=== PATIENT | female | born 1960 ===

== ENCOUNTER 2016-10-02 19:53 | Inpatient (IN) | payer MEDICARE, OTHER ==
[2016-10-02 20:16] VITALS: BMI 36.7
[2016-10-02] MEDS ORDERED: Sodium Chloride 0.9% 1,000 ML IV STA (20:24)
--- NOTE | 2016-10-02 20:32 | ED PDOC ---
Arrival/HPI <Juan M Jones - Last Filed: 10/02/16 23:17> - General Historian: Patient - History of Present Illness Time/Duration: Prior to Arrival Symptom Onset: Other Symptom Course: Other Context: Home <Veronica Howell - Last Filed: 10/03/16 02:24> - General Chief Complaint: High Blood Sugar Time Seen by Provider: 10/02/16 20:11 - History of Present Illness Narrative History of Present Illness (Text): 10/02/16 20:27 55 yo female with PMH of HTN, COPD, DM presented with elevated blood sugar. Patient states that she was feeling sick recently and went to see her motor vehicle emissions inspector yesterday. She was prescribed antibiotic and a medrol dose pack. The morning her sugar was 400, she retook it before she came to ED it was 600. She called her motor vehicle emissions inspector office and was advised to come into the ED. She currently takes metformin 500mg TID, and she is not on insulin. She states she continues to have SOb denies fever, chills, abd pain, chest pain, n/v/d/c. PMD: none (Veronica Howell) Past Medical History - Provider Review Nursing Documentation Reviewed: Yes - Infectious Disease Hx of Infectious Diseases: None - Tetanus Immunization Tetanus Immunization: Unknown - Reproductive Menopause: Yes - Cardiac Hx Cardiac Disorders: Yes Hx Hypertension: Yes - Pulmonary Hx Respiratory Disorders: Yes (seasonal allergies,MULTIPLE SINUS SX 4 X,REMOVED POLYPS) Hx Asthma: Yes Hx Chronic Obstructive Pulmonary Disease (COPD): Yes Hx Emphysema: Yes Other/Comment: has home o2 and nubulizer machine - Neurological Hx Neurological Disorder: No - HEENT Hx HEENT Disorder: Yes (seasonal allergies, sinusitis 4 sx's, eyeglasses/ contacts) Other/Comment: eyeglasses/contacts - Endocrine/Metabolic Hx Diabetes Mellitus Type 2: Yes - Hematological/Oncological Hx Blood Disorders: No - Integumentary Hx Dermatological Disorder: Yes (BILATERAL LE TRACE EDEMA DRY FLAKY SKIN.) - Musculoskeletal/Rheumatological Hx Falls: No - Gastrointestinal Hx Gastrointestinal Disorders: Yes (obese) Hx Gastroesophageal Reflux: Yes Other/Comment: intentional weight loss 10 lbs last month, advised by pmd - Psychiatric Hx Psychophysiologic Disorder: Yes (SMOKED CIGARETTES AND DRANK SOCIALLY H/O) Hx Anxiety: Yes Hx Depression: Yes Hx Panic Disorder: Yes Hx Substance Use: No - Surgical History Other/Comment: left arm sx post fall through hole in bridge 1984 has plates and screws - Anesthesia Hx Anesthesia: Yes Hx Anesthesia Reactions: No Hx Malignant Hyperthermia: No - Suicidal Assessment Feels Threatened In Home Enviroment: No <Veronica Howell - Last Filed: 10/03/16 02:24> Family/Social History - Physician Review Nursing Documentation Reviewed: Yes Family/Social History: CVA/TIA (sister), CAD/WA (father) Smoking Status: Former Smoker Hx Alcohol Use: Yes (H/O OF SOCIAL DRINKS) Hx Substance Use: No Hx Substance Use Treatment: No <Gumaro Howelliha - Last Filed: 10/03/16 02:24> Allergies/Home Meds <Juan M Jones - Last Filed: 10/02/16 23:17> <LyndaVeronica blanchard - Last Filed: 10/03/16 02:24> Allergies/Adverse Reactions: Allergies aspirin Allergy (Verified 05/17/16 21:00) SHORTNESS OF BREATH Home Medications: Home Meds Medication Instructions Recorded Confirmed Dexlansoprazole [Dexilant] 60 mg PO DAILY 09/05/13 10/03/16 QUEtiapine [Seroquel] 200 mg PO HS 11/21/15 10/03/16 Temazepam [Restoril] 30 mg PO HS 11/21/15 10/03/16 Tiotropium Brandon [Spiriva 2.5 mcg IH DAILY 11/21/15 10/03/16 Respimat] clonazePAM [Klonopin] 2 mg PO QID 11/21/15 10/03/16 Acetylcysteine [Mucomyst 10% 4ML] 4 ml IH 10/03/16 Albuterol HFA [Ventolin HFA 90 2 puff IH [id number] 10/03/16 10/03/16 mcg/actuation (8 g)] Arformoterol [Brovana] 15 mcg IH BID 10/03/16 10/03/16 Gabapentin [Neurontin] 300 mg PO TID 10/03/16 10/03/16 metFORMIN [glucOPHAGE] 500 mg PO TID 10/03/16 10/03/16 Review of Systems - Review of Systems Constitutional: Normal. absent: Fatigue, Fevers Eyes: Normal. absent: Vision Changes ENT: Normal. absent: Rhinorrhea, Epistaxis, Sinus Congestion Respiratory: SOB. absent: Cough, Wheezing Cardiovascular: Normal. absent: Chest Pain, Palpitations, Edema, Calf Pain Gastrointestinal: Normal. absent: Abdominal Pain, Constipation, Diarrhea, Nausea, Vomiting Genitourinary Female: Normal. absent: Dysuria, Frequency, Hematuria Musculoskeletal: Normal. absent: Arthralgias, Back Pain, Myalgias Skin: Normal. absent: Rash, Laceration, Ulcer Neurological: Normal. absent: Headache, Dizziness Endocrine: Normal Hemo/Lymphatic: Normal. absent: Easy Bleeding, Easy Bruising Psychiatric: Normal <Veronica Howell - Last Filed: 10/03/16 02:24> Physical Exam Finger Stick Blood Glucose: 500 - Systems Exam Head: Present: Atraumatic, Normocephalic Pupils: Present: PERRL. No: Pinpoint Extroacular Muscles: Present: EOMI Conjunctiva: Present: Normal Mouth: Present: Moist Mucous Membranes Nose (External): Present: Atraumatic Neck: Present: Normal Range of Motion Respiratory/Chest: Present: Clear to Auscultation, Rales (mild diffuse). No: Respiratory Distress, Accessory Muscle Use, Wheezes, Rhonchi, Tachypneic Cardiovascular: Present: Regular Rate and Rhythm, Normal S1, S2. No: Murmurs, Irregular Rhythm, Tachycardic, Bradycardic Abdomen: Present: Normal Bowel Sounds. No: Tenderness, Distention, Peritoneal Signs Back: Present: Normal Inspection Upper Extremity: Present: Normal Inspection. No: Cyanosis, Edema Lower Extremity: Present: Normal Inspection, NORMAL PULSES. No: Edema, CALF TENDERNESS Neurological: Present: GCS=15, CN II-XII Intact, Speech Normal Skin: Present: Warm, Dry, Normal Color. No: Rashes, Diaphoretic, Hot, Cold, Pale, Laceration Psychiatric: Present: Alert, Oriented x 3, Normal Insight, Normal Concentration <Veronica Howell Last Filed: 10/03/16 02:24> Vital Signs Temp Pulse Resp BP Pulse Ox 10/03/16 01:07 86 19 136/93 H 96 10/02/16 22:27 88 19 139/99 H 94 L 10/02/16 20:13 98.0 F 96 H 18 196/94 H 96 Medical Decision Making <Juan M Jones - Last Filed: 10/02/16 23:17> <Veronica Howell - Last Filed: 10/03/16 02:24> ED Course and Treatment: Patient Seen With Resident: In agreement with resident note which contains more details about the patient. Patient was seen and evaluated with resident. Came up with plan and treatment together. A 55 year old female with elevated blood sugar. Pt was recently placed on antibiotics and medrol dose pack by motor vehicle emissions inspector. Additional HPI as noted by resident. On physical exam, patient has mild diffuse rales. Ordered chest xray, labs and Urinalysis. Will give patient IV fluid. 10/02/16 23:[address] Mireles, who is aware and agrees with plan. Accepts pt in to his service. Pt will go to [facility] observation for hyperglycemia. (Juan M Jones) 10/02/16 20:34 Impression: 55 yo female with PMH of hypertension, diabetes, COPD presented to Emergency department with elevated blood sugar Differential Diagnosis include but are not limited to: - hyperglycemia Plan: - cbc, cmp - Urinalysis - cxr - ivf -- Reassess and disposition Progress Notes: 10/02/16 21:28 - blood glucose is 637, will give 10 units. Labs reviewed. CRX shows no active disease. - EKG: rate 101 bpm, sinus tachycardia, no ST changes. (Veronica Howell) - Lab Interpretations Lab Results: 10/02/16 20:40 10/02/16 20:40 Lab Results 10/02/16 21:30: pO2 30, VBG pH 7.25 L, VBG pCO2 60.0, VBG HCO3 26.3, VBG O2 Sat (Calc) 67.2 H, VBG Base Excess -2.1 L 10/02/16 20:40: WBC 8.6, RBC 4.74, Hgb 13.4, Hct 40.0, MCV 84.4, MCH 28.3, MCHC 33.5, RDW 13.8, Plt Count 271, MPV 12.6 H 10/02/16 20:40: Sodium 136, Potassium 3.9, Chloride 100, Carbon Dioxide 21, Anion Gap 19, BUN 7, Creatinine 0.8, Est GFR ( Amer) > 60, Est GFR (Non- Af Amer) > 60, Random Glucose 637 H* D, Calcium 9.4, Total Bilirubin 0.7, AST 32 , ALT 41, Alkaline Phosphatase 130, Total Protein 7.2, Albumin 4.1, Globulin 3.1 , Albumin/Globulin Ratio 1.3 10/02/16 20:30: Urine Color Straw, Urine Appearance Clear, Urine pH 6.0, Ur Specific [place] <= 1.005, Urine Protein Negative, Urine Glucose (UA) >=1000, Urine Ketones Negative, Urine Blood Trace-lysed H, Urine Nitrate Negative, Urine Bilirubin Negative, Urine Urobilinogen 0.2, Ur Leukocyte Esterase Negative , Urine RBC 0 - 2, Urine WBC 0 - 2, Ur Epithelial Cells 0 - 2, Urine Bacteria Trace - RAD Interpretation Radiology Orders: 10/02/16 20:23 CHEST PORTABLE [RAD] Stat - EKG Interpretation EKG Interpretation (Text): 10/02/16 22:39 EKG: Ordered, reviewed, and independently interpreted the EKG. Rate : 101 BPM Rhythm : sinus tachycardia Interpretation : No ST-segment changes (Lynda,Veronica) - Medication Orders Current Medication Orders: Albuterol/Ipratropium (Duoneb 3 Mg/0.5 Mg (3 Ml) Ud) 3 ml IH [id number] RIGOBERTO Albuterol/Ipratropium (Duoneb 3 Mg/0.5 Mg (3 Ml) Ud) 3 ml IH Q2H PRN PRN Reason: Shortness of Breath Atorvastatin Calcium (Lipitor) 40 mg PO DIN [facility] Last Admin: 10/02/16 23:40 Dose: 40 mg Budesonide (Pulmicort Respules) 0.5 mg IH BIDRESP RIGOBERTO Last Admin: 10/02/16 23:40 Dose: 0.5 mg Cholecalciferol (Vitamin D) 2,000 iu PO DAILY RIGOBERTO Clonazepam (Klonopin) 2 mg PO QID RIGOBERTO PRN Reason: Protocol Heparin Sodium (Porcine) (Heparin) 5,000 units SC Q8H RIGOBERTO PRN Reason: Protocol Last Admin: 10/02/16 23:39 Dose: 5,000 units Sodium Chloride (Sodium Chloride 0.9%) 1,000 mls @ 100 mls/hr IV .Q10H [facility] Stop: 10/07/16 03:14 Last Admin: 10/02/16 23:59 Dose: 100 mls/hr Insulin Detemir (Levemir) 20 unit SC Q12 [facility] Last Admin: 10/03/16 00:52 Dose: 20 unit Insulin Human Lispro (Humalog High) 0 units SC ACHS [facility] PRN Reason: Protocol Losartan Potassium (Cozaar) 50 mg PO DAILY [facility] Metformin HCl (Glucophage) 1,000 mg PO BID [facility] Last Admin: 10/03/16 00:53 Dose: Montelukast Sodium (Singulair) 10 mg PO HS [facility] Last Admin: 10/02/16 23:40 Dose: 10 mg Non-Formulary Medication (Temazepam [Restoril]) 30 mg PO HS [facility] Non-Formulary Medication (Tiotropium Brandon [Spiriva Respimat]) 2.5 mcg IH DAILY [facility] Pantoprazole Sodium (Protonix Ec Tab) 40 mg PO ACB [facility] Paroxetine HCl (Paxil) 20 mg PO DAILY [facility] Potassium Chloride (K-Dur 20 Meq Er Tab) 20 meq PO BID [facility] Last Admin: 10/02/16 23:40 Dose: 20 meq Quetiapine Fumarate (Seroquel) 200 mg PO HS [facility] PRN Reason: Protocol Last Admin: 10/02/16 23:57 Dose: 200 mg Discontinued Medications Sodium Chloride (Sodium Chloride 0.9%) 1,000 mls @ 999 mls/hr IV .Q1H1M [facility] Stop: 10/02/16 21:24 Last Admin: 10/02/16 20:43 Dose: 999 mls/hr Insulin Human Regular (Humulin R) 10 units SC ONCE ONE Stop: 10/02/16 21:27 Last Admin: 10/02/16 21:55 Dose: 10 units Insulin Human Regular (Humulin R) 10 units IVP STAT [facility] Stop: 10/02/16 23:10 Last Admin: 10/02/16 23:40 Dose: 10 units Non-Formulary Medication (Insulin Detemir [Levemir]) 15 units SC BID [facility] - Scribe Statement The provider has reviewed the documentation as recorded by the Scribe <Juan M Jones - Last Filed: 10/02/16 23:17> <Veronica Howell - Last Filed: 10/03/16 02:24> - Scribe Statement Marilin Vu Provider Scribe Attestation: All medical record entries made by the Scribe were at my direction and personally dictated by me. I have reviewed the chart and agree that the record accurately reflects my personal performance of the history, physical exam, medical decision making, and the department course for this patient. I have also personally directed, reviewed, and agree with the discharge instructions and disposition. (Juan M Jones) Disposition/Present on Arrival <Juan M Jones - Last Filed: 10/02/16 23:17> - Present on Arrival Any Indicators Present on Arrival: No History of DVT/PE: No History of Uncontrolled Diabetes: No Urinary Catheter: No History of Decub. Ulcer: No History Surgical Site Infection Following: None - Disposition Have Diagnosis and Disposition been Completed?: Yes Disposition Time: 23:16 Patient Plan: Admission <Veronica Howell - Last Filed: 10/03/16 02:24> - Disposition Diagnosis: Hyperglycemia Disposition: HOSPITALIZED Condition: FAIR
[2016-10-02 20:41] LABS: URINE BILIRUBIN NEGATIVE (NEGATIVE); URINE BLOOD TRACE-LYSED (NEGATIVE); URINE GLUCOSE (UA) >=1000 mg/dL (NEGATIVE); URINE KETONE NEGATIVE (NEGATIVE); URINE LEUKOCYTE ESTERASE NEGATIVE Leu/uL (NEGATIVE); URINE PROTEIN NEGATIVE mg/dL (<30 mg/dL); URINE UROBILINOGEN 0.2 E.U./dL (<1 E.U./dL)
[2016-10-02 20:54] LABS: MEAN CELL VOLUME 84.4 fL (80.0-105.0); MEAN CORPUSCULAR HEMOGLOBIN 28.3 pg (25.0-35.0); MEAN CORPUSCULAR HGB CONC 33.5 g/dl (31.0-37.0); MEAN PLATELET VOLUME 12.6 fl (7.0-11.0); RED CELL DISTRIBUTION WIDTH 13.8 % (11.5-14.5); WHITE BLOOD COUNT 8.6 10^3/ul (4.5-11.0)
[2016-10-02 20:56] LABS: URINE APPEARANCE CLEAR (CLEAR); URINE COLOR STRAW (YELLOW)
[2016-10-02 21:00] LABS: ALB/GLOB RATIO 1.3 (1.1-1.8); ALKALINE PHOSPHATASE 130 U/L (38-133); ALT/SGPT 41 U/L (7-56); AST/SGOT 32 U/L (15-39); BILIRUBIN,TOTAL 0.7 mg/dL (0.2-1.3); BLOOD UREA NITROGEN 7 mg/dL (7-21); CALCIUM 9.4 mg/dL (8.4-10.5); CARBON DIOXIDE 21 mmol/L (21-33); CHLORIDE 100 mmol/L (98-107); GFR AFRICAN-AMERICAN > 60; POTASSIUM 3.9 mmol/L (3.6-5.0); SODIUM 136 mmol/L (132-148); TOTAL PROTEIN 7.2 g/dL (5.8-8.3)
[2016-10-02] MEDS ORDERED: Insulin Regular 1 UNITS/0.01 ML ML SC ONE (21:26)
[2016-10-02 21:36] LABS: URINE BACTERIA TRACE (NEG); URINE EPITHELIAL CELLS 0 - 2 /hpf (0-5); URINE RBC 0 - 2 /hpf (0-2); URINE WBC 0 - 2 /hpf (0-6)
[2016-10-02 21:43] LABS: VENOUS BLOOD GAS BASE EXCESS -2.1 mmol/L (0.0-2.0); VENOUS BLOOD PH 7.25 (7.32-7.43)
[2016-10-02 22:00] LABS: GLUCOSE,RANDOM 637 mg/dL (70-110)
[2016-10-02] MEDS ORDERED: Albuterol-Ipratrop 3 mg / 0.5 (3 ml) UD IH PRN (23:08)
[2016-10-02] MEDS ORDERED: Insulin Regular 1 UNITS/0.01 ML ML IVP STA (23:09)
[2016-10-02] MEDS ORDERED: Temazepam [Restoril] 30 MG (HOME MED) PO SCH (23:15)
[2016-10-02] MEDS ORDERED: INSULIN DETEMIR 15 UNIT SC SCH (23:15)
[2016-10-02] MEDS: Budesonide 0.5 mg/2 ml Inhal Susp UD IH SCH (23:40)
[2016-10-02] MEDS: Potassium Chloride 20 mEq ER Tab PO SCH (23:40)
[2016-10-02] MEDS: Sodium Chloride 0.9% 1,000 ML IV SCH (23:59)
[2016-10-03] MEDS: Insulin Detemir 100 units/ml Vial (Levemir) SC SCH ×3 (00:52→21:58)
[2016-10-03 02:30] VITALS: RESP 20
[2016-10-03] MEDS: Albuterol-Ipratrop 3 mg / 0.5 (3 ml) UD IH SCH ×4 (02:46→20:20)
[2016-10-03] MEDS ORDERED: Pantoprazole 40 mg EC Tab PO SCH (06:30)
[2016-10-03 06:39] LABS: ADD MANUAL DIFF? NO
[2016-10-03 07:25] LABS: ALB/GLOB RATIO 1.1 (1.1-1.8); ALKALINE PHOSPHATASE 95 U/L (38-133); ALT/SGPT 35 U/L (7-56); AST/SGOT 21 U/L (15-39); BILIRUBIN,DIRECT 0.2 mg/dL (0.0-0.4); BILIRUBIN,TOTAL 0.5 mg/dL (0.2-1.3); BLOOD UREA NITROGEN 7 mg/dL (7-21); CALCIUM 8.6 mg/dL (8.4-10.5); CARBON DIOXIDE 28 mmol/L (21-33); CHLORIDE 107 mmol/L (98-107); CHOLESTEROL 176 mg/dL (130-200); GFR AFRICAN-AMERICAN > 60; GLUCOSE,RANDOM 242 mg/dL (70-110); MAGNESIUM 1.8 mg/dL (1.7-2.2); POTASSIUM 3.7 mmol/L (3.6-5.0); SODIUM 142 mmol/L (132-148)
[2016-10-03 07:32] LABS: BASO # 0.03 K/mm3 (0.0-2.0); BASO % 0.4 % (0.0-3.0); EOS # 0.1 (0.0-0.7); EOS % 1.4 % (1.5-5.0); GRAN # 4.22 (1.4-6.5); GRAN % 57.4 % (50.0-68.0); HEMATOCRIT 35.7 % (36.0-48.0); LYMPH # 2.5 (1.2-3.4); LYMPH % 34.1 % (22.0-35.0); MEAN CELL VOLUME 84.4 fL (80.0-105.0); MEAN CORPUSCULAR HEMOGLOBIN 27.7 pg (25.0-35.0); MEAN CORPUSCULAR HGB CONC 32.8 g/dl (31.0-37.0); MEAN PLATELET VOLUME 12.3 fl (7.0-11.0); MONO # 0.5 (0.1-0.6); MONO % 6.7 % (1.0-6.0); PLATELET COUNT 231 10^3/uL (120.0-450.0); RED CELL DISTRIBUTION WIDTH 13.9 % (11.5-14.5); WHITE BLOOD COUNT 7.4 10^3/ul (4.5-11.0)
[2016-10-03] MEDS: Pantoprazole 40 mg EC Tab PO SCH (08:04)
[2016-10-03] MEDS: Insulin Lispro (HUMAlog) HIGH Coverage SC SCH ×4 (08:04→21:59)
[2016-10-03] MEDS ORDERED: TIOTROPIUM BROMIDE 2.5 MCG IH SCH (10:00)
--- NOTE | 2016-10-03 10:16 | RAD ---
HISTORY: Shortness of breath COMPARISON: 10/01/2016 FINDINGS: LUNGS: There is mild pulmonary hyperinflation. No focal consolidation. PLEURA: No significant pleural effusion identified, no pneumothorax apparent. CARDIOVASCULAR: Normal. OSSEOUS STRUCTURES: No significant abnormalities. VISUALIZED UPPER ABDOMEN: Normal. OTHER FINDINGS: None. IMPRESSION: COPD. No acute findings.
[2016-10-03] MEDS: Potassium Chloride 20 mEq ER Tab PO SCH ×2 (11:02→17:36)
[2016-10-03] MEDS: Sodium Chloride 0.9% 1,000 ML IV SCH ×2 (11:04→17:36)
[2016-10-03] MEDS: Budesonide 0.5 mg/2 ml Inhal Susp UD IH SCH ×2 (13:11→20:20)
[2016-10-03] MEDS: cefTRIAXone 1 gm 1 GM/100 ML BAG IVPB SCH (13:35)
[2016-10-03] MEDS: Omega-3-Acid Ethyl Esters 1 GM Cap PO SCH (17:35)
--- NOTE | 2016-10-03 20:25 | PN ---
DATE: 10/03/2016 SUBJECTIVE: The patient is seen in room 566, bed 3. The patient is out of bed to chair. The patien t is ambulating. The patient is complaining of some shortness of breath and wheezing despite nebuliz er treatment. The patient is alert, awake, oriented x 3. Overnight nurse's notes were reviewed. PHYSICAL EXAMINATION: VITAL SIGNS: T-max afebrile, heart rate 91, 87, 84 71, respirations 18-20, O2 sat mid to high 90s. Blood pressure 143/87, 144/70, 138/70. Intake output not documented. HEAD: Normocephalic, atraumatic. HEENT: Shows pinkish conjunctivae. Dry oral mucosa. No neck rigidity. CHEST: Kyphosis. LUNGS: Show coarse rhonchi bilaterally. Positive occasional wheezing anterior lung urbina bilateral ly. CARDIOVASCULAR: Shows S1, S2. ABDOMEN: Obese, protuberant, positive bowel sounds. GENITALIA: Female. RECTAL: Deferred. EXTREMITIES: Shows no pitting edema, no calf tenderness, no Homans sign. NEUROLOGIC: The patient is alert, awake, oriented x 3. Cranial nerves II-XII are intact. Gait exam ination ____ MUSCULOSKELETAL: Shows elevated body mass index. DIAGNOSTICS: CBC was reviewed. CMP, LFTs were reviewed. Blood glucose is down to 246 from greater than 600. The patient's other diagnostic data is pending. Fingerstick blood sugar was reviewed which was a mid to high 200s. IMPRESSION AND PLAN: 1. Steroid induced hyperglycemia and un-controlled diabetes mellitus. 2. Acute exacerbation of chronic obstructive pulmonary disease, with mild bronchospasm and wheezing. 3. Moderate obesity. 4. Hypertension. 5. History of psychiatric disorder, with history of anxiety, depression. 6. Dyslipidemia. 7. Hypovitaminosis D. 8. Uncontrolled diabetes mellitus secondary to steroids. 9. Deconditioning. PLAN: At this time, patient is to be continued on IV fluids. The patient will be started on broad s pectrum IV antibiotics. Pulmonary consultation has been ordered. The patient will be continued on b christine and bolus insulin as ordered with sliding scale coverage, oral hypoglycemic has been ordered. T he patient has been ordered repeat labs. At present, patient's further management will be dependent upon the patient's clinical condition, hemodynamic status, and as per patient's response to therapeut ic intervention, as per patient's diagnostic test results and as per recommendation by all the physic ians involved in care of the patient. The patient has been requested to be seen by Dr. Mansi De, en docrinologist, and ____ from pulmonary. At present, patient's further management will be depende nt upon the patient's clinical condition, hemodynamic status, and as per patient's response to therap eutic intervention, as per patient's diagnostic test results and as per patient's clinical condition. The patient has been explained about the details of her medical condition, need for further diagnos tic and therapeutic intervention. Need for further management was explained to the patient in layman 's language. All questions and concerns answered. Dictated and electronically signed, not read. Christian Mireles MD cc: [id number] TT: 10/03/2016 20:25:05 Confirmation # [id number] Dictation # [id number] timo
--- NOTE | 2016-10-03 23:55 | CARD ---
APPROVED REPORT EKG Measurement Heart [id number] <Conclusion> Sinus tachycardia Left axis deviation Inferior infarct, age undetermined T wave abnormality, consider anterior ischemia Abnormal ECG
[2016-10-04] MEDS: Albuterol-Ipratrop 3 mg / 0.5 (3 ml) UD IH SCH ×3 (01:11→13:21)
[2016-10-04] MEDS: Budesonide 0.5 mg/2 ml Inhal Susp UD IH SCH (07:15)
[2016-10-04 07:33] LABS: ADD MANUAL DIFF? NO
[2016-10-04 07:34] VITALS: O2SAT 97
[2016-10-04 07:40] LABS: BASO # 0.02 K/mm3 (0.0-2.0); BASO % 0.3 % (0.0-3.0); EOS # 0.6 (0.0-0.7); EOS % 9.3 % (1.5-5.0); GRAN # 2.52 (1.4-6.5); GRAN % 42.4 % (50.0-68.0); HEMATOCRIT 36.8 % (36.0-48.0); LYMPH # 2.5 (1.2-3.4); LYMPH % 41.9 % (22.0-35.0); MEAN CORPUSCULAR HEMOGLOBIN 27.5 pg (25.0-35.0); MEAN CORPUSCULAR HGB CONC 32.3 g/dl (31.0-37.0); MONO # 0.4 (0.1-0.6); MONO % 6.1 % (1.0-6.0); PLATELET COUNT 209 10^3/uL (120.0-450.0); RED CELL DISTRIBUTION WIDTH 14.1 % (11.5-14.5); WHITE BLOOD COUNT 5.9 10^3/ul (4.5-11.0)
[2016-10-04 07:48] LABS: ALB/GLOB RATIO 1.1 (1.1-1.8); ALKALINE PHOSPHATASE 86 U/L (38-133); ALT/SGPT 29 U/L (7-56); AST/SGOT 23 U/L (15-39); BILIRUBIN,DIRECT 0.3 mg/dL (0.0-0.4); BILIRUBIN,TOTAL 0.5 mg/dL (0.2-1.3); BLOOD UREA NITROGEN 9 mg/dL (7-21); CALCIUM 8.1 mg/dL (8.4-10.5); CARBON DIOXIDE 28 mmol/L (21-33); CHLORIDE 109 mmol/L (98-107); GFR AFRICAN-AMERICAN > 60; GLUCOSE,RANDOM 243 mg/dL (70-110); MAGNESIUM 1.5 mg/dL (1.7-2.2); POTASSIUM 3.8 mmol/L (3.6-5.0); SODIUM 142 mmol/L (132-148); TOTAL PROTEIN 5.5 g/dL (5.8-8.3)
[2016-10-04] MEDS: Insulin Lispro (HUMAlog) HIGH Coverage SC SCH ×3 (08:27→16:52)
[2016-10-04] MEDS: Pantoprazole 40 mg EC Tab PO SCH (08:27)
[2016-10-04] MEDS ORDERED: Insulin Detemir 100 units/ml Vial (Levemir) SC ONE (10:54)
[2016-10-04] MEDS ORDERED: Potassium Chloride 20 mEq ER Tab PO ONE (10:54)
[2016-10-04] MEDS ORDERED: cefTRIAXone 1 gm 1 GM/100 ML BAG IVPB ONE (10:55)
[2016-10-04] MEDS ORDERED: Omega-3-Acid Ethyl Esters 1 GM Cap ONE (10:55)
[2016-10-04] MEDS: Potassium Chloride 20 mEq ER Tab PO SCH (11:03)
[2016-10-04] MEDS: Insulin Detemir 100 units/ml Vial (Levemir) SC SCH (11:03)
[2016-10-04] MEDS: cefTRIAXone 1 gm 1 GM/100 ML BAG IVPB SCH (11:05)
[2016-10-04] MEDS: Omega-3-Acid Ethyl Esters 1 GM Cap PO SCH ×2 (11:06→17:13)
[2016-10-04] MEDS: Sodium Chloride 0.9% 1,000 ML IV SCH (11:07)
[2016-10-04 11:08] VITALS: PULSE 88
[2016-10-04] MEDS ORDERED: Insulin Lispro (humaLOG) MEDIUM Coverage SC ONE (11:55)
[2016-10-04] MEDS: Magnesium Sulfate 2 GM in Sodium Chloride 0.9% 100 ML IVPB SCH ×2 (13:29→15:11)
--- NOTE | 2016-10-04 14:36 | CON ---
DATE: 10/04/2016 ROOM: 566 HISTORY OF PRESENT ILLNESS: This is a 55-year-old female with recent uncontrolled type 2 insulin-req uiring diabetes, presenting here with marked hyperglycemic accelerations related to the intercurrent oral steroid therapy given for exacerbation of COPD and is now being referred for diabetic evaluation and management. She is actually very well controlled only on oral hypoglycemic therapy with glucose levels ranging now from 211-240 and 317 mg/dL. PAST MEDICAL HISTORY: As mentioned above, history of type 2 diabetes, controlled on oral hypoglycemi c therapy with metformin given as 500 mg b.i.d. as noted; history of hypertensive cardiovascular dise ase and dyslipidemia; history of COPD with frequent exacerbations of the same and received a recent M edrol Dosepak from her public health internship as noted a few days prior to admission. Her glucose values were over 600 mg/dL and was advised immediate admission thereof through the Emergency Room. History of g eneralized anxiety and depression, history of hypertension and dyslipidemia as mentioned. History of super morbid obesity. FAMILY HISTORY: Positive for hypertension and heart disease. SOCIAL HISTORY: The patient has supportive family. No known substance use. REVIEW OF SYSTEMS: As mentioned above, admits to generalized body weakness with easy fatigability an d tiredness and suboptimal energy level. Also admits to episodic dizziness and lightheadedness, wors e on the day of admission. No chest pains or palpitations, but admits to progressive shortness of br eath initially on exertion and then at rest with paroxysmal nocturnal dyspnea and also bronchorrhea w ith productive cough. Denies any pleuritic pain. Her oral intake has been variable and suboptimal w ith nausea, dyspepsia, and vague upper abdominal pain. PHYSICAL EXAMINATION: GENERAL: This is an obese female in no apparent distress. VITAL SIGNS: Blood pressure of 150/90, pulse of 100 beats per minute and regular, temperature 98, re spirations 20. Height is 5 feet 4 inches, weight is 214 pounds. HEENT: Head normocephalic. Eyes anicteric with pink conjunctivae. Fundoscopy not possible at this time. Ears, nose and throat otherwise normal. NECK: Supple. Thyroid gland is normal size. No carotid bruits. No cervical adenopathy. CARDIOPULMONARY: There is an adynamic precordium. S1, S2 is rapid and regular. LUNGS: Show scattered rhonchi. ABDOMEN: Flat, soft with positive bowel sounds. EXTREMITIES: No peripheral edema. Pulses are +2 bilaterally. LABORATORY DATA: Her chemistries showed a BUN of 9, sodium 142, potassium 3.8, chloride 109, CO2 28, glucose 243 and creatinine 0.8. ASSESSMENT: This is a 55-year-old female with uncontrolled and decompensated type 2 insulin-requirin g diabetes, presenting here with acute exacerbation of chronic obstructive pulmonary disease and rece nt oral steroid therapy with expected hyperglycemic accelerations which will be temporary and should improve as her clinical condition improves accordingly. PLAN OF MANAGEMENT: Will continue the present basal insulin as given with Levemir given twice a day as ordered. Will continue also the high dose correction scale using Humalog insulin as given. Howev er, if hyperglycemic levels persist, then will switch her over to a combination of a basal and bolus insulin regimen temporarily as indicated. Will follow and advise accordingly. She may really not re quire basal insulin for outpatient management, but just for inpatient diabetic management. Will cont inue the basal and bolus insulin dose regimen as ordered. Will consider the addition of Amaryl on to p of her metformin and even Januvia as her hyperglycemic levels persist accordingly. For now, will o btain serial chemistries and supplement accordingly as needed. Mansi De MD cc: [id number] TT: 10/04/2016 14:35:51 Confirmation # [id number] Dictation # [id number] mn
--- NOTE | 2016-10-04 15:34 | CON ---
DATE: 10/04/2016 HISTORY OF PRESENT ILLNESS: The patient is a reilly 55-year-old female who was last seen in the [facility] with acute exacerbation of bronchial asthma. She has underlying airtrapping consistent with a ashly gnosis of COPD. She was in distress in the office but did not want to go to the hospital. She state d that if she took corticosteroids at home she felt that she would improve. We were concerned about her blood sugar as she does have diabetes mellitus and is extremely overweight. The patient took her double Medrol Dosepak and was told to call me daily with blood sugars. Her normal blood sugar is 15 0; it has never been higher than 300. During the third day of the corticosteroid treatment, she stat es that her blood sugar went up as high as 600. I do not have written confirmation of this. She cam e to the Emergency Room and was admitted. She is clearly better than earlier. She is comfortable. She is lying in bed flat. There is no dyspnea. Other problems remain the same, however, but she is markedly improved and her blood sugar is being evaluated. PAST MEDICAL HISTORY: Includes obesity, hypertension, diabetes mellitus, dyslipidemia, hypovitaminos is D, severe chronic obstructive pulmonary disease characterized by acute asthma with significant air trapping. She also has a history of obstructive sleep apnea. SOCIAL HISTORY: The patient claims to never have smoked. She has no travel history. No occupationa l exposure. The obesity has progressed over the years. Navi Bowman MD cc: [id number] TT: 10/04/2016 10:50:08 Confirmation # [id number] Dictation # [id number] mn
[2016-10-04 16:53] VITALS: BP 136/87; TEMP 97.3
--- NOTE | 2016-10-04 18:44 | DS ---
The patient is seen lying in the bed in room 566, bed 3. The patient is lying in the bed, comfortabl e, watching TV. PHYSICAL EXAMINATION: VITAL SIGNS: T-max 97.7, heart rate 88, blood pressure 136/87, 130/90. Respirations 20, O2 sat 97%. HEAD: Normocephalic, atraumatic. HEENT: Shows pink conjunctivae, anicteric sclerae. No oropharyngeal lesion. NECK: No neck rigidity. CHEST: Kyphosis. LUNGS: Shows decreasing rhonchi, no wheezing. CARDIOVASCULAR: Shows S1, S2, regular rhythm. ABDOMEN: Obese, protuberant, positive bowel sounds. GENITALIA: Female. RECTAL: Deferred. EXTREMITIES: Shows no pitting edema, no calf tenderness, no Homans' sign. NEUROLOGIC: The patient is alert, awake, oriented x 3. Cranial nerves II-XII intact. GAIT: Independent. VASCULAR: Palpable pulses. MUSCULOSKELETAL: Shows a body mass index of 37. Cranial nerves II-XII intact. VASCULAR: Palpable pulses. DIAGNOSTICS 10/04: WBC 5.9, hemoglobin/hematocrit 11.9 and 36.8, platelet 209. Sodium 142, potassiu m 3.8, chloride 109, CO2 28, anion gap 9, BUN 9, creatinine 0.8, GFR greater than 60, glucose 240, 21 1, 243, 242. Calcium 8.1, magnesium 1.5. Hemoglobin A1c 11.1, fructosamine 365. LFTs are normal wi th a total protein of 5.5, albumin 2.9. Vitamin D less than 12.8. Cholesterol 176, LDL 143, triglyc eride 278. The patient seen by demand planning manager. The patient seen by demand planning manager, Dr. Mansi De. Their renan mmendations noted. Recommendation is to add Amaryl on top of metformin and Januvia upon discharge. FINAL IMPRESSION, PLAN, AND DISCHARGE DIAGNOSES: 1. Uncontrolled type 2 diabetes mellitus with severe hyperglycemia secondary to intravenous steroids and uncontrolled diabetes with hemoglobin A1c of 11.1 and elevated fructosamine of 365. 2. History of hypertension. 3. Morbid obesity with elevated body mass index of 37. 4. Transient hypoxemia. 5. Acute exacerbation of chronic obstructive pulmonary disease with wheezing and bronchospasm (resol elva). 6. Normocytic anemia. 7. Hyperglycemia with uncontrolled type 2 diabetes mellitus with hemoglobin A1c of 11.1 and fructosa mine of 365. 8. Hypomagnesemia. 9. Mild protein malnutrition and hypoalbuminemia. 10. Hypertriglyceridemia, hypercholesterolemia with elevated LDL and decreased HDL. 11. Hypovitaminosis D. 12 Glycosuria. 13. Microscopic hematuria. 14. Bacteriuria. 15. Chronic obstructive pulmonary disease with pulmonary hyperinflation. 16. Left axis deviation. 17. History of anxiety disorder, bipolar disorder, panic disorder, probable bipolar spectrum disorde r and major depression, severe generalized anxiety disorder. 16. History of chronic obstructive pulmonary disease, dyslipidemia, hypovitaminosis D, history of di abetic neuropathy, history of hypertension, history of hypokalemia, history of insomnia. PLAN: At this time, patient is to be discharged home as cleared by endocrinology. The patient was s een by case management. The patient already has home O2 and nebulizer and glucometer. The patient i s not eligible for VNA at this time due to homebound eligibility criteria and patient is not homeboun d. AT PRESENT DISCHARGE MEDICATIONS: Mucomyst nebulizer 4 times a day, Ventolin HFA as needed, DuoNeb n ebulizer every 6 hours around the clock q. 2 hours p.r.n., Brovana 15 mcg twice a day, Lipitor 40 mg daily, Pulmicort nebulizer 0.5 mg twice a day, vitamin D3 2000 international units daily, Klonopin 2 mg 4 times a day, Dexilant 60 mg daily, doxycycline 100 mg q. 12, Neurontin 300 three times a day, Am aryl 4 mg twice a day, Cozaar 50 mg daily, metformin 1000 mg twice a day, Singulair 10 mg at bedtime , Lovaza 2 grams twice a day, Paxil 20 mg daily, K-Dur 20 mEq twice a day, Seroquel 200 mg at bedtime , Januvia 100 mg daily, Restoril 30 mg at bedtime, Spiriva Respimat 2.5 mcg per inhaler, metformin 10 00 mg twice a day, Amaryl 4 mg twice a day. At present, patient is being discharged on above medications, the patient's discharge medications hav e been electronically submitted to [facility] [place]. The patient is to be discharge d home. DISCHARGE FOLLOWUP: With Dr. Mireles within 1 week with all medications. Discharge medicines as per a mbulatory orders plus new script. The patient was also to be given copy of moderate carbohydrate hea rt healthy diet upon discharge. During this hospitalization, the patient was extensively explained about the details of her medical c ondition, diagnosis, management, treatment plan. Outpatient close followup was extensively explained to the patient at length and all questions and concerns answered, which patient acknowledged and und erstood. The patient was also advised weight loss. The patient was advised [facility] and endocrinology followup. Time spent: 45 minutes. Dictated and electronically signed, not read. Christian Mireles MD cc: [id number] TT: 10/04/2016 18:43:23 jn
--- NOTE | 2016-10-04 21:32 | HP ---
HISTORY OF PRESENT ILLNESS: The patient is a 55-year-old obese female, came to the [facility] Emergency Room complaining of elevated blood sugar. The patient came in as a walk-in. The pat ient stated that the patient was recently seen by Dr. Dubois and was started on Medrol Dosepak an d the blood sugar started going up and now the blood sugar is greater than 600. According to the ER physician evaluation note, the patient presented with elevated blood sugar. The patient stated that she was seen by her pile driving supervisor. The patient was given antibiotic and Medrol Dosepak, initially bl ood sugars stayed around 200-300, but later in the last day or so, the patient's blood sugar is going up to greater than 600. REVIEW OF SYSTEMS: A 13-system review was done. Pertinent positive and negative dictated above. CODE STATUS: Full code. ADVANCE DIRECTIVE AND LIVING WILL: None. ALLERGIES: PENICILLIN. HEIGHT: 5 feet 4 inches. WEIGHT: 214. BMI: 37. HOME MEDICATIONS: 1. Klonopin 2 mg 4 times a day. 2. Spiriva Respimat 2.5 mcg daily. 3. Restoril 30 mg at bedtime. 4. Seroquel 200 mg at bedtime. 5. Paxil 20 mg daily. 6. Singulair 10 mg at bedtime. 7. Cozaar 50 mg daily. 8. Neurontin 300 mg 3 times a day. 9. Dexilant 60 mg daily. 10. Vitamin D3 2000 international units daily. 11. Pulmicort nebulizer 0.5 mg nebulizer twice a day. 12. Brovana 15 mcg twice a day. 13. Albuterol, Ventolin HFA 2 puffs every 6 hours. 14. Mucomyst nebulizer treatment. 15. K-Dur 20 mEq twice a day. 16. Lovaza 2 grams twice a day. 17. Metformin 500 mg 3 times a day. 18. Vitamin D3 2,000 units daily. 19. Lipitor 40 mg daily. 20. DuoNeb nebulizer every 2 p.r.n. and every 6 hours around the clock. SOCIAL HISTORY: Positive for social alcohol use and positive for former smoker. The patient denies any communicable transmissible disease. PAST MEDICAL AND SURGICAL HISTORY: Significant for hypertension, history of obesity, history of sherley nsulin-requiring type 2 diabetes mellitus, history of obesity, history of gastric ulcer, history of g astroesophageal reflux, history of sinusitis, history of degenerative joint disease of the neck and k nees, history of left arm surgery, history of former nicotine dependence and social alcohol use, hist ory of depression, anxiety, panic disorder, history of former nicotine dependence, history of tubal l igation, history of chronic obstructive pulmonary disease, history of multiple sinus surgeries and si nus polyp surgery. The patient's past medical history is also significant for multiple recurrent sin usitis, history of morbid obesity, history of concentric left ventricular hypertrophy, history of mil d pulmonary hypertension, history of anxiety, history of depression, history of insomnia, history of left anterior hemiblock. The patient's past medical history is significant for multiple exacerbation s of chronic obstructive pulmonary disease with bronchospasm and asthma, history of hypertension, his tory of uncontrolled diabetes mellitus, history of hypokalemia, history of atelectasis and pneumonia, history of hepatic steatosis, history of hypertensive cardiovascular disease, history of mild pulmon lucrecia arterial hypertension, history of left anterior hemiblock. History anterolateral coronary ischem ic changes with T-wave inversion on the EKG, history of hypertension, history of anxiety disorder, hi story of bipolar disorder, history of panic disorder, history of probable bipolar spectrum disorder a nd major depression, severe anxiety disorder, history of severe generalized anxiety disorder, history of hypovitaminosis D, history of hypomagnesemia, history of hypokalemia, hypercholesterolemia, histo ry of lactic acidosis, history of insomnia. The patient's past medical history is significant for hi story of tachycardia, history of hypoxemia, history of lactic acidosis, history of pneumonia of coron lucrecia ischemic changes, history of fatty liver. Past medical history is also significant for probable bipolar spectrum disorder, panic disorder. OCCUPATIONAL HISTORY: The patient is disabled. PHYSICAL EXAMINATION: VITAL SIGNS: T-max 98.0, heart rate 96-88, blood pressure 196/94, respiration 18 to , O2 sat is 96%. GENERAL: The patient is seen in stretcher, lying in the stretcher. HEAD: Normocephalic, atraumatic. HEENT: Shows pink conjunctivae, anicteric sclerae. No oropharyngeal lesion. NECK: No neck rigidity. CHEST: Kyphosis. LUNGS: Shows occasional positive rhonchi bilaterally with very soft wheezing noted upper lung urbina , anteroposteriorly. CARDIOVASCULAR: S1, S2. Tachycardic rhythm. ABDOMEN: Obese, positive bowel sounds. GENITALIA: Female. RECTAL: Deferred. EXTREMITIES: Shows no pitting edema, no calf tenderness, no Homans' sign. NEUROLOGIC: The patient is alert, awake, oriented x 3. Cranial nerves II-XII intact. Gait examinat ion is not tested. MUSCULOSKELETAL: Shows elevated body mass index of 37. Cranial nerves II-XII limited. GAIT: Not tested. VASCULAR: Palpable pulses. DIAGNOSTICS: On 10/02/2016: WBC 8.6, hemoglobin and hematocrit 13.4 and 40.0, platelets 271. [facility], which shows a pH of 7.25, pO2 of 30, pCO2 of 60, bicarb 26. The patient's samina ashok shows sodium 136, potassium 3.9, chloride 100, CO2 of 21, anion gap 19, BUN 7, creatinine 0.8, GFR greater than 60, glucose 637, calcium 9.4. LFTs are normal. Urinalysis: pH 6.0, specific grav ity less than 1.005, urine glucose greater than 1000. Blood trace. Trace bacteria. The patient's c hest x-ray shows emphysema and pulmonary hyperinflation. EKG shows sinus tachycardia, left anterior hemiblock, T-wave inversion in lead V1-V4. The patient was seen in the Emergency Room by the ER physician and the special forces medical sergeant. The patient was given IV and subcutaneous insulin and the patient was also given IV fluid [facility] The patient is to be placed on observation. IMPRESSION AND PLAN: 1. Uncontrolled diabetes mellitus with significantly elevated blood glucose of greater than 600 with severe hyperglycemia. 2. Acute exacerbation of chronic obstructive pulmonary disease with mild wheezing. 3. Tachycardia. 4. Uncontrolled hypertension. 5. Transient hypoxemia. 6. Morbid obesity. 7. Uncontrolled type 2 diabetes mellitus with hyperglycemia with blood glucose of greater than 637. 8. Glycosuria. 9. Microscopic hematuria and pyuria and bacteriuria. 10. Chronic obstructive pulmonary disease and pulmonary hyperinflation on the chest x-ray. 11. Sinus tachycardia with left anterior hemiblock and T-wave inversion in V1-V4 suggestive of anter ior ischemia. 12. History of anxiety, depression, bipolar disorder. 13. History of insomnia. 14. History of hypertension. 15. History of diabetic neuropathy. 16. History of hypovitaminosis D, history of hypercholesterolemia, hypertriglyceridemia, history of hepatic steatosis, history of dyslipidemia. PLAN: At this time, the patient is to be admitted to [facility]. Repeat labs have been ordered. The patient has been consulted with Dr. Mansi De from endocrinology, Dr. [facility] from [facility]. The patient is started on Cozaar 50 daily, doxycycline 100 mg q. 12, DuoNeb nebulizer every 6 hours around the clock and q. 2 hours p.r.n. The patient is on metformin is increased to 1000 mg t wice a day, heparin 5000 subQ q. 8. Humalog high dose sliding scale coverage, K-Dur 20 twice a day, Klonopin 2 mg 4 times a day, Levemir 20 units subQ twice a day, Lipitor 40 mg daily, Lovaza 2 g maria d twice a day, Paxil 20 mg daily, Protonix 40 mg daily, Pulmicort nebulizer 0.5 mg twice a day, Ro cephin 1 gram IV daily, Seroquel 200 mg at bedtime, Singulair 10 mg at bedtime. The patient is start ed on IV fluids 0.9 normal saline at 100 mL an hour, Restoril 30 mg at bedtime, Spiriva Respimat 2.5 mcg daily, vitamin D3 2000 units daily. The patient has been ordered out of bed. At present, the patient's further management will be depend ent upon the patient's clinical condition, hemodynamic status, and as per the patient's response to t herapeutic intervention, as per the patient's recommendation from all the physicians involved in the care of the patient. The patient has been explained about the details of her medical condition, need for hospitalization, need for further treatment and management discussed and explained to the patien t at length and all questions and concerns answered. Dictated, electronically signed, not read. Christian Mireles MD cc: [id number] TT: 10/04/2016 21:31:31 nc
[2016-10-06 15:14] LABS: GLYCOMARK(R) 1.3 mcg/mL (7.5-28.4)
== END 2016-10-04 18:30 | disposition home or self-care (01) | DRG 638 ==
LOC: ED 19:53 → ERH 23:16 → 5RNO 10-03 01:20 → OBSVTOIN 10-03 08:00
PROVIDERS: ADMIT Internal Medicine; ATTEND Internal Medicine
DX: E11.65 Type 2 diabetes mellitus with hyperglycemia (principal); T38.0X5A Adverse effect of glucocorticoids and synthetic analogues, initial encounter; J44.1 Chronic obstructive pulmonary disease with (acute) exacerbation; E44.1 Mild protein-calorie malnutrition; E11.40 Type 2 diabetes mellitus with diabetic neuropathy, unspecified; I11.9 Hypertensive heart disease without heart failure; K76.0 Fatty (change of) liver, not elsewhere classified; E66.01 Morbid (severe) obesity due to excess calories; R09.02 Hypoxemia; D64.9 Anemia, unspecified; E83.42 Hypomagnesemia; E78.2 Mixed hyperlipidemia; E55.9 Vitamin D deficiency, unspecified; R31.29 Other microscopic hematuria; F41.1 Generalized anxiety disorder; F41.0 Panic disorder [episodic paroxysmal anxiety]; F31.9 Bipolar disorder, unspecified; G47.00 Insomnia, unspecified; E87.6 Hypokalemia; G47.33 Obstructive sleep apnea (adult) (pediatric); Z68.37 Body mass index [BMI] 37.0-37.9, adult; Z79.84 Long term (current) use of oral hypoglycemic drugs; Z88.6 Allergy status to analgesic agent; Z87.891 Personal history of nicotine dependence

== ENCOUNTER 2017-05-09 14:09 | Inpatient (IN) | payer MEDICARE, OTHER ==
[2017-05-09 14:24] VITALS: BMI 44.6
[2017-05-09] MEDS ORDERED: Sodium Chloride 0.9% 1,000 ML IV STA ×2 (14:43→18:08)
[2017-05-09] MEDS ORDERED: Iohexol 240 (50 ml) ONE (14:49)
[2017-05-09 15:18] LABS: BASO # 0.02 K/mm3 (0.0-2.0); BASO % 0.2 % (0.0-3.0); EOS # 0.5 (0.0-0.7); EOS % 5.3 % (1.5-5.0); GRAN # 6.53 (1.4-6.5); GRAN % 65.8 % (50.0-68.0); HEMOGLOBIN 12.7 g/dL (12.0-16.0); LYMPH # 2.2 (1.2-3.4); LYMPH % 21.9 % (22.0-35.0); MEAN CELL VOLUME 88.7 fl (80.0-105.0); MEAN CORPUSCULAR HEMOGLOBIN 28.7 pg (25.0-35.0); MEAN CORPUSCULAR HGB CONC 32.3 g/dl (31.0-37.0); MEAN PLATELET VOLUME 11.7 fl (7.0-11.0); MONO # 0.7 (0.1-0.6); MONO % 6.8 % (1.0-6.0); RBC 4.43 10^6/uL (3.5-6.1); RED CELL DISTRIBUTION WIDTH 13.8 % (11.5-14.5); VENOUS BLOOD GAS BASE EXCESS 5.7 mmol/L (0.0-2.0); VENOUS BLOOD GAS PO2 50 mm/Hg (30-55); VENOUS BLOOD PH 7.32 (7.32-7.43); WHITE BLOOD COUNT 9.9 10^3/ul (4.5-11.0)
--- NOTE | 2017-05-09 15:19 | ED PDOC ---
Arrival/HPI - General Chief Complaint: GI Problem Time Seen by Provider: 05/09/17 14:12 Historian: Patient - History of Present Illness Narrative History of Present Illness (Text): 05/09/17 14:39 A 56 year old female, whose past medical history includes COPD, diabetes, hypertension, high cholesterol, 4 sinus suergies, arm surgery, and tubal ligation, presents to the emergency department complaining of diarrhea for 2 weeks. Patient reports today she began also experiencing dizziness, nausea, and slight abdominal pain. Patient describes diarrhea as soft, not watery. Also, patient mentions having difficulty sleeping. Has no history of being tested for sleep apnea. Patient has been prescribed Temazepam and Klonopin 2 mg for sleep aid. PMD: Dr. Mireles Time/Duration: > week (2 weeks) Symptom Onset: Sudden Symptom Course: Unchanged Past Medical History - Provider Review Nursing Documentation Reviewed: Yes - Infectious Disease Hx of Infectious Diseases: None - Tetanus Immunization Tetanus Immunization: Unknown - Cardiac Hx Cardiac Disorders: Yes Hx Hypertension: Yes - Pulmonary Hx Respiratory Disorders: Yes (seasonal allergies,MULTIPLE SINUS SX 4 X,REMOVED POLYPS) Hx Asthma: Yes Hx Chronic Obstructive Pulmonary Disease (COPD): Yes (O2 depedent) Hx Emphysema: Yes Other/Comment: has home o2 and nubulizer machine - Neurological Hx Neurological Disorder: No - HEENT Hx HEENT Disorder: Yes (seasonal allergies, sinusitis 4 sx's, eyeglasses/ contacts) Other/Comment: eyeglasses/contacts - Endocrine/Metabolic Hx Diabetes Mellitus Type 2: Yes - Hematological/Oncological Hx Blood Disorders: No - Integumentary Hx Dermatological Disorder: Yes (BILATERAL LE TRACE EDEMA DRY FLAKY SKIN.) - Musculoskeletal/Rheumatological Hx Falls: No - Gastrointestinal Hx Gastrointestinal Disorders: Yes (obese) Hx Gastroesophageal Reflux: Yes Other/Comment: liver enlargement - Psychiatric Hx Psychophysiologic Disorder: Yes (SMOKED CIGARETTES AND DRANK SOCIALLY H/O) Hx Anxiety: Yes Hx Depression: Yes Hx Panic Disorder: Yes Hx Substance Use: No - Surgical History Hx Tubal Ligation: Yes Other/Comment: left arm sx post fall through hole in bridge 1983 has plates and screws. sinus surgery - Anesthesia Hx Anesthesia: Yes Hx Anesthesia Reactions: No Hx Malignant Hyperthermia: No - Suicidal Assessment Feels Threatened In Home Enviroment: No Family/Social History - Physician Review Nursing Documentation Reviewed: Yes Family/Social History: No Known Family HX Smoking Status: Former Smoker Hx Alcohol Use: Yes (H/O OF SOCIAL DRINKS) Hx Substance Use: No Hx Substance Use Treatment: No Allergies/Home Meds Allergies/Adverse Reactions: Allergies aspirin Allergy (Verified 05/17/16 21:00) SHORTNESS OF BREATH Home Medications: Home Meds Medication Instructions Recorded Confirmed Dexlansoprazole [Dexilant] 60 mg PO DAILY 09/05/13 05/09/17 QUEtiapine [Seroquel] 100 mg PO BID 11/21/15 05/09/17 Temazepam [Restoril] 30 mg PO HS 11/21/15 05/09/17 Tiotropium [place] [Spiriva 2.5 mcg IH DAILY 11/21/15 05/09/17 Respimat] clonazePAM [Klonopin] 2 mg PO QID 11/21/15 05/09/17 Albuterol HFA [Ventolin HFA 90 2 puff IH [id number] 10/03/16 05/09/17 mcg/actuation (8 g)] Arformoterol [Brovana] 15 mcg IH BID 10/03/16 05/09/17 Gabapentin [Neurontin] 300 mg PO TID 10/03/16 05/09/17 Benzonatate [Tessalon Perle] 1 cap PO TID 05/09/17 05/09/17 Famotidine [Pepcid] 1 tab PO DAILY 05/09/17 05/09/17 Febuxostat [Uloric] 1 tab PO DAILY 05/09/17 05/09/17 Levalbuterol [Xopenex] 1 vial IH QID 05/09/17 05/09/17 Magnesium Oxide [Mag-Ox] 1 tab PO DAILY 05/09/17 05/09/17 Rosuvastatin Calcium [Crestor] 1 tab PO HS 05/09/17 05/09/17 Ursodiol [Chema Forte] 1 tab PO TID 05/09/17 05/09/17 Review of Systems - Physician Review All systems were reviewed & negative as marked: Yes - Review of Systems Gastrointestinal: Abdominal Pain (slightly), Diarrhea, Nausea Neurological: Dizziness Physical Exam Vital Signs Reviewed: Yes Vital Signs Temp Pulse Resp BP Pulse Ox 05/09/17 19:31 95 H 20 129/71 96 05/09/17 16:09 98.2 F 109 H 20 142/86 93 L 05/09/17 14:16 98.5 F 120 H 20 150/76 96 Temperature: Afebrile Blood Pressure: Normal Pulse: Regular Respiratory Rate: Normal Appearance: Positive for: Other (mildly obese) Pain Distress: None Mental Status: Positive for: Alert and Oriented X 3 - Systems Exam Head: Present: Atraumatic, Normocephalic Pupils: Present: PERRL Extroacular Muscles: Present: EOMI Conjunctiva: Present: Normal Mouth: Present: Moist Mucous Membranes Neck: Present: Normal Range of Motion Respiratory/Chest: Present: Clear to Auscultation, Good Air Exchange. No: Respiratory Distress, Accessory Muscle Use Cardiovascular: Present: Regular Rate and Rhythm, Normal S1, S2. No: Murmurs Abdomen: Present: Tenderness (diffusely tender) Back: Present: Normal Inspection Upper Extremity: Present: Normal Inspection. No: Cyanosis, Edema Lower Extremity: Present: Normal Inspection. No: Edema Neurological: Present: GCS=15, CN II-XII Intact, Speech Normal Skin: Present: Warm, Dry, Normal Color. No: Rashes Psychiatric: Present: Alert, Oriented x 3, Normal Insight, Normal Concentration Medical Decision Making ED Course and Treatment: 05/09/17 14:43 Impression: 56 year old female with diarrhea, nausea, slight abdominal pain, and dizziness. Plan: -- EKG -- Abd/Pelvis CT -- Labs -- Blood Culture -- Stool Culture -- IV Fluids -- Venous Blood Gas -- Reassess and disposition Prior Visits: Notes and results from previous visits were reviewed. Patient was last seen in the emergency department on 10/02/2016 for feeling sick. Patient was admitted. Progress Notes: EKG: Ordered, reviewed, and independently interpreted the EKG. Rate : 108 BPM Rhythm : Sinus tachycardia Interpretation : Left axis deviation. Comparison : No previous EKG for comparison. 05/09/2017 18:51 Abd/Pelvis CT IMPRESSION: Diverticulitis with what appears represent localized on wall thickening of a short segment of the proximal/mid descending colon; findings may represent mild acute diverticulitis. Hepatomegaly with moderate to significant fatty hepatic infiltration. Probable small bilateral renal cysts however renal ultrasound could be performed to confirm. Dictator: Tal Servin MD 05/09/17 21:[address] Staples, who will be taking patient under service. - Lab Interpretations Lab Results: 05/09/17 15:00 05/09/17 15:00 Lab Results 05/09/17 19:15: pO2 43, VBG pH 7.32, VBG pCO2 64.0 H, VBG HCO3 34.0 H, VBG Total CO2 36.0 H, VBG O2 Sat (Calc) 82.5 H, VBG Base Excess 5.7 H, VBG Potassium 3.4 L, Sodium 139.0, Chloride 103.0, Glucose 120 H, Lactate 1.4, FiO2 21.0, Venous Blood Potassium 3.4 L 05/09/17 15:00: Sodium 143, Chloride 102, Potassium 3.4 L, Carbon Dioxide 32, Anion Gap 13, BUN 5 L, Creatinine 0.9, Est GFR ( Amer) > 60, Est GFR (Non -Af Amer) > 60, Random Glucose 192 H, Calcium 9.2, Total Bilirubin 0.7, AST 24, ALT 44, Alkaline Phosphatase 58, Lactate Dehydrogenase 580, Total Creatine Kinase 49, Troponin I < 0.01, Total Protein 6.5, Albumin 3.7, Globulin 2.8, Albumin/Globulin Ratio 1.3, Lipase 66 05/09/17 15:00: pO2 50, VBG pH 7.32, VBG pCO2 66.0 H*, VBG HCO3 34.0 H, VBG Total CO2 36.0 H, VBG O2 Sat (Calc) 88.0 H, VBG Base Excess 5.7 H, VBG Potassium 3.5 L, Sodium 142.0, Chloride 105.0, Glucose 202 H, Lactate 2.5 H, FiO2 21.0, Venous Blood Potassium 3.5 L 05/09/17 15:00: PT 11.6, INR 1.02 05/09/17 15:00: WBC 9.9, RBC 4.43, Hgb 12.7, Hct 39.3, MCV 88.7, MCH 28.7, MCHC 32.3, RDW 13.8, Plt Count 231, MPV 11.7 H, Gran % 65.8, Lymph % (Auto) 21.9 L, [place] % (Auto) 6.8 H, Eos % (Auto) 5.3 H, Baso % (Auto) 0.2, Gran # 6.53 H, Lymph # 2.2, [place] # 0.7 H, Eos # 0.5, Baso # 0.02 I have reviewed the lab results: Yes - RAD Interpretation Radiology Orders: 05/09/17 14:43 ABD PELVIS PO & IV CONTRAST [CT] Stat - Medication Orders Current Medication Orders: Discontinued Medications Sodium Chloride (Sodium Chloride 0.9%) 1,000 mls @ 999 mls/hr IV .Q1H1M STA Stop: 05/09/17 15:43 Last Admin: 05/09/17 15:03 Dose: 999 mls/hr eMAR Start Stop Document 05/09/17 15:03 MS (Rec: 05/09/17 15:06 [id number] Intravenous Solution Start Date 05/09/17 Start Time 15:05 End Date 05/09/17 End time 16:05 Total Infusion Time 60 Sodium Chloride (Sodium Chloride 0.9%) 1,000 mls @ 999 mls/hr IV .Q1H1M STA Stop: 05/09/17 19:08 Last Admin: 05/09/17 19:26 Dose: 999 mls/hr eMAR Start Stop Document 05/09/17 19:26 RD (Rec: 05/09/17 19:27 [id number] Intravenous Solution Start Date 05/09/17 Start Time 19:26 End Date 05/09/17 End time 20:26 Total Infusion Time 60 Metronidazole (Flagyl) 500 mg in 100 mls @ 100 mls/hr IVPB STAT STA PRN Reason: Protocol Stop: 05/09/17 20:37 Last Admin: 05/09/17 20:01 Dose: 100 mls/hr eMAR Start Stop Document 05/09/17 20:01 RD (Rec: 05/09/17 20:01 RD [id number]) Intravenous Solution Start Date 05/09/17 Start Time 20:01 End Date 05/09/17 End time 21:01 Total Infusion Time 60 Levofloxacin/Dextrose (Levaquin 750mg) 750 mg in 150 mls @ 100 mls/hr IVPB STAT STA PRN Reason: Protocol Stop: 05/09/17 21:07 Last Admin: 05/09/17 20:45 Dose: 100 mls/hr eMAR Start Stop Document 05/09/17 20:45 RD (Rec: 05/09/17 20:45 RD [id number]) Intravenous Solution Start Date 05/09/17 Start Time 20:45 End Date 05/09/17 End time 22:15 Total Infusion Time 90 - PA / [employer] / Resident Statement MD/DO has reviewed & agrees with the documentation as recorded. - Scribe Statement The provider has reviewed the documentation as recorded by the Jonathan Sevilla Provider Scribe Attestation: All medical record entries made by the Scribe were at my direction and personally dictated by me. I have reviewed the chart and agree that the record accurately reflects my personal performance of the history, physical exam, medical decision making, and the department course for this patient. I have also personally directed, reviewed, and agree with the discharge instructions and disposition. Disposition/Present on Arrival - Present on Arrival Any Indicators Present on Arrival: No History of DVT/PE: No History of Uncontrolled Diabetes: No Urinary Catheter: No History of Decub. Ulcer: No History Surgical Site Infection Following: None - Disposition Have Diagnosis and Disposition been Completed?: Yes Diagnosis: Diverticulitis, Lactic acidosis, Hypokalemia Disposition: HOSPITALIZED Disposition Time: 21:50 Patient Plan: Admission Condition: GOOD Referrals: Christian Mireles MD [Primary Care Provider] - Follow up with primary Forms: Nimbula (Czech)
[2017-05-09 15:27] LABS: INR 1.02 (0.93-1.08); PROTHROMBIN TIME 11.6 SECONDS (9.4-12.5)
[2017-05-09 15:28] LABS: ALB/GLOB RATIO 1.3 (1.1-1.8); ALBUMIN 3.7 g/dL (3.0-4.8); ALT/SGPT 44 U/L (7-56); AST/SGOT 24 U/L (14-36); BLOOD UREA NITROGEN 5 mg/dL (7-21); CALCIUM 9.2 mg/dL (8.4-10.5); GFR AFRICAN-AMERICAN > 60; GFR NON-AFRICAN AMERICAN > 60; LIPASE 66 U/L (23-300)
[2017-05-09 15:39] LABS: TROPONIN I < 0.01 ng/mL
[2017-05-09] MEDS ORDERED: Iohexol 350 MG/100 ML VIAL ONE (17:14)
--- NOTE | 2017-05-09 18:53 | CT ---
PROCEDURE: CT scan of the abdomen and pelvis dated 05/09/2017. HISTORY: Abdominal pain and diarrhea. Questionable diverticulitis COMPARISON: Comparison made with prior CT scan of the abdomen and pelvis dated 11/30/2016 TECHNIQUE: Contiguous axial images of the abdomen and pelvis performed following oral and intravenous injection of approximately 100 cc Omnipaque 350 contrast material. Additional two dimensional sagittal and coronal reformats generated. Radiation dose: Total exam DLP = 1194.94 mGy-cm. This CT exam was performed using one or more of the following dose reduction techniques: Automated exposure control, adjustment of the mA and/or kV according to patient size, and/or use of iterative reconstruction technique. FINDINGS: LOWER THORAX: There are areas of atelectasis and or scarring left lung base with some localized pleural thickening as well. Minimal atelectasis and or scarring right lung base. There is a small hiatal hernia. LIVER: Liver is enlarged measuring nearly 21 cm in CC dimension. Moderate -significant diffuse fatty hepatic infiltration. No obvious hepatic mass or collection. Portal and splenic veins are opacified. GALLBLADDER AND BILE DUCTS: Gallbladder is physiologically distended. No evidence of intraluminal gallbladder calculi. PANCREAS: The visualized portions of the pancreas appears slightly atrophic and fatty replaced. No obvious pancreatic masses, collections or calcifications. No significant pancreatic ductal dilatation SPLEEN: Spleen exhibits normal size and attenuation pattern without mass collection or calcification. ADRENALS: No adrenal lesions. KIDNEYS AND URETERS: Kidneys demonstrate symmetric nephrograms. No evidence of nephrolithiasis or hydronephrosis. There is a small approximately 10 mm low-attenuation focus posterolateral cortex right left kidney. While this could represent a hyperdense cyst given Hounsfield units in the upper mid 20s,. There is a smaller focus of low-attenuation the anteromedial cortex mid-lower pole right kidney that is too small to characterize though may also represent small cyst. Followup renal ultrasound could be performed to confirm these findings BLADDER: Urinary bladder is physiologically distended. No evidence of intraluminal urinary bladder calculi. REPRODUCTIVE: The uterus appears and adnexal structures appear grossly unremarkable. . APPENDIX: Appendix is not seen with any certainty. No secondary signs of acute appendicitis. BOWEL: Evaluation of the bowel is somewhat limited due to incomplete opacification. The stomach is incompletely distended which presumably accounts for thick-walled appearance. Gastritis not excluded. Visualized loops of small bowel exhibit normal contour and caliber. No evidence of acute mechanical small bowel obstruction. Note again made of colonic diverticula the bulk of which arise from the proximal colon. There is localized wall thickening of a short segment of the proximal/mid sigmoid colon which could represent localized acute diverticulitis. Clinical correlation recommended. PERITONEUM: Unremarkable. No fluid collection. No free air. LYMPH NODES: Unremarkable. No enlarged lymph nodes. VASCULATURE: Unremarkable. No aortic aneurysm. BONES: Mild multilevel degenerativespondylosis of the lower thoracic and lumbar spine. OTHER FINDINGS: None. IMPRESSION: Diverticulosis with what appears represent localized on wall thickening of a short segment of the proximal/mid descending colon ; findings may represent mild acute diverticulitis. Hepatomegaly with moderate to significant fatty hepatic infiltration. Probable small bilateral renal cysts however renal ultrasound could be performed to confirm
[2017-05-09 19:23] LABS: VENOUS BLOOD GAS BASE EXCESS 5.7 mmol/L (0.0-2.0); VENOUS BLOOD GAS PO2 43 mm/Hg (30-55); VENOUS BLOOD PH 7.32 (7.32-7.43)
[2017-05-09] MEDS ORDERED: levoFLOXacin 750 mg in D5W 750 MG/150 ML BAG IVPB STA (19:38)
[2017-05-09] MEDS ORDERED: metroNIDAZOLE IV 500 mg/100 ml 500 MG/100 ML BAG IVPB STA (19:38)
[2017-05-09] MEDS ORDERED: Potassium Chloride 20 mEq ER Tab PO STA (22:33)
[2017-05-09] MEDS ORDERED: Influenza Vaccine 60 mcg/0.5 mL SYR (4YR UP) IM ONE (23:02)
[2017-05-09] MEDS ORDERED: Pneumococcal 23-Valent Vaccine IM ONE (23:02)
[2017-05-10] MEDS ORDERED: Albuterol HFA 90 mcg/actuation (8 g) IH SCH (02:00)
[2017-05-10] MEDS: metroNIDAZOLE IV 500 mg/100 ml 500 MG/100 ML BAG IVPB SCH ×3 (06:45→21:31)
[2017-05-10] MEDS: Pantoprazole 40 mg EC Tab PO SCH (06:48)
[2017-05-10] MEDS ORDERED: Levalbuterol 1.25 MG/3 ML Inhal Soln UD IH SCH (07:30)
[2017-05-10] MEDS: Albuterol 0.083% Inhal Sol (2.5 mg/3 mL) UD IH SCH ×3 (07:55→20:55)
[2017-05-10] MEDS: Budesonide 0.5 mg/2 ml Inhal Susp UD IH SCH ×2 (07:55→20:55)
[2017-05-10] MEDS ORDERED: Arformoterol 15 mcg/2 ml Inh Sol IH SCH (08:00)
[2017-05-10 09:14] LABS: BLOOD UREA NITROGEN 4 mg/dL (7-21); CALCIUM 8.5 mg/dL (8.4-10.5); GFR AFRICAN-AMERICAN > 60; GFR NON-AFRICAN AMERICAN > 60
[2017-05-10 09:17] LABS: BASO # 0.03 K/mm3 (0.0-2.0); BASO % 0.3 % (0.0-3.0); EOS # 0.5 (0.0-0.7); EOS % 5.2 % (1.5-5.0); GRAN # 5.37 (1.4-6.5); GRAN % 56.5 % (50.0-68.0); HEMOGLOBIN 12.3 g/dL (12.0-16.0); LYMPH # 2.9 (1.2-3.4); LYMPH % 30.9 % (22.0-35.0); MEAN CORPUSCULAR HEMOGLOBIN 28.4 pg (25.0-35.0); MEAN CORPUSCULAR HGB CONC 32.3 g/dl (31.0-37.0); MEAN PLATELET VOLUME 11.6 fl (7.0-11.0); MONO # 0.7 (0.1-0.6); MONO % 7.1 % (1.0-6.0); RBC 4.33 10^6/uL (3.5-6.1); WHITE BLOOD COUNT 9.5 10^3/ul (4.5-11.0)
[2017-05-10] MEDS ORDERED: URSODIOL PO SCH (10:00)
[2017-05-10] MEDS ORDERED: FEBUXOSTAT PO SCH (10:00)
[2017-05-10] MEDS ORDERED: levoFLOXacin 750 mg in D5W 750 MG/150 ML BAG IVPB SCH (10:00)
[2017-05-10] MEDS ORDERED: Magnesium Oxide 400 mg Tab UD PO SCH (10:00)
[2017-05-10] MEDS: Omega-3-Acid Ethyl Esters 1 GM Cap PO SCH ×2 (10:34→17:14)
[2017-05-10] MEDS: Cholecalciferol 1,000 INTLU TAB PO SCH (10:35)
[2017-05-10] MEDS: Fluticasone Nasal 50 mcg/Spray NS SCH (10:39)
[2017-05-10] MEDS: Tiotropium 18 mcg Cap For Inhalation IH SCH (15:21)
--- NOTE | 2017-05-10 16:16 | CARD ---
APPROVED REPORT EKG Measurement Heart [id number] <Conclusion> Sinus tachycardia Left axis deviation Low voltage QRS Inferior infarct, age undetermined Possible Anterolateral infarct, age undetermined Abnormal ECG
[2017-05-10] MEDS: Temazepam [Restoril] 30 MG (HOME MED) PO SCH (21:32)
--- NOTE | 2017-05-10 22:16 | CON ---
DATE: 05/10/2017 REQUESTING PHYSICIAN: Dr. Christian Mireles. REASON FOR CONSULTATION: I have been asked to see this 56-year-old female with known morbid obesity, diabetes mellitus, hypertension, hypercholesterolemia, COPD, who comes to the hospital with 2 weeks of diarrhea and generalized weakness. The patient also has been experiencing dizziness and nausea. She denies any rectal bleeding. The patient apparently was started on magnesium oxide and ursodiol for fatty liver approximately 1 month ago. She has never had a colonoscopy. She denies any nausea, vomiting, fevers, chills, urgency, frequency or dysuria. She denies any abdominal pain. CT scan of the abdomen and pelvis performed in the emergency room showed sigmoid diverticulosis with nonspecific mural thickening in the sigmoid colon. There is no evidence of pericolonic inflammation or infiltration of the pericolonic fat. PAST MEDICAL HISTORY: Again, notable for morbid obesity, diabetes mellitus, hypertension, cholesterolemia, COPD. PAST SURGICAL HISTORY: Notable for sinus surgery, tubal ligation, arm surgery. SOCIAL HISTORY: She consumes alcohol socially. She is a former cigarette smoker having quit many years ago. REVIEW OF SYSTEMS: A 14-point review of systems is notable for diarrhea, dizziness, nausea. MEDICATIONS: Home medications include Dexilant 60 mg once a day, Seroquel 100 mg b.i.d., Restoril 30 mg nightly, Spiriva inhaler 2.5 mcg once a day, Klonopin 2 mg four times a day, Ventolin inhaler 2 puffs every 6 hours as needed for shortness of breath, Brovana 15 mcg inhaled twice a day, Neurontin 300 mg three times a day, Tessalon Perles one tablet three times a day, Pepcid 1 tablet daily, Uloric 1 tablet daily, Xopenex inhaler four times a day as needed, magnesium oxide 1 tablet daily, Crestor 1 tablet nightly, ursodiol 1 tablet p.o. t.i.d. PHYSICAL EXAMINATION: GENERAL: Morbidly obese female lying in bed, in no acute distress. VITAL SIGNS: Reveal temperature of 98, blood pressure 143/64, heart rate of 82. BMI is 44.6. HEENT: Revealed sclerae to be white. Conjunctivae pink. NECK: Supple. CHEST: Reveal lungs to be clear. HEART: Reveals regular rate and rhythm. ABDOMEN: Obese, soft, nontender. No mass. EXTREMITIES: Show no edema. LABORATORY DATA: Reveal white blood cell count 9.5, hemoglobin 12.3. Chemistries reveal potassium at 3.3, BUN 4, creatinine 0.8. AST, ALT, alk phos were all normal. CT scan of the abdomen and pelvis results are as above. IMPRESSION: A 56-year-old female with multiple comorbidities including morbid obesity, diabetes mellitus, chronic obstructive pulmonary disease, hypertension, hypercholesterolemia with several weeks of diarrhea. She denies any abdominal pain. She comes in to the hospital with diarrhea, nausea, weakness and dizziness. I do not believe that this patient has diverticulitis. She has no tenderness on physical exam. The CT scan finding of mural thickening is nonspecific. I suspect that her diarrhea which started 2 weeks ago is secondary to medications, which she was started on 4 weeks ago including magnesium oxide and ursodiol. She has not been on any antibiotics recently. RECOMMENDATIONS: 1. Check stool for C. diff and stool for culture and sensitivity. 2. I will stop the magnesium oxide and ursodiol. 3. I will discontinue IV Levaquin. 4. Continue IV Flagyl. 5. I will advance the patient's diet to a low fat, low-residue 2000-calorie ADA diet. Juan M Hernandez MD
[2017-05-11] MEDS ORDERED: Potassium Chloride 40 mEq/30 ml LIQ UD PO ONE (00:30)
[2017-05-11] MEDS: Albuterol 0.083% Inhal Sol (2.5 mg/3 mL) UD IH SCH ×5 (01:20→23:36)
[2017-05-11 01:21] LABS: MAGNESIUM 1.8 mg/dL (1.7-2.2)
[2017-05-11] MEDS: Pantoprazole 40 mg EC Tab PO SCH (05:34)
[2017-05-11] MEDS: metroNIDAZOLE IV 500 mg/100 ml 500 MG/100 ML BAG IVPB SCH ×3 (05:34→21:41)
[2017-05-11] MEDS: Budesonide 0.5 mg/2 ml Inhal Susp UD IH SCH ×2 (07:14→19:40)
[2017-05-11 07:59] LABS: BASO # 0.01 K/mm3 (0.0-2.0); BASO % 0.1 % (0.0-3.0); EOS # 0.5 (0.0-0.7); EOS % 6.7 % (1.5-5.0); GRAN # 4.15 (1.4-6.5); GRAN % 60.3 % (50.0-68.0); HEMOGLOBIN 11.4 g/dL (12.0-16.0); LYMPH # 1.6 (1.2-3.4); LYMPH % 23.2 % (22.0-35.0); MEAN CELL VOLUME 88.8 fl (80.0-105.0); MEAN CORPUSCULAR HEMOGLOBIN 28.5 pg (25.0-35.0); MEAN CORPUSCULAR HGB CONC 32.1 g/dl (31.0-37.0); MEAN PLATELET VOLUME 11.2 fl (7.0-11.0); MONO # 0.7 (0.1-0.6); MONO % 9.7 % (1.0-6.0); RED CELL DISTRIBUTION WIDTH 14.3 % (11.5-14.5); WHITE BLOOD COUNT 6.9 10^3/ul (4.5-11.0)
[2017-05-11 08:28] LABS: BLOOD UREA NITROGEN 4 mg/dL (7-21); CALCIUM 8.6 mg/dL (8.4-10.5); GFR AFRICAN-AMERICAN > 60; GFR NON-AFRICAN AMERICAN > 60
--- NOTE | 2017-05-11 10:19 | PN ---
DATE: SUBJECTIVE: The patient is in [facility] in [place], room number 571, bed1. The patient was admitted with abdominal discomfort and shortness of breath. The patient was evaluated in the Emergency Room and the CAT scan showed the patient had evidence of left-sided diverticulitis involving the left sigmoid colon area. The patient's past history significant that she has been treated for chronic obstructive lung disease. The patient has diabetes mellitus and depression. The patient also has coronary artery disease and she has had tubal ligation in the past. She has fracture of the left forearm that is old history. The patient is seen this morning, she is lying down and resting in a bed. She is relatively comfortable. PHYSICAL EXAMINATION: VITAL SIGNS: The pulse is 104, blood pressure is 122/55, respirations are 22, and O2 saturation is 99%. The patient's temperature is 99. HEENT: Examination the patient's head is normocephalic. NECK: Thyroid is not enlarged. JVP is flat. LUNGS: Trachea is central. Occasional rhonchi. Breath sounds are diminished bilaterally. HEART: Normal sinus rhythm, sinus tachycardia. GASTROINTESTINAL: Abdomen is soft. There is diffuse tenderness in the epigastric area and also left lower quadrant. CENTRAL NERVOUS SYSTEM: She is conscious, rational and oriented. She does not have any focal neurological deficit. PLAN: The patient was seen by Dr. Hernandez and evaluated the patient. The patient was given some food to eat yesterday, but she is on antibiotic at this time for diverticulitis, she is on Levaquin, and also the patient is on Flagyl. The patient has a list of other medications at first she has taken at home. The patient takes DuoNeb for respiratory difficulty. The patient is on Amaryl 4 mg b.i.d. The patient is on losartan 50 mg daily and Flagyl 500 mg q.8 hours. The patient is on Flonase for nasal congestion, Januvia 100 mg daily for diabetes, and Klonopin for anxiety and depression. The patient is also on Neurontin 300 mg three times a day, Lipitor 80 mg daily, Paxil 20 mg daily and 200 mg of quetiapine at one time in the night. The patient takes pantoprazole 40 mg daily and Pulmicort twice a day 0.5 mg inhalation therapy. The patient is on Singulair 10 mg daily. She is on 2 g sodium heart-healthy diet, diabetic. The patient will continue the antibiotic and we will follow up with Dr. Hernandez. Edna Arnold MD
[2017-05-11] MEDS: Omega-3-Acid Ethyl Esters 1 GM Cap PO SCH ×2 (11:22→17:26)
[2017-05-11] MEDS: Fluticasone Nasal 50 mcg/Spray NS SCH (11:22)
[2017-05-11] MEDS: Cholecalciferol 1,000 INTLU TAB PO SCH (11:23)
[2017-05-11] MEDS: Tiotropium 18 mcg Cap For Inhalation IH SCH (11:24)
--- NOTE | 2017-05-11 12:04 | PN ---
DATE: 05/11/2017 SUBJECTIVE: The patient is lying in bed. She has not had any further diarrhea. She denies abdominal pain, nausea, vomiting. She denies any fevers, chills. MEDICATIONS: Currently include albuterol sulfate, glimepiride 4 mg b.i.d., losartan 50 mg once a day, Uloric 1 tablet daily, Flagyl 500 mg IV q. 8 hours, Flonase daily, Januvia 100 mg daily, Klonopin 2 mg four times a day, Lipitor 80 mg once a day, Lovaza 2 mg b.i.d., gabapentin 300 mg t.i.d., paroxetine 20 mg daily, Pepcid 40 mg once a day, Protonix 40 mg once a day, budesonide 0.5 mg inhale p.r.n., Seroquel 200 mg at bedtime, Singulair 10 mg p.o. at bedtime, Spiriva 2.5 mg inhale daily, Restoril 30 mg at bedtime, Tessalon Perles 100 mg t.i.d., cholecalciferol 2000 International Units daily. PHYSICAL EXAMINATION: VITAL SIGNS: Reveal temperature of 99, blood pressure 122/55, heart rate of 104, BMI is 44.6. HEENT: Reveal sclerae to be white. Conjunctivae pink. NECK: Supple. CHEST: Lungs are clear. HEART: Reveals regular rate and rhythm. ABDOMEN: Obese, soft, nontender. No mass. EXTREMITIES: Show no edema. LABORATORY DATA: Reveal a white blood cell count 6.9, hemoglobin 11.4. Chemistries reveal BUN 4, creatinine 0.8, blood sugar 199. IMPRESSION: 1. Diarrhea most likely secondary to medications. The patient had been on ursodiol magnesium oxide. 2. Diverticulosis. Clinically, the patient does not have diverticulitis. 3. Morbid obesity. RECOMMENDATIONS: 1. Continue low-fat lactose-free diet. 2. Check stool for C. diff toxin. 3. Elective outpatient colonoscopy. The patient is stable from GI standpoint. Juan M Hernandez MD [facility] # [id number]
[2017-05-11] MEDS: Temazepam [Restoril] 30 MG (HOME MED) PO SCH (21:41)
[2017-05-11] MEDS ORDERED: QUEtiapine 200 mg XR Tab PO SCH (22:00)
[2017-05-12] MEDS: Albuterol 0.083% Inhal Sol (2.5 mg/3 mL) UD IH SCH ×3 (02:22→14:15)
[2017-05-12] MEDS: Pantoprazole 40 mg EC Tab PO SCH (05:15)
[2017-05-12] MEDS: metroNIDAZOLE IV 500 mg/100 ml 500 MG/100 ML BAG IVPB SCH (05:15)
[2017-05-12] MEDS: Budesonide 0.5 mg/2 ml Inhal Susp UD IH SCH (07:17)
[2017-05-12 07:42] LABS: BASO # 0.01 K/mm3 (0.0-2.0); BASO % 0.2 % (0.0-3.0); EOS # 0.4 (0.0-0.7); EOS % 6.3 % (1.5-5.0); GRAN # 3.95 (1.4-6.5); GRAN % 59.2 % (50.0-68.0); HEMOGLOBIN 10.8 g/dL (12.0-16.0); LYMPH # 1.7 (1.2-3.4); LYMPH % 25.1 % (22.0-35.0); MEAN CELL VOLUME 89.3 fl (80.0-105.0); MEAN CORPUSCULAR HEMOGLOBIN 28.3 pg (25.0-35.0); MEAN CORPUSCULAR HGB CONC 31.7 g/dl (31.0-37.0); MEAN PLATELET VOLUME 11.3 fl (7.0-11.0); MONO # 0.6 (0.1-0.6); MONO % 9.2 % (1.0-6.0); RBC 3.82 10^6/uL (3.5-6.1); RED CELL DISTRIBUTION WIDTH 14.4 % (11.5-14.5); WHITE BLOOD COUNT 6.7 10^3/ul (4.5-11.0)
--- NOTE | 2017-05-12 07:52 | HP ---
HISTORY OF PRESENT ILLNESS: This patient was admitted via the Emergency Room, [facility] in [place]. The patient presented in the Emergency Room with abdominal pain, epigastric pain, and shortness of breath. The patient had no fever. On examination, the patient was found to have tenderness in the left lower abdomen and epigastric area. However the patient is admitted to the hospital with a diagnosis of diverticulitis. PAST MEDICAL HISTORY: Her past history is significant that she has been treated for atherosclerotic heart disease with enlarged heart. The patient has chronic obstructive lung disease. The patient has history of depression and she is on Paxil. The patient is also treated for peptic ulcer disease and dyspepsia. The patient has insomnia and sleep apnea. The patient also has a history of neuropathy and hyperlipidemia. The patient has past history of fracture of the left arm. She has a patent screws in it. The patient also has history of tubal ligation. ALLERGIES: THE PATIENT IS ALLERGIC ASPIRIN. PHYSICAL EXAMINATION: GENERAL: On the patient's evaluation, she is overweight and sitting in the chair when I saw the patient. She is pleasant and answers all questions. VITAL SIGNS: The pulse is 82, blood pressure is 143/64, respiratory rate is 20, the patient's temperature is 98, and oxygen level is 98% on room air. HEENT: On examination, the patient's head is normocephalic. NECK: The thyroid is not clinically enlarged. LUNGS: Trachea is central. Breath sounds are vesicular. No occasional rhonchi. Breath sounds are diminished bilaterally. HEART: Normal sinus rhythm. S1 and S2 present. No murmurs heard. GASTROINTESTINAL: The patient's abdomen is soft and obesity present. Palpation shows tenderness in the left lower quadrant in comparison with the x-ray finding and CAT scan finding, the patient has diverticulitis in the segment of the left side of sigmoid colon. CENTRAL NERVOUS SYSTEM: She is conscious, rational and oriented and does not show any focal neurological deficit. LABORATORY DATA: Examination of her lab work, the patient's white count was 9,900 and the differential showed 65% granulocytes. The patient's chemistry; the blood sugar was 133, she has history of hypoglycemia. The patient also has history of multiple ENT surgery. MEDICATIONS: She is on DuoNeb. The patient is on Amaryl 4 mg b.i.d. The patient is on losartan 50 mg daily. The patient is on Brovana q. 12 hours. The patient is on Uloric acid for hyperuricemia. The patient is on Flagyl 500 mg q. 8 hours. for diverticulitis. The patient is on Levaquin 750 mg IV daily for diverticulitis. The patient is also getting Flonase because she has severe nasal disorder. She is on Januvia 100 mg daily and Klonopin 2 mg four times a day. The patient is on Lipitor 80 mg daily, gabapentin 300 mg three times a day, Paxil 20 mg daily, Pepcid 40 mg daily, and pantoprazole 40 mg daily. The patient is on budesonide, but in view of the patient is getting Brovana, we will discontinue the budesonide. The patient is on quetiapine that is Seroquel 100 mg b.i.d. These medications for her mental state. IMPRESSION AND PLAN: The patient is clinically stable at the time. We will continue the antibiotics and have a consultation with the cistern room working supervisor for the evaluation of diverticulitis. The patient's overall prognosis is guarded and condition is improving day by day. We will follow up. Edna Arnold MD
[2017-05-12 07:59] LABS: ALB/GLOB RATIO 1.2 (1.1-1.8); ALT/SGPT 42 U/L (7-56); AST/SGOT 25 U/L (14-36); BLOOD UREA NITROGEN 4 mg/dL (7-21); CALCIUM 8.6 mg/dL (8.4-10.5); GFR AFRICAN-AMERICAN > 60; GFR NON-AFRICAN AMERICAN > 60
[2017-05-12] MEDS ORDERED: Potassium Chloride 20 mEq ER Tab PO STA (09:57)
[2017-05-12] MEDS: Fluticasone Nasal 50 mcg/Spray NS SCH (11:42)
[2017-05-12] MEDS: Omega-3-Acid Ethyl Esters 1 GM Cap PO SCH (11:43)
[2017-05-12] MEDS: Cholecalciferol 1,000 INTLU TAB PO SCH (11:44)
--- NOTE | 2017-05-12 13:46 | PN ---
DATE: 05/12/2017 SUBJECTIVE: The patient denies any further diarrhea. She denies abdominal pain, nausea, or vomiting. She is tolerating solid foods. PHYSICAL EXAMINATION: VITAL SIGNS: Reveal temperature of 97.3, blood pressure 129/76, heart rate 102. HEENT: Reveal sclerae to be white. Conjunctivae pink. NECK: Supple. CHEST: Reveals lungs to be clear. HEART: Exam reveals regular rate and rhythm. ABDOMEN: Obese, soft, nontender. EXTREMITIES: Show no edema. LABORATORY DATA: Reveal white blood cell count 6.7, hemoglobin 10.8. Chemistries reveal potassium 3.4. AST, ALT, alk phos were all normal. IMPRESSION: 1. Diarrhea secondary to medications. She has not had any further diarrhea since her mag oxide and Ursodiol have been stopped. 2. Diverticulosis. 3. Morbid obesity. 4. Anemia. RECOMMENDATIONS: The patient is stable from a GI standpoint. I have asked her to follow up with me for an outpatient colonoscopy. Juan M Hernandez MD
[2017-05-12 16:04] VITALS: BP 129/76; PULSE 102; RESP 18; TEMP 97.3; O2SAT 95
--- NOTE | 2017-05-13 04:07 | DS ---
FINAL PROGRESS NOTE/DISCHARGE SUMMARY HISTORY OF PRESENT ILLNESS: The patient is seen lying in room 571, bed 1. The patient is last seen lying and sleeping in the room. The patient is awake and responsive.. The patient does not appear to be any distress. Overnight nurse's notes were reviewed.. The patient denies any diarrhea. PHYSICAL EXAMINATION: VITAL SIGNS: T-max 97.3, heart rate 82, 90, 94, 102, respirations 18, O2 sat 95% on room air and blood pressure 129/76 and 126/50. Intake and output not documented. HEENT: Head examination normocephalic and atraumatic. HEENT examination shows pinkish conjunctivae. Anicteric sclerae. No oropharyngeal lesion. NECK: No neck rigidity. CHEST: Kyphosis. LUNGS: Examination shows occasional rhonchi. No wheezing, crackles or rales. CARDIOVASCULAR: S1 and S2, regular rhythm. ABDOMEN: Soft. Abdomen is protuberant and obese. Positive bowel sounds. No guarding. No rigidity. No rebound tenderness. No costovertebral angle tenderness. No hepatosplenomegaly noted. GENITALIA: Female. RECTAL: Deferred. EXTREMITIES: Shows no pitting, no calf numbness, no Artem's signs. Trace swelling noted. MUSCULOSKELETAL: Examination shows a body mass index of 45. NEUROLOGIC: The patient is alert, awake, oriented x3. Cranial nerves II-XII intact. Gait examination is not tested. VASCULAR: Palpable pulses. DIAGNOSTICS: On May 12, WBC 6.7, hemoglobin/hematocrit 10.8/34.1 and platelet 194. Sodium 140, potassium 3.4, chloride 104, CO2 of 29, anion gap 11, BUN 4, creatinine 0.8, GFR greater than 60, glucose 227, 202, 199 and 224. LFTs are normal. Blood cultures negative. Stool C. diff is negative.. CT of the abdomen and pelvis noted. EKG shows sinus rhythm, sinus tachycardia and left axis deviation. FINAL IMPRESSION, PLAN AND DISCHARGE DIAGNOSES: 1. Probably medication induced diarrhea secondary to Actigall and magnesium oxide. 2. Oxygen dependent and steroid dependent chronic obstructive pulmonary disease. 3. Diabetes mellitus. 4. Morbid obesity. 5. Hypertriglyceridemia, hypercholesteremia and hypertension. 6. Colonic diverticulosis. 7. Sinus tachycardia. 8. Normocytic anemia. 9. Transient lactic acidosis. 10. Hypokalemia. 11. Nmz-oacigjn-dhadfwcog diabetes mellitus with hyperglycemia. 12. Left lower lobe atelectasis and scarring with pleural thickening. 13. Bibasilar atelectasis and scarring. 14. Hiatal hernia. 15. Hepatic steatosis. 16. Distended gallbladder. 17. Fatty atrophic pancreas. 18. Possible gastritis. 19. Colonic diverticulosis of the proximal colon. 20. 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 21. Questionable mild acute diverticulitis (resolved.) 22. Hepatomegaly with fatty hepatic infiltration. 23. Bilateral renal cyst. 24. Left axis deviation versus left anterior hemiblock. 25. Age indeterminate anterolateral and inferior infarct as per EKG. PLAN: The patient is cleared for discharge. By Gastroenterology, the patient will be discharged home, but the patient will stop magnesium and the patient will stop the Actigall and Chema Forte. The patient will resume all the other home medications which the patient has been taking. DISCHARGE MEDICATIONS: As follows; 1. Albuterol inhaler MDI. 2. Brovana nebulizer 15 mcg twice a day. 3. Tessalon Perles 100-200 mg three times a day. 4. Pulmicort nebulizer 0.5 mg twice a day. 5. Vitamin D 2000 international daily. 6. Klonopin 2 mg four times a day. 7. Dexilant 60 mg daily or Pepcid 40 mg daily. 8. Uloric 40 mg daily. 9. Neurontin 300 mg three times a day. 10. Amaryl 4 mg twice a day. 11. Xopenex nebulizer 1.25 mg four times a day. 12. Cozaar 50 mg daily. 13. Metformin 1000 mg twice a day. 14. Singulair 10 mg daily. 15. Lovaza 2 g twice a day. 16. Paxil 20 mg daily. 17. Seroquel 100 mg twice a day. 18. Crestor 20 mg at bedtime. 19. Januvia 100 mg daily. 20. Restoril 30 mg at bedtime. 21. Spiriva Respimat 1 inhalation daily. The patient is discharged home. Followup with Dr. Mireles within one week. The patient was advised to stop magnesium oxide and Chema Forte and resume all other medications except above. The patient is also advised to resume home nebulizer treatment. The patient is advised to follow up with Dr. Juan M Hernandez for elective colonoscopy. The patient was extensively explained about the details of her medical condition, diagnosis, test results and all recommendation were explained to the patient in layman's language. All questions concerned answered. Dictated and electronically signed, not read. Christian Mireles MD
== END 2017-05-12 17:23 | disposition home or self-care (01) | DRG 394 ==
LOC: ED 14:09 → ERH 21:46 → 5RSO 22:52
PROVIDERS: ADMIT Internal Medicine; ATTEND Internal Medicine
PROC: 3E0F7GC Introduction of Other Therapeutic Substance into Respiratory Tract, Via Natural or Artificial Opening (ICD-10-PCS; principal; 2017-05-10)
DX: K52.1 Toxic gastroenteritis and colitis (principal); E87.2 Acidosis; Z99.81 Dependence on supplemental oxygen; E11.65 Type 2 diabetes mellitus with hyperglycemia; E66.01 Morbid (severe) obesity due to excess calories; R16.0 Hepatomegaly, not elsewhere classified; Z68.41 Body mass index [BMI] 40.0-44.9, adult; K76.0 Fatty (change of) liver, not elsewhere classified; N28.1 Cyst of kidney, acquired; T50.995A Adverse effect of other drugs, medicaments and biological substances, initial encounter; T47.1X5A Adverse effect of other antacids and anti-gastric-secretion drugs, initial encounter; K57.30 Diverticulosis of large intestine without perforation or abscess without bleeding; J44.9 Chronic obstructive pulmonary disease, unspecified; Z79.52 Long term (current) use of systemic steroids; E78.1 Pure hyperglyceridemia; E78.00 Pure hypercholesterolemia, unspecified; E87.6 Hypokalemia; K44.9 Diaphragmatic hernia without obstruction or gangrene; M47.816 Spondylosis without myelopathy or radiculopathy, lumbar region; M47.814 Spondylosis without myelopathy or radiculopathy, thoracic region; D64.9 Anemia, unspecified; I25.10 Atherosclerotic heart disease of native coronary artery without angina pectoris; F32.9 Major depressive disorder, single episode, unspecified; G47.00 Insomnia, unspecified; I11.9 Hypertensive heart disease without heart failure; G47.30 Sleep apnea, unspecified; Z98.51 Tubal ligation status; Z87.891 Personal history of nicotine dependence

== ENCOUNTER 2017-07-17 13:59 | Inpatient (IN) | payer MEDICARE, OTHER ==
--- NOTE | 2017-07-17 14:44 | ED PDOC ---
Arrival/HPI - General Chief Complaint: High Blood Sugar Time Seen by Provider: 07/17/17 14:16 Historian: Patient - History of Present Illness Narrative History of Present Illness (Text): 07/17/17 14:22 A 56 year old female, whose past medical history includes COPD, presents to the emergency department complaining of hyperglycemia, shortness of breathe and lightheadedness. Patient reports measuring blood sugar level and found to first be 331 at approximately 11:00. Patient later took insulin and Januvia. After reevaluating blood sugar level at 13:30, it went up to 338. States was not feeling well lately and while standing was experiencing lightheadedness. Patient felt as though she was about to pass out and whenever bending downward, patient falls over. Patient has nasal congestion and shortness of breath as baseline but recently has been feeling more shortness of breathe. She coughs at times. Patient denies any fever or any other complaints at this time. PMD: Dr. Mireles Corporate Claims Examiner: Dr. Del Toro Past Medical History - Provider Review Nursing Documentation Reviewed: Yes - Infectious Disease Hx of Infectious Diseases: None - Tetanus Immunization Tetanus Immunization: Unknown - Cardiac Hx Cardiac Disorders: Yes Hx Hypertension: Yes Hx Peripheral Edema: Yes - Pulmonary Hx Respiratory Disorders: Yes Hx Chronic Obstructive Pulmonary Disease (COPD): Yes - Neurological Hx Neurological Disorder: No - HEENT Hx HEENT Disorder: Yes (seasonal allergies, sinusitis) Hx Sinusitis: Yes - Renal Hx Renal Disorder: No - Endocrine/Metabolic Hx Endocrine Disorders: Yes Hx Diabetes Mellitus Type 2: Yes - Hematological/Oncological Hx Blood Disorders: No - Integumentary Hx Dermatological Disorder: Yes - Musculoskeletal/Rheumatological Hx Musculoskeletal Disorders: Yes Hx Falls: Yes - Gastrointestinal Hx Gastrointestinal Disorders: Yes Hx Gastrointestinal Ulcer: Yes Other/Comment: HERNIA - Genitourinary/Gynecological Hx Genitourinary Disorders: No - Psychiatric Hx Psychophysiologic Disorder: Yes Hx Anxiety: Yes Hx Depression: Yes Hx Panic Disorder: Yes Hx Substance Use: No - Surgical History Hx Orthopedic Surgery: Yes Hx Tubal Ligation: Yes Other/Comment: sinus surgery, tubal ligation - Anesthesia Hx Anesthesia: Yes Hx Anesthesia Reactions: No Hx Malignant Hyperthermia: No - Suicidal Assessment Feels Threatened In Home Enviroment: No Family/Social History - Physician Review Nursing Documentation Reviewed: Yes Family/Social History: No Known Family HX Smoking Status: Former Smoker Hx Alcohol Use: Yes (social) Hx Substance Use: No Hx Substance Use Treatment: No Allergies/Home Meds Allergies/Adverse Reactions: Allergies aspirin Allergy (Verified 07/17/17 14:01) SHORTNESS OF BREATH Home Medications: Home Meds Medication Instructions Recorded Confirmed Dexlansoprazole [Dexilant] 60 mg PO DAILY 09/05/13 07/17/17 QUEtiapine [Seroquel] 100 mg PO BID 11/21/15 07/17/17 Temazepam [Restoril] 30 mg PO HS 11/21/15 07/17/17 Tiotropium [place] [Spiriva 2.5 mcg IH DAILY 11/21/15 07/17/17 Respimat] clonazePAM [Klonopin] 2 mg PO QID 11/21/15 07/17/17 Albuterol HFA [Ventolin HFA 90 2 puff IH [id number] 10/03/16 07/17/17 mcg/actuation (8 g)] Arformoterol [Brovana] 15 mcg IH BID 10/03/16 07/17/17 Gabapentin [Neurontin] 300 mg PO TID 10/03/16 07/17/17 Benzonatate [Tessalon Perle] 1 cap PO TID 05/09/17 07/17/17 Famotidine [Pepcid] 1 tab PO DAILY 05/09/17 07/17/17 Febuxostat [Uloric] 1 tab PO DAILY 05/09/17 07/17/17 Levalbuterol [Xopenex] 1 vial IH QID 05/09/17 07/17/17 Rosuvastatin Calcium [Crestor] 1 tab PO HS 05/09/17 07/17/17 Review of Systems - Physician Review All systems were reviewed & negative as marked: Yes - Review of Systems Constitutional: absent: Fevers ENT: Sinus Congestion (baseline) Respiratory: SOB (baseline), Cough Neurological: Dizziness (lightheadedness when standing, feeling as though about to pass out.) Physical Exam Vital Signs Reviewed: Yes Vital Signs Temp Pulse Resp BP Pulse Ox 07/17/17 16:00 98 H 18 131/79 93 L 07/17/17 14:16 98.8 F 118 H 18 134/82 88 L 07/17/17 14:05 98.8 F 118 H 23 134/82 88 L Temperature: Afebrile Blood Pressure: Normal Pulse: Tachycardic Respiratory Rate: Normal Appearance: Positive for: Well-Appearing Pain Distress: None Mental Status: Positive for: Alert and Oriented X 3 - Systems Exam Head: Present: Atraumatic, Normocephalic Pupils: Present: PERRL Extroacular Muscles: Present: EOMI Conjunctiva: Present: Normal Mouth: Present: Moist Mucous Membranes Nose (Internal): Present: Normal Inspection Neck: Present: Normal Range of Motion. No: Meningeal Signs Respiratory/Chest: Present: Wheezes. No: Clear to Auscultation, Good Air Exchange (decreased air entry), Respiratory Distress Cardiovascular: Present: Tachycardic Abdomen: No: Tenderness, Distention, Peritoneal Signs Back: Present: Normal Inspection Upper Extremity: Present: Normal Inspection. No: Cyanosis, Edema Lower Extremity: Present: Normal Inspection. No: Edema Neurological: Present: GCS=15, CN II-XII Intact, Speech Normal Skin: Present: Warm, Dry, Normal Color. No: Rashes Psychiatric: Present: Alert, Oriented x 3, Normal Insight, Normal Concentration Medical Decision Making ED Course and Treatment: 07/17/17 14:26 Impression: 56 year old female with hyperglycemia and lightheadedness. Physical exam shows wheezing, no retractions. Differential Diagnosis included but are not limited to: COPD vs. Hyperglycemia vs. Near-Syncope. Plan: -- EKG -- Chest X-ray -- Labs -- Duoneb -- SOUL-Medrol -- Blood Culture -- Urine Culture -- Venous Blood Gas -- Urinalysis -- Nasal Cannula O2 -- Reassess and disposition Progress Notes: EKG: Ordered, reviewed, and independently interpreted the EKG. Rate : 106 BPM Rhythm : Sinus tachycardia. Interpretation : No ST-segment elevations or depressions, no T-wave inversions, normal intervals. Comparison : No previous EKG for comparison. 07/17/17 16:24 CXR IMPRESSION: There is a hazy density at the right lung base. This could represent pneumonia. The study is limited by body habitus Patient noted to have Pneumonia and treated with Ceftriaxone and Azithromycin. Potassium low and treated with Potassium PO. Patient improving with duonebs and solumedrol but still having symptoms. Case was discussed with Dr. Triana who is covering for Dr. Mireles. He agrees to admit for full admission to med/surg considering her risk factors and need for iv abx. - Lab Interpretations Lab Results: 07/17/17 14:40 07/17/17 14:40 Lab Results 07/17/17 15:05: pO2 30, VBG pH 7.33, VBG pCO2 65.0 H, VBG HCO3 34.3 H, VBG Total CO2 36.3 H, VBG O2 Sat (Calc) 68.0 H, VBG Base Excess 6.2 H, VBG Potassium 3.4 L, Glucose 296 H, Lactate 1.9, FiO2 21.0, Sodium 143.0, Chloride 104.0, Venous Blood Potassium 3.4 L 07/17/17 14:40: Sodium 144, Potassium 3.4 L, Chloride 101, Carbon Dioxide 36 H, Anion Gap 10, BUN 8, Creatinine 1.0, Est GFR ( Amer) > 60, Est GFR (Non- Af Amer) 58, Random Glucose 268 H, Calcium 9.4, Lactate Dehydrogenase 573, Total Creatine Kinase 45, Troponin I < 0.01, NT-Pro-B Natriuret Pep 33.6 07/17/17 14:40: WBC 7.8, RBC 4.25, Hgb 12.1, Hct 37.7, MCV 88.7, MCH 28.5, MCHC 32.1, RDW 13.8, Plt Count 231, MPV 11.1 H, Gran % 63.2, Lymph % (Auto) 23.1, [place] % (Auto) 8.6 H, Eos % (Auto) 5.0, Baso % (Auto) 0.1, Gran # 4.95, Lymph # ( Auto) 1.8, [place] # (Auto) 0.7 H, Eos # (Auto) 0.4, Baso # (Auto) 0.01 07/17/17 14:13: POC Glucose (mg/dL) 291 H - RAD Interpretation Radiology Orders: 07/17/17 14:26 CHEST PORTABLE [RAD] Stat - Medication Orders Current Medication Orders: Discontinued Medications Albuterol/Ipratropium (Duoneb 3 Mg/0.5 Mg (3 Ml) Ud) 3 ml IH Q15M RIGOBERTO Stop: 07/17/17 15:01 Last Admin: 07/17/17 16:17 Dose: 3 ml Azithromycin (Zithromax) 500 mg PO STAT STA PRN Reason: Protocol Stop: 07/17/17 15:24 Last Admin: 07/17/17 16:16 Dose: 500 mg Sodium Chloride (Sodium Chloride 0.9%) 500 mls @ 999 mls/hr IV .Q31M STA Stop: 07/17/17 15:52 Last Admin: 07/17/17 16:18 Dose: 999 mls/hr eMAR Start Stop Document 07/17/17 16:18 GMD (Rec: 07/17/17 16:18 GMD [id number]) Intravenous Solution Start Date 07/17/17 Start Time 16:18 End Date 07/17/17 End time 16:48 Total Infusion Time 30 Ceftriaxone Sodium (Rocephin 1 Gram Ivpb) 1 gm in 100 mls @ 200 mls/hr IVPB STAT STA PRN Reason: Protocol Stop: 07/17/17 15:52 Last Admin: 07/17/17 16:17 Dose: 200 mls/hr eMAR Start Stop Document 07/17/17 16:17 GMD (Rec: 07/17/17 16:17 GMD [id number]) Intravenous Solution Start Date 07/17/17 Start Time 16:17 End Date 07/17/17 End time 16:47 Total Infusion Time 30 Methylprednisolone (Solu-Medrol) 125 mg IVP STAT STA Stop: 07/17/17 14:27 Last Admin: 07/17/17 14:55 Dose: 125 mg IVP Administration Document 07/17/17 14:55 GMD (Rec: 07/17/17 14:55 GMD [id number]) Charges for Administration # of IVP Administrations 1 Potassium Chloride (K-Dur 20 Meq Er Tab) 40 meq PO STAT STA Stop: 07/17/17 16:07 Last Admin: 07/17/17 16:17 Dose: 40 meq - Scribe Statement The provider has reviewed the documentation as recorded by the Jonathan Sevilla Provider Scribe Attestation: All medical record entries made by the Scribe were at my direction and personally dictated by me. I have reviewed the chart and agree that the record accurately reflects my personal performance of the history, physical exam, medical decision making, and the department course for this patient. I have also personally directed, reviewed, and agree with the discharge instructions and disposition. Disposition/Present on Arrival - Present on Arrival Any Indicators Present on Arrival: Yes History of DVT/PE: No History of Uncontrolled Diabetes: Yes Urinary Catheter: No History of Decub. Ulcer: No History Surgical Site Infection Following: None - Disposition Have Diagnosis and Disposition been Completed?: Yes Diagnosis: COPD exacerbation, Hyperglycemia, Hypokalemia Disposition: HOSPITALIZED Disposition Time: 16:24 Patient Plan: Admission Patient Problems: Current Active Problems Problem Status Onset COPD exacerbation Acute Hyperglycemia Acute Condition: FAIR
[2017-07-17] MEDS: Albuterol-Ipratrop 3 mg / 0.5 (3 ml) UD IH SCH ×3 (14:55→16:17)
--- NOTE | 2017-07-17 15:14 | RAD ---
HISTORY: sob r/o pna COMPARISON: 10/02/2016 FINDINGS: LUNGS: There is a hazy density at the right lung base. This could represent pneumonia. The study is limited by body habitus PLEURA: No significant pleural effusion identified, no pneumothorax apparent. CARDIOVASCULAR: Normal. OSSEOUS STRUCTURES: No significant abnormalities. VISUALIZED UPPER ABDOMEN: Normal. OTHER FINDINGS: None. IMPRESSION: There is a hazy density at the right lung base. This could represent pneumonia. The study is limited by body habitus
[2017-07-17 15:16] LABS: BASO # 0.01 K/mm3 (0.0-2.0); BASO % 0.1 % (0.0-3.0); EOS # 0.4 (0.0-0.7); GRAN # 4.95 (1.4-6.5); GRAN % 63.2 % (50.0-68.0); HEMOGLOBIN 12.1 g/dL (12.0-16.0); LYMPH # 1.8 (1.2-3.4); LYMPH % 23.1 % (22.0-35.0); MEAN CELL VOLUME 88.7 fl (80.0-105.0); MEAN CORPUSCULAR HEMOGLOBIN 28.5 pg (25.0-35.0); MEAN CORPUSCULAR HGB CONC 32.1 g/dl (31.0-37.0); MEAN PLATELET VOLUME 11.1 fl (7.0-11.0); MONO # 0.7 (0.1-0.6); MONO % 8.6 % (1.0-6.0); RBC 4.25 10^6/uL (3.5-6.1); RED CELL DISTRIBUTION WIDTH 13.8 % (11.5-14.5); WHITE BLOOD COUNT 7.8 10^3/ul (4.5-11.0)
[2017-07-17 15:17] LABS: VENOUS BLOOD GAS BASE EXCESS 6.2 mmol/L (0.0-2.0); VENOUS BLOOD GAS PO2 30 mm/Hg (30-55); VENOUS BLOOD PH 7.33 (7.32-7.43)
[2017-07-17] MEDS ORDERED: Sodium Chloride 0.9% 500 ML IV STA (15:22)
[2017-07-17] MEDS ORDERED: cefTRIAXone 1 gm 1 GM/100 ML BAG IVPB STA (15:23)
[2017-07-17 15:24] LABS: BLOOD UREA NITROGEN 8 mg/dL (7-21); CALCIUM 9.4 mg/dL (8.4-10.5); GFR AFRICAN-AMERICAN > 60; GFR NON-AFRICAN AMERICAN 58
[2017-07-17 15:36] LABS: B-TYPE NATRIURETIC PEPTIDE 33.6 pg/mL (0-450); TROPONIN I < 0.01 ng/mL
[2017-07-17] MEDS ORDERED: Potassium Chloride 20 mEq ER Tab PO STA (16:06)
[2017-07-17 18:31] VITALS: BMI 45.3
--- NOTE | 2017-07-17 19:04 | CARD ---
APPROVED REPORT EKG Measurement Heart [id number] [id number] <Conclusion> Sinus tachycardia Left axis deviation Inferior infarct, age undetermined Anterolateral infarct, age undetermined Abnormal ECG
[2017-07-17] MEDS: Omega-3-Acid Ethyl Esters 1 GM Cap PO SCH (19:21)
[2017-07-17] MEDS: Levalbuterol 0.63 MG/3 ML Inhal Soln UD IH SCH (19:58)
[2017-07-17] MEDS: Budesonide 0.5 mg/2 ml Inhal Susp UD IH SCH (19:58)
[2017-07-17 20:04] LABS: ALB/GLOB RATIO 1.1 (1.1-1.8); ALBUMIN 3.5 g/dL (3.0-4.8); ALT/SGPT 32 U/L (7-56); AST/SGOT 21 U/L (14-36); BLOOD UREA NITROGEN 8 mg/dL (7-21); CALCIUM 9.2 mg/dL (8.4-10.5); GFR AFRICAN-AMERICAN > 60; GFR NON-AFRICAN AMERICAN 58
--- NOTE | 2017-07-17 20:13 | CP.PCM.HP ---
History of Present Illness - History of Present Illness History of Present Illness: (covering for Dr. Mireles) This is a 56 year old female with history of hypertension, type II diabetes mellitus, chronic obstructive pulmonary disease, anxiety, depression, esophageal reflux, and insomnia who presented to the Emergency Room with hyperglycemia. Patient says her sugar was over 300 when she checked it at home even after taking her diabetes medications. In the Emergency Room, she was found to have an infiltrate at the right lung base. Rapid influenza test was also positive for influenza A. Patient denies fever, chills, or shortness of breath. She does complain of some right sided back pain. She denies cough, but says that she was taking Tessalon perles at home. She also says that she has a bad habit of eating while lying down. She says that she did have the flu shot this winter. Present on Admission - Present on Admission Any Indicators Present on Admission: Yes History of DVT/PE: No History of Uncontrolled Diabetes: Yes Urinary Catheter: No Decubitus Ulcer Present: No Review of Systems - Constitutional Constitutional: Lethargy. absent: Chills, Fever, Malaise - Cardiovascular Cardiovascular: absent: Chest Pain, Diaphoresis, Dyspnea - Respiratory Respiratory: absent: Cough, Dyspnea, Hemoptysis - Gastrointestinal Gastrointestinal: absent: Abdominal Pain, Nausea, Vomiting Past Patient History - Infectious Disease Hx of Infectious Diseases: None - Tetanus Immunizations Tetanus Immunization: Unknown - Past Social History Smoking Status: Former Smoker - CARDIAC Hx Hypercholesterolemia: Yes - PULMONARY Hx Respiratory Disorders: Yes Hx Asthma: Yes Hx Chronic Obstructive Pulmonary Disease (COPD): Yes - NEUROLOGICAL Hx Neurological Disorder: No - HEENT Hx HEENT Problems: Yes - RENAL Hx Chronic Kidney Disease: No - ENDOCRINE/METABOLIC Hx Diabetes Mellitus Type 2: Yes Hx Hypothyroidism: Yes - HEMATOLOGICAL/ONCOLOGICAL Hx Blood Disorders: No - INTEGUMENTARY Hx Dermatological Problems: Yes - MUSCULOSKELETAL/RHEUMATOLOGICAL Hx Musculoskeletal Disorders: Yes Hx Back Pain: Yes Hx Degenerative Joint Disease: Yes Hx Falls: Yes Hx Fractures: Yes (left arm plate and screws) - GASTROINTESTINAL Hx Gastrointestinal Disorders: Yes Hx Diverticulitis: Yes - GENITOURINARY/GYNECOLOGICAL Hx Genitourinary Disorders: No - PSYCHIATRIC Hx Psychophysiologic Disorder: No Hx Substance Use: No - SURGICAL HISTORY Hx Surgeries: Yes Hx Musculoskeletal Surgery: Yes (left arm surgery) Other/Comment: sinus sx X 4. tubal ligation' - ANESTHESIA Hx Anesthesia: Yes Hx Anesthesia Reactions: No Hx Malignant Hyperthermia: No Meds Allergies/Adverse Reactions: Allergies Allergy/AdvReac Type Severity Reaction Status Date / Time aspirin Allergy SHORTNESS Verified 07/17/17 14:01 OF BREATH Physical Exam - Constitutional Appears: No Acute Distress - Head Exam Head Exam: ATRAUMATIC, NORMOCEPHALIC - Respiratory Exam Respiratory Exam: Rhonchi - Cardiovascular Exam Cardiovascular Exam: +S1, +S2 - GI/Abdominal Exam GI & Abdominal Exam: Normal Bowel Sounds, Soft - Neurological Exam Neurological exam: Alert, Oriented x3 Results - Vital Signs Recent Vital Signs: Last Vital Signs Temp 98.8 F 07/17/17 18:15 Pulse 101 H 07/17/17 18:15 Resp 20 07/17/17 18:15 BP 119/72 07/17/17 18:15 Pulse Ox 95 07/17/17 17:39 - Labs Result Diagrams: 07/17/17 14:40 07/17/17 14:40 Labs: Laboratory Results - last 24 hr 07/17/17 07/17/17 17:15 18:25 POC Glucose (mg/dL) 250 H Influenza Typ A,B (EIA) Pos for influenza a H Assessment & Plan - Assessment and Plan (Free Text) Assessment: RLL pneumonia Influenza A COPD HTN Diabetes mellitus with hyperglycemia Anxiety Depression Plan: Patient with possible right lower lobe pneumonia and influenza A. Consult with infectious disease has been requested. She is started on IV rocephin and Zithromax and Tamiflu. blood and sputum cultures will be sent. continue Januvia and Amaryl for diabetes. Will add accuchecks with sliding scaling coverage. continue Pulmicort for COPD and Xopenex via nebulizer.
[2017-07-17] MEDS ORDERED: Non Formulary Medication (Rosuvastatin Calcium [Crestor] 1 TAB) PO SCH (22:00)
[2017-07-17] MEDS: MethylPREDNISolone 40 mg Vial IVP SCH (22:11)
[2017-07-17] MEDS: Insulin Reg-LOW-Coverage SC SCH (22:44)
[2017-07-17] MEDS: Vancomycin 1gm in NS 250ml 1 GM/250 ML BAG IVPB SCH (23:46)
[2017-07-17] MEDS: Cefepime IV 2 gm in NS 2 GM/100 ML BAG IVPB SCH (23:49)
[2017-07-18 07:34] LABS: EOS % 0.2 % (1.5-5.0); GRAN # 5.53 (1.4-6.5); GRAN % 89.4 % (50.0-68.0); HEMOGLOBIN 11.5 g/dL (12.0-16.0); LYMPH # 0.5 (1.2-3.4); LYMPH % 8.3 % (22.0-35.0); MEAN CELL VOLUME 87.7 fl (80.0-105.0); MEAN CORPUSCULAR HEMOGLOBIN 28.2 pg (25.0-35.0); MEAN CORPUSCULAR HGB CONC 32.1 g/dl (31.0-37.0); MEAN PLATELET VOLUME 11.8 fl (7.0-11.0); MONO # 0.1 (0.1-0.6); MONO % 2.1 % (1.0-6.0); RBC 4.08 10^6/uL (3.5-6.1); WHITE BLOOD COUNT 6.2 10^3/ul (4.5-11.0)
[2017-07-18] MEDS: Insulin Reg-LOW-Coverage SC SCH ×2 (08:09→11:36)
--- NOTE | 2017-07-18 08:14 | CP.PCM.PN ---
Subjective - Date & Time of Evaluation Date of Evaluation: 07/18/17 Time of Evaluation: 07:45 - Subjective Subjective: Patient is seen this morning. She is on isolation for influenza. Objective - Vital Signs/Intake and Output Vital Signs (last 24 hours): Temp Pulse Resp BP Pulse Ox 97.8 F 95 H 21 140/82 90 L 07/18/17 06:00 07/18/17 06:00 07/18/17 06:00 07/18/17 06:00 07/18/17 06:00 Intake and Output: 07/18/17 07/18/17 06:59 18:59 Intake Total 720 Balance 720 - Medications Medications: Current Medications Atorvastatin Calcium (Lipitor) 80 mg PO HS REPLACED BY [facility] Last Admin: 07/17/17 22:06 Dose: 80 mg Benzonatate (Tessalon Perles) 100 mg PO TID [facility] Budesonide (Pulmicort Respules) 0.5 mg IH BIDRESP REPLACED BY [facility] Last Admin: 07/17/17 19:58 Dose: 0.5 mg Cholecalciferol (Vitamin D) 2,000 intlu PO DAILY [facility] Clonazepam (Klonopin) 2 mg PO QID [facility] PRN Reason: Protocol Last Admin: 07/17/17 22:05 Dose: 2 mg Famotidine (Pepcid) 20 mg PO 1000,2200 REPLACED BY [facility] Last Admin: 07/17/17 22:06 Dose: 20 mg Gabapentin (Neurontin) 300 mg PO TID [facility] PRN Reason: Protocol Last Admin: 07/17/17 19:22 Dose: 300 mg Glimepiride (Amaryl) 4 mg PO BID REPLACED BY [facility] Last Admin: 07/17/17 19:22 Dose: 4 mg Azithromycin (Zithromax 500mg In Ns) 500 mg in 250 mls @ 167 mls/hr IVPB DAILY [facility] PRN Reason: Protocol Vancomycin HCl (Vancomycin 1gm) 1 gm in 250 mls @ 167 mls/hr IVPB Q12H [facility] PRN Reason: Protocol Last Admin: 07/17/17 23:46 Dose: 167 mls/hr Cefepime HCl (Maxipime 2gm) 2 gm in 100 mls @ 100 mls/hr IVPB Q12 [facility] PRN Reason: Protocol Stop: 07/22/17 23:01 Last Admin: 07/17/17 23:49 Dose: 100 mls/hr Insulin Human Regular (Humulin R Low) 0 units SC ACHS REPLACED BY [facility] PRN Reason: Protocol Last Admin: 07/17/17 22:44 Dose: 2 units Levalbuterol HCl (Xopenex) 0.63 mg IH TIDRESP REPLACED BY [facility] Last Admin: 07/17/17 19:58 Dose: 0.63 mg Losartan Potassium (Cozaar) 50 mg PO DAILY REPLACED BY [facility] Methylprednisolone (Solu-Medrol) 40 mg IVP Q12 REPLACED BY [facility] Last Admin: 07/17/17 22:11 Dose: 40 mg Mirtazapine (Remeron) 15 mg PO HS REPLACED BY [facility] Last Admin: 07/17/17 22:07 Dose: 15 mg Montelukast Sodium (Singulair) 10 mg PO HS REPLACED BY [facility] Last Admin: 07/17/17 22:10 Dose: 10 mg Hhuvp-8-Fayg Ethyl Esters (Lovaza) 1 gm PO BID REPLACED BY [facility] Last Admin: 07/17/17 19:21 Dose: 1 gm Oseltamivir Phosphate (Tamiflu Cap) 75 mg PO BID REPLACED BY [facility] PRN Reason: Protocol Stop: 07/22/17 19:09 Last Admin: 07/17/17 19:24 Dose: 75 mg Paroxetine HCl (Paxil) 20 mg PO DAILY REPLACED BY [facility] Quetiapine Fumarate (Seroquel) 100 mg PO BID REPLACED BY [facility] PRN Reason: Protocol Last Admin: 07/17/17 19:21 Dose: 100 mg Sitagliptin Phosphate (Januvia) 100 mg PO DAILY REPLACED BY [facility] Tiotropium [place] (Spiriva) 18 mcg IH DAILY REPLACED BY [facility] - Labs Labs: 07/18/17 06:30 07/17/17 17:20 - Constitutional Appears: No Acute Distress - Head Exam Head Exam: ATRAUMATIC, NORMOCEPHALIC - Respiratory Exam Respiratory Exam: Wheezes, NORMAL BREATHING PATTERN - Cardiovascular Exam Cardiovascular Exam: +S1, +S2 - GI/Abdominal Exam GI & Abdominal Exam: Soft, Normal Bowel Sounds. absent: Tenderness - Extremities Exam Extremities Exam: Normal Inspection - Neurological Exam Neurological Exam: Alert, Awake, Oriented x3 Assessment and Plan - Assessment and Plan (Free Text) Assessment: Pneumonia Influenza A HTN Diabetes mellitus II COPD exacerbation Depression/Anxiety Plan: Patient is seen this morning. She is on isolation for influenza. She is on Tamiflu for influenza A and Rocephin and Zithromax for pneumonia. She is to be evaluated by infectious disease. awaiting results of blood and sputum culture. She has occasional wheezing on exam. continue IV solumedrol and respiratory treatments.
[2017-07-18] MEDS: Budesonide 0.5 mg/2 ml Inhal Susp UD IH SCH ×2 (08:27→21:30)
[2017-07-18] MEDS: Levalbuterol 0.63 MG/3 ML Inhal Soln UD IH SCH ×3 (08:27→21:30)
[2017-07-18] MEDS: Omega-3-Acid Ethyl Esters 1 GM Cap PO SCH ×2 (09:26→17:46)
[2017-07-18] MEDS: Insulin Detemir 100 units/ml Vial (Levemir) SC SCH ×2 (09:26→21:49)
[2017-07-18] MEDS: MethylPREDNISolone 40 mg Vial IVP SCH ×2 (09:27→21:49)
[2017-07-18] MEDS: Tiotropium 18 mcg Cap For Inhalation IH SCH (09:28)
[2017-07-18] MEDS: Azithromycin 500MG/NS 250ml 500 MG/250 ML BAG IVPB SCH (09:28)
[2017-07-18] MEDS: Cholecalciferol 1,000 INTLU TAB PO SCH (09:29)
[2017-07-18] MEDS ORDERED: cefTRIAXone 1 gm 1 GM/100 ML BAG IVPB SCH (10:00)
[2017-07-18] MEDS ORDERED: Potassium Chloride 20 mEq ER Tab PO ONE (11:18)
--- NOTE | 2017-07-18 11:27 | CP.PCM.CON ---
History of Present Illness - History of Present Illness History of Present Illness: 56 year old female with PMH of HTN, DM, morbid obesity with BMI 45, COPD, anxiety and depression, GERD, insomnia came in [place] [facility] [place] of increased sugars in her blood associated with some nausea. She was also complaining of sore throat and rhinorrhea but her cough is not severe and has no sputum production. She denies headache or dizziness, no chest pain, no dysphagia, no nausea or vomiting, no abdominal pain, no dysuria, no abdominal pain, no diarrhea. She was tested for Influenza in the ED and it is positive. CXR was also done in the ED which is suggestive of pneumonia on the right lower lobe. Infectious diseases consult is requested to further evaluate and manage. Review of Systems - Review of Systems All systems: reviewed and no additional remarkable complaints except (as per HPI ) Past Patient History - Infectious Disease Hx of Infectious Diseases: None - Tetanus Immunizations Tetanus Immunization: Unknown - Past Social History Smoking Status: Former Smoker - CARDIAC Hx Hypercholesterolemia: Yes - PULMONARY Hx Respiratory Disorders: Yes Hx Asthma: Yes Hx Chronic Obstructive Pulmonary Disease (COPD): Yes - NEUROLOGICAL Hx Neurological Disorder: No - HEENT Hx HEENT Problems: Yes - RENAL Hx Chronic Kidney Disease: No - ENDOCRINE/METABOLIC Hx Diabetes Mellitus Type 2: Yes Hx Hypothyroidism: Yes - HEMATOLOGICAL/ONCOLOGICAL Hx Blood Disorders: No - INTEGUMENTARY Hx Dermatological Problems: Yes - MUSCULOSKELETAL/RHEUMATOLOGICAL Hx Musculoskeletal Disorders: Yes Hx Back Pain: Yes Hx Degenerative Joint Disease: Yes Hx Falls: Yes Hx Fractures: Yes (left arm plate and screws) - GASTROINTESTINAL Hx Gastrointestinal Disorders: Yes Hx Diverticulitis: Yes - GENITOURINARY/GYNECOLOGICAL Hx Genitourinary Disorders: No - PSYCHIATRIC Hx Psychophysiologic Disorder: No Hx Substance Use: No - SURGICAL HISTORY Hx Surgeries: Yes Hx Musculoskeletal Surgery: Yes (left arm surgery) Other/Comment: sinus sx X 4. tubal ligation' - ANESTHESIA Hx Anesthesia: Yes Hx Anesthesia Reactions: No Hx Malignant Hyperthermia: No Meds Allergies/Adverse Reactions: Allergies Allergy/AdvReac Type Severity Reaction Status Date / Time aspirin Allergy SHORTNESS Verified 07/17/17 14:01 OF BREATH - Medications Medications: Current Medications Atorvastatin Calcium (Lipitor) 80 mg PO HS [facility] Last Admin: 07/17/17 22:06 Dose: 80 mg Benzonatate (Tessalon Perles) 100 mg PO TID [facility] Budesonide (Pulmicort Respules) 0.5 mg IH BIDRESP [facility] Last Admin: 07/17/17 19:58 Dose: 0.5 mg Cholecalciferol (Vitamin D) 2,000 intlu PO DAILY [facility] Clonazepam (Klonopin) 2 mg PO QID [facility] PRN Reason: Protocol Last Admin: 07/17/17 22:05 Dose: 2 mg Famotidine (Pepcid) 20 mg PO 1000,2200 [facility] Last Admin: 07/17/17 22:06 Dose: 20 mg Gabapentin (Neurontin) 300 mg PO TID [facility] PRN Reason: Protocol Last Admin: 07/17/17 19:22 Dose: 300 mg Glimepiride (Amaryl) 4 mg PO BID [facility] Last Admin: 07/17/17 19:22 Dose: 4 mg Ceftriaxone Sodium (Rocephin 1 Gram Ivpb) 1 gm in 100 mls @ 100 mls/hr IVPB DAILY [facility] PRN Reason: Protocol Azithromycin (Zithromax 500mg In Ns) 500 mg in 250 mls @ 167 mls/hr IVPB DAILY [facility] PRN Reason: Protocol Insulin Human Regular (Humulin R Low) 0 units SC ACHS [facility] PRN Reason: Protocol Levalbuterol HCl (Xopenex) 0.63 mg IH TIDRESP [facility] Last Admin: 07/17/17 19:58 Dose: 0.63 mg Losartan Potassium (Cozaar) 50 mg PO DAILY [facility] Methylprednisolone (Solu-Medrol) 40 mg IVP Q12 [facility] Last Admin: 07/17/17 22:11 Dose: 40 mg Mirtazapine (Remeron) 15 mg PO HS [facility] Last Admin: 07/17/17 22:07 Dose: 15 mg Montelukast Sodium (Singulair) 10 mg PO HS [facility] Last Admin: 07/17/17 22:10 Dose: 10 mg Pfxci-3-Gwpp Ethyl Esters (Lovaza) 1 gm PO BID [facility] Last Admin: 07/17/17 19:21 Dose: 1 gm Oseltamivir Phosphate (Tamiflu Cap) 75 mg PO BID [facility] PRN Reason: Protocol Stop: 07/22/17 19:09 Last Admin: 07/17/17 19:24 Dose: 75 mg Paroxetine HCl (Paxil) 20 mg PO DAILY [facility] Quetiapine Fumarate (Seroquel) 100 mg PO BID [facility] PRN Reason: Protocol Last Admin: 07/17/17 19:21 Dose: 100 mg Sitagliptin Phosphate (Januvia) 100 mg PO DAILY [facility] Tiotropium [place] (Spiriva) 18 mcg IH DAILY [facility] Physical Exam - Constitutional Appears: Non-toxic - Head Exam Head Exam: NORMAL INSPECTION - ENT Exam ENT Exam: Mucous Membranes Moist - Neck Exam Neck exam: Negative for: Lymphadenopathy, Meningismus - Respiratory Exam Respiratory Exam: Decreased Breath Sounds, Rales (especially at the bases) - Cardiovascular Exam Cardiovascular Exam: +S1, +S2 - GI/Abdominal Exam GI & Abdominal Exam: Soft. absent: Tenderness Results - Vital Signs Recent Vital Signs: Last Vital Signs Temp 98.8 F 07/17/17 18:15 Pulse 101 H 07/17/17 20:03 Resp 20 07/17/17 18:15 BP 119/72 07/17/17 18:15 Pulse Ox 95 07/17/17 17:39 - Labs Result Diagrams: 07/18/17 06:30 07/17/17 17:20 Labs: Laboratory Results - last 24 hr 07/17/17 07/17/17 07/17/17 17:15 17:20 18:25 Sodium 143 Potassium 3.5 L Chloride 103 Carbon Dioxide 29 Anion Gap 15 BUN 8 Creatinine 1.0 Est GFR ( Amer) > 60 Est GFR (Non-Af Amer) 58 POC Glucose (mg/dL) 250 H Random Glucose 402 H* D Calcium 9.2 Total Bilirubin 0.4 AST 21 ALT 32 Alkaline Phosphatase 70 Total Protein 6.6 Albumin 3.5 Globulin 3.1 Albumin/Globulin Ratio 1.1 Influenza Typ A,B (EIA) Pos for influenza a H Assessment & Plan - Assessment and Plan (Free Text) Plan: Assessment consider right lower lobe HCAP on top of systemic viral illness with Influenza COPD DM anxiety disorder morbid obesity with BMI 45 HTN with hypertensive heart disease Plan started Cefepime, Vancomycin and Zithromax and Tamiflu and will follow up blood cx, sputum cx, PCT; reviewed CXR will need 5 days of Tamiflu will monitor clinically
[2017-07-18] MEDS: Cefepime IV 2 gm in NS 2 GM/100 ML BAG IVPB SCH ×2 (11:36→21:57)
[2017-07-18] MEDS: Vancomycin 1gm in NS 250ml 1 GM/250 ML BAG IVPB SCH (11:37)
[2017-07-18] MEDS: Insulin Reg-MEDIUM-Coverage SC SCH ×2 (16:48→21:48)
[2017-07-19] MEDS: Vancomycin 1gm in NS 250ml 1 GM/250 ML BAG IVPB SCH (00:18)
[2017-07-19 07:24] LABS: GRAN # 8.39 (1.4-6.5); HEMOGLOBIN 11.6 g/dL (12.0-16.0); LYMPH # 0.7 (1.2-3.4); LYMPH % 7.5 % (22.0-35.0); MEAN CELL VOLUME 86.9 fl (80.0-105.0); MEAN CORPUSCULAR HEMOGLOBIN 28.1 pg (25.0-35.0); MEAN CORPUSCULAR HGB CONC 32.3 g/dl (31.0-37.0); MEAN PLATELET VOLUME 11.3 fl (7.0-11.0); MONO # 0.5 (0.1-0.6); MONO % 5.5 % (1.0-6.0); RBC 4.13 10^6/uL (3.5-6.1); RED CELL DISTRIBUTION WIDTH 14.2 % (11.5-14.5); WHITE BLOOD COUNT 9.6 10^3/ul (4.5-11.0)
[2017-07-19] MEDS: Levalbuterol 0.63 MG/3 ML Inhal Soln UD IH SCH ×3 (07:25→20:13)
[2017-07-19] MEDS: Budesonide 0.5 mg/2 ml Inhal Susp UD IH SCH ×2 (07:25→20:13)
--- NOTE | 2017-07-19 08:51 | CP.PCM.PN ---
Subjective - Date & Time of Evaluation Date of Evaluation: 07/19/17 Time of Evaluation: 08:00 - Subjective Subjective: (covering for Dr. Mireles) Patient is seen this morning. She is complaining of cough and sore throat. She also states that she has not had a bowel movement. Objective - Vital Signs/Intake and Output Vital Signs (last 24 hours): Temp Pulse Resp BP Pulse Ox 97.8 F 97 H 22 143/65 92 L 07/19/17 07:58 07/19/17 07:58 07/19/17 07:58 07/19/17 07:58 07/19/17 07:58 Intake and Output: 07/19/17 07/19/17 06:59 18:59 Intake Total 2253 Balance 2253 - Medications Medications: Current Medications Atorvastatin Calcium (Lipitor) 80 mg PO HS [facility] Last Admin: 07/18/17 21:50 Dose: 80 mg Benzonatate (Tessalon Perles) 100 mg PO TID [facility] Last Admin: 07/18/17 17:46 Dose: 100 mg Budesonide (Pulmicort Respules) 0.5 mg IH BIDRESP [facility] Last Admin: 07/19/17 07:25 Dose: 0.5 mg Cholecalciferol (Vitamin D) 2,000 intlu PO DAILY [facility] Last Admin: 07/18/17 09:29 Dose: 2,000 intlu Clonazepam (Klonopin) 2 mg PO QID [facility] PRN Reason: Protocol Last Admin: 07/18/17 21:50 Dose: 2 mg Docusate Sodium (Colace) 100 mg PO BID [facility] Famotidine (Pepcid) 20 mg PO 1000,2200 [facility] Last Admin: 07/18/17 21:50 Dose: 20 mg Gabapentin (Neurontin) 300 mg PO TID [facility] PRN Reason: Protocol Last Admin: 07/18/17 17:45 Dose: 300 mg Glimepiride (Amaryl) 4 mg PO BID [facility] Last Admin: 07/18/17 17:46 Dose: 4 mg Azithromycin (Zithromax 500mg In Ns) 500 mg in 250 mls @ 167 mls/hr IVPB DAILY [facility] PRN Reason: Protocol Last Admin: 07/18/17 09:28 Dose: 167 mls/hr Vancomycin HCl (Vancomycin 1gm) 1 gm in 250 mls @ 167 mls/hr IVPB Q12H [facility] PRN Reason: Protocol Last Admin: 07/19/17 00:18 Dose: 167 mls/hr Cefepime HCl (Maxipime 2gm) 2 gm in 100 mls @ 100 mls/hr IVPB Q12 [facility] PRN Reason: Protocol Stop: 07/22/17 23:01 Last Admin: 07/18/17 21:57 Dose: 100 mls/hr Insulin Detemir (Levemir) 10 unit SC AMHS [facility] Last Admin: 07/18/17 21:49 Dose: 10 unit Insulin Human Regular (Humulin R Med) 0 units SC ACHS [facility] PRN Reason: Protocol Last Admin: 07/18/17 21:48 Dose: 3 units Levalbuterol HCl (Xopenex) 0.63 mg IH TIDRESP [facility] Last Admin: 07/19/17 07:25 Dose: 0.63 mg Losartan Potassium (Cozaar) 50 mg PO DAILY [facility] Last Admin: 07/18/17 09:25 Dose: 50 mg Methylprednisolone (Solu-Medrol) 40 mg IVP Q12 [facility] Last Admin: 07/18/17 21:49 Dose: 40 mg Montelukast Sodium (Singulair) 10 mg PO HS [facility] Last Admin: 07/18/17 21:50 Dose: 10 mg Non-Formulary Medication (Temazepam [Restoril]) 30 mg PO HS [facility] Yhpju-3-Adjy Ethyl Esters (Lovaza) 1 gm PO BID [facility] Last Admin: 07/18/17 17:46 Dose: 1 gm Oseltamivir Phosphate (Tamiflu Cap) 75 mg PO BID [facility] PRN Reason: Protocol Stop: 07/22/17 19:09 Last Admin: 07/18/17 17:46 Dose: 75 mg Paroxetine HCl (Paxil) 20 mg PO DAILY [facility] Last Admin: 07/18/17 09:27 Dose: 20 mg Quetiapine Fumarate (Seroquel) 100 mg PO BID [facility] PRN Reason: Protocol Last Admin: 07/18/17 17:45 Dose: 100 mg Sitagliptin Phosphate (Januvia) 100 mg PO DAILY [facility] Last Admin: 07/18/17 09:26 Dose: 100 mg Tiotropium [place] (Spiriva) 18 mcg IH DAILY [facility] Last Admin: 07/18/17 09:28 Dose: 18 mcg - Labs Labs: 07/19/17 07:00 07/17/17 17:20 - Constitutional Appears: No Acute Distress - Head Exam Head Exam: ATRAUMATIC, NORMOCEPHALIC - Respiratory Exam Respiratory Exam: Rhonchi, NORMAL BREATHING PATTERN - Cardiovascular Exam Cardiovascular Exam: +S1, +S2 - GI/Abdominal Exam GI & Abdominal Exam: Soft, Normal Bowel Sounds. absent: Tenderness - Neurological Exam Neurological Exam: Alert, Awake, Oriented x3 Assessment and Plan - Assessment and Plan (Free Text) Assessment: Pneumonia Influenza A positivity HTN Diabetes COPD Depression Anxiety Neuropathy Plan: Patient has been evaluated by infectious disease and is on IV cefepime and vancomycin for pneumonia as well as Tamiflu for influenza A. She is on isolation for the flu. She complains of constipation. colace twice a day has been ordered. continue Tessalon perles for cough and Cepacol for sore throat. Patient is asking to take her restoril from home for sleep. Will discontinue Remeron and order restoril. continue respiratory treatments; will taper solumedrol.
[2017-07-19] MEDS: Insulin Reg-MEDIUM-Coverage SC SCH ×4 (09:04→21:41)
[2017-07-19] MEDS: Azithromycin 500MG/NS 250ml 500 MG/250 ML BAG IVPB SCH (09:06)
[2017-07-19] MEDS: Insulin Detemir 100 units/ml Vial (Levemir) SC SCH ×2 (09:07→21:42)
[2017-07-19] MEDS: Omega-3-Acid Ethyl Esters 1 GM Cap PO SCH ×2 (09:08→17:43)
[2017-07-19] MEDS: Cefepime IV 2 gm in NS 2 GM/100 ML BAG IVPB SCH ×2 (09:08→21:51)
[2017-07-19] MEDS: Tiotropium 18 mcg Cap For Inhalation IH SCH (09:09)
[2017-07-19] MEDS: Cholecalciferol 1,000 INTLU TAB PO SCH (09:11)
[2017-07-19] MEDS: Benzocaine/Menthol (Cepacol) Lozenge MT PRN ×2 (10:49→17:50)
[2017-07-19] MEDS: MethylPREDNISolone 40 mg Vial IVP SCH ×2 (10:49→21:40)
--- NOTE | 2017-07-19 12:48 | CP.PCM.PN ---
Subjective - Date & Time of Evaluation Date of Evaluation: 07/19/17 Time of Evaluation: 12:05 - Subjective Subjective: Still with occasional shortness of breath, cough is intermittent, no fevers. Objective - Vital Signs/Intake and Output Vital Signs (last 24 hours): Temp Pulse Resp BP Pulse Ox 97.8 F 97 H 22 143/65 92 L 07/19/17 07:58 07/19/17 07:58 07/19/17 07:58 07/19/17 07:58 07/19/17 07:58 Intake and Output: 07/19/17 07/19/17 06:59 18:59 Intake Total 2253 Balance 2253 - Medications Medications: Current Medications Atorvastatin Calcium (Lipitor) 80 mg PO HS [facility] Last Admin: 07/18/17 21:50 Dose: 80 mg Benzocaine/Menthol (Cepacol Sore Throat) 1 [place] Q2H PRN PRN Reason: Sore Throat Benzonatate (Tessalon Perles) 100 mg PO TID [facility] Last Admin: 07/19/17 09:11 Dose: 100 mg Budesonide (Pulmicort Respules) 0.5 mg IH BIDRESP [facility] Last Admin: 07/19/17 07:25 Dose: 0.5 mg Cholecalciferol (Vitamin D) 2,000 intlu PO DAILY [facility] Last Admin: 07/19/17 09:11 Dose: 2,000 intlu Clonazepam (Klonopin) 2 mg PO QID [facility] PRN Reason: Protocol Last Admin: 07/19/17 09:07 Dose: 2 mg Docusate Sodium (Colace) 100 mg PO BID [facility] Famotidine (Pepcid) 20 mg PO 1000,2200 [facility] Last Admin: 07/19/17 09:09 Dose: 20 mg Gabapentin (Neurontin) 300 mg PO TID [facility] PRN Reason: Protocol Last Admin: 07/19/17 09:08 Dose: 300 mg Glimepiride (Amaryl) 4 mg PO BID [facility] Last Admin: 07/19/17 09:07 Dose: 4 mg Azithromycin (Zithromax 500mg In Ns) 500 mg in 250 mls @ 167 mls/hr IVPB DAILY [facility] PRN Reason: Protocol Last Admin: 07/19/17 09:06 Dose: 167 mls/hr Cefepime HCl (Maxipime 2gm) 2 gm in 100 mls @ 100 mls/hr IVPB Q12 [facility] PRN Reason: Protocol Stop: 07/22/17 23:01 Last Admin: 07/19/17 09:08 Dose: 100 mls/hr Insulin Detemir (Levemir) 10 unit SC AMHS [facility] Last Admin: 07/19/17 09:07 Dose: 10 unit Insulin Human Regular (Humulin R Med) 0 units SC ACHS [facility] PRN Reason: Protocol Last Admin: 07/19/17 09:04 Dose: 7 units Levalbuterol HCl (Xopenex) 0.63 mg IH TIDRESP [facility] Last Admin: 07/19/17 07:25 Dose: 0.63 mg Losartan Potassium (Cozaar) 50 mg PO DAILY [facility] Last Admin: 07/18/17 09:25 Dose: 50 mg Methylprednisolone (Solu-Medrol) 20 mg IVP Q12 [facility] Montelukast Sodium (Singulair) 10 mg PO HS [facility] Last Admin: 07/18/17 21:50 Dose: 10 mg Non-Formulary Medication (Temazepam [Restoril]) 30 mg PO HS [facility] Pzzne-5-Dkvn Ethyl Esters (Lovaza) 1 gm PO BID [facility] Last Admin: 07/19/17 09:08 Dose: 1 gm Oseltamivir Phosphate (Tamiflu Cap) 75 mg PO BID [facility] PRN Reason: Protocol Stop: 07/22/17 19:09 Last Admin: 07/19/17 09:10 Dose: 75 mg Paroxetine HCl (Paxil) 20 mg PO DAILY [facility] Last Admin: 07/19/17 09:09 Dose: 20 mg Quetiapine Fumarate (Seroquel) 100 mg PO BID [facility] PRN Reason: Protocol Last Admin: 07/19/17 09:09 Dose: 100 mg Sitagliptin Phosphate (Januvia) 100 mg PO DAILY [facility] Last Admin: 07/19/17 09:07 Dose: 100 mg Tiotropium [place] (Spiriva) 18 mcg IH DAILY [facility] Last Admin: 07/19/17 09:09 Dose: 18 mcg - Labs Labs: 07/19/17 07:00 07/17/17 17:20 - Constitutional Appears: Chronically Ill - Head Exam Head Exam: NORMAL INSPECTION - ENT Exam ENT Exam: Mucous Membranes Moist - Neck Exam Neck Exam: absent: Meningismus - Respiratory Exam Respiratory Exam: Decreased Breath Sounds. absent: Rales - Cardiovascular Exam Cardiovascular Exam: +S1, +S2 - GI/Abdominal Exam GI & Abdominal Exam: Soft. absent: Tenderness Assessment and Plan - Assessment and Plan (Free Text) Plan: Assessment consider right lower lobe HCAP on top of systemic viral illness with Influenza COPD DM anxiety disorder morbid obesity with BMI 45 HTN with hypertensive heart disease Plan continue Cefepime and Zithromax day 2 and will d/c Vancomycin; continue 5 days of Tamiflu (day 2); follow up final blood cx, sputum cx; PCT is <0.05 - will d/ c Cefepime if cultures are negative; reviewed CXR will continue to monitor clinically
[2017-07-19] MEDS ORDERED: TEMAZEPAM 30 MG PO SCH (22:00)
[2017-07-19] MEDS ORDERED: Non Formulary Medication (Temazepam [Restoril] 30 MG) PO SCH (22:00)
[2017-07-19] MEDS: TEMAZEPAM 30 MG PO SCH (23:27)
[2017-07-20 07:06] LABS: GRAN # 5.94 (1.4-6.5); GRAN % 80.6 % (50.0-68.0); HEMOGLOBIN 11.4 g/dL (12.0-16.0); LYMPH % 12.9 % (22.0-35.0); MEAN CELL VOLUME 86.8 fl (80.0-105.0); MEAN CORPUSCULAR HEMOGLOBIN 27.8 pg (25.0-35.0); MEAN PLATELET VOLUME 11.4 fl (7.0-11.0); MONO # 0.5 (0.1-0.6); MONO % 6.5 % (1.0-6.0); RBC 4.1 10^6/uL (3.5-6.1); RED CELL DISTRIBUTION WIDTH 14.1 % (11.5-14.5); WHITE BLOOD COUNT 7.4 10^3/ul (4.5-11.0)
[2017-07-20] MEDS: Levalbuterol 0.63 MG/3 ML Inhal Soln UD IH SCH ×3 (07:30→20:22)
[2017-07-20] MEDS: Budesonide 0.5 mg/2 ml Inhal Susp UD IH SCH ×2 (07:30→20:22)
[2017-07-20 07:44] LABS: BLOOD UREA NITROGEN 20 mg/dL (7-21); CALCIUM 9.7 mg/dL (8.4-10.5); GFR AFRICAN-AMERICAN > 60; GFR NON-AFRICAN AMERICAN 58
--- NOTE | 2017-07-20 07:58 | CP.PCM.PN ---
Subjective - Date & Time of Evaluation Date of Evaluation: 07/20/17 Time of Evaluation: 07:15 - Subjective Subjective: (covering for Dr. Mireles) Patient is seen this morning in room 575 bed 1. She says she had a small bowel movement this morning. + cough Objective - Vital Signs/Intake and Output Vital Signs (last 24 hours): Temp Pulse Resp BP Pulse Ox 97.5 F L 75 19 141/76 95 07/20/17 06:00 07/20/17 06:00 07/20/17 06:00 07/20/17 06:00 07/20/17 06:00 Intake and Output: 07/20/17 07/20/17 06:59 18:59 Intake Total 200 Output Total 0 Balance 200 - Medications Medications: Current Medications Atorvastatin Calcium (Lipitor) 80 mg PO HS [facility] Last Admin: 07/19/17 21:39 Dose: 80 mg Benzocaine/Menthol (Cepacol Sore Throat) 1 [place] Q2H PRN PRN Reason: Sore Throat Last Admin: 07/19/17 17:50 Dose: 1 [place] Benzonatate (Tessalon Perles) 100 mg PO TID [facility] Last Admin: 07/19/17 17:43 Dose: 100 mg Budesonide (Pulmicort Respules) 0.5 mg IH BIDRESP [facility] Last Admin: 07/20/17 07:30 Dose: 0.5 mg Cholecalciferol (Vitamin D) 2,000 intlu PO DAILY [facility] Last Admin: 07/19/17 09:11 Dose: 2,000 intlu Clonazepam (Klonopin) 2 mg PO QID [facility] PRN Reason: Protocol Last Admin: 07/19/17 21:39 Dose: 2 mg Docusate Sodium (Colace) 100 mg PO BID [facility] Last Admin: 07/19/17 17:42 Dose: 100 mg Famotidine (Pepcid) 20 mg PO 1000,2200 [facility] Last Admin: 07/19/17 21:39 Dose: 20 mg Gabapentin (Neurontin) 300 mg PO TID [facility] PRN Reason: Protocol Last Admin: 07/19/17 17:43 Dose: 300 mg Glimepiride (Amaryl) 4 mg PO BID [facility] Last Admin: 07/19/17 17:42 Dose: 4 mg Home Med (Home Med) 1 unit PO HS [facility] Last Admin: 07/19/17 23:27 Dose: 1 unit Azithromycin (Zithromax 500mg In Ns) 500 mg in 250 mls @ 167 mls/hr IVPB DAILY [facility] PRN Reason: Protocol Last Admin: 07/19/17 09:06 Dose: 167 mls/hr Cefepime HCl (Maxipime 2gm) 2 gm in 100 mls @ 100 mls/hr IVPB Q12 [facility] PRN Reason: Protocol Stop: 07/22/17 23:01 Last Admin: 07/19/17 21:51 Dose: 100 mls/hr Insulin Detemir (Levemir) 10 unit SC AMHS [facility] Last Admin: 07/19/17 21:42 Dose: 10 unit Insulin Human Regular (Humulin R Med) 0 units SC ACHS [facility] PRN Reason: Protocol Last Admin: 07/19/17 21:41 Dose: 3 units Levalbuterol HCl (Xopenex) 0.63 mg IH TIDRESP [facility] Last Admin: 07/20/17 07:30 Dose: 0.63 mg Losartan Potassium (Cozaar) 50 mg PO DAILY [facility] Last Admin: 07/19/17 10:50 Dose: 50 mg Methylprednisolone (Solu-Medrol) 20 mg IVP Q12 [facility] Last Admin: 07/19/17 21:40 Dose: 20 mg Montelukast Sodium (Singulair) 10 mg PO HS [facility] Last Admin: 07/19/17 21:38 Dose: 10 mg Lnsek-8-Nqtg Ethyl Esters (Lovaza) 1 gm PO BID [facility] Last Admin: 07/19/17 17:43 Dose: 1 gm Oseltamivir Phosphate (Tamiflu Cap) 75 mg PO BID [facility] PRN Reason: Protocol Stop: 07/22/17 19:09 Last Admin: 07/19/17 17:43 Dose: 75 mg Paroxetine HCl (Paxil) 20 mg PO DAILY [facility] Last Admin: 07/19/17 09:09 Dose: 20 mg Quetiapine Fumarate (Seroquel) 100 mg PO BID [facility] PRN Reason: Protocol Last Admin: 07/19/17 17:43 Dose: 100 mg Sitagliptin Phosphate (Januvia) 100 mg PO DAILY [facility] Last Admin: 07/19/17 09:07 Dose: 100 mg Tiotropium [place] (Spiriva) 18 mcg IH DAILY [facility] Last Admin: 07/19/17 09:09 Dose: 18 mcg - Labs Labs: 07/20/17 06:30 07/20/17 06:30 - Constitutional Appears: No Acute Distress - Head Exam Head Exam: ATRAUMATIC, NORMOCEPHALIC - Respiratory Exam Respiratory Exam: Rhonchi, Wheezes, NORMAL BREATHING PATTERN - Cardiovascular Exam Cardiovascular Exam: +S1, +S2 - GI/Abdominal Exam GI & Abdominal Exam: Soft, Normal Bowel Sounds. absent: Tenderness - Neurological Exam Neurological Exam: Alert, Awake, Oriented x3 Assessment and Plan - Assessment and Plan (Free Text) Assessment: RLL Pneumonia with influenza A COPD exacerbation Diabetes Hypertension Anxiety Depression Plan: Patient had a small bowel movement this morning. continue Colace twice a day. continue Cefepime and Zithromax as per infectious disease. continue Tamiflu for influenza A. Blood cultures are negative so far. continue respiratory treatments and solumedrol.
[2017-07-20] MEDS: Insulin Reg-MEDIUM-Coverage SC SCH ×4 (08:43→21:58)
[2017-07-20] MEDS: Omega-3-Acid Ethyl Esters 1 GM Cap PO SCH ×2 (09:42→17:21)
[2017-07-20] MEDS: Cholecalciferol 1,000 INTLU TAB PO SCH (09:43)
[2017-07-20] MEDS: Tiotropium 18 mcg Cap For Inhalation IH SCH (09:44)
[2017-07-20] MEDS: MethylPREDNISolone 40 mg Vial IVP SCH ×2 (09:44→21:59)
[2017-07-20] MEDS: Azithromycin 500MG/NS 250ml 500 MG/250 ML BAG IVPB SCH (09:45)
[2017-07-20] MEDS: Cefepime IV 2 gm in NS 2 GM/100 ML BAG IVPB SCH ×2 (09:45→21:58)
[2017-07-20] MEDS: Insulin Detemir 100 units/ml Vial (Levemir) SC SCH ×2 (09:47→21:59)
--- NOTE | 2017-07-20 12:28 | CP.PCM.PN ---
Subjective - Date & Time of Evaluation Date of Evaluation: 07/20/17 Time of Evaluation: 11:30 - Subjective Subjective: Comfortable, no fevers, breathing better, improved cough. Objective - Vital Signs/Intake and Output Vital Signs (last 24 hours): Temp Pulse Resp BP Pulse Ox 97.5 F L 75 19 141/76 95 07/20/17 06:00 07/20/17 06:00 07/20/17 06:00 07/20/17 06:00 07/20/17 06:00 Intake and Output: 07/20/17 07/20/17 06:59 18:59 Intake Total 200 Output Total 0 Balance 200 - Medications Medications: Current Medications Atorvastatin Calcium (Lipitor) 80 mg PO HS [facility] Last Admin: 07/19/17 21:39 Dose: 80 mg Benzocaine/Menthol (Cepacol Sore Throat) 1 [place] Q2H PRN PRN Reason: Sore Throat Last Admin: 07/19/17 17:50 Dose: 1 [place] Benzonatate (Tessalon Perles) 100 mg PO TID [facility] Last Admin: 07/19/17 17:43 Dose: 100 mg Budesonide (Pulmicort Respules) 0.5 mg IH BIDRESP [facility] Last Admin: 07/20/17 07:30 Dose: 0.5 mg Cholecalciferol (Vitamin D) 2,000 intlu PO DAILY [facility] Last Admin: 07/19/17 09:11 Dose: 2,000 intlu Clonazepam (Klonopin) 2 mg PO QID [facility] PRN Reason: Protocol Last Admin: 07/19/17 21:39 Dose: 2 mg Docusate Sodium (Colace) 100 mg PO BID [facility] Last Admin: 07/19/17 17:42 Dose: 100 mg Famotidine (Pepcid) 20 mg PO 1000,2200 [facility] Last Admin: 07/19/17 21:39 Dose: 20 mg Gabapentin (Neurontin) 300 mg PO TID [facility] PRN Reason: Protocol Last Admin: 07/19/17 17:43 Dose: 300 mg Glimepiride (Amaryl) 4 mg PO BID [facility] Last Admin: 07/19/17 17:42 Dose: 4 mg Home Med (Home Med) 1 unit PO HS [facility] Last Admin: 07/19/17 23:27 Dose: 1 unit Azithromycin (Zithromax 500mg In Ns) 500 mg in 250 mls @ 167 mls/hr IVPB DAILY [facility] PRN Reason: Protocol Last Admin: 07/19/17 09:06 Dose: 167 mls/hr Cefepime HCl (Maxipime 2gm) 2 gm in 100 mls @ 100 mls/hr IVPB Q12 [facility] PRN Reason: Protocol Stop: 07/22/17 23:01 Last Admin: 07/19/17 21:51 Dose: 100 mls/hr Insulin Detemir (Levemir) 10 unit SC AMHS [facility] Last Admin: 07/19/17 21:42 Dose: 10 unit Insulin Human Regular (Humulin R Med) 0 units SC ACHS [facility] PRN Reason: Protocol Last Admin: 07/19/17 21:41 Dose: 3 units Levalbuterol HCl (Xopenex) 0.63 mg IH TIDRESP [facility] Last Admin: 07/20/17 07:30 Dose: 0.63 mg Losartan Potassium (Cozaar) 50 mg PO DAILY [facility] Last Admin: 07/19/17 10:50 Dose: 50 mg Methylprednisolone (Solu-Medrol) 20 mg IVP Q12 [facility] Last Admin: 07/19/17 21:40 Dose: 20 mg Montelukast Sodium (Singulair) 10 mg PO HS [facility] Last Admin: 07/19/17 21:38 Dose: 10 mg [id number] Ethyl Esters (Lovaza) 1 gm PO BID [facility] Last Admin: 07/19/17 17:43 Dose: 1 gm Oseltamivir Phosphate (Tamiflu Cap) 75 mg PO BID [facility] PRN Reason: Protocol Stop: 07/22/17 19:09 Last Admin: 07/19/17 17:43 Dose: 75 mg Paroxetine HCl (Paxil) 20 mg PO DAILY [facility] Last Admin: 07/19/17 09:09 Dose: 20 mg Quetiapine Fumarate (Seroquel) 100 mg PO BID [facility] PRN Reason: Protocol Last Admin: 07/19/17 17:43 Dose: 100 mg Sitagliptin Phosphate (Januvia) 100 mg PO DAILY [facility] Last Admin: 07/19/17 09:07 Dose: 100 mg Tiotropium [place] (Spiriva) 18 mcg IH DAILY [facility] Last Admin: 07/19/17 09:09 Dose: 18 mcg - Labs Labs: 07/20/17 06:30 07/20/17 06:30 - Constitutional Appears: Non-toxic, Chronically Ill - Head Exam Head Exam: NORMAL INSPECTION - ENT Exam ENT Exam: Mucous Membranes Moist - Neck Exam Neck Exam: absent: Lymphadenopathy, Meningismus - Respiratory Exam Respiratory Exam: Decreased Breath Sounds, Wheezes (mild) - Cardiovascular Exam Cardiovascular Exam: +S1, +S2 - GI/Abdominal Exam GI & Abdominal Exam: Soft. absent: Tenderness Assessment and Plan - Assessment and Plan (Free Text) Plan: Assessment consider right lower lobe HCAP on top of systemic viral illness with Influenza, clinically improving COPD DM anxiety disorder morbid obesity with BMI 45 HTN with hypertensive heart disease Plan continue Cefepime and Zithromax day 3 and will d/c Vancomycin; continue 5 days of Tamiflu (day 2); follow up final blood cx, sputum cx; PCT is <0.05 - will d/ c Cefepime if cultures are negative; reviewed CXR - can continue on PO Zithromax for 3-5 days when ready for discharge will continue to monitor clinically
[2017-07-20] MEDS: Benzocaine/Menthol (Cepacol) Lozenge MT PRN (17:52)
[2017-07-20] MEDS: TEMAZEPAM 30 MG PO SCH (22:43)
[2017-07-21] MEDS: Levalbuterol 0.63 MG/3 ML Inhal Soln UD IH SCH ×2 (07:35→13:50)
[2017-07-21] MEDS: Budesonide 0.5 mg/2 ml Inhal Susp UD IH SCH (07:35)
[2017-07-21 07:41] LABS: BLOOD UREA NITROGEN 21 mg/dL (7-21); CALCIUM 9.5 mg/dL (8.4-10.5); GFR AFRICAN-AMERICAN > 60; GFR NON-AFRICAN AMERICAN 58
[2017-07-21 07:44] VITALS: PULSE 73; RESP 20; TEMP 98; O2SAT 98
--- NOTE | 2017-07-21 08:07 | CP.PCM.PN ---
Subjective - Date & Time of Evaluation Date of Evaluation: 07/21/17 Time of Evaluation: 07:15 - Subjective Subjective: (covering for Dr. Mireles) Patient is seen this morning in room 575 bed 1. She is on isolation for influenza. She complains of sore throat. Objective - Vital Signs/Intake and Output Vital Signs (last 24 hours): Temp Pulse Resp BP Pulse Ox 98 F 73 20 131/79 98 07/21/17 07:43 07/21/17 07:43 07/21/17 07:43 07/21/17 07:43 07/21/17 07:43 Intake and Output: 07/21/17 07/21/17 06:59 18:59 Intake Total 480 Balance 480 - Medications Medications: Current Medications Atorvastatin Calcium (Lipitor) 80 mg PO HS [facility] Last Admin: 07/20/17 22:01 Dose: 80 mg Benzocaine/Menthol (Cepacol Sore Throat) 1 [place] Q2H PRN PRN Reason: Sore Throat Last Admin: 07/20/17 17:52 Dose: 1 [place] Benzonatate (Tessalon Perles) 100 mg PO TID [facility] Last Admin: 07/20/17 17:21 Dose: 100 mg Budesonide (Pulmicort Respules) 0.5 mg IH BIDRESP [facility] Last Admin: 07/21/17 07:35 Dose: 0.5 mg Cholecalciferol (Vitamin D) 2,000 intlu PO DAILY [facility] Last Admin: 07/20/17 09:43 Dose: 2,000 intlu Clonazepam (Klonopin) 2 mg PO QID [facility] PRN Reason: Protocol Last Admin: 07/20/17 22:01 Dose: 2 mg Docusate Sodium (Colace) 100 mg PO BID [facility] Last Admin: 07/20/17 17:22 Dose: 100 mg Famotidine (Pepcid) 20 mg PO 1000,2200 [facility] Last Admin: 07/20/17 22:01 Dose: 20 mg Gabapentin (Neurontin) 300 mg PO TID [facility] PRN Reason: Protocol Last Admin: 07/20/17 17:21 Dose: 300 mg Glimepiride (Amaryl) 4 mg PO BID [facility] Last Admin: 07/20/17 17:22 Dose: 4 mg Home Med (Home Med) 1 unit PO [facility] Last Admin: 07/20/17 22:43 Dose: 1 unit Azithromycin (Zithromax 500mg In Ns) 500 mg in 250 mls @ 167 mls/hr IVPB DAILY [facility] PRN Reason: Protocol Last Admin: 07/20/17 09:45 Dose: 167 mls/hr Cefepime HCl (Maxipime 2gm) 2 gm in 100 mls @ 100 mls/hr IVPB Q12 [facility] PRN Reason: Protocol Stop: 07/22/17 23:01 Last Admin: 07/20/17 21:58 Dose: 100 mls/hr Insulin Detemir (Levemir) 10 unit SC AMHS [facility] Last Admin: 07/20/17 21:59 Dose: 10 unit Insulin Human Regular (Humulin R Med) 0 units SC ACHS [facility] PRN Reason: Protocol Last Admin: 07/20/17 21:58 Dose: 2 units Levalbuterol HCl (Xopenex) 0.63 mg IH TIDRESP [facility] Last Admin: 07/21/17 07:35 Dose: 0.63 mg Losartan Potassium (Cozaar) 50 mg PO DAILY [facility] Last Admin: 07/20/17 09:42 Dose: 50 mg Methylprednisolone (Solu-Medrol) 20 mg IVP DAILY [facility] Montelukast Sodium (Singulair) 10 mg PO HS [facility] Last Admin: 07/20/17 22:01 Dose: 10 mg Grcit-4-Gnig Ethyl Esters (Lovaza) 1 gm PO BID [facility] Last Admin: 07/20/17 17:21 Dose: 1 gm Oseltamivir Phosphate (Tamiflu Cap) 75 mg PO BID [facility] PRN Reason: Protocol Stop: 07/22/17 19:09 Last Admin: 07/20/17 17:21 Dose: 75 mg Paroxetine HCl (Paxil) 20 mg PO DAILY [facility] Last Admin: 07/20/17 09:42 Dose: 20 mg Quetiapine Fumarate (Seroquel) 100 mg PO BID [facility] PRN Reason: Protocol Last Admin: 07/20/17 17:22 Dose: 100 mg Sitagliptin Phosphate (Januvia) 100 mg PO DAILY [facility] Last Admin: 07/20/17 09:43 Dose: 100 mg Tiotropium [place] (Spiriva) 18 mcg IH DAILY [facility] Last Admin: 07/20/17 09:44 Dose: 18 mcg - Labs Labs: 07/20/17 06:30 07/21/17 07:00 - Constitutional Appears: No Acute Distress - Head Exam Head Exam: ATRAUMATIC, NORMOCEPHALIC - Respiratory Exam Respiratory Exam: Rhonchi, NORMAL BREATHING PATTERN - Cardiovascular Exam Cardiovascular Exam: +S1, +S2 - GI/Abdominal Exam GI & Abdominal Exam: Soft, Normal Bowel Sounds. absent: Tenderness - Neurological Exam Neurological Exam: Alert, Awake, Oriented x3 Assessment and Plan - Assessment and Plan (Free Text) Assessment: RLL Pneumonia with influenza A COPD exacerbation Diabetes HTN Anxiety Depression Plan: Patient is improving. She continues to complain of sore throat. Will order nystatin swish 'n swallow. continue Cepacol lozenges. continue Tessalon for cough. continue respiratory treatments. Will taper Solumedrol to once daily. continue antibiotics as per infectious disease. Patient will complete 5 days of Tamiflu for positive influenza A.
[2017-07-21] MEDS: Insulin Reg-MEDIUM-Coverage SC SCH ×2 (08:16→11:44)
[2017-07-21] MEDS ORDERED: Nystatin 100,000 Units/ml Oral Susp 5 ml UD PO SCH (10:00)
[2017-07-21] MEDS ORDERED: MethylPREDNISolone 40 mg Vial IVP SCH (10:00)
[2017-07-21] MEDS: Cholecalciferol 1,000 INTLU TAB PO SCH (10:11)
[2017-07-21] MEDS: Omega-3-Acid Ethyl Esters 1 GM Cap PO SCH (10:11)
[2017-07-21] MEDS: Tiotropium 18 mcg Cap For Inhalation IH SCH (10:13)
[2017-07-21] MEDS: Cefepime IV 2 gm in NS 2 GM/100 ML BAG IVPB SCH (10:14)
[2017-07-21] MEDS: Insulin Detemir 100 units/ml Vial (Levemir) SC SCH (10:15)
[2017-07-21] MEDS: Azithromycin 500MG/NS 250ml 500 MG/250 ML BAG IVPB SCH (10:15)
[2017-07-21 11:34] VITALS: BP 130/76
--- NOTE | 2017-07-21 12:45 | CP.PCM.PN ---
Subjective - Date & Time of Evaluation Date of Evaluation: 07/21/17 Time of Evaluation: 10:30 - Subjective Subjective: Breathing better, no fevers, not in distress. Objective - Vital Signs/Intake and Output Vital Signs (last 24 hours): Temp Pulse Resp BP Pulse Ox 98 F 73 20 131/79 98 07/21/17 07:43 07/21/17 07:43 07/21/17 07:43 07/21/17 07:43 07/21/17 07:43 Intake and Output: 07/21/17 07/21/17 06:59 18:59 Intake Total 480 Balance 480 - Medications Medications: Current Medications Atorvastatin Calcium (Lipitor) 80 mg PO HS [facility] Last Admin: 07/20/17 22:01 Dose: 80 mg Benzocaine/Menthol (Cepacol Sore Throat) 1 [place] Q2H PRN PRN Reason: Sore Throat Last Admin: 07/20/17 17:52 Dose: 1 [place] Benzonatate (Tessalon Perles) 100 mg PO TID [facility] Last Admin: 07/20/17 17:21 Dose: 100 mg Budesonide (Pulmicort Respules) 0.5 mg IH BIDRESP [facility] Last Admin: 07/21/17 07:35 Dose: 0.5 mg Cholecalciferol (Vitamin D) 2,000 intlu PO DAILY [facility] Last Admin: 07/20/17 09:43 Dose: 2,000 intlu Clonazepam (Klonopin) 2 mg PO QID [facility] PRN Reason: Protocol Last Admin: 07/20/17 22:01 Dose: 2 mg Docusate Sodium (Colace) 100 mg PO BID [facility] Last Admin: 07/20/17 17:22 Dose: 100 mg Famotidine (Pepcid) 20 mg PO 1000,2200 [facility] Last Admin: 07/20/17 22:01 Dose: 20 mg Gabapentin (Neurontin) 300 mg PO TID [facility] PRN Reason: Protocol Last Admin: 07/20/17 17:21 Dose: 300 mg Glimepiride (Amaryl) 4 mg PO BID [facility] Last Admin: 07/20/17 17:22 Dose: 4 mg Home Med (Home Med) 1 unit PO HS [facility] Last Admin: 07/20/17 22:43 Dose: 1 unit Azithromycin (Zithromax 500mg In Ns) 500 mg in 250 mls @ 167 mls/hr IVPB DAILY [facility] PRN Reason: Protocol Last Admin: 07/20/17 09:45 Dose: 167 mls/hr Cefepime HCl (Maxipime 2gm) 2 gm in 100 mls @ 100 mls/hr IVPB Q12 [facility] PRN Reason: Protocol Stop: 07/22/17 23:01 Last Admin: 07/20/17 21:58 Dose: 100 mls/hr Insulin Detemir (Levemir) 10 unit SC AMHS [facility] Last Admin: 07/20/17 21:59 Dose: 10 unit Insulin Human Regular (Humulin R Med) 0 units SC ACHS [facility] PRN Reason: Protocol Last Admin: 07/21/17 08:16 Dose: 5 units Levalbuterol HCl (Xopenex) 0.63 mg IH TIDRESP [facility] Last Admin: 07/21/17 07:35 Dose: 0.63 mg Losartan Potassium (Cozaar) 50 mg PO DAILY [facility] Last Admin: 07/20/17 09:42 Dose: 50 mg Methylprednisolone (Solu-Medrol) 20 mg IVP DAILY [facility] Montelukast Sodium (Singulair) 10 mg PO HS [facility] Last Admin: 07/20/17 22:01 Dose: 10 mg Nystatin (Nystatin Oral Susp) 5 ml PO QID [facility] [id number] Ethyl Esters (Lovaza) 1 gm PO BID [facility] Last Admin: 07/20/17 17:21 Dose: 1 gm Oseltamivir Phosphate (Tamiflu Cap) 75 mg PO BID [facility] PRN Reason: Protocol Stop: 07/22/17 19:09 Last Admin: 07/20/17 17:21 Dose: 75 mg Paroxetine HCl (Paxil) 20 mg PO DAILY [facility] Last Admin: 07/20/17 09:42 Dose: 20 mg Quetiapine Fumarate (Seroquel) 100 mg PO BID [facility] PRN Reason: Protocol Last Admin: 07/20/17 17:22 Dose: 100 mg Sitagliptin Phosphate (Januvia) 100 mg PO DAILY [facility] Last Admin: 07/20/17 09:43 Dose: 100 mg Tiotropium [place] (Spiriva) 18 mcg IH DAILY [facility] Last Admin: 07/20/17 09:44 Dose: 18 mcg - Labs Labs: 07/20/17 06:30 07/21/17 07:00 - Constitutional Appears: Non-toxic, Chronically Ill - Head Exam Head Exam: NORMAL INSPECTION - Neck Exam Neck Exam: absent: Meningismus - Respiratory Exam Respiratory Exam: Decreased Breath Sounds - Cardiovascular Exam Cardiovascular Exam: +S1, +S2 - GI/Abdominal Exam GI & Abdominal Exam: Soft. absent: Tenderness Assessment and Plan - Assessment and Plan (Free Text) Plan: Assessment consider right lower lobe HCAP on top of systemic viral illness with Influenza, clinically improving COPD DM anxiety disorder morbid obesity with BMI 45 HTN with hypertensive heart disease Plan on Cefepime and Zithromax day 4 - can d/c Cefepime and complete another day of Zithromax (total 5 days); continue 5 days of Tamiflu (day 4); PCT is <0.05 - cultures are negative will continue to monitor clinically
== END 2017-07-21 16:00 | disposition home or self-care (01) | DRG 194 ==
LOC: ED 13:59 → ERH 16:24 → 5RSO 18:21
PROVIDERS: ADMIT Internal Medicine; ATTEND Internal Medicine
DX: J10.00 Influenza due to other identified influenza virus with unspecified type of pneumonia (principal); J44.1 Chronic obstructive pulmonary disease with (acute) exacerbation; Z68.42 Body mass index [BMI] 45.0-49.9, adult; I11.9 Hypertensive heart disease without heart failure; E11.65 Type 2 diabetes mellitus with hyperglycemia; F32.9 Major depressive disorder, single episode, unspecified; F41.0 Panic disorder [episodic paroxysmal anxiety]; E87.6 Hypokalemia; E11.42 Type 2 diabetes mellitus with diabetic polyneuropathy; E66.01 Morbid (severe) obesity due to excess calories; E78.00 Pure hypercholesterolemia, unspecified; E03.9 Hypothyroidism, unspecified; Z79.4 Long term (current) use of insulin; Z87.891 Personal history of nicotine dependence

== ENCOUNTER 2017-08-18 19:54 | Observation (INO) | payer MEDICARE, OTHER ==
[2017-08-18 20:12] VITALS: BMI 46.7
[2017-08-18] MEDS ORDERED: Sodium Chloride 0.9% 1,000 ML IV STA ×2 (21:06→22:08)
--- NOTE | 2017-08-18 21:13 | ED PDOC ---
Arrival/HPI - General Chief Complaint: High Blood Sugar Time Seen by Provider: 08/18/17 20:04 Historian: Patient - History of Present Illness Narrative History of Present Illness (Text): 08/18/17 21:08 A 56 year old female, whose past medical history includes hypertension, diabetes , depression, anxiety, presents to the emergency department complaining of nausea and multiple episodes of diarrhea for 3 days ago. Patient reports also having 1 episode of vomiting today, as well as body aches and intermittent dizziness. Denies any shortness of breath, chest pain, or any other complaints at this time. PMD: Dr. Mireles Time/Duration: > week (symptoms started 3 days ago) Symptom Course: Unchanged Past Medical History - Provider Review Nursing Documentation Reviewed: Yes - Infectious Disease Hx of Infectious Diseases: None - Tetanus Immunization Tetanus Immunization: Unknown - Reproductive Menopause: Yes - Cardiac Hx Cardiac Disorders: Yes - Pulmonary Hx Respiratory Disorders: Yes Hx Asthma: Yes Hx Chronic Obstructive Pulmonary Disease (COPD): Yes Hx Emphysema: Yes - Neurological Hx Neurological Disorder: No - HEENT Hx HEENT Disorder: Yes Other/Comment: Wears Glasses - Renal Hx Renal Disorder: No - Endocrine/Metabolic Hx Endocrine Disorders: Yes Hx Diabetes Mellitus Type 2: Yes Hx Hypothyroidism: Yes - Hematological/Oncological Hx Blood Disorders: No - Integumentary Hx Dermatological Disorder: Yes - Musculoskeletal/Rheumatological Hx Musculoskeletal Disorders: Yes Hx Back Pain: Yes Hx Degenerative Joint Disease: Yes Hx Falls: Yes Hx Fractures: Yes (left arm plate and screws) - Gastrointestinal Hx Gastrointestinal Disorders: Yes Hx Diverticulitis: Yes - Genitourinary/Gynecological Hx Genitourinary Disorders: No - Psychiatric Hx Psychophysiologic Disorder: No Hx Substance Use: No - Surgical History Hx Musculoskeletal Surgery: Yes (left arm surgery) Other/Comment: sinus sx X 4. tubal ligation' - Anesthesia Hx Anesthesia: Yes Hx Anesthesia Reactions: No Hx Malignant Hyperthermia: No - Suicidal Assessment Feels Threatened In Home Enviroment: No Family/Social History - Physician Review Nursing Documentation Reviewed: Yes Family/Social History: No Known Family HX Smoking Status: Former Smoker Hx Alcohol Use: No Hx Substance Use: No Hx Substance Use Treatment: No Allergies/Home Meds Allergies/Adverse Reactions: Allergies aspirin Allergy (Verified 08/18/17 20:17) SHORTNESS OF BREATH Home Medications: Home Meds Medication Instructions Recorded Confirmed Dexlansoprazole [Dexilant] 60 mg PO DAILY 09/05/13 07/17/17 QUEtiapine [Seroquel] 100 mg PO BID 11/21/15 07/17/17 Temazepam [Restoril] 30 mg PO HS 11/21/15 07/17/17 Tiotropium [place] [Spiriva 2.5 mcg IH DAILY 11/21/15 07/17/17 Respimat] clonazePAM [Klonopin] 2 mg PO QID 11/21/15 07/17/17 Albuterol HFA [Ventolin HFA 90 2 puff IH [id number] 10/03/16 07/17/17 mcg/actuation (8 g)] Arformoterol [Brovana] 15 mcg IH BID 10/03/16 07/17/17 Gabapentin [Neurontin] 300 mg PO TID 10/03/16 07/17/17 Benzonatate [Tessalon Perle] 1 cap PO TID 05/09/17 07/17/17 Famotidine [Pepcid] 1 tab PO DAILY 05/09/17 07/17/17 Febuxostat [Uloric] 1 tab PO DAILY 05/09/17 07/17/17 Levalbuterol [Xopenex] 1 vial IH QID 05/09/17 07/17/17 Rosuvastatin Calcium [Crestor] 1 tab PO HS 05/09/17 07/17/17 Insulin Degludec [Tresiba 15 units SC DAILY 07/21/17 07/21/17 Flextouch U-100] methylPREDNISolone [Medrol] 1 tab PO DAILY 07/21/17 07/21/17 Review of Systems - Physician Review All systems were reviewed & negative as marked: Yes - Review of Systems Respiratory: absent: SOB Cardiovascular: absent: Chest Pain Gastrointestinal: Diarrhea (multiple episodes), Nausea, Vomiting (1 episode today) Musculoskeletal: Myalgias Neurological: Dizziness (intermittently) Physical Exam Vital Signs Reviewed: Yes Vital Signs Temp Pulse Resp BP Pulse Ox 08/18/17 22:00 85 16 138/82 99 08/18/17 20:12 99.3 F 114 H 21 139/82 95 Temperature: Afebrile Blood Pressure: Normal Pulse: Regular Respiratory Rate: Normal Appearance: Positive for: Well-Appearing Pain Distress: None Mental Status: Positive for: Alert and Oriented X 3 Finger Stick Blood Glucose: 237 - Systems Exam Head: Present: Atraumatic, Normocephalic Pupils: Present: PERRL Extroacular Muscles: Present: EOMI Conjunctiva: Present: Normal Mouth: Present: Moist Mucous Membranes Neck: Present: Normal Range of Motion Respiratory/Chest: Present: Clear to Auscultation, Good Air Exchange. No: Respiratory Distress, Accessory Muscle Use Cardiovascular: Present: Regular Rate and Rhythm, Normal S1, S2. No: Murmurs Abdomen: No: Tenderness, Distention, Peritoneal Signs Back: Present: Normal Inspection Upper Extremity: Present: Normal Inspection. No: Cyanosis, Edema Lower Extremity: Present: Normal Inspection. No: Edema Neurological: Present: GCS=15, CN II-XII Intact, Speech Normal Skin: Present: Warm, Dry, Normal Color. No: Rashes Psychiatric: Present: Alert, Oriented x 3, Normal Insight, Normal Concentration Medical Decision Making ED Course and Treatment: 08/18/17 21:10 Impression: 56 year old female with nausea, multiple episodes of diarrhea, and 1 episode of vomiting. Differential Diagnosis included but are not limited to: Dehydration, Gastroenteritis Plan: -- Labs -- Venous Blood Gas -- Urinalysis -- Blood Culture -- IV Fluids -- Reassess and disposition Progress Notes: 08/18/17 23:50 Case endorsed to pending responsive to treatment, reassessment, and final disposition. - Lab Interpretations Lab Results: 08/18/17 21:11 08/18/17 21:11 Lab Results 08/19/17 01:00: Urine Color Yellow, Urine Appearance Clear, Urine pH 6.0, Ur Specific [place] 1.025, Urine Protein 30 H, Urine Glucose (UA) Negative, Urine Ketones Negative, Urine Blood Negative, Urine Nitrate Negative, Urine Bilirubin Negative, Urine Urobilinogen 0.2, Ur Leukocyte Esterase Trace H, Urine RBC Pending, Urine WBC Pending 08/18/17 21:51: pO2 286 H, VBG pH 7.38, VBG pCO2 54.0, VBG HCO3 31.9 H, VBG Total CO2 33.6 H, VBG O2 Sat (Calc) 99.9 H, VBG Base Excess 5.3 H, VBG Potassium 3.9, Glucose 264 H, Lactate 2.8 H, FiO2 21.0, Sodium 142.0, Chloride 106.0, Venous Blood Potassium 3.9 08/18/17 21:11: Sodium 148, Potassium 3.9, Chloride 104, Carbon Dioxide 34 H, Anion Gap 14, BUN 6 L, Creatinine 0.9, Est GFR ( Amer) > 60, Est GFR (Non -Af Amer) > 60, Random Glucose 250 H, Calcium 9.1, Magnesium 1.8, Total Bilirubin 0.5, AST 32, ALT 38, Alkaline Phosphatase 77, Total Protein 6.7, Albumin 3.8, Globulin 2.9, Albumin/Globulin Ratio 1.3 08/18/17 21:11: WBC 8.7, RBC 4.48, Hgb 12.7, Hct 39.4, MCV 87.9, MCH 28.3, MCHC 32.2, RDW 13.9, Plt Count 265, MPV 11.5 H, Gran % 59.3, Lymph % (Auto) 27.3, [place] % (Auto) 6.3 H, Eos % (Auto) 7.0 H, Baso % (Auto) 0.1, Gran # 5.18, Lymph # (Auto) 2.4, [place] # (Auto) 0.6, Eos # (Auto) 0.6, Baso # (Auto) 0.01 08/18/17 20:22: POC Glucose (mg/dL) 237 H - Medication Orders Current Medication Orders: Discontinued Medications Sodium Chloride (Sodium Chloride 0.9%) 1,000 mls @ 999 mls/hr IV .Q1H1M STA Stop: 08/18/17 22:06 Last Admin: 08/18/17 21:32 Dose: 999 mls/hr eMAR Start Stop Document 08/18/17 21:32 MS (Rec: 08/18/17 21:32 MS [facility] [id number]) Intravenous Solution Start Date 08/18/17 Start Time 21:32 End Date 08/18/17 End time 22:32 Total Infusion Time 60 Sodium Chloride (Sodium Chloride 0.9%) 1,000 mls @ 999 mls/hr IV .Q1H1M STA Stop: 08/18/17 23:08 Last Admin: 08/18/17 22:59 Dose: 999 mls/hr eMAR Start Stop Document 08/18/17 22:59 MS (Rec: 08/18/17 22:59 MS [facility] [id number]) Intravenous Solution Start Date 08/18/17 Start Time 22:59 End Date 08/19/17 End time 00:00 Total Infusion Time 61 - Scribe Statement The provider has reviewed the documentation as recorded by the Jonathan Sevilla Provider Scribe Attestation: All medical record entries made by the Scribe were at my direction and personally dictated by me. I have reviewed the chart and agree that the record accurately reflects my personal performance of the history, physical exam, medical decision making, and the department course for this patient. I have also personally directed, reviewed, and agree with the discharge instructions and disposition. Disposition/Present on Arrival - Present on Arrival Any Indicators Present on Arrival: Yes History of DVT/PE: No History of Uncontrolled Diabetes: Yes Urinary Catheter: No History of Decub. Ulcer: No History Surgical Site Infection Following: None - Disposition Have Diagnosis and Disposition been Completed?: No Diagnosis: Gastroenteritis, Dehydration Disposition Time: 12:25 Condition: FAIR Referrals: Christian Mireles MD [Primary Care Provider] - Follow up with primary Forms: Alminder (Ukrainian)
[2017-08-18 21:22] LABS: BASO # 0.01 K/mm3 (0.0-2.0); BASO % 0.1 % (0.0-3.0); EOS # 0.6 (0.0-0.7); GRAN # 5.18 (1.4-6.5); GRAN % 59.3 % (50.0-68.0); HEMOGLOBIN 12.7 g/dL (12.0-16.0); LYMPH # 2.4 (1.2-3.4); LYMPH % 27.3 % (22.0-35.0); MEAN CELL VOLUME 87.9 fl (80.0-105.0); MEAN CORPUSCULAR HEMOGLOBIN 28.3 pg (25.0-35.0); MEAN CORPUSCULAR HGB CONC 32.2 g/dl (31.0-37.0); MEAN PLATELET VOLUME 11.5 fl (7.0-11.0); MONO # 0.6 (0.1-0.6); MONO % 6.3 % (1.0-6.0); RBC 4.48 10^6/uL (3.5-6.1); RED CELL DISTRIBUTION WIDTH 13.9 % (11.5-14.5); WHITE BLOOD COUNT 8.7 10^3/ul (4.5-11.0)
[2017-08-18 21:40] LABS: ALB/GLOB RATIO 1.3 (1.1-1.8); ALBUMIN 3.8 g/dL (3.0-4.8); ALT/SGPT 38 U/L (7-56); AST/SGOT 32 U/L (14-36); BLOOD UREA NITROGEN 6 mg/dL (7-21); CALCIUM 9.1 mg/dL (8.4-10.5); GFR AFRICAN-AMERICAN > 60; GFR NON-AFRICAN AMERICAN > 60
[2017-08-18 22:01] LABS: VENOUS BLOOD GAS BASE EXCESS 5.3 mmol/L (0.0-2.0); VENOUS BLOOD GAS PO2 286 mm/Hg (30-55); VENOUS BLOOD PH 7.38 (7.32-7.43)
--- NOTE | 2017-08-19 00:35 | ED PDOC ---
Physical Exam Vital Signs Temp Pulse Resp BP Pulse Ox 08/19/17 02:22 88 16 123/87 99 08/19/17 00:10 82 16 129/88 99 08/18/17 22:00 85 16 138/82 99 08/18/17 20:12 99.3 F 114 H 21 139/82 95 Finger Stick Blood Glucose: 237 Medical Decision Making ED Course and Treatment: 08/19/17 00:34 Patient endorsed to me by Dr. Goins.Pt. hx. noted c/w gastroenteritis.Will reasses response to treatment/final disposition. 08/19/17 01:54 On reevaluation patient appears to be retaining CO2 and has history of COPD but breathing easily. Has decreased breath sounds. Will treat with Duoneb. 08/19/17 2:02 Case discussed with and accepted to his service. he requested call to biomedical engineering supervisor. 2:21 Discussed case with biomedical engineering supervisor insulation extruder operator. Resident will come to evaluate patient for . - Lab Interpretations Lab Results: 08/18/17 21:11 08/18/17 21:11 Lab Results 08/19/17 01:00: Urine Color Yellow, Urine Appearance Clear, Urine pH 6.0, Ur Specific [place] 1.025, Urine Protein 30 H, Urine Glucose (UA) Negative, Urine Ketones Negative, Urine Blood Negative, Urine Nitrate Negative, Urine Bilirubin Negative, Urine Urobilinogen 0.2, Ur Leukocyte Esterase Trace H, Urine RBC 0 - 2 , Urine WBC 5 - 10, Ur Epithelial Cells 4 - 5, Urine Bacteria Few 08/19/17 00:45: pO2 46, VBG pH 7.29 L, VBG pCO2 73.0 H*, VBG HCO3 35.1 H, VBG Total CO2 37.3 H, VBG O2 Sat (Calc) 83.4 H, VBG Base Excess 5.9 H, VBG Potassium 3.5 L, Glucose 199 H, Lactate 1.4, FiO2 21.0, Sodium 144.0, Chloride 107.0, Venous Blood Potassium 3.5 L 08/18/17 21:51: pO2 286 H, VBG pH 7.38, VBG pCO2 54.0, VBG HCO3 31.9 H, VBG Total CO2 33.6 H, VBG O2 Sat (Calc) 99.9 H, VBG Base Excess 5.3 H, VBG Potassium 3.9, Glucose 264 H, Lactate 2.8 H, FiO2 21.0, Sodium 142.0, Chloride 106.0, Venous Blood Potassium 3.9 08/18/17 21:11: Sodium 148, Potassium 3.9, Chloride 104, Carbon Dioxide 34 H, Anion Gap 14, BUN 6 L, Creatinine 0.9, Est GFR ( Amer) > 60, Est GFR (Non -Af Amer) > 60, Random Glucose 250 H, Calcium 9.1, Magnesium 1.8, Total Bilirubin 0.5, AST 32, ALT 38, Alkaline Phosphatase 77, Total Protein 6.7, Albumin 3.8, Globulin 2.9, Albumin/Globulin Ratio 1.3 08/18/17 21:11: WBC 8.7, RBC 4.48, Hgb 12.7, Hct 39.4, MCV 87.9, MCH 28.3, MCHC 32.2, RDW 13.9, Plt Count 265, MPV 11.5 H, Gran % 59.3, Lymph % (Auto) 27.3, [place] % (Auto) 6.3 H, Eos % (Auto) 7.0 H, Baso % (Auto) 0.1, Gran # 5.18, Lymph # (Auto) 2.4, [place] # (Auto) 0.6, Eos # (Auto) 0.6, Baso # (Auto) 0.01 08/18/17 20:22: POC Glucose (mg/dL) 237 H - Medication Orders Current Medication Orders: Discontinued Medications Albuterol/Ipratropium (Duoneb 3 Mg/0.5 Mg (3 Ml) Ud) 3 ml IH ONCE STA Stop: 08/19/17 01:53 Last Admin: 08/19/17 02:08 Dose: 3 ml Sodium Chloride (Sodium Chloride 0.9%) 1,000 mls @ 999 mls/hr IV .Q1H1M STA Stop: 08/18/17 22:06 Last Admin: 08/18/17 21:32 Dose: 999 mls/hr eMAR Start Stop Document 08/18/17 21:32 MS (Rec: 08/18/17 21:32 MS [id number] Intravenous Solution Start Date 08/18/17 Start Time 21:32 End Date 08/18/17 End time 22:32 Total Infusion Time 60 Sodium Chloride (Sodium Chloride 0.9%) 1,000 mls @ 999 mls/hr IV .Q1H1M STA Stop: 08/18/17 23:08 Last Admin: 08/18/17 22:59 Dose: 999 mls/hr eMAR Start Stop Document 08/18/17 22:59 MS (Rec: 08/18/17 22:59 MS [id number]) Intravenous Solution Start Date 08/18/17 Start Time 22:59 End Date 08/19/17 End time 00:00 Total Infusion Time 61 Methylprednisolone (Solu-Medrol) 125 mg IVP ONCE ONE Stop: 08/19/17 01:55 Last Admin: 08/19/17 02:06 Dose: 125 mg IVP Administration Document 08/19/17 02:06 MS (Rec: 08/19/17 02:07 MS [id number]) Charges for Administration # of IVP Administrations 1 Disposition/Present on Arrival - Present on Arrival Any Indicators Present on Arrival: No History of DVT/PE: No History of Uncontrolled Diabetes: Yes Urinary Catheter: No History of Decub. Ulcer: No History Surgical Site Infection Following: None - Disposition Have Diagnosis and Disposition been Completed?: Yes Diagnosis: Gastroenteritis, Dehydration, COPD exacerbation, Gastroparesis Disposition: HOSPITALIZED Disposition Time: 02:08 Patient Plan: Observation Patient Problems: Current Active Problems Problem Status Onset COPD exacerbation Acute Dehydration Acute Gastroenteritis Acute Gastroparesis Acute Condition: FAIR Referrals: Christian Mireles MD [Primary Care Provider] - Follow up with primary Forms: [employer] ([employer] [place])
[2017-08-19 01:03] LABS: URINE BILIRUBIN NEGATIVE (NEGATIVE); URINE BLOOD NEGATIVE (NEGATIVE); URINE GLUCOSE (UA) NEGATIVE (NEGATIVE); URINE LEUKOCYTE ESTERASE TRACE Leu/uL (NEGATIVE); URINE PROTEIN 30 mg/dL (<30 mg/dL); URINE UROBILINOGEN 0.2 E.U./dL (<1 E.U./dL)
[2017-08-19 01:05] LABS: URINE APPEARANCE CLEAR (CLEAR); URINE COLOR YELLOW (YELLOW)
[2017-08-19 01:14] LABS: VENOUS BLOOD GAS BASE EXCESS 5.9 mmol/L (0.0-2.0); VENOUS BLOOD GAS PO2 46 mm/Hg (30-55); VENOUS BLOOD PH 7.29 (7.32-7.43)
[2017-08-19 01:29] LABS: URINE BACTERIA FEW (NEG); URINE RBC 0 - 2 /hpf (0-2)
[2017-08-19] MEDS ORDERED: Albuterol-Ipratrop 3 mg / 0.5 (3 ml) UD IH STA (01:52)
--- NOTE | 2017-08-19 04:04 | CP.PCM.HP ---
<Jonathan Dudley - Last Filed: 08/19/17 03:59> History of Present Illness - History of Present Illness History of Present Illness: CC: diarrhea, nausea, vomiting HPI: 56 year old female with past medical history that includes elevated BMI, asthma , emphysema, DM2, HTN, GERD, anxiety, and depression who presented to [facility] ED complainig of diarrhea, vomiting and dizziness. Patient admits to multiple episodes of diarrhea for the past 3 days with one episode of vomiting today. Patient indicates that prior to presentation her bg was 326 at home. Patient indicates she has been able to tolerate liquid diet while at home. Describes diarrhea as soft, brown, without blood, mucous, oil, or foul odor. Patient reports 6 episodes within the past 24hours. Patient denies pain with defecation , inability to pass flatus, hematemesis, fever, chills, night sweats. Patient indicates she is on home O2 2L and has had some productive cough of norman sputum , denies green or yellow productive sputum. Patient admits to previous hospitalization one month prior for pneumonia and similar GI symptoms. Patient indicates generalized body aches, headache, fatigue and mild weakness. She denies chest pain, urinary symptoms, dizziness, or neurological deficits. ED course: Patient was given 2 Liters of NS, 125mg IV solumedrol, Duoneb treatment x 1. Initial VBG showing elevated lactate, repeat VBG showing lactate normalized, acidotic and CO2 retention. PMH: Asthma, Emphysema, DM2, HTN, GERD, Anxiety, Depression PSH: sinus surgery, tubal ligation SocHx:Tobacco:Former, 1 PPW for 20 plus years ETOH:denies ID: denies ALL: ASA MEDS: MAR reviewed Present on Admission - Present on Admission Any Indicators Present on Admission: No Review of Systems - Review of Systems All systems: reviewed and no additional remarkable complaints except (as mentioned in hpi) Past Patient History - Infectious Disease Hx of Infectious Diseases: None - Tetanus Immunizations Tetanus Immunization: Unknown - Past Social History Smoking Status: Former Smoker - CARDIAC Hx Cardiac Disorders: Yes - PULMONARY Hx Respiratory Disorders: Yes Hx Asthma: Yes Hx Chronic Obstructive Pulmonary Disease (COPD): Yes Hx Emphysema: Yes - NEUROLOGICAL Hx Neurological Disorder: No - HEENT Hx HEENT Problems: Yes Other/Comment: Wears Glasses - RENAL Hx Chronic Kidney Disease: No - ENDOCRINE/METABOLIC Hx Endocrine Disorders: Yes Hx Diabetes Mellitus Type 2: Yes Hx Hypothyroidism: Yes - HEMATOLOGICAL/ONCOLOGICAL Hx Blood Disorders: No - INTEGUMENTARY Hx Dermatological Problems: Yes - MUSCULOSKELETAL/RHEUMATOLOGICAL Hx Musculoskeletal Disorders: Yes Hx Back Pain: Yes Hx Degenerative Joint Disease: Yes Hx Falls: Yes Hx Fractures: Yes (left arm plate and screws) - GASTROINTESTINAL Hx Gastrointestinal Disorders: Yes Hx Diverticulitis: Yes - GENITOURINARY/GYNECOLOGICAL Hx Genitourinary Disorders: No - PSYCHIATRIC Hx Psychophysiologic Disorder: No Hx Substance Use: No - SURGICAL HISTORY Hx Musculoskeletal Surgery: Yes (left arm surgery) Other/Comment: sinus sx X 4. tubal ligation' - ANESTHESIA Hx Anesthesia: Yes Hx Anesthesia Reactions: No Hx Malignant Hyperthermia: No Meds Allergies/Adverse Reactions: Allergies Allergy/AdvReac Type Severity Reaction Status Date / Time aspirin Allergy SHORTNESS Verified 08/18/17 20:17 OF BREATH Physical Exam - Constitutional Appears: No Acute Distress - Head Exam Head Exam: ATRAUMATIC, NORMAL INSPECTION, NORMOCEPHALIC - Eye Exam Eye Exam: EOMI, PERRL - Respiratory Exam Respiratory Exam: Decreased Breath Sounds, Clear to Auscultation Bilateral, Wheezes (expiratory). absent: Rales, Rhonchi - Cardiovascular Exam Cardiovascular Exam: REGULAR RHYTHM, +S1, +S2 - GI/Abdominal Exam GI & Abdominal Exam: Diminished Bowel Sounds, Distended, Soft, Tenderness (mid epigastric > general diffuse). absent: Firm, Guarding, Hernia, Rigid - Extremities Exam Extremities exam: Positive for: normal capillary refill. Negative for: calf tenderness, pedal edema - Neurological Exam Neurological exam: Alert, CN II-XII Intact, Normal Gait, Oriented x3 - Psychiatric Exam Psychiatric exam: Normal Affect, Normal Mood - Skin Skin Exam: Dry, Warm Results - Vital Signs Recent Vital Signs: Last Vital Signs Temp 99.3 F 08/18/17 20:12 Pulse 88 08/19/17 02:22 Resp 16 08/19/17 02:22 BP 123/87 08/19/17 02:22 Pulse Ox 99 08/19/17 02:22 - Labs Result Diagrams: 08/18/17 21:11 08/18/17 21:11 Labs: Laboratory Results - last 24 hr 08/18/17 08/18/17 08/18/17 20:22 21:11 21:11 WBC 8.7 RBC 4.48 Hgb 12.7 Hct 39.4 MCV 87.9 MCH 28.3 MCHC 32.2 RDW 13.9 Plt Count 265 MPV 11.5 H Gran % 59.3 Lymph % (Auto) 27.3 Door % (Auto) 6.3 H Eos % (Auto) 7.0 H Baso % (Auto) 0.1 Gran # 5.18 Lymph # (Auto) 2.4 [place] # (Auto) 0.6 Eos # (Auto) 0.6 Baso # (Auto) 0.01 pO2 VBG pH VBG pCO2 VBG HCO3 VBG Total CO2 VBG O2 Sat (Calc) VBG Base Excess VBG Potassium Glucose Lactate FiO2 Sodium 148 Potassium 3.9 Chloride 104 Carbon Dioxide 34 H Anion Gap 14 BUN 6 L Creatinine 0.9 Est GFR ( Amer) > 60 Est GFR (Non-Af Amer) > 60 POC Glucose (mg/dL) 237 H Random Glucose 250 H Calcium 9.1 Magnesium 1.8 Total Bilirubin 0.5 AST 32 ALT 38 Alkaline Phosphatase 77 Total Protein 6.7 Albumin 3.8 Globulin 2.9 Albumin/Globulin Ratio 1.3 Venous Blood Potassium Urine Color Urine Appearance Urine pH Ur Specific [place] Urine Protein Urine Glucose (UA) Urine Ketones Urine Blood Urine Nitrate Urine Bilirubin Urine Urobilinogen Ur Leukocyte Esterase Urine RBC Urine WBC Ur Epithelial Cells Urine Bacteria 08/18/17 08/19/17 08/19/17 21:51 00:45 01:00 WBC RBC Hgb Hct MCV MCH MCHC RDW Plt Count MPV Gran % Lymph % (Auto) [place] % (Auto) Eos % (Auto) Baso % (Auto) Gran # Lymph # (Auto) [place] # (Auto) Eos # (Auto) Baso # (Auto) pO2 286 H 46 VBG pH 7.38 7.29 L VBG pCO2 54.0 73.0 H* VBG HCO3 31.9 H 35.1 H VBG Total CO2 33.6 H 37.3 H VBG O2 Sat (Calc) 99.9 H 83.4 H VBG Base Excess 5.3 H 5.9 H VBG Potassium 3.9 3.5 L Glucose 264 H 199 H Lactate 2.8 H 1.4 FiO2 21.0 21.0 Sodium 142.0 144.0 Potassium Chloride 106.0 107.0 Carbon Dioxide Anion Gap BUN Creatinine Est GFR ( Amer) Est GFR (Non-Af Amer) POC Glucose (mg/dL) Random Glucose Calcium Magnesium Total Bilirubin AST ALT Alkaline Phosphatase Total Protein Albumin Globulin Albumin/Globulin Ratio Venous Blood Potassium 3.9 3.5 L Urine Color Yellow Urine Appearance Clear Urine pH 6.0 Ur Specific [place] 1.025 Urine Protein 30 H Urine Glucose (UA) Negative Urine Ketones Negative Urine Blood Negative Urine Nitrate Negative Urine Bilirubin Negative Urine Urobilinogen 0.2 Ur Leukocyte Esterase Trace H Urine RBC 0 - 2 Urine WBC 5 - 10 Ur Epithelial Cells 4 - 5 Urine Bacteria Few Assessment & Plan - Assessment and Plan (Free Text) Assessment: 56 year old female with past medical history that includes asthma, emphysema, DM2, HTN, GERD, anxiety, and depression who presented to [facility] ED complainig of diarrhea, vomiting and shortness of breath. Patient found to have CO2 retention and elevated blood glucose on labs. Patient to be admitted for CO2 retention in setting of COPD as well as elevated blood glucose in the setting of DM2 and suspected gastroparesis Plan: COPD Exacerbation - VBG at presentation pH 7.38/54/31.9/286, lactate 2.8 - Repeat VBG pH 7.29/73/35.1/46, lactate 1.4 - Duoneb, IV solumedrol in ED - Duoneb Q4H cindy - hold off on BiPAP at this time - repeat VBG in AM - CHest Xray 2 view - Resume home meds - Pulmonary consult Gastroenteritis vs. Gastroparesis - Likely etiology chronic DM2 with poor glucose control - Gastroenterology consult, Dr. Hernandez - Obstructive series - Reglan 10mg IV Q6H - Zofran 4mg IV q4H - Liquid diet - IV protonix DM2 - elevated bg 237, 250 in ED - ISS Med - ACHS HTN - Stable, monitor - Resume home meds Anxiety/Depression - Resume home meds GI ppx: Protonix DVT ppx: Heparin SQ Patient case and plan discussed and approved by attending, Dr. Mireles - Date & Time Date: 08/19/17 Time: 04:05 <Christian Mireles - Last Filed: 08/19/17 23:15> Results - Vital Signs Recent Vital Signs: Last Vital Signs Temp 97.4 F L 08/19/17 17:13 Pulse 74 08/19/17 18:00 Resp 20 08/19/17 17:13 BP 133/69 08/19/17 17:13 Pulse Ox 100 08/19/17 04:00 - Labs Result Diagrams: 08/19/17 08:00 08/19/17 08:00 Labs: Laboratory Results - last 24 hr 08/19/17 08/19/17 08/19/17 07:00 08:00 08:00 WBC 6.9 D RBC 4.43 Hgb 12.2 Hct 38.7 MCV 87.4 MCH 27.5 MCHC 31.5 RDW 13.9 Plt Count 266 MPV 11.8 H Gran % 87.9 H Lymph % (Auto) 10.8 L Door % (Auto) 0.6 L Eos % (Auto) 0.6 L Baso % (Auto) 0.1 Gran # 6.10 Lymph # (Auto) 0.8 L [place] # (Auto) 0.0 L Eos # (Auto) 0.0 Baso # (Auto) 0.01 Sodium 147 Potassium 3.7 Chloride 105 Carbon Dioxide 31 Anion Gap 15 BUN 8 Creatinine 0.9 Est GFR ( Amer) > 60 Est GFR (Non-Af Amer) > 60 POC Glucose (mg/dL) Random Glucose 307 H* D Hemoglobin A1c 7.3 H D Uric Acid 4.0 Calcium 8.9 Phosphorus 1.1 L* Magnesium 1.6 L Total Bilirubin 0.5 Direct Bilirubin 0.2 AST 25 ALT 42 Alkaline Phosphatase 83 Total Protein 6.6 Albumin 3.9 Globulin 2.7 Albumin/Globulin Ratio 1.4 Triglycerides 133 Cholesterol 113 L LDL Cholesterol Direct 57 HDL Cholesterol 37 Amylase 42 Lipase 68 Vitamin B12 423 25-OH Vitamin D Total Folate 12.2 Free T4 Thyroxine (T4) TSH 3rd Generation 08/19/17 08/19/17 08/19/17 08:00 08:00 08:09 WBC RBC Hgb Hct MCV MCH MCHC RDW Plt Count MPV Gran % Lymph % (Auto) [place] % (Auto) Eos % (Auto) Baso % (Auto) Gran # Lymph # (Auto) [place] # (Auto) Eos # (Auto) Baso # (Auto) Sodium Potassium Chloride Carbon Dioxide Anion Gap BUN Creatinine Est GFR ( Amer) Est GFR (Non-Af Amer) POC Glucose (mg/dL) 284 H Random Glucose Hemoglobin A1c Uric Acid Calcium Phosphorus Magnesium Total Bilirubin Direct Bilirubin AST ALT Alkaline Phosphatase Total Protein Albumin Globulin Albumin/Globulin Ratio Triglycerides Cholesterol LDL Cholesterol Direct HDL Cholesterol Amylase Lipase Vitamin B12 25-OH Vitamin D Total 27.0 L Folate Free T4 1.02 Thyroxine (T4) 6.9 TSH 3rd Generation 0.60 08/19/17 08/19/17 08/19/17 11:13 16:01 16:03 WBC RBC Hgb Hct MCV MCH MCHC RDW Plt Count MPV Gran % Lymph % (Auto) [place] % (Auto) Eos % (Auto) Baso % (Auto) Gran # Lymph # (Auto) [place] # (Auto) Eos # (Auto) Baso # (Auto) Sodium Potassium Chloride Carbon Dioxide Anion Gap BUN Creatinine Est GFR ( Amer) Est GFR (Non-Af Amer) POC Glucose (mg/dL) 382 H 385 H 382 H Random Glucose Hemoglobin A1c Uric Acid Calcium Phosphorus Magnesium Total Bilirubin Direct Bilirubin AST ALT Alkaline Phosphatase Total Protein Albumin Globulin Albumin/Globulin Ratio Triglycerides Cholesterol LDL Cholesterol Direct HDL Cholesterol Amylase Lipase Vitamin B12 25-OH Vitamin D Total Folate Free T4 Thyroxine (T4) TSH 3rd Generation 08/19/17 21:26 WBC RBC Hgb Hct MCV MCH MCHC RDW Plt Count MPV Gran % Lymph % (Auto) [place] % (Auto) Eos % (Auto) Baso % (Auto) Gran # Lymph # (Auto) [place] # (Auto) Eos # (Auto) Baso # (Auto) Sodium Potassium Chloride Carbon Dioxide Anion Gap BUN Creatinine Est GFR ( Amer) Est GFR (Non-Af Amer) POC Glucose (mg/dL) 360 H Random Glucose Hemoglobin A1c Uric Acid Calcium Phosphorus Magnesium Total Bilirubin Direct Bilirubin AST ALT Alkaline Phosphatase Total Protein Albumin Globulin Albumin/Globulin Ratio Triglycerides Cholesterol LDL Cholesterol Direct HDL Cholesterol Amylase Lipase Vitamin B12 25-OH Vitamin D Total Folate Free T4 Thyroxine (T4) TSH 3rd Generation Assessment & Plan - Assessment and Plan (Free Text) Plan: [facility] [address] [place] [address] Health Information Management History and Physical Report : [id number] Draft Patient: ALMA CARIAS Unit: [id number] : 1960 Loc: [facility]Bed[facility] Age/Sex: 56 / F ADM Status: ADM IN ADM Date: Copied To: Copied To Cosigner: Attending MD: Chi JOHNSON,Christian Chiang HISTORY OF PRESENT ILLNESS: The patient is a 56-year-old female who presented to [facility] Emergency Room with complaints of elevated blood sugar greater than 300. Also, complains of nausea, vomiting, diarrhea since last four days. Blood sugar was 237 in the triage, the patient came into the ER as a walk-in. REVIEW OF SYMPTOMS: Thirteen system review was done, pertinent positive and negative dictated above. Review of symptoms positive for nausea, diarrhea, body aches, elevated blood sugar. The patient's vital signs, past medical history, previous visits, medical history, surgical history, psychiatric history were reviewed. All diagnostic data reviewed. The patient examined at bedside with medical residents. Refer to the detailed H&P done by the medical voucher clerk for further details. clinical examination, positive finding, right upper quadrant and right periumbilical tenderness. IMPRESSION AND PLAN: 1. Myalgias, nausea, vomiting and diarrhea, etiology indeterminate versus questionable gastroenteritis. 2. Hyperglycemia with uncontrolled diabetes mellitus. 3. History of advanced oxygen requiring, steroid requiring chronic obstructive pulmonary disease. 4. Super morbid obesity. 5. Transient lactic acidosis. 6. Hypercarbia. 7. Hyperglycemia with uncontrolled diabetes mellitus. 8. Hypophosphatemia. 9. Hypomagnesemia. 10. Left axis deviation. 11. History of pulmonary hypertension with right ventricular systolic pressure of 38 mmHg. 12. Left ventricular ejection fraction of 62%. 13. Right upper quadrant abdominal pain and tenderness, etiology indeterminate. 14. History of hyperlipidemia, hypertriglyceridemia. 15. History of anxiety, depression. 16. Severe hypovitaminosis D. 17. History of hyperuricemia. 18. History of hypertension. 19. Morbid obesity. 20. Insulin-requiring diabetes mellitus. 21. History of hypothyroidism. 22. History of diverticulosis, diverticulitis, gastroesophageal reflux. 23. History of left upper extremity open reduction and internal fixation. 24. History of degenerative joint disease of the spine and knees. 25. History of anxiety, depression and panic disorder. 26. History of tubal ligation. 27. History of emphysema. 28. History of heterogenous thyroid. 29. History of hepatic steatosis and hepatomegaly. 30. History of fatty liver. 31. History of atelectasis. 32. History of small pericardial effusion, trace left pleural effusion. 33. History of sinusitis. 34. Hypokalemia, hypercalcemia. 35. Gastroenteritis 36 Acute exacerbation of Diabetic gastroparesis 37. Hypercarbia 38. Questionable and possible Acute exacerbation of COPD with hypercarbia and respiratory acidosis Plan at this time, the patient is admitted to [facility]. Blood cultures, urine cultures ordered. CONSULTATIONS: 1. Gastroenterology. 2. Pulmonary. CURRENT MEDICATIONS: 1. Colace 100 mg twice a day. 2. Cozaar 50 mg daily. 3. DuoNeb nebulizer every 4 hours [id number] and every 2 hours p.r.n. for shortness of breath. 4. Uloric daily. 5. Heparin 5000 subcutaneously every 8 hours. 6. Humulin R regular high-dose sliding scale coverage. 7. Klonopin 2 mg four times a day. 8. Lipitor 80 mg at bedtime. 9. Lovaza 2 g twice a day. 10. Magnesium sulfate riders 2 g ordered x2. 11. Neurontin 300 three times a day. 12. Neutra-Phos 1 packet twice a day. 13. Paxil 20 mg daily. 14. Protonix 40 mg daily. 15. Pulmicort 0.5 mg nebulizer twice a day. 16. Reglan 10 mg IV every 6 hours. 17. Seroquel 100 mg twice a day. 18. Singulair 10 mg at bedtime. 19. IV fluid 0.9 normal saline at 80 mL an hour. 20. The patient received Solu-Medrol 125 in the ER, Tessalon 100 mg three times a day, Spiriva Respimat 2.5 mcg daily Tylenol p.r.n., vitamin D3 2000 units daily, Zofran 4 mg IV every 4 hours. Ultrasound of the abdomen ordered. Chest PT, oxygen ordered. Consistent carbohydrate ordered. WING stockings, SCDs, physical therapy, occupational therapy, out of bed ordered. The patient updated about her condition, diagnosis, treatment plan, management plan, need for further diagnostic therapeutic intervention was explained to the patient at length and all questions concerned answered, which she acknowledged, understood. Dictated and electronically signed, not read. Christian Mireles MD Dictated By: Christian Mireles MD Transcribed Date and Time: 08/19/17 1122 Transcribed By: NAHID Signed By: Date & Time Signed: Co-Signed By: Date & Time Signed:
[2017-08-19] MEDS ORDERED: Pneumococcal 23-Valent Vaccine IM ONE (06:45)
[2017-08-19] MEDS: Pantoprazole 40 mg EC Tab PO SCH (07:07)
[2017-08-19] MEDS ORDERED: Insulin Lispro (humaLOG) MEDIUM Coverage SC SCH (07:30)
[2017-08-19] MEDS: Budesonide 0.5 mg/2 ml Inhal Susp UD IH SCH ×2 (07:53→20:19)
[2017-08-19] MEDS: Albuterol-Ipratrop 3 mg / 0.5 (3 ml) UD IH SCH ×4 (07:53→20:18)
[2017-08-19] MEDS ORDERED: Albuterol HFA 90 mcg/actuation (8 g) IH SCH (08:00)
[2017-08-19 08:31] LABS: BASO # 0.01 K/mm3 (0.0-2.0); BASO % 0.1 % (0.0-3.0); EOS % 0.6 % (1.5-5.0); GRAN # 6.1 (1.4-6.5); GRAN % 87.9 % (50.0-68.0); HEMOGLOBIN 12.2 g/dL (12.0-16.0); LYMPH # 0.8 (1.2-3.4); LYMPH % 10.8 % (22.0-35.0); MEAN CELL VOLUME 87.4 fl (80.0-105.0); MEAN CORPUSCULAR HEMOGLOBIN 27.5 pg (25.0-35.0); MEAN CORPUSCULAR HGB CONC 31.5 g/dl (31.0-37.0); MEAN PLATELET VOLUME 11.8 fl (7.0-11.0); MONO % 0.6 % (1.0-6.0); RBC 4.43 10^6/uL (3.5-6.1); RED CELL DISTRIBUTION WIDTH 13.9 % (11.5-14.5); WHITE BLOOD COUNT 6.9 10^3/ul (4.5-11.0)
[2017-08-19] MEDS: Sodium Chloride 0.9% 1,000 ML IV SCH ×2 (08:44→21:58)
[2017-08-19 08:53] LABS: LDL CHOLESTEROL 57 mg/dL (0-129)
[2017-08-19 08:55] LABS: ALB/GLOB RATIO 1.4 (1.1-1.8); ALBUMIN 3.9 g/dL (3.0-4.8); ALT/SGPT 42 U/L (7-56); AMYLASE 42 U/L (35-125); AST/SGOT 25 U/L (14-36); BILIRUBIN,DIRECT 0.2 mg/dL (0.0-0.4); BLOOD UREA NITROGEN 8 mg/dL (7-21); CALCIUM 8.9 mg/dL (8.4-10.5); GFR AFRICAN-AMERICAN > 60; GFR NON-AFRICAN AMERICAN > 60; HDL CHOLESTEROL 37 mg/dL (29-60); LIPASE 68 U/L (23-300)
[2017-08-19] MEDS ORDERED: Magnesium Sulfate 2 GM in Sodium Chloride 0.9% 100 ML IV ONE (08:58)
[2017-08-19] MEDS ORDERED: Potassium Chloride 20 mEq ER Tab PO ONE (08:59)
--- NOTE | 2017-08-19 09:01 | RAD ---
HISTORY: eval COMPARISON: 07/17/2017 TECHNIQUE: Chest PA and lateral FINDINGS: LUNGS: No active pulmonary disease. PLEURA: No significant pleural effusion identified. No pneumothorax apparent. CARDIOVASCULAR: Normal. OSSEOUS STRUCTURES: No significant abnormalities. VISUALIZED UPPER ABDOMEN: Normal. OTHER FINDINGS: None. IMPRESSION: No active disease.
[2017-08-19] MEDS ORDERED: Albuterol-Ipratrop 3 mg / 0.5 (3 ml) UD IH PRN ×2 (09:04→11:01)
[2017-08-19 09:05] LABS: FREE T4 1.02 ng/dL (0.78-2.19); T4 6.9 ug/dL (5.5-11.0)
--- NOTE | 2017-08-19 09:18 | RAD ---
HISTORY: eval COMPARISON: No prior. FINDINGS: BOWEL: Normal. No obstruction. No free air. BONES: Normal. OTHER FINDINGS: None. IMPRESSION: No active disease.
[2017-08-19] MEDS: Omega-3-Acid Ethyl Esters 1 GM Cap PO SCH ×2 (09:55→19:14)
[2017-08-19] MEDS: Cholecalciferol 1,000 INTLU TAB PO SCH (09:56)
[2017-08-19] MEDS ORDERED: Arformoterol 15 mcg/2 ml Inh Sol IH SCH (10:00)
[2017-08-19] MEDS: Potassium & Sodium Phosphate PO SCH ×2 (10:01→19:13)
[2017-08-19] MEDS: FEBUXOSTAT PO SCH (10:16)
[2017-08-19] MEDS: TIOTROPIUM BROMIDE 2.5 MCG IH SCH (10:16)
--- NOTE | 2017-08-19 10:30 | CARD ---
APPROVED REPORT EKG Measurement Heart [id number] <Conclusion> Normal sinus rhythm LAD RVCD Nonspecific T wave abnormality Prolonged QT
[2017-08-19] MEDS ORDERED: Potassium Phosphate 15 MMOLE in Sodium Chloride 0.9% 250 ML IVPB ONE (10:40)
[2017-08-19] MEDS ORDERED: Magnesium Sulfate 2 GM in Sodium Chloride 0.9% 100 ML IVPB ONE (10:40)
[2017-08-19] MEDS: Insulin Reg-HIGH-Coverage SC SCH ×3 (12:57→21:57)
--- NOTE | 2017-08-19 17:00 | CON ---
DATE: 08/19/2017 PULMONARY CONSULTATION REASON FOR PULMONARY CONSULTATION: Chronic obstructive pulmonary disease. REFERRING PHYSICIAN: Dr. Christian Mireles. HISTORY OF PRESENT ILLNESS: The patient is a 56-year-old female, with past medical history significant for advanced chronic obstructive pulmonary disease, on home oxygen; asthma; hypertension; diabetes mellitus; depression; anxiety, who presents to [facility] with main complaints of nausea, vomiting, diarrhea and mild abdominal discomfort for the past three days. In the Emergency Room, the patient was noted to be dehydrated. She was thus admitted for additional evaluation. The patient is not short of breath at rest. She does have chronic occasional dyspnea on exertion - unchanged. The patient also has an occasional cough with occasional sputum production - also unchanged. There is no history of chest pain, coughing up of blood, or chest pain - made worse with deep respirations. The patient did present to the Emergency Room with low-grade fevers (99.3). No history of chills or infectious exposure. No history of night sweats, weight loss or appetite change prior to the above events. No history of leg or calf pains. No history of syncope or diaphoresis. No history of recent travel or trauma. REVIEW OF SYSTEMS: No acute urinary symptoms. No new neurologic or musculoskeletal complaints. Rest of the review of systems is negative. ALLERGIES: ASPIRIN. SOCIAL HISTORY: Positive for former tobacco usage. No alcohol. FAMILY HISTORY: No inheritable diseases. HOME MEDICATIONS: Include Spiriva Respimat, Colace, Tessalon Perles, Zithromax, Klonopin, Restoril, Crestor, Seroquel, Paxil, Dexilant, Pulmicort, Brovana, Amaryl, Neurontin, Pepcid, Singulair, Cozaar, insulin. PHYSICAL EXAMINATION: GENERAL: The patient appears comfortable this morning. She is not short of breath at rest. VITAL SIGNS: Temperature is 98.7, pulse 88, respirations 18, blood pressure 121/57. Oxygen saturation on nasal cannula is 100%. HEENT: Normocephalic, atraumatic. No JVD. CARDIOVASCULAR: Positive S1, S2. No S3 gallop. LUNGS: Very minimal rhonchi bilaterally. No wheezing. EXTREMITIES: Mild edema. No cyanosis, no clubbing. Calves are nontender to palpation. GASTROINTESTINAL: Abdomen is soft. It is mildly distended and mildly tender to palpation. Bowel sounds are positive. SKIN: No acute rash. NEUROLOGIC: Exam limited at the present time. PERTINENT LABORATORY DATA: Chest x-ray was done this morning and reviewed. I do not appreciate any new or significant changes. Official results are pending. CBC: White count 8.7, hemoglobin 12.7, hematocrit 39.4, platelets of 265,000. Complete metabolic profile: Carbon dioxide 34, BUN 6, glucose 250. Rest of the metabolic profile is within normal limits. IMPRESSION: 1. Rule out gastroenteritis. 2. Advanced chronic obstructive pulmonary disease, on home oxygen. 3. Asthma. 4. Obesity. 5. Diabetes mellitus. PLAN The patient presents to [facility] with a 3-day history of worsening gastrointestinal symptoms. Again, in the Emergency Room, the patient was noted to be dehydrated. She was thus admitted for additional evaluation. I did question the patient at length, as well as reviewed the chart at length. At this point in time, the patient offers no new or significant pulmonary symptoms. I did review the chest x-ray as above. I do not appreciate any new or significant changes. Again, official results are pending. On physical exam, there is no significant bronchospasm noted. In addition, the oxygen saturation on nasal cannula is 100%. I will continue with the current pulmonary medications for now. Gastrointestinal evaluation with Dr. Hernandez has been ordered. Repeat morning labs are pending. The patient does state to feeling better this morning, and is clinically improved. Additional pulmonary intervention will be based on the clinical status of the patient. I will discuss the above with the attending physician. Thank you very much for this pulmonary consultation. Fam Robb MD JOSS
[2017-08-19 17:06] LABS: FOLATE 12.2 ng/mL
--- NOTE | 2017-08-19 18:44 | US ---
HISTORY: RUQ pain COMPARISON: All 11/29/2016 abdominal ultrasound None. TECHNIQUE: Sonographic evaluation of the abdomen. FINDINGS: LIVER: Measures 16.2 cm. Hepatopedal blood flow. Fatty infiltration manifest ultrasonographically as increased echogenicity of the liver parenchyma. No mass. No intrahepatic bile duct dilatation. GALLBLADDER: Unremarkable. No gallstones. COMMON BILE DUCT: Measures 3.2 mm. No stones. No dilatation. PANCREAS: Obscured by overlying bowel gas. Non diagnostic assessment of the pancreas RIGHT KIDNEY: Measures 5.6 x 9.1cm. Normal echogenicity. No calculus, mass, or hydronephrosis. LEFT KIDNEY: Measures 5.3 x 9.2cm. Normal echogenicity. No calculus, mass, or hydronephrosis. SPLEEN: Normal in size and contour. No mass. AORTA: No aneurysmal dilatation. IVC: Unremarkable. OTHER FINDINGS: None. IMPRESSION: No significant or acute findings to account for/ related to the clinical presentation. No significant interval change compared to the prior examination(s).
[2017-08-19] MEDS ORDERED: Temazepam [Restoril] 30 MG (HOME MED) PO SCH (22:00)
[2017-08-19] MEDS: TEMAZEPAM 30 MG PO SCH (22:04)
--- NOTE | 2017-08-19 22:29 | HP ---
HISTORY OF PRESENT ILLNESS: The patient is a 56-year-old female who presented to [facility] Emergency Room with complaints of elevated blood sugar greater than 300. Also, complains of nausea, vomiting, diarrhea since last four days. Blood sugar was 237 in the triage, the patient came into the ER as a walk-in. REVIEW OF SYMPTOMS: Thirteen system review was done, pertinent positive and negative dictated above. Review of symptoms positive for nausea, diarrhea, body aches, elevated blood sugar. The patient's vital signs, past medical history, previous visits, medical history, surgical history, psychiatric history were reviewed. All diagnostic data reviewed. The patient examined at bedside with medical residents. Refer to the detailed H&P done by the medical doctor md for further details. clinical examination, positive finding, right upper quadrant and right periumbilical tenderness. IMPRESSION AND PLAN: 1. Myalgias, nausea, vomiting and diarrhea, etiology indeterminate versus questionable gastroenteritis. 2. Hyperglycemia with uncontrolled diabetes mellitus. 3. History of advanced oxygen requiring, steroid requiring chronic obstructive pulmonary disease. 4. Super morbid obesity. 5. Transient lactic acidosis. 6. Hypercarbia. 7. Hyperglycemia with uncontrolled diabetes mellitus. 8. Hypophosphatemia. 9. Hypomagnesemia. 10. Left axis deviation. 11. History of pulmonary hypertension with right ventricular systolic pressure of 38 mmHg. 12. Left ventricular ejection fraction of 62%. 13. Right upper quadrant abdominal pain and tenderness, etiology indeterminate. 14. History of hyperlipidemia, hypertriglyceridemia. 15. History of anxiety, depression. 16. Severe hypovitaminosis D. 17. History of hyperuricemia. 18. History of hypertension. 19. Morbid obesity. 20. Insulin-requiring diabetes mellitus. 21. History of hypothyroidism. 22. History of diverticulosis, diverticulitis, gastroesophageal reflux. 23. History of left upper extremity open reduction and internal fixation. 24. History of degenerative joint disease of the spine and knees. 25. History of anxiety, depression and panic disorder. 26. History of tubal ligation. 27. History of emphysema. 28. History of heterogenous thyroid. 29. History of hepatic steatosis and hepatomegaly. 30. History of fatty liver. 31. History of atelectasis. 32. History of small pericardial effusion, trace left pleural effusion. 33. History of sinusitis. 34. Hypokalemia, hypercalcemia. 35. Gastroenteritis 36 Acute exacerbation of Diabetic gastroparesis 37. Hypercarbia 38. Questionable and possible Acute exacerbation of COPD with hypercarbia and respiratory acidosis Plan at this time, the patient is admitted to [facility]. Blood cultures, urine cultures ordered. CONSULTATIONS: 1. Gastroenterology. 2. Pulmonary. CURRENT MEDICATIONS: 1. Colace 100 mg twice a day. 2. Cozaar 50 mg daily. 3. DuoNeb nebulizer every 4 hours [id number] and every 2 hours p.r.n. for shortness of breath. 4. Uloric daily. 5. Heparin 5000 subcutaneously every 8 hours. 6. Humulin R regular high-dose sliding scale coverage. 7. Klonopin 2 mg four times a day. 8. Lipitor 80 mg at bedtime. 9. Lovaza 2 g twice a day. 10. Magnesium sulfate riders 2 g ordered x2. 11. Neurontin 300 three times a day. 12. Neutra-Phos 1 packet twice a day. 13. Paxil 20 mg daily. 14. Protonix 40 mg daily. 15. Pulmicort 0.5 mg nebulizer twice a day. 16. Reglan 10 mg IV every 6 hours. 17. Seroquel 100 mg twice a day. 18. Singulair 10 mg at bedtime. 19. IV fluid 0.9 normal saline at 80 mL an hour. 20. The patient received Solu-Medrol 125 in the ER, Tessalon 100 mg three times a day, Spiriva Respimat 2.5 mcg daily Tylenol p.r.n., vitamin D3 2000 units daily, Zofran 4 mg IV every 4 hours. Ultrasound of the abdomen ordered. Chest PT, oxygen ordered. Consistent carbohydrate ordered. WING thompson, SCDs, physical therapy, occupational therapy, out of bed ordered. The patient updated about her condition, diagnosis, treatment plan, management plan, need for further diagnostic therapeutic intervention was explained to the patient at length and all questions concerned answered, which she acknowledged, understood. Dictated and electronically signed, not read. Christian Mireles MD [facility] # [id number]
--- NOTE | 2017-08-20 00:27 | CON ---
DATE: 08/19/2017 GASTROENTEROLOGY REQUESTING PHYSICIAN: Christian Mireles MD REASON FOR CONSULTATION: I have been asked to see this 56-year-old morbidly obese female who comes to the hospital with several episodes of loose bowel movements with one episode of vomiting. Routine workup in the hospital shows her glucose is elevated at over 400. The patient has had multiple loose bowel movements over the last 1 to 2 days. She denies any rectal bleeding, hematemesis, melena, fevers, or chills. The patient was hospitalized approximately 3-1/2 months ago for diverticulitis and treated with antibiotics. She currently denies any abdominal pain. PAST MEDICAL HISTORY: Notable for morbid obesity, type 2 diabetes mellitus, hypertension, asthma, COPD, depression, and anxiety. PAST SURGICAL HISTORY: Notable for sinus surgery and tubal ligation. SOCIAL HISTORY: She used to smoke several cigarettes a day for over 20 years. She denies alcohol use. FAMILY HISTORY: Noncontributory. REVIEW OF SYSTEMS: Fourteen-point review of systems is notable for diarrhea, nausea, and vomiting. MEDICATIONS AT HOME: Include Spiriva, omega-3, Colace, Tessalon Perles, Zithromax 500 mg daily, albuterol, Klonopin, Restoril, Crestor, Seroquel, Paxil, DEXILANT, vitamin D, budesonide inhaler, Brovana inhaler, glimepiride, gabapentin, Uloric, Pepcid, montelukast, losartan, and insulin. PHYSICAL EXAMINATION: GENERAL: Morbidly obese female lying in bed, in no acute distress. VITAL SIGNS: Reveal temperature of 98.3, blood pressure 116/58, heart rate of 108. Her BMI is 46.7. HEENT: Reveal sclerae to be white. Conjunctivae pink. NECK: Supple. CHEST: Reveals lungs to be clear. HEART: Reveals a regular rate and rhythm. ABDOMEN: Obese, soft, nontender. EXTREMITIES: Show no edema. She has multiple tattoos throughout her body. LABORATORY DATA: Reveals white blood cell count 6.9, hemoglobin 12.2, and platelet count 266,000. Chemistries reveal blood sugar 284. Other electrolytes are normal. AST, ALT, and alk phos are all normal. Obstructive series of the abdomen is normal. IMPRESSION: 1. Probable gastroenteritis with diarrhea, nausea, and vomiting. The patient is currently on antibiotics and was on antibiotics for diverticulitis approximately 3-1/2 weeks ago, one must rule out pseudomembranous colitis. 2. Uncontrolled diabetes mellitus. 3. Morbid obesity. RECOMMENDATIONS: 1. Check stool for C. diff. 2. Advance diet as tolerated. No plans for endoscopy or colonoscopy at this time as there is no clinical evidence of GI bleeding. Juan M Hernandez MD
[2017-08-20] MEDS: Albuterol-Ipratrop 3 mg / 0.5 (3 ml) UD IH SCH ×7 (01:17→23:32)
[2017-08-20] MEDS: Pantoprazole 40 mg EC Tab PO SCH (05:35)
[2017-08-20] MEDS: Sodium Chloride 0.9% 1,000 ML IV SCH (05:40)
[2017-08-20 06:13] VITALS: RESP 20
[2017-08-20] MEDS ORDERED: Ergocalciferol 50,000 Intl Units Cap PO SCH (06:15)
[2017-08-20 06:47] LABS: FRUCTOSAMINE 238 umol/L (190-270)
[2017-08-20 07:19] LABS: ALB/GLOB RATIO 1.2 (1.1-1.8); ALBUMIN 3.4 g/dL (3.0-4.8); ALT/SGPT 34 U/L (7-56); AST/SGOT 23 U/L (14-36); BILIRUBIN,DIRECT 0.2 mg/dL (0.0-0.4); BLOOD UREA NITROGEN 11 mg/dL (7-21); CALCIUM 8.4 mg/dL (8.4-10.5); GFR AFRICAN-AMERICAN > 60; GFR NON-AFRICAN AMERICAN > 60
[2017-08-20] MEDS: Budesonide 0.5 mg/2 ml Inhal Susp UD IH SCH ×2 (07:51→23:32)
[2017-08-20] MEDS: Insulin Reg-HIGH-Coverage SC SCH ×3 (08:07→17:43)
[2017-08-20] MEDS: Insulin Human NPH 1 UNITS/0.01 ML SC SCH (08:07)
[2017-08-20] MEDS: Lactobacillus Acidophilus 500 MU Cap PO SCH ×2 (08:07→17:42)
--- NOTE | 2017-08-20 08:19 | PN ---
DATE: 08/20/2017 PULMONARY NOTE SUBJECTIVE: The patient appears comfortable this morning. She is not short of breath at rest. PHYSICAL EXAMINATION: VITAL SIGNS: Temperature is 98, pulse on the monitor is 88, respiratory rate is 18, blood pressure 133/99. Oxygen saturation on nasal cannula is 93-95%. HEENT: Normocephalic, atraumatic. No JVD. CARDIOVASCULAR: Positive S1, S2. No S3 gallop. LUNGS: Very minimal/less rhonchi bilaterally. Otherwise clear. EXTREMITIES: Mild edema. No cyanosis, no clubbing. Calves are nontender to palpation. GASTROINTESTINAL: Abdomen is soft. It is less distended and less tender to palpation. Bowel sounds are positive. SKIN: No acute rash. NEUROLOGIC: Limited at the present time. IMPRESSION: 1. Rule out gastroenteritis. 2. Advanced chronic obstructive pulmonary disease. 3. Asthma. 4. Obesity. 5. Diabetes mellitus. PLAN: The patient appears comfortable this morning. She is not short of breath at rest. She does state to having much less gastrointestinal symptoms. She states to feeling much better overall. I did discuss the case with the night nurse at length. The night nurse stated that the patient had a very good night, and confirmed that the patient's gastrointestinal symptoms are resolving. On physical exam, there is no significant bronchospasm noted. I will continue with the current pulmonary medications for now. Input by Gastroenterology (Dr. Hernandez) is noted. Repeat a.m. labs are also pending. Clinical status of the patient is significantly improved overall. The patient is advised to be out of bed as much as possible. I will discuss the above with the attending physician. Fam Robb MD JOSS
--- NOTE | 2017-08-20 08:38 | CP.PCM.PN ---
Subjective - Date & Time of Evaluation Date of Evaluation: 08/20/17 Time of Evaluation: 06:00 - Subjective Subjective: Patient seen and evaluated bedside. No acute issues overnight. Patient states she has not had an episode of loose stools since yesterday or any vomiting. Patient is eating regular diet and tolerating well. Objective - Vital Signs/Intake and Output Vital Signs (last 24 hours): Temp Pulse Resp BP Pulse Ox 98.0 F 99 H 20 133/99 H 93 L 08/20/17 06:00 08/20/17 06:00 08/20/17 06:00 08/20/17 06:00 08/20/17 06:00 Intake and Output: 08/20/17 08/20/17 06:59 18:59 Intake Total 1580 Balance 1580 - Medications Medications: Current Medications Acetaminophen (Tylenol 325mg Tab) 650 mg PO Q6 PRN PRN Reason: TEMP>=99.5F Last Admin: 08/19/17 09:56 Dose: 650 mg Acetaminophen (Tylenol 650 Mg Supp) 650 mg RC Q6H PRN PRN Reason: TEMP>=99.5F Albuterol/Ipratropium (Duoneb 3 Mg/0.5 Mg (3 Ml) Ud) 3 ml IH [id number] [facility] Last Admin: 08/20/17 07:51 Dose: 3 ml Albuterol/Ipratropium (Duoneb 3 Mg/0.5 Mg (3 Ml) Ud) 3 ml IH Q2H PRN PRN Reason: Shortness of Breath Atorvastatin Calcium (Lipitor) 40 mg PO HS RIGOBERTO Benzonatate (Tessalon Perles) 100 mg PO TID [facility] Last Admin: 08/19/17 19:13 Dose: 100 mg Budesonide (Pulmicort Respules) 0.5 mg IH BIDRESP [facility] Last Admin: 08/20/17 07:51 Dose: 0.5 mg Cholecalciferol (Vitamin D) 2,000 intlu PO DAILY [facility] Last Admin: 08/19/17 09:56 Dose: 2,000 intlu Clonazepam (Klonopin) 2 mg PO QID RIGOBERTO PRN Reason: Protocol Last Admin: 08/19/17 21:56 Dose: 2 mg Ergocalciferol (Drisdol 50,000 Intl Units Cap) 1 cap PO Q7D [facility] Last Admin: 08/20/17 06:49 Dose: 1 cap Gabapentin (Neurontin) 300 mg PO TID [facility] PRN Reason: Protocol Last Admin: 08/19/17 19:14 Dose: 300 mg Heparin Sodium (Porcine) (Heparin) 5,000 units SC Q8 RIGOBERTO PRN Reason: Protocol Last Admin: 08/20/17 05:35 Dose: 5,000 units Home Med (Home Med) 1 unit PO HS [facility] Last Admin: 08/19/17 22:04 Dose: 1 unit Sodium Chloride (Sodium Chloride 0.9%) 1,000 mls @ 80 mls/hr IV .[id number] [facility] Last Admin: 08/20/17 05:40 Dose: 80 mls/hr Insulin Human NPH (Humulin N) 15 units SC ACB [facility] Last Admin: 08/20/17 08:07 Dose: 15 units Insulin Human NPH (Humulin N) 15 units SC DAILY@1745 [facility] Insulin Human Regular (Humulin R High) 0 units SC ACHS [facility] PRN Reason: Protocol Last Admin: 08/20/17 08:07 Dose: 4 units Lactobacillus Acidophilus (Bacid Acidophilus) 1 cap PO BID [facility] Last Admin: 08/20/17 08:07 Dose: 1 cap Losartan Potassium (Cozaar) 50 mg PO DAILY [facility] Last Admin: 08/19/17 09:56 Dose: 50 mg Metoclopramide HCl (Reglan) 10 mg IVP Q6H [facility] Last Admin: 08/20/17 08:08 Dose: 10 mg Montelukast Sodium (Singulair) 10 mg PO [facility] Last Admin: 08/19/17 21:56 Dose: 10 mg Febuxostat [Uloric] (1 Tab (Home Med)) 1 tab PO DAILY [facility] Last Admin: 08/19/17 10:16 Dose: Not Given Tiotropium [place]hel [ Spiriva Respimat] 2. 5 Mcg (Home Med) 2.5 mcg IH DAILY [facility] Last Admin: 08/19/17 10:16 Dose: Not Given Glyru-2-Bozm Ethyl Esters (Lovaza) 1 gm PO BID [facility] Ondansetron HCl (Zofran Inj) 4 mg IVP Q4H PRN PRN Reason: Nausea/Vomiting Last Admin: 08/19/17 09:55 Dose: 4 mg Pantoprazole Sodium (Protonix Ec Tab) 40 mg PO 0600 [facility] Last Admin: 08/20/17 05:35 Dose: 40 mg Paroxetine HCl (Paxil) 20 mg PO DAILY [facility] Last Admin: 08/19/17 09:56 Dose: 20 mg Potassium Phos/Sodium Phos (Neutra-Phos) 1 pkt PO BID [facility] Stop: 08/22/17 10:01 Last Admin: 08/19/17 19:13 Dose: 1 pkt Quetiapine Fumarate (Seroquel) 100 mg PO BID [facility] PRN Reason: Protocol Last Admin: 08/19/17 19:13 Dose: 100 mg - Labs Labs: 08/19/17 08:00 08/20/17 06:00 - Constitutional Appears: Non-toxic, No Acute Distress - Head Exam Head Exam: ATRAUMATIC, NORMAL INSPECTION, NORMOCEPHALIC - Eye Exam Eye Exam: Normal appearance - ENT Exam ENT Exam: Mucous Membranes Moist - Respiratory Exam Respiratory Exam: Clear to Ausculation Bilateral, NORMAL BREATHING PATTERN - Cardiovascular Exam Cardiovascular Exam: REGULAR RHYTHM - GI/Abdominal Exam GI & Abdominal Exam: Distended, Tenderness - Neurological Exam Neurological Exam: Alert, Awake, Oriented x3 Assessment and Plan - Assessment and Plan (Free Text) Assessment: 56 year old female with past medical history that includes asthma, emphysema, DM2, HTN, GERD, anxiety, and depression who [place] [facility] [place] complain[place] of diarrhea, vomiting and shortness of breath. Patient found to have CO2 retention and elevated blood glucose on labs. Patient to be admitted for CO2 retention in setting of COPD as well as elevated blood glucose in the setting of DM2 and suspected gastroparesis Plan: Intractable Nausea and Vomiting, gastroenteritis v colitis - Gastroenterology consult, Dr. Hernandez, follow results - abdominal xray: no acute pathology - abdominal ultrasound: no pathology - c diff studies pending - Reglan 10mg IV Q6H - Zofran 4mg IV q4H - advanced diet, tolerating well - protonix Gastroparesis -reglan -tolerating diet well -no loose stools COPD- chronic - Duoneb - Resume home meds - Pulmonary consult, Cezar, follow recs DM2 - ISS Med - ACHS HTN - Stable, monitor - Resume home meds Anxiety/Depression - Resume home meds Hypernatremia -sodium 150 -stopped fluids -monitor GI ppx: Protonix DVT ppx: Heparin SQ Patient case and plan discussed and approved by attending, Dr. Mireles
[2017-08-20] MEDS: Cholecalciferol 1,000 INTLU TAB PO SCH (09:24)
[2017-08-20] MEDS: Omega-3-Acid Ethyl Esters 1 GM Cap PO SCH ×2 (09:24→17:42)
[2017-08-20] MEDS: Potassium & Sodium Phosphate PO SCH ×2 (09:25→17:41)
[2017-08-20] MEDS: TIOTROPIUM BROMIDE 2.5 MCG IH SCH (09:26)
[2017-08-20] MEDS: FEBUXOSTAT PO SCH (11:27)
--- NOTE | 2017-08-20 12:04 | PN ---
DATE: 08/20/2017 SUBJECTIVE: The patient is lying in bed comfortable. She has not had any further episodes of nausea, vomiting or diarrhea. She denies abdominal pain. She is tolerating solid foods. PHYSICAL EXAMINATION: VITAL SIGNS: Reveal temperature of 98, blood pressure 111/67, heart rate of 100, BMI is 47.4. HEENT: Reveal sclerae to be white. Conjunctivae pink. Oral mucosa is moist. NECK: Supple. CHEST: Reveal lungs to be clear. HEART: Reveals regular rate and rhythm. ABDOMEN: Obese, soft, nontender. EXTREMITIES: Show no edema. LABORATORY DATA: Reveal white blood cell count 6.9, hemoglobin 12.2. Chemistries reveal sodium of 150, bicarb of 34, BUN 11, creatinine of 0.9. AST, ALT, alk phos were all normal. IMPRESSION: 1. Gastroenteritis, resolved. 2. Poorly controlled diabetes mellitus. 3. Morbid obesity. 4. Hypernatremia. RECOMMENDATIONS: The patient is stable from a GI standpoint. No stool was sent for C. Diff. No GI workup planned at this time. Juan M Hernandez MD
--- NOTE | 2017-08-20 12:37 | PN ---
DATE: 08/20/2017 SUBJECTIVE: The patient is seen lying in room 263, bed 1. The patient is comfortable. The patient has symptoms of nausea, vomiting. Diarrhea has resolved. The patient tolerated the diet yesterday which was given to her. The patient's overnight nurse's notes were reviewed. The patient continued to sleep well overnight as per the nurse's notes documentation and recommendation. The patient is seen by Gastroenterology, their recommendations noted. The patient refused SCDs and WING stockings. PHYSICAL EXAMINATION: VITAL SIGNS: T-max 98. Telemetry shows sinus tach in low 90s; blood pressure 113/ , 111/67; respirations 20; O2 sat is 93-100, 99%. HEENT: Head examination is normocephalic, atraumatic. HEENT examination shows pink conjunctivae. Anicteric sclerae. No oropharyngeal lesion. No neck rigidity. CHEST: Kyphosis. LUNGS: Shows decreased air entry, but no wheezing, rales, crackles, rhonchi. CARDIOVASCULAR: S1, S2. Regular rhythm. LUNGS: Shows decreased air entry, but no wheezing, crackles or rales. ABDOMEN: Protuberant, obese. Positive mild epigastric right upper quadrant deep tenderness. No rebound tenderness. No guarding. No rigidity. No rebound tenderness. GENITALIA: Female. RECTAL: Deferred. EXTREMITY: Shows chronic nonpitting swelling of the lower extremity. MUSCULOSKELETAL: Shows a body mass index of 48. NEUROLOGICAL: The patient is alert, awake, oriented x3. Cranial nerves II through XII grossly intact. PSYCHIATRIC: Positive for history of depression and anxiety. DIAGNOSTICS: On 08/20/2017, sodium has gone up to 150 from 147, potassium 4.3, chloride 107, CO2 of 34, anion gap 13, BUN 11, creatinine 0.9, GFR greater than 60, glucose 270, hemoglobin A1c 7.3, calcium 8.4, phosphorus 3.1, magnesium 2.4. LFTs are negative. Vitamin D 25-hydroxy 27, triglyceride 133, cholesterol 113, LDL 57, HDL 37, TSH 0.6, T4 of 6.9. Urine protein 30, trace leukocyte esterase, few bacteria. Urine, blood cultures negative. IMPRESSION AND PLAN: 1. Probable gastroenteritis with nausea, vomiting, diarrhea (resolved). 2. Hypertension. 3. Tachycardia. 4. Advanced oxygen and steroid-dependent chronic obstructive pulmonary disease. 5. Morbid obesity with elevated body mass index of 48. 6. Deconditioning. 7. Poor compliance. 8. Granulocytosis. 9. Respiratory acidosis with hypercarbia. 10. Transient lactic acidosis. 11. Uncontrolled insulin-requiring diabetes mellitus with hyperglycemia and hemoglobin A1c of 7.3. 12. Hypophosphatemia, hypomagnesemia. 13. Hypovitaminosis D. 14. Proteinuria, microscopic hematuria, pyuria, bacteriuria. 15. Hepatomegaly and fatty infiltration of the liver. 16. Left axis deviation with right ventricular conduction delay. 17. Possible diabetic gastroparesis, symptomatic with symptoms of nausea and vomiting. 18. Hypernatremia. 19. Hyperglycemia. 20. Hypovitaminosis D. Plan at this time, the patient's IV fluid normal saline will be discontinued. The patient will be having repeat labs ordered. Telemetry will be discontinued. Current consultation, Gastroenterology, Pulmonary, their recommendations noted. The patient is referred to diabetic education, TCU evaluation. CURRENT MEDICATIONS: Bacid 1 capsule twice a day for another 24 to 48 hours, the patient is on losartan, Cozaar 50 mg daily, Drisdol 50,000 weekly, DuoNeb nebulizer every 4 hours [id number] every 2 p.r.n., Uloric 40 mg daily, heparin 5000 subcu every 8, the patient is also on Restoril 30 mg at bedtime and NPH insulin 15 units with breakfast and 15 with supper and regular insulin high-dose sliding scale coverage, K-Dur, Klonopin 2 mg four times daily, Lipitor 40 mg at bedtime, Lovaza 1 g twice a day, Neurontin 300 three times a day, Neutra-Phos 1 packet twice a day for 2 more days, Paxil 20 mg daily, Protonix 40 mg daily, Pulmicort nebulizer 0.5 mg twice a day, Reglan 10 mg IV every 6, Seroquel 100 mg twice a day, Singulair 10 mg at bedtime, Tessalon Perles 100 mg three times a day, Spiriva Respimat 2.5 mcg daily, Tylenol p.r.n., vitamin D3 of 2000 International Units daily, Zofran 4 mg IV every 4. Chest PT, oxygen 2 L nasal cannula, consistent carbohydrate diet. Fingerstick blood sugar, out of bed, WING stockings, SCDs, occupational therapy, physical therapy ordered. The patient advised and updated about her diagnosis, clinical condition, diagnostic test results and recommendation by all the physicians involved in the care of the patient. The patient was advised weight loss, strict diet, increase activity, strict compliance with diet and weight loss emphasized. At this time, the patient's telemetry will be discontinued. Normal saline IV fluid will be discontinued. Repeat lab will be ordered for tomorrow. The patient has been also encouraged out of bed to chair and ambulate as much as possible with physical therapy. Dictated and electronically signed, not read. Christian Mireles MD
[2017-08-20] MEDS ORDERED: Insulin Human NPH 1 UNITS/0.01 ML SC SCH (17:45)
[2017-08-20] MEDS: TEMAZEPAM 30 MG PO SCH (22:14)
[2017-08-21] MEDS: Albuterol-Ipratrop 3 mg / 0.5 (3 ml) UD IH SCH ×2 (03:59→09:13)
[2017-08-21 07:17] LABS: ALB/GLOB RATIO 1.2 (1.1-1.8); ALBUMIN 3.2 g/dL (3.0-4.8); ALT/SGPT 33 U/L (7-56); AST/SGOT 20 U/L (14-36); BILIRUBIN,DIRECT 0.2 mg/dL (0.0-0.4); BLOOD UREA NITROGEN 11 mg/dL (7-21); GFR AFRICAN-AMERICAN > 60; GFR NON-AFRICAN AMERICAN > 60
[2017-08-21 07:30] VITALS: TEMP 98; O2SAT 99
[2017-08-21] MEDS: Insulin Human NPH 1 UNITS/0.01 ML SC SCH (07:57)
[2017-08-21] MEDS: Insulin Reg-HIGH-Coverage SC SCH ×2 (07:58→12:04)
--- NOTE | 2017-08-21 08:30 | PN ---
DATE: 08/21/2017 PULMONARY NOTE SUBJECTIVE: The patient appears very comfortable this morning. She is not short of breath at rest. PHYSICAL EXAMINATION: VITAL SIGNS: Last temperature recorded is 97.5, pulse this morning is approximately 88, respiratory rate 18, blood pressure 108/65. Oxygen saturation on nasal cannula is 93%. HEENT: Normocephalic, atraumatic. No JVD. CARDIOVASCULAR: Positive S1, S2. No S3 gallop. LUNGS: Clear bilaterally this morning. EXTREMITIES: Mild edema. No cyanosis. No clubbing. Calves are nontender to palpation. GI: Abdomen is soft. It is nondistended and nontender to palpation this morning. Bowel sounds are positive. SKIN: No acute rash. NEUROLOGIC: Limited at the present time. IMPRESSION: 1. Rule out gastroenteritis - resolving. 2. Advanced chronic obstructive pulmonary disease. 3. Asthma. 4. Obesity. 5. Diabetes mellitus. PLAN: The patient appears very comfortable this morning. She is not short of breath at rest. Her gastrointestinal symptoms have basically resolved. She does state to feeling much better overall. I did discuss the case with the night nurse at length. The night nurse stated that the patient had a very good night. On physical exam, the patient's lungs are now clear. I will continue with the current pulmonary medications for now. Inputs by GI and Internal Medicine are noted. The clinical status of the patient is significantly improved overall. The patient is advised to be out of bed as much as possible. I will discuss the above with Dr. Mireles. Fam Robb MD MTDD
[2017-08-21] MEDS: FEBUXOSTAT PO SCH (09:09)
[2017-08-21] MEDS: Omega-3-Acid Ethyl Esters 1 GM Cap PO SCH (09:09)
[2017-08-21] MEDS: Potassium & Sodium Phosphate PO SCH (09:10)
[2017-08-21] MEDS: TIOTROPIUM BROMIDE 2.5 MCG IH SCH (09:11)
[2017-08-21] MEDS: Cholecalciferol 1,000 INTLU TAB PO SCH (09:12)
[2017-08-21] MEDS: Budesonide 0.5 mg/2 ml Inhal Susp UD IH SCH (09:13)
[2017-08-21 09:21] VITALS: BP 117/74; PULSE 74
--- NOTE | 2017-08-21 11:32 | PN ---
DATE: 08/21/2017 SUBJECTIVE: The patient is sitting up in bed. She is comfortable. She admits to occasional nausea, but no vomiting. She denies any diarrhea or abdominal pain. She does complain of some headaches. PHYSICAL EXAMINATION: VITAL SIGNS: Reveal temperature of 98, blood pressure 117/74, heart rate of 74. HEENT: Reveals sclerae to be white. Conjunctivae pink. NECK: Supple. CHEST: Lungs are clear. HEART: Reveals a regular rate and rhythm. ABDOMEN: Obese, soft, nontender. EXTREMITIES: Show no edema. LABORATORY DATA: Reveals sodium of 149, chloride of 105, bicarb of 36. IMPRESSION: 1. Gastroenteritis, resolved. 2. Morbid obesity. 3. Hypernatremia. 4. Poorly controlled diabetes mellitus. RECOMMENDATIONS: Continue current treatment. She is stable from a GI standpoint. Juan M Hernandez MD
--- NOTE | 2017-08-21 13:37 | CP.PCM.DIS ---
Provider - Provider Date of Admission: 08/19/17 02:05 Attending physician: Christian Mireles MD Primary care physician: Christian Mireles MD Hospital Course - Lab Results Lab Results: Most Recent Lab Values WBC 6.9 10^3/ul (4.5-11.0) D 08/19/17 08:00 RBC 4.43 10^6/uL (3.5-6.1) 08/19/17 08:00 Hgb 12.2 g/dL (12.0-16.0) 08/19/17 08:00 Hct 38.7 % (36.0-48.0) 08/19/17 08:00 MCV 87.4 fl (80.0-105.0) 08/19/17 08:00 MCH 27.5 pg (25.0-35.0) 08/19/17 08:00 MCHC 31.5 g/dl (31.0-37.0) 08/19/17 08:00 RDW 13.9 % (11.5-14.5) 08/19/17 08:00 Plt Count 266 10^3/uL (120.0-450.0) 08/19/17 08:00 MPV 11.8 fl (7.0-11.0) H 08/19/17 08:00 Gran % 87.9 % (50.0-68.0) H 08/19/17 08:00 Lymph % (Auto) 10.8 % (22.0-35.0) L 08/19/17 08:00 [place] % (Auto) 0.6 % (1.0-6.0) L 08/19/17 08:00 Eos % (Auto) 0.6 % (1.5-5.0) L 08/19/17 08:00 Baso % (Auto) 0.1 % (0.0-3.0) 08/19/17 08:00 Gran # 6.10 (1.4-6.5) 08/19/17 08:00 Lymph # (Auto) 0.8 (1.2-3.4) L 08/19/17 08:00 [place] # (Auto) 0.0 (0.1-0.6) L 08/19/17 08:00 Eos # (Auto) 0.0 (0.0-0.7) 08/19/17 08:00 Baso # (Auto) 0.01 K/mm3 (0.0-2.0) 08/19/17 08:00 pO2 46 mm/Hg (30-55) 08/19/17 00:45 VBG pH 7.29 (7.32-7.43) L 08/19/17 00:45 VBG pCO2 73.0 (40-60) H* 08/19/17 00:45 VBG HCO3 35.1 mmol/l (21-28) H 08/19/17 00:45 VBG Total CO2 37.3 mmol.L (22-28) H 08/19/17 00:45 VBG O2 Sat (Calc) 83.4 % (40-65) H 08/19/17 00:45 VBG Base Excess 5.9 mmol/L (0.0-2.0) H 08/19/17 00:45 VBG Potassium 3.5 mmol/L (3.6-5.2) L 08/19/17 00:45 Sodium 144.0 mmol/L (132-148) 08/19/17 00:45 Chloride 107.0 mmol/L (98-107) 08/19/17 00:45 Glucose 199 mg/dl (65-105) H 08/19/17 00:45 Lactate 1.4 mmol/L (0.7-2.1) 08/19/17 00:45 FiO2 21.0 % 08/19/17 00:45 Sodium 149 mmol/L (132-148) H 08/21/17 06:15 Potassium 3.9 mmol/L (3.6-5.0) 08/21/17 06:15 Chloride 105 mmol/L (98-107) 08/21/17 06:15 Carbon Dioxide 36 mmol/L (21-33) H 08/21/17 06:15 Anion Gap 12 (10-20) 08/21/17 06:15 BUN 11 mg/dL (7-21) 08/21/17 06:15 Creatinine 0.9 mg/dl (0.7-1.2) 08/21/17 06:15 Est GFR ( Amer) > 60 08/21/17 06:15 Est GFR (Non-Af Amer) > 60 05/10/18 06:15 POC Glucose (mg/dL) 176 mg/dL (65-110) H 08/21/17 11:01 Random Glucose 161 mg/dL (70-110) H 08/21/17 06:15 Hemoglobin A1c 7.3 % (4.2-6.5) H D 08/19/17 07:00 Fructosamine 238 umol/L (190-270) 08/19/17 08:00 Uric Acid 4.0 mg/dL (2.5-6.2) 08/19/17 08:00 Calcium 8.0 mg/dL (8.4-10.5) L 08/21/17 06:15 Phosphorus 3.2 mg/dL (2.5-4.5) 08/21/17 06:15 Magnesium 1.9 mg/dL (1.7-2.2) 08/21/17 06:15 Total Bilirubin 0.4 mg/dL (0.2-1.3) 08/21/17 06:15 Direct Bilirubin 0.2 mg/dL (0.0-0.4) 08/21/17 06:15 AST 20 U/L (14-36) 08/21/17 06:15 ALT 33 U/L (7-56) 08/21/17 06:15 Alkaline Phosphatase 64 U/L (38-126) 08/21/17 06:15 Total Protein 5.7 g/dL (5.8-8.3) L 08/21/17 06:15 Albumin 3.2 g/dL (3.0-4.8) 08/21/17 06:15 Globulin 2.6 gm/dL 08/21/17 06:15 Albumin/Globulin Ratio 1.2 (1.1-1.8) 08/21/17 06:15 Triglycerides 133 mg/dL (35-160) 08/19/17 08:00 Cholesterol 113 mg/dL (130-200) L 08/19/17 08:00 LDL Cholesterol Direct 57 mg/dL (0-129) 08/19/17 08:00 HDL Cholesterol 37 mg/dL (29-60) 08/19/17 08:00 Amylase 42 U/L (35-125) 08/19/17 08:00 Lipase 68 U/L (23-300) 08/19/17 08:00 Vitamin B12 423 pg/mL (239-931) 08/19/17 08:00 25-OH Vitamin D Total 27.0 NG/ML (30.0-100.0) L 08/19/17 08:00 Folate 12.2 ng/mL 08/19/17 08:00 Free T4 1.02 ng/dL (0.78-2.19) 08/19/17 08:00 Thyroxine (T4) 6.9 ug/dL (5.5-11.0) 08/19/17 08:00 TSH 3rd Generation 0.60 mIU/mL (0.46-4.68) 08/19/17 08:00 Venous Blood Potassium 3.5 mmol/L (3.6-5.2) L 08/19/17 00:45 Urine Color Yellow (YELLOW) 08/19/17 01:00 Urine Appearance Clear (CLEAR) 08/19/17 01:00 Urine pH 6.0 (4.7-8.0) 08/19/17 01:00 Ur Specific [place] 1.025 (1.005-1.035) 08/19/17 01:00 Urine Protein 30 mg/dL (<30 mg/dL) H 08/19/17 01:00 Urine Glucose (UA) Negative mg/dL (NEGATIVE) 08/19/17 01:00 Urine Ketones Negative mg/dL (NEGATIVE) 08/19/17 01:00 Urine Blood Negative (NEGATIVE) 08/19/17 01:00 Urine Nitrate Negative (NEGATIVE) 08/19/17 01:00 Urine Bilirubin Negative (NEGATIVE) 08/19/17 01:00 Urine Urobilinogen 0.2 E.U./dL (<1 E.U./dL) 08/19/17 01:00 Ur Leukocyte Esterase Trace [place]/uL (NEGATIVE) H 08/19/17 01:00 Urine RBC 0 - 2 /hpf (0-2) 08/19/17 01:00 Urine WBC 5 - 10 /hpf (0-6) 08/19/17 01:00 Ur Epithelial Cells 4 - 5 /hpf (0-5) 08/19/17 01:00 Urine Bacteria Few (NEG) 08/19/17 01:00 Discharge Exam - Head Exam Head Exam: ATRAUMATIC, NORMAL INSPECTION, NORMOCEPHALIC Discharge Plan - Follow Up Plan Condition: FAIR Disposition: HOME/ ROUTINE Instructions: Type 2 Diabetes, Chronic Obstructive Pulmonary Disease (COPD), Including Emphysema, Weight Loss Tips, Diabetic Meal Planning Additional Instructions: Please follow up with Dr. Mireles in one week Please try to follow a diet plan and plan to loose weight. Referrals: Christian Mireles MD [Primary Care Provider] -
--- NOTE | 2017-08-21 19:39 | DS ---
FINAL PROGRESS NOTE DISCHARGE SUMMARY LOCATION: Patient is in room 565, bed 2. HISTORY OF PRESENT ILLNESS: Patient's telemetry was discontinued. Patient was transferred to yesterday. Patient's overnight nursing notes were reviewed. Patient spent most of her time lying in the bed. Though, I have encouraged the patient since admission that patient should be out of bed and ambulate, but patient is spending most of the time lying in the bed. Patient denies any diarrhea, denies any nausea, denies any vomiting, denies any hemoptysis, hematemesis or melena. PHYSICAL EXAMINATION: VITAL SIGNS: T-max 98.2; pulse 90.; blood pressure 114/71, 136/79; respirations 20; O2 sat is 91 to 99%. HEENT: Head: Examination normocephalic, atraumatic. HEENT examination shows pinkish conjunctivae. Anicteric sclerae. No oropharyngeal lesion. No neck rigidity. CHEST: Kyphosis. LUNG: Shows no wheezing; very occasional rhonchi, upper lung urbina anteriorly; improved air entry since hospitalization. CARDIOVASCULAR: S1 and S2, regular rhythm. ABDOMEN: Morbidly obese, protuberant. Positive epigastric and mild right upper quadrant deep tenderness. No rebound tenderness. No guarding. No rigidity. GENITALIA: Female. RECTAL: Deferred. EXTREMITIES: Show chronic nonpitting swelling of the lower extremity. MUSCULOSKELETAL: Shows an elevated body mass index. Motor strength is 5/5. Gait examination not tested. VASCULAR: Palpable pulses. DIAGNOSTIC STUDIES: On 08/21, sodium has come down to 149, potassium is 3.9, chloride 105, CO2 of 36, BUN 11, creatinine 0.9, glucose 161, calcium 8, phosphorus 3.2, magnesium 1.9. Blood and urine cultures are negative. FINAL IMPRESSION, PLAN AND DISCHARGE DIAGNOSES: 1. Resolved gastroenteritis. 2. Resolved symptomatic gastroenteritis with symptoms of nausea, vomiting, diarrhea. 3. Possible diabetic gastroparesis. 4. Mild exacerbation of acute chronic obstructive pulmonary disease (resolved). 5. Morbid obesity. 6. Advanced oxygen and steroid-requiring dependent chronic obstructive pulmonary disease. 7. Insulin-requiring diabetes mellitus. 8. Hypertension. 9. Super morbid obesity. 10. History of anxiety, depression, and insomnia. 11. Hyperlipidemia. 12. Hypertriglyceridemia. 13. Hypovitaminosis D. 14. Hepatic steatosis and hepatomegaly and fatty infiltration of the liver. 15. Resolving hyponatremia. 16. Hypoxemia. PLAN: At this time, patient will be considered for discharge home with resumption of patient's all medications as per updated ambulatory orders. Discharge followup with Dr. Mireles within 1 week. Discharge followup with Dr. Hernandez within 1 week. Discharge followup with Dr. Bowman and Dr. Robb within 1 week. She was advised to resume medications at home. Patient was advised strict diet. Patient was advised weight loss of 10% every 3 months. Patient was advised to increase activity. Patient was advised ambulation and increased activity. Patient was advised strict compliance with diet, activity restrictions, limitation, medications, and doctor's followup. In addition, patient was extensively explained about the details of her medical condition, diagnosis, diagnostic test results, and recommendation by all the physician involved in the care of the patient, was explained to the patient at length and all questions concerned answered. Time spent in the entire discharge process was more than 45 minutes. Dictated and electronically signed, not read. Christian Mireles MD
== END 2017-08-21 13:18 | disposition home or self-care (01) ==
LOC: ED 19:54 → ERH 08-19 02:05 → 2RNO 08-19 06:01 → 5RNO 08-20 16:36
PROVIDERS: ADMIT Internal Medicine; ATTEND Internal Medicine
DX: K52.9 Noninfective gastroenteritis and colitis, unspecified (principal); E86.0 Dehydration; J44.1 Chronic obstructive pulmonary disease with (acute) exacerbation; E11.65 Type 2 diabetes mellitus with hyperglycemia; I10 Essential (primary) hypertension; E78.5 Hyperlipidemia, unspecified; K21.9 Gastro-esophageal reflux disease without esophagitis; E78.1 Pure hyperglyceridemia; E11.43 Type 2 diabetes mellitus with diabetic autonomic (poly)neuropathy; K31.84 Gastroparesis; E55.9 Vitamin D deficiency, unspecified; R16.0 Hepatomegaly, not elsewhere classified; R09.02 Hypoxemia; G47.00 Insomnia, unspecified; K76.0 Fatty (change of) liver, not elsewhere classified; E87.6 Hypokalemia; E83.52 Hypercalcemia; E87.0 Hyperosmolality and hypernatremia; F41.9 Anxiety disorder, unspecified; I27.20 Pulmonary hypertension, unspecified; E03.9 Hypothyroidism, unspecified; F32.9 Major depressive disorder, single episode, unspecified; E83.39 Other disorders of phosphorus metabolism; E83.42 Hypomagnesemia; E87.2 Acidosis; E66.01 Morbid (severe) obesity due to excess calories; Z68.42 Body mass index [BMI] 45.0-49.9, adult; Z99.81 Dependence on supplemental oxygen; Z87.891 Personal history of nicotine dependence; Z79.4 Long term (current) use of insulin
CPT/HCPCS: 36415; 71046; 74019; 76700; 80053; 80061; 81001; 82150; 82248; 82306; 82607; 82746; 82803; 82948; 82985; 83036; 83690; 83735; 84100; 84439; 84443; 84550; 85025; 87040; 87086; 93005; 94640; 94667; 94668; 94760; 96360; 96374; 97116; 97162; 97165; 97530; 97535; 99285; G0378; G8978; G8979; G8987; G8988; J1644; J2405; J2765; J2930; J3475; J7040

== ENCOUNTER 2018-05-13 00:33 | Inpatient (IN) | payer MEDICARE, OTHER ==
--- NOTE | 2018-05-13 01:25 | ED PDOC ---
Arrival/HPI - General Chief Complaint: Dizziness/Lightheaded Time Seen by Provider: 05/13/18 00:33 Historian: Patient - History of Present Illness Narrative History of Present Illness (Text): 05/13/18 01:22 57 year old female, whose past medical history includes hypertension, diabetes, depression, anxiety, presents to the emergency department complaining of generalized weakness, since yesterday. Patient informs having some dizziness and numbness in her legs. Patient states she also had a headache, but that it is gone now. Patient denies any chest pain, cough, fevers, chills, abdominal pain, nausea, vomiting, diarrhea, back pain, neck pain, or any other complaint. PMD: Dr. Templeton Time/Duration: 24 hours Symptom Onset: Gradual Symptom Course: Unchanged Quality: Other (numbness) Activities at Onset: Light Context: Home Past Medical History - Provider Review Nursing Documentation Reviewed: Yes - Infectious Disease Hx of Infectious Diseases: None - Tetanus Immunization Tetanus Immunization: Unknown - Cardiac Hx Hypertension: Yes - Pulmonary Hx Chronic Obstructive Pulmonary Disease (COPD): Yes - Neurological Hx Neurological Disorder: No - HEENT Hx HEENT Disorder: Yes Other/Comment: Wears Glasses - Renal Hx Renal Disorder: No - Endocrine/Metabolic Hx Diabetes Mellitus Type 2: Yes - Hematological/Oncological Hx Blood Disorders: No - Integumentary Hx Dermatological Disorder: Yes - Musculoskeletal/Rheumatological Hx Falls: Yes - Gastrointestinal Hx Gastrointestinal Disorders: Yes Hx Diverticulitis: Yes - Genitourinary/Gynecological Hx Genitourinary Disorders: No Hx Urinary Tract Infection: Yes - Psychiatric Hx Psychophysiologic Disorder: No Hx Substance Use: No - Surgical History Hx Musculoskeletal Surgery: Yes (left arm surgeryplate and screws) Other/Comment: sinus sx X 4. tubal ligation' - Anesthesia Hx Anesthesia: Yes Hx Anesthesia Reactions: No Hx Malignant Hyperthermia: No - Suicidal Assessment Feels Threatened In Home Enviroment: No Family/Social History - Physician Review Nursing Documentation Reviewed: Yes Family/Social History: No Known Family HX Smoking Status: Former Smoker Hx Alcohol Use: No Hx Substance Use: No Hx Substance Use Treatment: No Allergies/Home Meds Allergies/Adverse Reactions: Allergies aspirin Allergy (Verified 05/13/18 00:36) SHORTNESS OF BREATH Home Medications: Home Meds Medication Instructions Recorded Confirmed Dexlansoprazole [Dexilant] 60 mg PO DAILY 09/05/13 08/19/17 QUEtiapine [Seroquel] 100 mg PO BID 11/21/15 08/19/17 Temazepam [Restoril] 30 mg PO HS 11/21/15 08/19/17 Tiotropium [place] [Spiriva 2.5 mcg IH DAILY 11/21/15 08/19/17 Respimat] clonazePAM [Klonopin] 2 mg PO QID 11/21/15 08/19/17 Albuterol HFA [Ventolin HFA 90 2 puff IH [id number] 10/03/16 08/19/17 mcg/actuation (8 g)] Arformoterol [Brovana] 15 mcg IH BID 10/03/16 08/19/17 Gabapentin [Neurontin] 300 mg PO TID 10/03/16 08/19/17 Rosuvastatin Calcium [Crestor] 1 tab PO HS 05/09/17 08/19/17 Insulin Degludec [Tresiba 30 units SC HS 07/21/17 08/19/17 Flextouch U-100] Review of Systems - Physician Review All systems were reviewed & negative as marked: Yes - Review of Systems Constitutional: Fatigue (Weakness). absent: Fevers, Night Sweats Respiratory: absent: Cough Cardiovascular: absent: Chest Pain Gastrointestinal: absent: Abdominal Pain, Diarrhea, Nausea, Vomiting Musculoskeletal: absent: Back Pain, Neck Pain Neurological: Dizziness Physical Exam Vital Signs Reviewed: Yes Temperature: Afebrile Blood Pressure: Hypotensive Pulse: Tachycardic Respiratory Rate: Normal Appearance: Positive for: Well-Appearing, Non-Toxic, Comfortable Pain Distress: None Mental Status: Positive for: Alert and Oriented X 3 Finger Stick Blood Glucose: 220 - Systems Exam Head: Present: Atraumatic, Normocephalic Pupils: Present: PERRL Extroacular Muscles: Present: EOMI Conjunctiva: Present: Normal Mouth: Present: Moist Mucous Membranes Neck: Present: Normal Range of Motion Respiratory/Chest: Present: Clear to Auscultation. No: Good Air Exchange (Poor air entry bilaterally), Respiratory Distress, Accessory Muscle Use Cardiovascular: Present: Regular Rate and Rhythm, Normal S1, S2. No: Murmurs Abdomen: No: Tenderness, Distention, Peritoneal Signs Back: Present: Normal Inspection Upper Extremity: Present: Normal Inspection. No: Cyanosis, Edema Lower Extremity: Present: Normal Inspection. No: Edema Neurological: Present: GCS=15, CN II-XII Intact, Speech Normal Skin: Present: Warm, Dry, Rashes (noted to groin), Normal Color Psychiatric: Present: Alert, Oriented x 3, Normal Insight, Normal Concentration Medical Decision Making ED Course and Treatment: 05/13/18 01:27 Impression: 57 year old female presents with generalized weakness and dizziness Plan: -- ABG -- CT Head -- EKG -- CMP, Troponin -- CBC -- Chest X-ray -- Rapid Flu AB -- Urinalysis -- Reassess and disposition Prior Visits: Notes and results from previous visits were reviewed. Progress Notes: 05/13/18 02:18 CT scan of the head CLINICAL HISTORY: Dizziness. TECHNIQUE: Multiple axial CT images were obtained through the brain without IV contrast material. Comparison: 09/05/2013. COMMENTS: There is normal configuration of sella turcica. There are no intra or extra- axial collections. There is no mass effect or midline shift. There is no evidence of hematoma formation. No hydrocephalus is present. The ventricles are symmetrical. No abnormal calcifications are present. There is diffuse age-appropriate cerebellar and cerebral atrophy with proportionally dilated ventricles and cortical sulci. There are bilateral periventricular and subcortical white matter hypolucencies compatible with mild chronic microvascular disease. Otherwise, no significant focal abnormalities are seen either in the posterior fossa or supratentorial compartment. Moderate chronic mucosal inflammatory changes of the maxillary, frontal, sphenoid sinuses and ethmoid air cells. Mild left mastoid effusion. IMPRESSION: 1. Age-appropriate cerebellar and cerebral atrophy. 2. Mild chronic microvascular disease. 3. No evidence of acute intracranial pathology. 4. Chronic mucosal inflammatory changes of the paranasal sinuses. 5. Mild left mastoid effusion. case d/w dr saini and dr templeton will admit to unit for sepsis and hyupotension - RAD Interpretation Radiology Orders: 05/13/18 00:39 HEAD W/O CONTRAST [CT] Stat 05/13/18 00:40 CHEST ONE VIEW [RAD] Stat - EKG Interpretation EKG Interpretation (Text): 05/13/18 01:44 sinus tachycardia rate 109 nssts changes - Scribe Statement The provider has reviewed the documentation as recorded by the [place] Provider Scribe Attestation: All medical record entries made by the Scribe were at my direction and personally dictated by me. I have reviewed the chart and agree that the record accurately reflects my personal performance of the history, physical exam, medical decision making, and the department course for this patient. I have also personally directed, reviewed, and agree with the discharge instructions and disposition. Disposition/Present on Arrival - Present on Arrival Any Indicators Present on Arrival: No History of DVT/PE: No History of Uncontrolled Diabetes: No Urinary Catheter: No History of Decub. Ulcer: No History Surgical Site Infection Following: None - Disposition Have Diagnosis and Disposition been Completed?: Yes Diagnosis: Cellulitis, Sepsis, Hypotension Disposition: HOSPITALIZED Disposition Time: 04:00 Condition: SERIOUS
[2018-05-13] MEDS ORDERED: Sodium Chloride 0.9% 1,000 ML IV SCH (01:30)
[2018-05-13 01:45] LABS: BASO # 0.02 K/mm3 (0.0-2.0); BASO % 0.2 % (0.0-3.0); EOS # 0.3 (0.0-0.7); EOS % 2.3 % (1.5-5.0); HEMOGLOBIN 12.5 g/dL (12.0-16.0); LYMPH % 31.4 % (22.0-35.0); MEAN CELL VOLUME 94.2 fl (80.0-105.0); MEAN CORPUSCULAR HEMOGLOBIN 29.1 pg (25.0-35.0); MEAN CORPUSCULAR HGB CONC 30.9 g/dl (31.0-37.0); MEAN PLATELET VOLUME 12.1 fl (7.0-11.0); MONO # 1.3 (0.1-0.6); MONO % 10.2 % (1.0-6.0); RBC 4.29 10^6/uL (3.5-6.1); RED CELL DISTRIBUTION WIDTH 13.9 % (11.5-14.5); WHITE BLOOD COUNT 12.8 10^3/uL (4.5-11.0)
[2018-05-13 01:53] LABS: INR 1.03; PARTIAL THROMBOPLASTIN TIME 28.9 Seconds (26.9-38.3); PROTHROMBIN TIME 11.4 SECONDS (9.4-12.5)
[2018-05-13 02:02] LABS: ARTERIAL BLOOD GAS HCO3 34.2 mmol/L (21-28); ARTERIAL BLOOD GAS O2 SAT 98.5 % (95-98); ARTERIAL BLOOD GAS PCO2 54 mm/Hg (35-45); ARTERIAL BLOOD GAS PH 7.41 (7.35-7.45); ARTERIAL BLOOD GAS TCO2 35.9 mmol.L (22-28)
[2018-05-13 02:07] LABS: TROPONIN I < 0.01 ng/mL
[2018-05-13 02:26] LABS: ALB/GLOB RATIO 1.2 (1.1-1.8); ALBUMIN 3.3 g/dL (3.0-4.8); ALT/SGPT 44 U/L (7-56); AST/SGOT 25 U/L (14-36); BLOOD UREA NITROGEN 11 mg/dL (7-21); CALCIUM 9.2 mg/dL (8.4-10.5); GFR NON-AFRICAN AMERICAN 31
[2018-05-13] MEDS ORDERED: Vancomycin 1gm in NS 250ml 1 GM/250 ML BAG IVPB STA (02:29)
[2018-05-13 02:46] LABS: URINE APPEARANCE CLEAR (CLEAR); URINE BILIRUBIN NEGATIVE (NEGATIVE); URINE BLOOD NEGATIVE (NEGATIVE); URINE COLOR YELLOW (YELLOW); URINE GLUCOSE (UA) NEGATIVE (NEGATIVE); URINE LEUKOCYTE ESTERASE SMALL Leu/uL (NEGATIVE); URINE PROTEIN 30 mg/dL (<30 mg/dL); URINE UROBILINOGEN 0.2 E.U./dL (<1 E.U./dL)
--- NOTE | 2018-05-13 03:00 | CP.PCM.CON ---
<Sintia Palmer - Last Filed: 05/13/18 05:24> History of Present Illness - History of Present Illness History of Present Illness: PGY-[address] Shaw ICU consult: Hypotension Ms. 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 Pt was in her usual health until friday. Yesterday, she woke up with weakness, body aches, chills, decreased PO intake. She did not have strength to stand up. She denies recent sickness, sick contact, traveling, recent change of meds, or recent antibiotics. She always have body rashes, fungal, and getting worse recently. She has a dog at home but no contact. She uses albuterol/xopenex 4 times a day ROS: (+) dizziness when change position. (+) BAXTER - resolved (+) urinary frequency, chronic (+) skin rash (+) SOB at baseline, not worsened denies any chest pain, cough, fevers, abdominal pain, nausea, vomiting, diarrhea, back pain, neck pain, or any other complaint. Last BM 2 days ago ED course: VS: T 98.8, HR 114, 84/42, RR 20, 94 RA WBC 12.8. Na 138. K 2.8. Gap 6. Bicarb 36, BUN 11, Cre 1.7 (baseline 0.9) D-dimer 266 ABG lactate 2.8. pH 7.41, CO2 54, bicarb 36, O2 100 Blood and urine culture obtained. CXR RLL infiltrates (pending official read) Head CT: No acute intracranial pathology. (+) mucosal inflammation EKG: sinus tachycardia rate 109 nssts changes CXR: pending official read. i saw infiltrate b/l bases Got vanco, got 1L NS. Currently on LR 3L bolus PMH: Asthma, Emphysema, DM2, HTN, GERD, Anxiety, Depression PSH: sinus surgery, tubal ligation, L arm surgery ORIF FH: Dad had heart attack, [place] after 60s SocHx: Tobacco:Former, 1 PPW for 20 plus years ETOH:denies Illicit Drug: denies ALL: Aspirin MEDS: MAR reviewed Past Patient History - Infectious Disease Hx of Infectious Diseases: None - Tetanus Immunizations Tetanus Immunization: Unknown - Past Social History Smoking Status: Former Smoker - CARDIAC Hx Hypertension: Yes - PULMONARY Hx Chronic Obstructive Pulmonary Disease (COPD): Yes - NEUROLOGICAL Hx Neurological Disorder: No - HEENT Hx HEENT Problems: Yes Other/Comment: Wears Glasses - RENAL Hx Chronic Kidney Disease: No - ENDOCRINE/METABOLIC Hx Diabetes Mellitus Type 2: Yes - HEMATOLOGICAL/ONCOLOGICAL Hx Blood Disorders: No - INTEGUMENTARY Hx Dermatological Problems: Yes - MUSCULOSKELETAL/RHEUMATOLOGICAL Hx Falls: Yes - GASTROINTESTINAL Hx Gastrointestinal Disorders: Yes Hx Diverticulitis: Yes - GENITOURINARY/GYNECOLOGICAL Hx Genitourinary Disorders: No Hx Urinary Tract Infection: Yes - PSYCHIATRIC Hx Psychophysiologic Disorder: No Hx Substance Use: No - SURGICAL HISTORY Hx Musculoskeletal Surgery: Yes (left arm surgeryplate and screws) Other/Comment: sinus sx X 4. tubal ligation' - ANESTHESIA Hx Anesthesia: Yes Hx Anesthesia Reactions: No Hx Malignant Hyperthermia: No Meds Allergies/Adverse Reactions: Allergies Allergy/AdvReac Type Severity Reaction Status Date / Time aspirin Allergy SHORTNESS Verified 05/16/18 19:40 OF BREATH ORANGE Allergy WHEEZING Verified 05/16/18 19:40 peanut Allergy WHEEZING Verified 05/16/18 19:40 tomato Allergy WHEEZING Verified 05/16/18 19:40 - Medications Medications: Current Medications Sodium Chloride (Sodium Chloride 0.9%) 1,000 mls @ 1,000 mls/hr IV .Q1H RIGOBERTO Last Admin: 05/13/18 01:30 Dose: 1,000 mls/hr Potassium Chloride (Potassium Chloride 20 Meq/100 Ml) 20 meq in 100 mls @ 50 mls/hr IVPB Q2H RIGOBERTO Stop: 05/13/18 06:29 Vancomycin HCl (Vancomycin 1gm) 1 gm in 250 mls @ 167 mls/hr IVPB STAT STA; Protocol Stop: 05/13/18 03:58 Physical Exam - Constitutional Appears: Non-toxic - Head Exam Head Exam: ATRAUMATIC, NORMAL INSPECTION, NORMOCEPHALIC - Eye Exam Eye Exam: EOMI, Normal appearance, PERRL. absent: Scleral icterus Pupil Exam: NORMAL ACCOMODATION - ENT Exam ENT Exam: Mucous Membranes Dry - Neck Exam Additional comments: supple - Respiratory Exam Respiratory Exam: Decreased Breath Sounds (lower lobes b/l), Rhonchi, NORMAL BREATHING PATTERN. absent: Rales, Wheezes - Cardiovascular Exam Cardiovascular Exam: REGULAR RHYTHM, +S1, +S2. absent: Systolic Murmur - GI/Abdominal Exam GI & Abdominal Exam: Normal Bowel Sounds, Soft. absent: Firm, Rigid, Tenderness - Rectal Exam Rectal Exam: NORMAL INSPECTION - Exam External exam: NORMAL EXTERNAL EXAM - Extremities Exam Extremities exam: Positive for: pedal pulses present. Negative for: calf tenderness, pedal edema - Back Exam Back exam: rash noted. absent: CVA tenderness (L), CVA tenderness (R) - Neurological Exam Neurological exam: Alert, Oriented x3 - Psychiatric Exam Psychiatric exam: Normal Affect, Normal Mood - Skin Skin Exam: Dry, Warm Additional comments: fungal rash under breasts b/l, waist line, under abdominal pannus, and L groin. L groin with ulceration and foul smell. No pus Results - Vital Signs Recent Vital Signs: Last Vital Signs Temp 98.8 F 05/13/18 01:44 Pulse 108 H 05/13/18 02:23 Resp 20 05/13/18 02:23 BP 94/48 L 05/13/18 02:23 Pulse Ox 95 05/13/18 02:23 - Labs Result Diagrams: 05/13/18 01:30 05/13/18 01:30 Labs: Laboratory Results - last 24 hr 05/13/18 05/13/18 05/13/18 01:25 01:25 01:25 WBC RBC Hgb Hct MCV MCH MCHC RDW Plt Count MPV Neut % (Auto) Lymph % (Auto) [place] % (Auto) Eos % (Auto) Baso % (Auto) Lymph # (Auto) [place] # (Auto) Eos # (Auto) Baso # (Auto) Absolute Neuts (auto) PT INR APTT D-Dimer, Quantitative pCO2 54 H pO2 100.0 HCO3 34.2 H ABG pH 7.41 ABG Total CO2 35.9 H ABG O2 Saturation 98.5 H ABG Base Excess 7.8 H ABG Potassium 2.4 L* Sodium 144.0 Chloride 104.0 Glucose 193 H Lactate 2.8 H FiO2 21.0 Crit Value Called To Poppy badillo garnetter Crit Value Called By Manohar Blood Gas Notified Time 202 Potassium Carbon Dioxide Anion Gap BUN Creatinine Est GFR ( Amer) Est GFR (Non-Af Amer) Random Glucose Calcium Total Bilirubin AST ALT Alkaline Phosphatase Troponin I Total Protein Albumin Globulin Albumin/Globulin Ratio Arterial Blood Potassium 2.4 L* Urine Color Yellow Urine Appearance Clear Urine pH 6.0 Ur Specific [place] >= 1.030 Urine Protein 30 H Urine Glucose (UA) Negative Urine Ketones Trace H Urine Blood Negative Urine Nitrate Negative Urine Bilirubin Negative Urine Urobilinogen 0.2 Ur Leukocyte Esterase Small H Influenza Typ A,B (EIA) Negative for flu a/b 05/13/18 05/13/18 05/13/18 01:30 01:30 01:30 WBC 12.8 H RBC 4.29 Hgb 12.5 Hct 40.4 MCV 94.2 D MCH 29.1 MCHC 30.9 L RDW 13.9 Plt Count 281 MPV 12.1 H Neut % (Auto) 55.9 Lymph % (Auto) 31.4 [place] % (Auto) 10.2 H Eos % (Auto) 2.3 Baso % (Auto) 0.2 Lymph # (Auto) 4.0 H [place] # (Auto) 1.3 H Eos # (Auto) 0.3 Baso # (Auto) 0.02 Absolute Neuts (auto) 7.17 H PT 11.4 INR 1.03 APTT 28.9 D-Dimer, Quantitative 266 H pCO2 pO2 HCO3 ABG pH ABG Total CO2 ABG O2 Saturation ABG Base Excess ABG Potassium Sodium 138 Chloride 96 L Glucose Lactate FiO2 Crit Value Called To Crit Value Called By Blood Gas Notified Time Potassium 2.8 L* D Carbon Dioxide 36 H Anion Gap 9 L BUN 11 Creatinine 1.7 H Est GFR ( Amer) 38 Est GFR (Non-Af Amer) 31 Random Glucose 208 H Calcium 9.2 Total Bilirubin 1.0 AST 25 ALT 44 Alkaline Phosphatase 82 Troponin I < 0.01 Total Protein 6.1 Albumin 3.3 Globulin 2.7 Albumin/Globulin Ratio 1.2 Arterial Blood Potassium Urine Color Urine Appearance Urine pH Ur Specific [place] Urine Protein Urine Glucose (UA) Urine Ketones Urine Blood Urine Nitrate Urine Bilirubin Urine Urobilinogen Ur Leukocyte Esterase Influenza Typ A,B (EIA) Assessment & Plan - Assessment and Plan (Free Text) Plan: Ms. 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 She has worsened cellulitis on L groin with foul smell, decreased breath sound likely CAP. SBP 80-90 currently receiving 4L fluid bolus with lactate 2.8. A: Severe sepsis from community acquired pneumonia vs L groin cellulitis superimposed darby rash, complicated by hypotention currently on fluid bolus, CONCEPCION, leukocytosis Elevated d-dimer likely from CONCEPCION, cannot r/o PE, Well score 1.5, PERC score 3 Respiratory alkalosis, chronic, compensated hypoK likely due to frequent BETH uses P: Neuro - tylenol prn for fever control - aaox3 - hold benzo and anxiety meds due to hypotension Pulm - NC PRN to maintain SaO2 88-92% - duoneb q6 - HOB 35 PRN after hypotension resolved - restart home singular, budesonide Card - Hold hypertensive medicine - continue fluid bolus. If SBP persist, will consider levophed and stress dose steroid - trend trops. Cardio consult per primary GI - protonix PO - HHD/CCD Renal - CONCEPCION, likely prerenal. fluid challenge for now. strict i.o. trend bmp - hold losartan endo - ISSS, Accuchek ID - ID consult - vanco x 1. cepefime renal dose. doxy for both cellulitis and CAP - nystatin/triamcinolon cream for fungal rash - follow fung culture, procalc, mrsa screen, pna work up - pending 2nd lactate Heme - pending V/Q. Per ED: The isotope is not delivered to [facility] [place] till 6am DVT pvx = heparin GI pvx = protonix s/r/d/w Dr Shaw <Williams Shaw - Last Filed: 05/16/18 21:01> Meds - Medications Medications: Current Medications Albuterol/Ipratropium (Duoneb 3 Mg/0.5 Mg (3 Ml) Ud) 3 ml IH [id number] RIGOBERTO Potassium Chloride (Potassium Chloride 20 Meq/100 Ml) 20 meq in 100 mls @ 50 mls/hr IVPB Q2H RIGOBERTO Stop: 05/13/18 06:29 Last Admin: 05/13/18 04:51 Dose: 50 mls/hr Cefepime HCl (Maxipime 2gm) 2 gm in 100 mls @ 100 mls/hr IVPB Q12 RIGOBERTO; Protocol Stop: 05/18/18 10:01 Doxycycline Hyclate 100 mg/ (Sodium Chloride) 100 mls @ 100 mls/hr IVPB Q12 RIGOBERTO; Protocol Nystatin/Triamcinolone Acetonide (Nystatin/Triamcinolone Cream) 1 ea TOP BID RIGOBERTO Results - Vital Signs Recent Vital Signs: Last Vital Signs Temp 98.1 F 05/13/18 03:20 Pulse 93 H 05/13/18 04:03 Resp 18 05/13/18 04:03 BP 82/61 L 05/13/18 04:03 Pulse Ox 93 L 05/13/18 04:03 - Labs Result Diagrams: 05/16/18 06:00 05/16/18 06:00 Labs: Laboratory Results - last 24 hr 05/13/18 05/13/18 05/13/18 01:25 01:25 01:25 WBC RBC Hgb Hct MCV MCH MCHC RDW Plt Count MPV Neut % (Auto) Lymph % (Auto) [place] % (Auto) Eos % (Auto) Baso % (Auto) Lymph # (Auto) [place] # (Auto) Eos # (Auto) Baso # (Auto) Absolute Neuts (auto) PT INR APTT D-Dimer, Quantitative pCO2 54 H pO2 100.0 HCO3 34.2 H ABG pH 7.41 ABG Total CO2 35.9 H ABG O2 Saturation 98.5 H ABG Base Excess 7.8 H ABG Potassium 2.4 L* Sodium 144.0 Chloride 104.0 Glucose 193 H Lactate 2.8 H FiO2 21.0 Crit Value Called To Poppy badillo garnetter Crit Value Called By [facility] Blood Gas Notified Time 202 Potassium Carbon Dioxide Anion Gap BUN Creatinine Est GFR ( Amer) Est GFR (Non-Af Amer) Random Glucose Calcium Total Bilirubin AST ALT Alkaline Phosphatase Troponin I Total Protein Albumin Globulin Albumin/Globulin Ratio Arterial Blood Potassium 2.4 L* Urine Color Yellow Urine Appearance Clear Urine pH 6.0 Ur Specific [place] >= 1.030 Urine Protein 30 H Urine Glucose (UA) Negative Urine Ketones Trace H Urine Blood Negative Urine Nitrate Negative Urine Bilirubin Negative Urine Urobilinogen 0.2 Ur Leukocyte Esterase Small H Urine RBC 0 - 2 Urine WBC 5 - 10 H Ur Epithelial Cells Many H Urine Bacteria Trace Influenza Typ A,B (EIA) Negative for flu a/b 05/13/18 05/13/18 05/13/18 01:30 01:30 01:30 WBC 12.8 H RBC 4.29 Hgb 12.5 Hct 40.4 MCV 94.2 D MCH 29.1 MCHC 30.9 L RDW 13.9 Plt Count 281 MPV 12.1 H Neut % (Auto) 55.9 Lymph % (Auto) 31.4 [place] % (Auto) 10.2 H Eos % (Auto) 2.3 Baso % (Auto) 0.2 Lymph # (Auto) 4.0 H [place] # (Auto) 1.3 H Eos # (Auto) 0.3 Baso # (Auto) 0.02 Absolute Neuts (auto) 7.17 H PT 11.4 INR 1.03 APTT 28.9 D-Dimer, Quantitative 266 H pCO2 pO2 HCO3 ABG pH ABG Total CO2 ABG O2 Saturation ABG Base Excess ABG Potassium Sodium 138 Chloride 96 L Glucose Lactate FiO2 Crit Value Called To Crit Value Called By Blood Gas Notified Time Potassium 2.8 L* D Carbon Dioxide 36 H Anion Gap 9 L BUN 11 Creatinine 1.7 H Est GFR ( Amer) 38 Est GFR (Non-Af Amer) 31 Random Glucose 208 H Calcium 9.2 Total Bilirubin 1.0 AST 25 ALT 44 Alkaline Phosphatase 82 Troponin I < 0.01 Total Protein 6.1 Albumin 3.3 Globulin 2.7 Albumin/Globulin Ratio 1.2 Arterial Blood Potassium Urine Color Urine Appearance Urine pH Ur Specific [place] Urine Protein Urine Glucose (UA) Urine Ketones Urine Blood Urine Nitrate Urine Bilirubin Urine Urobilinogen Ur Leukocyte Esterase Urine RBC Urine WBC Ur Epithelial Cells Urine Bacteria Influenza Typ A,B (EIA) Attending/Attestation - Attestation I have personally seen and examined this patient.: Yes I have fully participated in the care of the patient.: Yes I have reviewed all pertinent clinical information: Yes Notes (Text): 05/13/18 04:57 Patient was seen when she was in 129-07. Agree with consult documentation by resident physician. CCT time spent greater than 30 minutes.
[2018-05-13 03:01] LABS: URINE BACTERIA TRACE /hpf; URINE EPITHELIAL CELLS MANY /hpf (0-5); URINE RBC 0 - 2 /hpf (0-2)
[2018-05-13] MEDS ORDERED: Pantoprazole 20 mg EC Tab PO SCH (06:00)
[2018-05-13] MEDS ORDERED: Albuterol-Ipratrop 3 mg / 0.5 (3 ml) UD IH PRN (06:48)
[2018-05-13] MEDS: Sodium Chloride 0.9% 1,000 ML IV SCH ×2 (06:57→22:33)
[2018-05-13] MEDS: Pantoprazole 40 mg EC Tab PO SCH (06:57)
[2018-05-13 07:14] LABS: VENOUS BLOOD GAS BASE EXCESS 6.6 mmol/L (0.0-2.0); VENOUS BLOOD GAS PO2 62 mm/Hg (30-55); VENOUS BLOOD PH 7.28 (7.32-7.43)
[2018-05-13] MEDS: Budesonide 0.5 mg/2 ml Inhal Susp UD IH SCH ×2 (07:33→21:00)
[2018-05-13 07:55] VITALS: BMI 48.9
[2018-05-13] MEDS ORDERED: Albuterol-Ipratrop 3 mg / 0.5 (3 ml) UD IH SCH ×2 (08:00→20:00)
[2018-05-13] MEDS ORDERED: Arformoterol 15 mcg/2 ml Inh Sol IH SCH (08:00)
--- NOTE | 2018-05-13 08:03 | CT ---
Date of service: 05/13/2018 PROCEDURE: CT HEAD WITHOUT CONTRAST. HISTORY: dizziness COMPARISON: Noncontrast head CT 09/05/2013. TECHNIQUE: Axial computed tomography images were obtained through the head/brain without intravenous contrast. Radiation dose: Total exam DLP = 912.92 mGy-cm. This CT exam was performed using one or more of the following dose reduction techniques: Automated exposure control, adjustment of the mA and/or kV according to patient size, and/or use of iterative reconstruction technique. FINDINGS: HEMORRHAGE: No intracranial hemorrhage. BRAIN: No mass effect or edema. No atrophy or chronic microvascular ischemic changes.Normal perdomo-white matter differentiation and density are appreciated throughout the cerebrum and cerebellum with the brainstem appearing unremarkable as well. There is no mass effect. There is no suspicious extra-axial fluid collection and the midline brain anatomy appears diffusely unremarkable. VENTRICLES: Unremarkable. No hydrocephalus. CALVARIUM: Unremarkable. PARANASAL SINUSES: Incidental improved fung sinusitis but with significant residual at the bilateral sphenoid, maxillary and ethmoid sinuses as well as left frontal sinus or recurrence. Likely status post bilateral nasal antrostomies once again as well. MASTOID AIR CELLS: Left mastoid effusions identified mildly. None identified at the right. OTHER FINDINGS: None. IMPRESSION: Unremarkable unenhanced head CT. No significant interval change compared to 09/05/[address] Incidental improved chronic fung sinusitis but with significant residual at the bilateral sphenoid, maxillary and ethmoid sinuses as well as left frontal sinus or potential acute or subacute recurrence. Likely status post bilateral nasal antrostomies once again as well. Preliminary report provided by Anne-Marie, 05/13/2018, 1:56 a.m..
[2018-05-13] MEDS: Insulin Reg-MEDIUM-Coverage SC SCH ×4 (08:25→22:51)
[2018-05-13 09:12] LABS: BASO # 0.02 K/mm3 (0.0-2.0); BASO % 0.2 % (0.0-3.0); EOS # 0.3 (0.0-0.7); EOS % 2.1 % (1.5-5.0); HEMOGLOBIN 12.7 g/dL (12.0-16.0); LYMPH # 3.5 (1.2-3.4); LYMPH % 29.6 % (22.0-35.0); MEAN CELL VOLUME 93.8 fl (80.0-105.0); MEAN CORPUSCULAR HEMOGLOBIN 29.4 pg (25.0-35.0); MEAN CORPUSCULAR HGB CONC 31.4 g/dl (31.0-37.0); MEAN PLATELET VOLUME 11.8 fl (7.0-11.0); MONO # 1.1 (0.1-0.6); RBC 4.32 10^6/uL (3.5-6.1); RED CELL DISTRIBUTION WIDTH 13.9 % (11.5-14.5); WHITE BLOOD COUNT 11.9 10^3/uL (4.5-11.0)
[2018-05-13 09:23] LABS: ALB/GLOB RATIO 1.3 (1.1-1.8); ALBUMIN 3.1 g/dL (3.0-4.8); CALCIUM 8.5 mg/dL (8.4-10.5)
--- NOTE | 2018-05-13 09:52 | CP.CCUPN ---
<Yadira Raza - Last Filed: 05/13/18 12:48> CCU Subjective - Physician Review Subjective (Free Text): Yadira Raza, PGY-1, CCU Progress Note for Dr. Zavala Patient seen and examined at bedside. Patient reports erythematous rash under left breast on in left inguinal fold. Patient denies present fever, coughing, dizziness, chest pain, shortness of breath, nausea, vomiting, constipation, diarrhea. 12-point ROS was unremarkable except for what was mentioned above. CCU Objective - Vital Signs / Intake & Output Vital Signs (Last 4 hours): Vital Signs Temp Pulse Resp 05/13/18 08:10 95 H 05/13/18 07:37 95 H 05/13/18 06:59 98.5 F 100 H 20 Intake and Output (Last 8hrs): Intake & Output 05/12/18 05/13/18 05/13/18 22:59 06:59 14:59 Weight 285 lb - Physical Exam Head: Positive for: Atraumatic, Normocephalic Pupils: Positive for: PERRL Extroacular Muscles: Positive for: EOMI Conjunctiva: Positive for: Normal Mouth: Positive for: Moist Mucous Membranes Neck: Positive for: Normal Range of Motion Respiratory/Chest: Positive for: Clear to Auscultation. Negative for: Good Air Exchange (Poor air entry bilaterally), Respiratory Distress, Accessory Muscle Use Cardiovascular: Positive for: Regular Rate and Rhythm, Normal S1, S2. Negative for: Murmurs Abdomen: Positive for: Other (left inguinal fold erythematous rash). Negative for: Tenderness, Distention, Peritoneal Signs Breast/Axillary: Positive for: Erythema (under left breast) Back: Positive for: Normal Inspection Upper Extremity: Positive for: Normal Inspection. Negative for: Cyanosis, Edema Lower Extremity: Positive for: Normal Inspection. Negative for: Edema Neurological: Positive for: GCS=15, CN II-XII Intact, Speech Normal Skin: Positive for: Warm, Dry, Normal Color, Other (rash under left breast and rash in inguinal fold). Negative for: Rashes Psychiatric: Positive for: Alert, Oriented x 3, Normal Insight, Normal Concentration - Medications Active Medications: Active Medications Generic Name Dose Route Start Last Admin Trade Name Freq PRN Reason Stop Dose Admin Acetaminophen 650 mg 05/13/18 05:09 Tylenol 325mg Tab PO Q6H PRN Fever >100.4 F Acetaminophen 650 mg 05/13/18 06:49 Tylenol 325mg Tab PO Q6 PRN TEMP>=99.5F Acetaminophen 650 mg 05/13/18 06:49 Tylenol 650 Mg Supp RC Q6H PRN TEMP>=99.5F Albuterol/Ipratropium 3 ml 05/13/18 06:48 Duoneb 3 Mg/0.5 Mg (3 Ml) Ud IH Q6 PRN Shortness of Breath Arformoterol Tartrate 15 mcg 05/13/18 08:00 05/13/18 07:33 Brovana IH 15 mcg BIDRESP RIGOBERTO Administration Budesonide 0.5 mg 05/13/18 08:00 05/13/18 07:33 Pulmicort Respules IH 0.5 mg BIDRESP RIGOBERTO Administration Clonazepam 2 mg 05/13/18 10:00 Klonopin PO QID RIGOBERTO Protocol Gabapentin 300 mg 05/13/18 10:00 Neurontin PO TID [facility] Protocol Heparin Sodium (Porcine) 5,000 units 05/13/18 14:00 Heparin SC Q8 [facility] Protocol Cefepime HCl 2 gm in 100 mls @ 100 mls/hr 05/13/18 10:00 Maxipime 2gm IVPB 05/18/18 10:01 Q12 RIGOBERTO Protocol Doxycycline Hyclate 100 mg/ 100 mls @ 100 mls/hr 05/13/18 10:00 Sodium Chloride IVPB Q12 RIGOBERTO Protocol Sodium Chloride 1,000 mls @ 100 mls/hr 05/13/18 05:30 05/13/18 06:57 Sodium Chloride 0.9% IV 100 mls/hr .Q10H RIGOBERTO Administration Insulin Human Regular 0 units 05/13/18 07:30 Humulin R Med SC ACHS [facility] Protocol Montelukast Sodium 10 mg 05/13/18 22:00 Singulair PO HS RIGOBERTO Temazepam [Restoril] 30 mg 05/13/18 22:00 30 Mg- Home Med PO HS RIGOBERTO Nystatin/Triamcinolone Acetonide 1 ea 05/13/18 03:30 Nystatin/Triamcinolone Cream TOP BID RIGOBERTO Ondansetron HCl 4 mg 05/13/18 06:49 Zofran Inj IVP Q4H PRN Nausea/Vomiting Pantoprazole Sodium 40 mg 05/13/18 06:00 05/13/18 06:57 Protonix Ec Tab PO 40 mg 0600 RIGOBERTO Administration Paroxetine HCl 20 mg 05/13/18 10:00 Paxil PO DAILY RIGOBERTO - Patient Studies Lab Studies: Lab Studies 05/13/18 05/13/18 05/13/18 Range/Units 09:00 09:00 06:30 WBC 11.9 H (4.5-11.0) 10^3/uL RBC 4.32 (3.5-6.1) 10^6/uL Hgb 12.7 (12.0-16.0) g/dL Hct 40.5 (36.0-48.0) % MCV 93.8 (80.0-105.0) fl MCH 29.4 (25.0-35.0) pg MCHC 31.4 (31.0-37.0) g/dl RDW 13.9 (11.5-14.5) % Plt Count 258 (120.0-450.0) 10^3/uL MPV 11.8 H (7.0-11.0) fl Neut % (Auto) 59.1 (50.0-68.0) % Lymph % (Auto) 29.6 (22.0-35.0) % [place] % (Auto) 9.0 H (1.0-6.0) % Eos % (Auto) 2.1 (1.5-5.0) % Baso % (Auto) 0.2 (0.0-3.0) % Lymph # (Auto) 3.5 H (1.2-3.4) [place] # (Auto) 1.1 H (0.1-0.6) Eos # (Auto) 0.3 (0.0-0.7) Baso # (Auto) 0.02 (0.0-2.0) K/mm3 Absolute Neuts (auto) 7.05 H (1.4-6.5) PT (9.4-12.5) SECONDS INR APTT (26.9-38.3) Seconds D-Dimer, Quantitative (0-243) ng/mlDDU pCO2 (35-45) mm/Hg pO2 62 H (80-100) mm/Hg HCO3 (21-28) mmol/L ABG pH (7.35-7.45) ABG Total CO2 (22-28) mmol.L ABG O2 Saturation (95-98) % ABG Base Excess (-2.0-3.0) mmol/L ABG Potassium (3.6-5.2) mmol/L VBG pH 7.28 L (7.32-7.43) VBG pCO2 77.0 H* (40-60) VBG HCO3 36.2 H (21-28) mmol/l VBG Total CO2 38.6 H (22-28) mmol.L VBG O2 Sat (Calc) 93.8 H (40-65) % VBG Base Excess 6.6 H (0.0-2.0) mmol/L VBG Potassium 3.1 L (3.6-5.2) mmol/L Sodium 139 141.0 (132-148) mmol/L Chloride 102 103.0 (98-107) mmol/L Glucose 143 H (65-105) mg/dl Lactate 2.2 H (0.7-2.1) mmol/L FiO2 21.0 % Crit Value Called To Kathryn reilly carnival worker Crit Value Called By [facility] Blood Gas Notified Time 714 Potassium 3.5 L (3.6-5.0) mmol/L Carbon Dioxide 32 (21-33) mmol/L Anion Gap 8 L (10-20) BUN 11 (7-21) mg/dL Creatinine 1.9 H (0.7-1.2) mg/dl Est GFR ( Amer) 33 Est GFR (Non-Af Amer) 27 Random Glucose 156 H (70-110) mg/dL Calcium 8.5 (8.4-10.5) mg/dL Phosphorus 3.0 (2.5-4.5) mg/dL Magnesium 1.8 (1.7-2.2) mg/dL Total Bilirubin 0.7 (0.2-1.3) mg/dL AST 23 (14-36) U/L ALT 38 (7-56) U/L Alkaline Phosphatase 75 (38-126) U/L Total Creatine Kinase 161 (35-230) U/L Troponin I ng/mL Total Protein 5.6 L (5.8-8.3) g/dL Albumin 3.1 (3.0-4.8) g/dL Globulin 2.5 gm/dL Albumin/Globulin Ratio 1.3 (1.1-1.8) Triglycerides 313 H (35-160) mg/dL Cholesterol 103 L (130-200) mg/dL LDL Cholesterol Direct 37 (0-129) mg/dL HDL Cholesterol 35 (29-60) mg/dL Arterial Blood Potassium (3.6-5.2) mmol/L Venous Blood Potassium 3.1 L (3.6-5.2) mmol/L Urine Color (YELLOW) Urine Appearance (CLEAR) Urine pH (4.7-8.0) Ur Specific [place] (1.005-1.035) Urine Protein (<30 mg/dL) mg/dL Urine Glucose (UA) (NEGATIVE) mg/dL Urine Ketones (NEGATIVE) mg/dL Urine Blood (NEGATIVE) Urine Nitrate (NEGATIVE) Urine Bilirubin (NEGATIVE) Urine Urobilinogen (<1 E.U./dL) E.U./dL Ur Leukocyte Esterase (NEGATIVE) Karen/uL Urine RBC (0-2) /hpf Urine WBC (0-6) /hpf Ur Epithelial Cells (0-5) /hpf Urine Bacteria (NONE) /hpf Influenza Typ A,B (EIA) (NEGATIVE) 05/13/18 05/13/18 05/13/18 Range/Units 01:30 01:30 01:30 WBC 12.8 H (4.5-11.0) 10^3/uL RBC 4.29 (3.5-6.1) 10^6/uL Hgb 12.5 (12.0-16.0) g/dL Hct 40.4 (36.0-48.0) % MCV 94.2 D (80.0-105.0) fl MCH 29.1 (25.0-35.0) pg MCHC 30.9 L (31.0-37.0) g/dl RDW 13.9 (11.5-14.5) % Plt Count 281 (120.0-450.0) 10^3/uL MPV 12.1 H (7.0-11.0) fl Neut % (Auto) 55.9 (50.0-68.0) % Lymph % (Auto) 31.4 (22.0-35.0) % [place] % (Auto) 10.2 H (1.0-6.0) % Eos % (Auto) 2.3 (1.5-5.0) % Baso % (Auto) 0.2 (0.0-3.0) % Lymph # (Auto) 4.0 H (1.2-3.4) [place] # (Auto) 1.3 H (0.1-0.6) Eos # (Auto) 0.3 (0.0-0.7) Baso # (Auto) 0.02 (0.0-2.0) K/mm3 Absolute Neuts (auto) 7.17 H (1.4-6.5) PT 11.4 (9.4-12.5) SECONDS INR 1.03 APTT 28.9 (26.9-38.3) Seconds D-Dimer, Quantitative 266 H (0-243) ng/mlDDU pCO2 (35-45) mm/Hg pO2 (80-100) mm/Hg HCO3 (21-28) mmol/L ABG pH (7.35-7.45) ABG Total CO2 (22-28) mmol.L ABG O2 Saturation (95-98) % ABG Base Excess (-2.0-3.0) mmol/L ABG Potassium (3.6-5.2) mmol/L VBG pH (7.32-7.43) VBG pCO2 (40-60) VBG HCO3 (21-28) mmol/l VBG Total CO2 (22-28) mmol.L VBG O2 Sat (Calc) (40-65) % VBG Base Excess (0.0-2.0) mmol/L VBG Potassium (3.6-5.2) mmol/L Sodium 138 (132-148) mmol/L Chloride 96 L (98-107) mmol/L Glucose (65-105) mg/dl Lactate (0.7-2.1) mmol/L FiO2 % Crit Value Called To Crit Value Called By Blood Gas Notified Time Potassium 2.8 L* D (3.6-5.0) mmol/L Carbon Dioxide 36 H (21-33) mmol/L Anion Gap 9 L (10-20) BUN 11 (7-21) mg/dL Creatinine 1.7 H (0.7-1.2) mg/dl Est GFR ( Amer) 38 Est GFR (Non-Af Amer) 31 Random Glucose 208 H (70-110) mg/dL Calcium 9.2 (8.4-10.5) mg/dL Phosphorus (2.5-4.5) mg/dL Magnesium (1.7-2.2) mg/dL Total Bilirubin 1.0 (0.2-1.3) mg/dL AST 25 (14-36) U/L ALT 44 (7-56) U/L Alkaline Phosphatase 82 (38-126) U/L Total Creatine Kinase (35-230) U/L Troponin I < 0.01 ng/mL Total Protein 6.1 (5.8-8.3) g/dL Albumin 3.3 (3.0-4.8) g/dL Globulin 2.7 gm/dL Albumin/Globulin Ratio 1.2 (1.1-1.8) Triglycerides (35-160) mg/dL Cholesterol (130-200) mg/dL LDL Cholesterol Direct (0-129) mg/dL HDL Cholesterol (29-60) mg/dL Arterial Blood Potassium (3.6-5.2) mmol/L Venous Blood Potassium (3.6-5.2) mmol/L Urine Color (YELLOW) Urine Appearance (CLEAR) Urine pH (4.7-8.0) Ur Specific [place] (1.005-1.035) Urine Protein (<30 mg/dL) mg/dL Urine Glucose (UA) (NEGATIVE) mg/dL Urine Ketones (NEGATIVE) mg/dL Urine Blood (NEGATIVE) Urine Nitrate (NEGATIVE) Urine Bilirubin (NEGATIVE) Urine Urobilinogen (<1 E.U./dL) E.U./dL Ur Leukocyte Esterase (NEGATIVE) Karen/uL Urine RBC (0-2) /hpf Urine WBC (0-6) /hpf Ur Epithelial Cells (0-5) /hpf Urine Bacteria (NONE) /hpf Influenza Typ A,B (EIA) (NEGATIVE) 05/13/18 05/13/18 05/13/18 Range/Units 01:25 01:25 01:25 WBC (4.5-11.0) 10^3/uL RBC (3.5-6.1) 10^6/uL Hgb (12.0-16.0) g/dL Hct (36.0-48.0) % MCV (80.0-105.0) fl MCH (25.0-35.0) pg MCHC (31.0-37.0) g/dl RDW (11.5-14.5) % Plt Count (120.0-450.0) 10^3/uL MPV (7.0-11.0) fl Neut % (Auto) (50.0-68.0) % Lymph % (Auto) (22.0-35.0) % [place] % (Auto) (1.0-6.0) % Eos % (Auto) (1.5-5.0) % Baso % (Auto) (0.0-3.0) % Lymph # (Auto) (1.2-3.4) [place] # (Auto) (0.1-0.6) Eos # (Auto) (0.0-0.7) Baso # (Auto) (0.0-2.0) K/mm3 Absolute Neuts (auto) (1.4-6.5) PT (9.4-12.5) SECONDS INR APTT (26.9-38.3) Seconds D-Dimer, Quantitative (0-243) ng/mlDDU pCO2 54 H (35-45) mm/Hg pO2 100.0 (80-100) mm/Hg HCO3 34.2 H (21-28) mmol/L ABG pH 7.41 (7.35-7.45) ABG Total CO2 35.9 H (22-28) mmol.L ABG O2 Saturation 98.5 H (95-98) % ABG Base Excess 7.8 H (-2.0-3.0) mmol/L ABG Potassium 2.4 L* (3.6-5.2) mmol/L VBG pH (7.32-7.43) VBG pCO2 (40-60) VBG HCO3 (21-28) mmol/l VBG Total CO2 (22-28) mmol.L VBG O2 Sat (Calc) (40-65) % VBG Base Excess (0.0-2.0) mmol/L VBG Potassium (3.6-5.2) mmol/L Sodium 144.0 (132-148) mmol/L Chloride 104.0 (98-107) mmol/L Glucose 193 H (65-105) mg/dl Lactate 2.8 H (0.7-2.1) mmol/L FiO2 21.0 % Crit Value Called To Poppy badillo rn geriatric Crit Value Called By [facility] Blood Gas Notified Time 202 Potassium (3.6-5.0) mmol/L Carbon Dioxide (21-33) mmol/L Anion Gap (10-20) BUN (7-21) mg/dL Creatinine (0.7-1.2) mg/dl Est GFR ( Amer) Est GFR (Non-Af Amer) Random Glucose (70-110) mg/dL Calcium (8.4-10.5) mg/dL Phosphorus (2.5-4.5) mg/dL Magnesium (1.7-2.2) mg/dL Total Bilirubin (0.2-1.3) mg/dL AST (14-36) U/L ALT (7-56) U/L Alkaline Phosphatase (38-126) U/L Total Creatine Kinase (35-230) U/L Troponin I ng/mL Total Protein (5.8-8.3) g/dL Albumin (3.0-4.8) g/dL Globulin gm/dL Albumin/Globulin Ratio (1.1-1.8) Triglycerides (35-160) mg/dL Cholesterol (130-200) mg/dL LDL Cholesterol Direct (0-129) mg/dL HDL Cholesterol (29-60) mg/dL Arterial Blood Potassium 2.4 L* (3.6-5.2) mmol/L Venous Blood Potassium (3.6-5.2) mmol/L Urine Color Yellow (YELLOW) Urine Appearance Clear (CLEAR) Urine pH 6.0 (4.7-8.0) Ur Specific [place] >= 1.030 (1.005-1.035) Urine Protein 30 H (<30 mg/dL) mg/dL Urine Glucose (UA) Negative (NEGATIVE) mg/dL Urine Ketones Trace H (NEGATIVE) mg/dL Urine Blood Negative (NEGATIVE) Urine Nitrate Negative (NEGATIVE) Urine Bilirubin Negative (NEGATIVE) Urine Urobilinogen 0.2 (<1 E.U./dL) E.U./dL Ur Leukocyte Esterase Small H (NEGATIVE) Karen/uL Urine RBC 0 - 2 (0-2) /hpf Urine WBC 5 - 10 H (0-6) /hpf Ur Epithelial Cells Many H (0-5) /hpf Urine Bacteria Trace (NONE) /hpf Influenza Typ A,B (EIA) Negative for flu a/b (NEGATIVE) Laboratory Results - last 24 hr 05/13/18 05/13/18 05/13/18 01:25 01:25 01:25 WBC RBC Hgb Hct MCV MCH MCHC RDW Plt Count MPV Neut % (Auto) Lymph % (Auto) [place] % (Auto) Eos % (Auto) Baso % (Auto) Lymph # (Auto) [place] # (Auto) Eos # (Auto) Baso # (Auto) Absolute Neuts (auto) PT INR APTT D-Dimer, Quantitative pCO2 54 H pO2 100.0 HCO3 34.2 H ABG pH 7.41 ABG Total CO2 35.9 H ABG O2 Saturation 98.5 H ABG Base Excess 7.8 H ABG Potassium 2.4 L* VBG pH VBG pCO2 VBG HCO3 VBG Total CO2 VBG O2 Sat (Calc) VBG Base Excess VBG Potassium Sodium 144.0 Chloride 104.0 Glucose 193 H Lactate 2.8 H FiO2 21.0 Crit Value Called To Poppy badillo rn geriatric Crit Value Called By [facility] Blood Gas Notified Time 202 Potassium Carbon Dioxide Anion Gap BUN Creatinine Est GFR ( Amer) Est GFR (Non-Af Amer) Random Glucose Calcium Phosphorus Magnesium Total Bilirubin AST ALT Alkaline Phosphatase Total Creatine Kinase Troponin I Total Protein Albumin Globulin Albumin/Globulin Ratio Triglycerides Cholesterol LDL Cholesterol Direct HDL Cholesterol Arterial Blood Potassium 2.4 L* Venous Blood Potassium Urine Color Yellow Urine Appearance Clear Urine pH 6.0 Ur Specific [place] >= 1.030 Urine Protein 30 H Urine Glucose (UA) Negative Urine Ketones Trace H Urine Blood Negative Urine Nitrate Negative Urine Bilirubin Negative Urine Urobilinogen 0.2 Ur Leukocyte Esterase Small H Urine RBC 0 - 2 Urine WBC 5 - 10 H Ur Epithelial Cells Many H Urine Bacteria Trace Influenza Typ A,B (EIA) Negative for flu a/b 05/13/18 05/13/18 05/13/18 01:30 01:30 01:30 WBC 12.8 H RBC 4.29 Hgb 12.5 Hct 40.4 MCV 94.2 D MCH 29.1 MCHC 30.9 L RDW 13.9 Plt Count 281 MPV 12.1 H Neut % (Auto) 55.9 Lymph % (Auto) 31.4 [place] % (Auto) 10.2 H Eos % (Auto) 2.3 Baso % (Auto) 0.2 Lymph # (Auto) 4.0 H [place] # (Auto) 1.3 H Eos # (Auto) 0.3 Baso # (Auto) 0.02 Absolute Neuts (auto) 7.17 H PT 11.4 INR 1.03 APTT 28.9 D-Dimer, Quantitative 266 H pCO2 pO2 HCO3 ABG pH ABG Total CO2 ABG O2 Saturation ABG Base Excess ABG Potassium VBG pH VBG pCO2 VBG HCO3 VBG Total CO2 VBG O2 Sat (Calc) VBG Base Excess VBG Potassium Sodium 138 Chloride 96 L Glucose Lactate FiO2 Crit Value Called To Crit Value Called By Blood Gas Notified Time Potassium 2.8 L* D Carbon Dioxide 36 H Anion Gap 9 L BUN 11 Creatinine 1.7 H Est GFR ( Amer) 38 Est GFR (Non-Af Amer) 31 Random Glucose 208 H Calcium 9.2 Phosphorus Magnesium Total Bilirubin 1.0 AST 25 ALT 44 Alkaline Phosphatase 82 Total Creatine Kinase Troponin I < 0.01 Total Protein 6.1 Albumin 3.3 Globulin 2.7 Albumin/Globulin Ratio 1.2 Triglycerides Cholesterol LDL Cholesterol Direct HDL Cholesterol Arterial Blood Potassium Venous Blood Potassium Urine Color Urine Appearance Urine pH Ur Specific [place] Urine Protein Urine Glucose (UA) Urine Ketones Urine Blood Urine Nitrate Urine Bilirubin Urine Urobilinogen Ur Leukocyte Esterase Urine RBC Urine WBC Ur Epithelial Cells Urine Bacteria Influenza Typ A,B (EIA) 05/13/18 05/13/18 05/13/18 06:30 09:00 09:00 WBC 11.9 H RBC 4.32 Hgb 12.7 Hct 40.5 MCV 93.8 MCH 29.4 MCHC 31.4 RDW 13.9 Plt Count 258 MPV 11.8 H Neut % (Auto) 59.1 Lymph % (Auto) 29.6 [place] % (Auto) 9.0 H Eos % (Auto) 2.1 Baso % (Auto) 0.2 Lymph # (Auto) 3.5 H [place] # (Auto) 1.1 H Eos # (Auto) 0.3 Baso # (Auto) 0.02 Absolute Neuts (auto) 7.05 H PT INR APTT D-Dimer, Quantitative pCO2 pO2 62 H HCO3 ABG pH ABG Total CO2 ABG O2 Saturation ABG Base Excess ABG Potassium VBG pH 7.28 L VBG pCO2 77.0 H* VBG HCO3 36.2 H VBG Total CO2 38.6 H VBG O2 Sat (Calc) 93.8 H VBG Base Excess 6.6 H VBG Potassium 3.1 L Sodium 141.0 139 Chloride 103.0 102 Glucose 143 H Lactate 2.2 H FiO2 21.0 Crit Value Called To Kathryn reilly rn ccu Crit Value Called By [facility] Blood Gas Notified Time 714 Potassium 3.5 L Carbon Dioxide 32 Anion Gap 8 L BUN 11 Creatinine 1.9 H Est GFR ( Amer) 33 Est GFR (Non-Af Amer) 27 Random Glucose 156 H Calcium 8.5 Phosphorus 3.0 Magnesium 1.8 Total Bilirubin 0.7 AST 23 ALT 38 Alkaline Phosphatase 75 Total Creatine Kinase 161 Troponin I Total Protein 5.6 L Albumin 3.1 Globulin 2.5 Albumin/Globulin Ratio 1.3 Triglycerides 313 H Cholesterol 103 L LDL Cholesterol Direct 37 HDL Cholesterol 35 Arterial Blood Potassium Venous Blood Potassium 3.1 L Urine Color Urine Appearance Urine pH Ur Specific [place] Urine Protein Urine Glucose (UA) Urine Ketones Urine Blood Urine Nitrate Urine Bilirubin Urine Urobilinogen Ur Leukocyte Esterase Urine RBC Urine WBC Ur Epithelial Cells Urine Bacteria Influenza Typ A,B (EIA) Radiology Impressions: Radiology Impressions Head CT 05/13/18 00:39 IMPRESSION: Unremarkable unenhanced head CT. No significant interval change compared to 09/05/[address] Incidental improved chronic fung sinusitis but with significant residual at the bilateral sphenoid, maxillary and ethmoid sinuses as well as left frontal sinus or potential acute or subacute recurrence. Likely status post bilateral nasal antrostomies once again as well. Preliminary report provided by Anne-Marie, 05/13/2018, 1:56 a.m.. EKG/Cardiology Studies: Cardiology / EKG Studies 05/13/18 00:40 ELECTROCARDIOGRAM Stat Comment: Reason For Exam: weakness Fingerstick Blood Sugar Results: 220 Review of Systems - Review of Systems Review of Systems: except for what was mentioned in HPI Critical Care Progress Note - Nutrition Nutrition: Nutrition Category Date Time Status Heart Healthy Diet [DIET] Diets 05/13/18 Breakfast Active Assessment/Plan - Assessment and Plan (Free Text) Assessment: 57 year old female with past medical history of morbid obesity, COPD on 2L of oxygen, diabetes mellitus type II, hypertension, GERD, anxiety, depression pr esented with generalized body weakness, body aches and chills. Plan: Neuro: -AAOx3, no FND, moving extremities past midline. -Hold benzodiazepines, anti-anxiety medications due to hypotension -Monitor neuro status. -Reorient patient as necessary. Cardio: Hypotension possibly 2/2 to sepsis from CAP -RRR, hypotensive with improvement of blood pressure overnight, no signs of current HD compromise -EKG: sinus tachycardia with left axis deviation with HR: 109 -Troponin: <0.01 -Status post 1 L of NS and 3 L of lactated ringer -Continue NS at 100 cc/hr -Maintain MAP>65. -Monitor for S/S, HD compromise. Pulm: COPD -ABG: pH: 7.32, pO2: 69, pCO2: 59, lactate: 1.6 -CXR: left lower lobe infiltrate vs. effusion -Patient is stating well on room air. -Maintain O2 saturation>90%. -O2 NC, BiPap PRN -Continue with duonebs Q6PRN, brovana 15 BID, pulmicort 0.5 BID Pneumonia -CXR: left lower lobe infiltrate vs. effusion -Continue with vancomycin, doxycycline, and cefepime day 2. GI: Diet -HHD with CCD GI prophylaxis -Protonix 40 mg daily /Nephro: CONCEPCION -BUN/Cr stable at 11/1.9 from creatinine of 1.7 yesterday. Baseline creatinine is 1.0 -UA: 30 protein, trace ketones, small LE, 0-2 RBC, 5-10 WBC, many epithelial cell, trace bacteria. This is likely a contaminated sample -Good urine output -Continue monitoring. -Replete electrolytes as needed. -Maintain euvolemia. Endocrinology: Diabetes mellitus type II -Random glucose: 156 -Medium sliding scale insulin -Maintain euglycemia. Heme/Onc: -H/H stable at 12.7/40.5 -No signs of HD compromise. -Continue monitoring H/H Elevated D-dimer -D-dimer: 266 -Follow up V/Q scan to rule out pulmonary embolism. DVT prophylaxis -Heparin 5000 U Q8. avoid lovenox ID: Pneumonia -Afebrile, leukocytosis improved at 11.9 from 12.8 -Follow up BCx, UCx, Sputum culture, Procalcitonin, Lactate, urine strep antigen, urine legionella antigen -CXR: left lower lobe infiltrate vs. effusion -Continue with vancomycin, doxycycline, and cefepime day 2. Check vancomycin level on day 3. -Once cultures are obtained, deescalate to appropriate antibiotic. -Monitor for signs and symptoms of infection. -Dr. Price, ID, consulted for recommendations. Follow recommendations. Cellulitis -Likely due to [place] infection -Continue with nystatin cream. Patient seen and examined with Dr. Zavala. - Date & Time Date: 05/13/18 Time: 09:52 <Aleks Zavala - Last Filed: 05/13/18 18:19> CCU Objective - Vital Signs / Intake & Output Vital Signs (Last 4 hours): Vital Signs Pulse BP 05/13/18 17:49 100 H 05/13/18 16:33 100 H 95/60 L Intake and Output (Last 8hrs): Intake & Output 05/13/18 05/13/18 05/13/18 06:59 14:59 22:59 Weight 285 lb - Medications Active Medications: Active Medications Generic Name Dose Route Start Last Admin Trade Name Freq PRN Reason Stop Dose Admin Acetaminophen 650 mg 05/13/18 05:09 Tylenol 325mg Tab PO Q6H PRN Fever >100.4 F Acetaminophen 650 mg 05/13/18 06:49 Tylenol 325mg Tab PO Q6 PRN TEMP>=99.5F Acetaminophen 650 mg 05/13/18 06:49 Tylenol 650 Mg Supp RC Q6H PRN TEMP>=99.5F Albuterol/Ipratropium 3 ml 05/13/18 06:48 Duoneb 3 Mg/0.5 Mg (3 Ml) Ud IH Q6 PRN Shortness of Breath Albuterol/Ipratropium 3 ml 05/13/18 20:00 Duoneb 3 Mg/0.5 Mg (3 Ml) Ud IH [id number] RIGOBERTO Budesonide 0.5 mg 05/13/18 08:00 05/13/18 07:33 Pulmicort Respules IH 0.5 mg BIDRESP RIGOBERTO Administration Clonazepam 2 mg 05/13/18 10:00 05/13/18 16:34 Klonopin PO 2 mg QID RIGOBERTO Administration Protocol Diltiazem HCl 120 mg 05/13/18 12:30 05/13/18 16:33 Cardizem Cd PO 120 mg DAILY RIGOBERTO Administration Gabapentin 300 mg 05/13/18 10:00 05/13/18 16:34 Neurontin PO 300 mg TID RIGOBERTO Administration Protocol Heparin Sodium (Porcine) 5,000 units 05/13/18 14:00 05/13/18 16:33 Heparin SC 5,000 units Q8 RIGOBERTO Administration Protocol Doxycycline Hyclate 100 mg/ 100 mls @ 100 mls/hr 05/13/18 10:00 05/13/18 10:10 Sodium Chloride IVPB 100 mls/hr Q12 RIGOBERTO Administration Protocol Sodium Chloride 1,000 mls @ 100 mls/hr 05/13/18 05:30 05/13/18 06:57 Sodium Chloride 0.9% IV 100 mls/hr .Q10H RIGOBERTO Administration Cefepime HCl 2 gm in 100 mls @ 100 mls/hr 05/13/18 10:00 05/13/18 10:38 Maxipime 2gm IVPB 05/18/18 10:01 100 mls/hr DAILY RIGOBERTO Administration Protocol Insulin Human Regular 0 units 05/13/18 07:30 05/13/18 12:18 Humulin R Med SC 1 unit ACHS RIGOBERTO Administration Protocol Methylprednisolone 20 mg 05/13/18 14:15 05/13/18 16:36 Solu-Medrol IVP 20 mg Q8H RIGOBERTO Administration Montelukast Sodium 10 mg 05/13/18 22:00 Singulair PO HS RIGOBERTO Temazepam [Restoril] 30 mg 05/13/18 22:00 30 Mg- Home Med PO HS RIGOBERTO Nystatin/Triamcinolone Acetonide 1 ea 05/13/18 03:30 05/13/18 10:08 Nystatin/Triamcinolone Cream TOP 1 t12 BID RIGOBERTO Administration Ondansetron HCl 4 mg 05/13/18 06:49 Zofran Inj IVP Q4H PRN Nausea/Vomiting Oseltamivir Phosphate 30 mg 05/13/18 18:00 Tamiflu Cap PO 05/18/18 13:28 BID RIGOBERTO Protocol Pantoprazole Sodium 40 mg 05/13/18 06:00 05/13/18 06:57 Protonix Ec Tab PO 40 mg 0600 RIGOBERTO Administration Paroxetine HCl 20 mg 05/13/18 10:00 05/13/18 10:38 Paxil PO 20 mg DAILY RIGOBERTO Administration - Patient Studies Lab Studies: Lab Studies 05/13/18 05/13/18 05/13/18 Range/Units 17:37 14:20 09:30 WBC (4.5-11.0) 10^3/uL RBC (3.5-6.1) 10^6/uL Hgb (12.0-16.0) g/dL Hct (36.0-48.0) % MCV (80.0-105.0) fl MCH (25.0-35.0) pg MCHC (31.0-37.0) g/dl RDW (11.5-14.5) % Plt Count (120.0-450.0) 10^3/uL MPV (7.0-11.0) fl Neut % (Auto) (50.0-68.0) % Lymph % (Auto) (22.0-35.0) % [place] % (Auto) (1.0-6.0) % Eos % (Auto) (1.5-5.0) % Baso % (Auto) (0.0-3.0) % Lymph # (Auto) (1.2-3.4) [place] # (Auto) (0.1-0.6) Eos # (Auto) (0.0-0.7) Baso # (Auto) (0.0-2.0) K/mm3 Absolute Neuts (auto) (1.4-6.5) PT (9.4-12.5) SECONDS INR APTT (26.9-38.3) Seconds D-Dimer, Quantitative (0-243) ng/mlDDU pCO2 60 H 59 H (35-45) mm/Hg pO2 82.0 69.0 L (80-100) mm/Hg HCO3 28.2 H 30.4 H (21-28) mmol/L ABG pH 7.28 L 7.32 L (7.35-7.45) ABG Total CO2 30.0 H 32.2 H (22-28) mmol.L ABG O2 Saturation 97.5 95.8 (95-98) % ABG O2 Content 14.3 L 14.8 L (15-23) ML/dl ABG Base Excess 0.6 3.1 H (-2.0-3.0) mmol/L ABG Hemoglobin 10.6 L 11.2 L (11.7-17.4) g/dL ABG Carboxyhemoglobin 1.7 H 1.6 H (0.5-1.5) % POC ABG HHb (Measured) 2.4 4.1 (0-5) % ABG Methemoglobin 0.6 0.8 (0.0-3.0) % ABG O2 Capacity 14.7 L 15.4 L (16-24) mL/dl ABG Potassium 2.6 L (3.6-5.2) mmol/L VBG pH (7.32-7.43) VBG pCO2 (40-60) VBG HCO3 (21-28) mmol/l VBG Total CO2 (22-28) mmol.L VBG O2 Sat (Calc) (40-65) % VBG Base Excess (0.0-2.0) mmol/L VBG Potassium (3.6-5.2) mmol/L Hgb O2 Saturation 95.3 93.6 L (95.0-98.0) % Sodium 143.0 (132-148) mmol/L Chloride 107.0 (98-107) mmol/L Glucose 166 H (65-105) mg/dl Lactate 1.6 (0.7-2.1) mmol/L FiO2 32.0 28.0 % Crit Value Called To Crit Value Called By Blood Gas Notified Time Potassium (3.6-5.0) mmol/L Carbon Dioxide (21-33) mmol/L Anion Gap (10-20) BUN (7-21) mg/dL Creatinine (0.7-1.2) mg/dl Est GFR ( Amer) Est GFR (Non-Af Amer) Random Glucose (70-110) mg/dL Calcium (8.4-10.5) mg/dL Phosphorus (2.5-4.5) mg/dL Magnesium (1.7-2.2) mg/dL Total Bilirubin (0.2-1.3) mg/dL AST (14-36) U/L ALT (7-56) U/L Alkaline Phosphatase (38-126) U/L Total Creatine Kinase 178 (35-230) U/L Troponin I < 0.01 ng/mL Total Protein (5.8-8.3) g/dL Albumin (3.0-4.8) g/dL Globulin gm/dL Albumin/Globulin Ratio (1.1-1.8) Triglycerides (35-160) mg/dL Cholesterol (130-200) mg/dL LDL Cholesterol Direct (0-129) mg/dL HDL Cholesterol (29-60) mg/dL Procalcitonin (0.19-0.49) NG/ML Arterial Blood Potassium 2.6 L (3.6-5.2) mmol/L Venous Blood Potassium (3.6-5.2) mmol/L Urine Color (YELLOW) Urine Appearance (CLEAR) Urine pH (4.7-8.0) Ur Specific [place] (1.005-1.035) Urine Protein (<30 mg/dL) mg/dL Urine Glucose (UA) (NEGATIVE) mg/dL Urine Ketones (NEGATIVE) mg/dL Urine Blood (NEGATIVE) Urine Nitrate (NEGATIVE) Urine Bilirubin (NEGATIVE) Urine Urobilinogen (<1 E.U./dL) E.U./dL Ur Leukocyte Esterase (NEGATIVE) Karen/uL Urine RBC (0-2) /hpf Urine WBC (0-6) /hpf Ur Epithelial Cells (0-5) /hpf Urine Bacteria (NONE) /hpf Influenza Typ A,B (EIA) (NEGATIVE) Ur L.pneumophila Ag (NEGATIVE) 05/13/18 05/13/18 05/13/18 Range/Units 09:00 09:00 06:30 WBC 11.9 H (4.5-11.0) 10^3/uL RBC 4.32 (3.5-6.1) 10^6/uL Hgb 12.7 (12.0-16.0) g/dL Hct 40.5 (36.0-48.0) % MCV 93.8 (80.0-105.0) fl MCH 29.4 (25.0-35.0) pg MCHC 31.4 (31.0-37.0) g/dl RDW 13.9 (11.5-14.5) % Plt Count 258 (120.0-450.0) 10^3/uL MPV 11.8 H (7.0-11.0) fl Neut % (Auto) 59.1 (50.0-68.0) % Lymph % (Auto) 29.6 (22.0-35.0) % [place] % (Auto) 9.0 H (1.0-6.0) % Eos % (Auto) 2.1 (1.5-5.0) % Baso % (Auto) 0.2 (0.0-3.0) % Lymph # (Auto) 3.5 H (1.2-3.4) [place] # (Auto) 1.1 H (0.1-0.6) Eos # (Auto) 0.3 (0.0-0.7) Baso # (Auto) 0.02 (0.0-2.0) K/mm3 Absolute Neuts (auto) 7.05 H (1.4-6.5) PT (9.4-12.5) SECONDS INR APTT (26.9-38.3) Seconds D-Dimer, Quantitative (0-243) ng/mlDDU pCO2 (35-45) mm/Hg pO2 62 H (80-100) mm/Hg HCO3 (21-28) mmol/L ABG pH (7.35-7.45) ABG Total CO2 (22-28) mmol.L ABG O2 Saturation (95-98) % ABG O2 Content (15-23) ML/dl ABG Base Excess (-2.0-3.0) mmol/L ABG Hemoglobin (11.7-17.4) g/dL ABG Carboxyhemoglobin (0.5-1.5) % POC ABG HHb (Measured) (0-5) % ABG Methemoglobin (0.0-3.0) % ABG O2 Capacity (16-24) mL/dl ABG Potassium (3.6-5.2) mmol/L VBG pH 7.28 L (7.32-7.43) VBG pCO2 77.0 H* (40-60) VBG HCO3 36.2 H (21-28) mmol/l VBG Total CO2 38.6 H (22-28) mmol.L VBG O2 Sat (Calc) 93.8 H (40-65) % VBG Base Excess 6.6 H (0.0-2.0) mmol/L VBG Potassium 3.1 L (3.6-5.2) mmol/L Hgb O2 Saturation (95.0-98.0) % Sodium 139 141.0 (132-148) mmol/L Chloride 102 103.0 (98-107) mmol/L Glucose 143 H (65-105) mg/dl Lactate 2.2 H (0.7-2.1) mmol/L FiO2 21.0 % Crit Value Called To Kathryn reilly rn ccu Crit Value Called By Manohar Blood Gas Notified Time 714 Potassium 3.5 L (3.6-5.0) mmol/L Carbon Dioxide 32 (21-33) mmol/L Anion Gap 8 L (10-20) BUN 11 (7-21) mg/dL Creatinine 1.9 H (0.7-1.2) mg/dl Est GFR ( Amer) 33 Est GFR (Non-Af Amer) 27 Random Glucose 156 H (70-110) mg/dL Calcium 8.5 (8.4-10.5) mg/dL Phosphorus 3.0 (2.5-4.5) mg/dL Magnesium 1.8 (1.7-2.2) mg/dL Total Bilirubin 0.7 (0.2-1.3) mg/dL AST 23 (14-36) U/L ALT 38 (7-56) U/L Alkaline Phosphatase 75 (38-126) U/L Total Creatine Kinase 161 (35-230) U/L Troponin I ng/mL Total Protein 5.6 L (5.8-8.3) g/dL Albumin 3.1 (3.0-4.8) g/dL Globulin 2.5 gm/dL Albumin/Globulin Ratio 1.3 (1.1-1.8) Triglycerides 313 H (35-160) mg/dL Cholesterol 103 L (130-200) mg/dL LDL Cholesterol Direct 37 (0-129) mg/dL HDL Cholesterol 35 (29-60) mg/dL Procalcitonin (0.19-0.49) NG/ML Arterial Blood Potassium (3.6-5.2) mmol/L Venous Blood Potassium 3.1 L (3.6-5.2) mmol/L Urine Color (YELLOW) Urine Appearance (CLEAR) Urine pH (4.7-8.0) Ur Specific [place] (1.005-1.035) Urine Protein (<30 mg/dL) mg/dL Urine Glucose (UA) (NEGATIVE) mg/dL Urine Ketones (NEGATIVE) mg/dL Urine Blood (NEGATIVE) Urine Nitrate (NEGATIVE) Urine Bilirubin (NEGATIVE) Urine Urobilinogen (<1 E.U./dL) E.U./dL Ur Leukocyte Esterase (NEGATIVE) Karen/uL Urine RBC (0-2) /hpf Urine WBC (0-6) /hpf Ur Epithelial Cells (0-5) /hpf Urine Bacteria (NONE) /hpf Influenza Typ A,B (EIA) (NEGATIVE) Ur L.pneumophila Ag (NEGATIVE) 05/13/18 05/13/18 05/13/18 Range/Units 03:40 01:30 01:30 WBC (4.5-11.0) 10^3/uL RBC (3.5-6.1) 10^6/uL Hgb (12.0-16.0) g/dL Hct (36.0-48.0) % MCV (80.0-105.0) fl MCH (25.0-35.0) pg MCHC (31.0-37.0) g/dl RDW (11.5-14.5) % Plt Count (120.0-450.0) 10^3/uL MPV (7.0-11.0) fl Neut % (Auto) (50.0-68.0) % Lymph % (Auto) (22.0-35.0) % [place] % (Auto) (1.0-6.0) % Eos % (Auto) (1.5-5.0) % Baso % (Auto) (0.0-3.0) % Lymph # (Auto) (1.2-3.4) [place] # (Auto) (0.1-0.6) Eos # (Auto) (0.0-0.7) Baso # (Auto) (0.0-2.0) K/mm3 Absolute Neuts (auto) (1.4-6.5) PT (9.4-12.5) SECONDS INR APTT (26.9-38.3) Seconds D-Dimer, Quantitative (0-243) ng/mlDDU pCO2 (35-45) mm/Hg pO2 (80-100) mm/Hg HCO3 (21-28) mmol/L ABG pH (7.35-7.45) ABG Total CO2 (22-28) mmol.L ABG O2 Saturation (95-98) % ABG O2 Content (15-23) ML/dl ABG Base Excess (-2.0-3.0) mmol/L ABG Hemoglobin (11.7-17.4) g/dL ABG Carboxyhemoglobin (0.5-1.5) % POC ABG HHb (Measured) (0-5) % ABG Methemoglobin (0.0-3.0) % ABG O2 Capacity (16-24) mL/dl ABG Potassium (3.6-5.2) mmol/L VBG pH (7.32-7.43) VBG pCO2 (40-60) VBG HCO3 (21-28) mmol/l VBG Total CO2 (22-28) mmol.L VBG O2 Sat (Calc) (40-65) % VBG Base Excess (0.0-2.0) mmol/L VBG Potassium (3.6-5.2) mmol/L Hgb O2 Saturation (95.0-98.0) % Sodium 138 (132-148) mmol/L Chloride 96 L (98-107) mmol/L Glucose (65-105) mg/dl Lactate (0.7-2.1) mmol/L FiO2 % Crit Value Called To Crit Value Called By Blood Gas Notified Time Potassium 2.8 L* D (3.6-5.0) mmol/L Carbon Dioxide 36 H (21-33) mmol/L Anion Gap 9 L (10-20) BUN 11 (7-21) mg/dL Creatinine 1.7 H (0.7-1.2) mg/dl Est GFR ( Amer) 38 Est GFR (Non-Af Amer) 31 Random Glucose 208 H (70-110) mg/dL Calcium 9.2 (8.4-10.5) mg/dL Phosphorus (2.5-4.5) mg/dL Magnesium (1.7-2.2) mg/dL Total Bilirubin 1.0 (0.2-1.3) mg/dL AST 25 (14-36) U/L ALT 44 (7-56) U/L Alkaline Phosphatase 82 (38-126) U/L Total Creatine Kinase (35-230) U/L Troponin I < 0.01 ng/mL Total Protein 6.1 (5.8-8.3) g/dL Albumin 3.3 (3.0-4.8) g/dL Globulin 2.7 gm/dL Albumin/Globulin Ratio 1.2 (1.1-1.8) Triglycerides (35-160) mg/dL Cholesterol (130-200) mg/dL LDL Cholesterol Direct (0-129) mg/dL HDL Cholesterol (29-60) mg/dL Procalcitonin 0.24 (0.19-0.49) NG/ML Arterial Blood Potassium (3.6-5.2) mmol/L Venous Blood Potassium (3.6-5.2) mmol/L Urine Color (YELLOW) Urine Appearance (CLEAR) Urine pH (4.7-8.0) Ur Specific [place] (1.005-1.035) Urine Protein (<30 mg/dL) mg/dL Urine Glucose (UA) (NEGATIVE) mg/dL Urine Ketones (NEGATIVE) mg/dL Urine Blood (NEGATIVE) Urine Nitrate (NEGATIVE) Urine Bilirubin (NEGATIVE) Urine Urobilinogen (<1 E.U./dL) E.U./dL Ur Leukocyte Esterase (NEGATIVE) Karen/uL Urine RBC (0-2) /hpf Urine WBC (0-6) /hpf Ur Epithelial Cells (0-5) /hpf Urine Bacteria (NONE) /hpf Influenza Typ A,B (EIA) (NEGATIVE) Ur L.pneumophila Ag Negative (NEGATIVE) 05/13/18 05/13/18 05/13/18 Range/Units 01:30 01:30 01:25 WBC 12.8 H (4.5-11.0) 10^3/uL RBC 4.29 (3.5-6.1) 10^6/uL Hgb 12.5 (12.0-16.0) g/dL Hct 40.4 (36.0-48.0) % MCV 94.2 D (80.0-105.0) fl MCH 29.1 (25.0-35.0) pg MCHC 30.9 L (31.0-37.0) g/dl RDW 13.9 (11.5-14.5) % Plt Count 281 (120.0-450.0) 10^3/uL MPV 12.1 H (7.0-11.0) fl Neut % (Auto) 55.9 (50.0-68.0) % Lymph % (Auto) 31.4 (22.0-35.0) % [place] % (Auto) 10.2 H (1.0-6.0) % Eos % (Auto) 2.3 (1.5-5.0) % Baso % (Auto) 0.2 (0.0-3.0) % Lymph # (Auto) 4.0 H (1.2-3.4) [place] # (Auto) 1.3 H (0.1-0.6) Eos # (Auto) 0.3 (0.0-0.7) Baso # (Auto) 0.02 (0.0-2.0) K/mm3 Absolute Neuts (auto) 7.17 H (1.4-6.5) PT 11.4 (9.4-12.5) SECONDS INR 1.03 APTT 28.9 (26.9-38.3) Seconds D-Dimer, Quantitative 266 H (0-243) ng/mlDDU pCO2 54 H (35-45) mm/Hg pO2 100.0 (80-100) mm/Hg HCO3 34.2 H (21-28) mmol/L ABG pH 7.41 (7.35-7.45) ABG Total CO2 35.9 H (22-28) mmol.L ABG O2 Saturation 98.5 H (95-98) % ABG O2 Content (15-23) ML/dl ABG Base Excess 7.8 H (-2.0-3.0) mmol/L ABG Hemoglobin (11.7-17.4) g/dL ABG Carboxyhemoglobin (0.5-1.5) % POC ABG HHb (Measured) (0-5) % ABG Methemoglobin (0.0-3.0) % ABG O2 Capacity (16-24) mL/dl ABG Potassium 2.4 L* (3.6-5.2) mmol/L VBG pH (7.32-7.43) VBG pCO2 (40-60) VBG HCO3 (21-28) mmol/l VBG Total CO2 (22-28) mmol.L VBG O2 Sat (Calc) (40-65) % VBG Base Excess (0.0-2.0) mmol/L VBG Potassium (3.6-5.2) mmol/L Hgb O2 Saturation (95.0-98.0) % Sodium 144.0 (132-148) mmol/L Chloride 104.0 (98-107) mmol/L Glucose 193 H (65-105) mg/dl Lactate 2.8 H (0.7-2.1) mmol/L FiO2 21.0 % Crit Value Called To Poppy badillo rn geriatric Crit Value Called By [facility] Blood Gas Notified Time 202 Potassium (3.6-5.0) mmol/L Carbon Dioxide (21-33) mmol/L Anion Gap (10-20) BUN (7-21) mg/dL Creatinine (0.7-1.2) mg/dl Est GFR ( Amer) Est GFR (Non-Af Amer) Random Glucose (70-110) mg/dL Calcium (8.4-10.5) mg/dL Phosphorus (2.5-4.5) mg/dL Magnesium (1.7-2.2) mg/dL Total Bilirubin (0.2-1.3) mg/dL AST (14-36) U/L ALT (7-56) U/L Alkaline Phosphatase (38-126) U/L Total Creatine Kinase (35-230) U/L Troponin I ng/mL Total Protein (5.8-8.3) g/dL Albumin (3.0-4.8) g/dL Globulin gm/dL Albumin/Globulin Ratio (1.1-1.8) Triglycerides (35-160) mg/dL Cholesterol (130-200) mg/dL LDL Cholesterol Direct (0-129) mg/dL HDL Cholesterol (29-60) mg/dL Procalcitonin (0.19-0.49) NG/ML Arterial Blood Potassium 2.4 L* (3.6-5.2) mmol/L Venous Blood Potassium (3.6-5.2) mmol/L Urine Color (YELLOW) Urine Appearance (CLEAR) Urine pH (4.7-8.0) Ur Specific [place] (1.005-1.035) Urine Protein (<30 mg/dL) mg/dL Urine Glucose (UA) (NEGATIVE) mg/dL Urine Ketones (NEGATIVE) mg/dL Urine Blood (NEGATIVE) Urine Nitrate (NEGATIVE) Urine Bilirubin (NEGATIVE) Urine Urobilinogen (<1 E.U./dL) E.U./dL Ur Leukocyte Esterase (NEGATIVE) Karen/uL Urine RBC (0-2) /hpf Urine WBC (0-6) /hpf Ur Epithelial Cells (0-5) /hpf Urine Bacteria (NONE) /hpf Influenza Typ A,B (EIA) (NEGATIVE) Ur L.pneumophila Ag (NEGATIVE) 05/13/18 05/13/18 Range/Units 01:25 01:25 WBC (4.5-11.0) 10^3/uL RBC (3.5-6.1) 10^6/uL Hgb (12.0-16.0) g/dL Hct (36.0-48.0) % MCV (80.0-105.0) fl MCH (25.0-35.0) pg MCHC (31.0-37.0) g/dl RDW (11.5-14.5) % Plt Count (120.0-450.0) 10^3/uL MPV (7.0-11.0) fl Neut % (Auto) (50.0-68.0) % Lymph % (Auto) (22.0-35.0) % [place] % (Auto) (1.0-6.0) % Eos % (Auto) (1.5-5.0) % Baso % (Auto) (0.0-3.0) % Lymph # (Auto) (1.2-3.4) [place] # (Auto) (0.1-0.6) Eos # (Auto) (0.0-0.7) Baso # (Auto) (0.0-2.0) K/mm3 Absolute Neuts (auto) (1.4-6.5) PT (9.4-12.5) SECONDS INR APTT (26.9-38.3) Seconds D-Dimer, Quantitative (0-243) ng/mlDDU pCO2 (35-45) mm/Hg pO2 (80-100) mm/Hg HCO3 (21-28) mmol/L ABG pH (7.35-7.45) ABG Total CO2 (22-28) mmol.L ABG O2 Saturation (95-98) % ABG O2 Content (15-23) ML/dl ABG Base Excess (-2.0-3.0) mmol/L ABG Hemoglobin (11.7-17.4) g/dL ABG Carboxyhemoglobin (0.5-1.5) % POC ABG HHb (Measured) (0-5) % ABG Methemoglobin (0.0-3.0) % ABG O2 Capacity (16-24) mL/dl ABG Potassium (3.6-5.2) mmol/L VBG pH (7.32-7.43) VBG pCO2 (40-60) VBG HCO3 (21-28) mmol/l VBG Total CO2 (22-28) mmol.L VBG O2 Sat (Calc) (40-65) % VBG Base Excess (0.0-2.0) mmol/L VBG Potassium (3.6-5.2) mmol/L Hgb O2 Saturation (95.0-98.0) % Sodium (132-148) mmol/L Chloride (98-107) mmol/L Glucose (65-105) mg/dl Lactate (0.7-2.1) mmol/L FiO2 % Crit Value Called To Crit Value Called By Blood Gas Notified Time Potassium (3.6-5.0) mmol/L Carbon Dioxide (21-33) mmol/L Anion Gap (10-20) BUN (7-21) mg/dL Creatinine (0.7-1.2) mg/dl Est GFR ( Amer) Est GFR (Non-Af Amer) Random Glucose (70-110) mg/dL Calcium (8.4-10.5) mg/dL Phosphorus (2.5-4.5) mg/dL Magnesium (1.7-2.2) mg/dL Total Bilirubin (0.2-1.3) mg/dL AST (14-36) U/L ALT (7-56) U/L Alkaline Phosphatase (38-126) U/L Total Creatine Kinase (35-230) U/L Troponin I ng/mL Total Protein (5.8-8.3) g/dL Albumin (3.0-4.8) g/dL Globulin gm/dL Albumin/Globulin Ratio (1.1-1.8) Triglycerides (35-160) mg/dL Cholesterol (130-200) mg/dL LDL Cholesterol Direct (0-129) mg/dL HDL Cholesterol (29-60) mg/dL Procalcitonin (0.19-0.49) NG/ML Arterial Blood Potassium (3.6-5.2) mmol/L Venous Blood Potassium (3.6-5.2) mmol/L Urine Color Yellow (YELLOW) Urine Appearance Clear (CLEAR) Urine pH 6.0 (4.7-8.0) Ur Specific [place] >= 1.030 (1.005-1.035) Urine Protein 30 H (<30 mg/dL) mg/dL Urine Glucose (UA) Negative (NEGATIVE) mg/dL Urine Ketones Trace H (NEGATIVE) mg/dL Urine Blood Negative (NEGATIVE) Urine Nitrate Negative (NEGATIVE) Urine Bilirubin Negative (NEGATIVE) Urine Urobilinogen 0.2 (<1 E.U./dL) E.U./dL Ur Leukocyte Esterase Small H (NEGATIVE) Karen/uL Urine RBC 0 - 2 (0-2) /hpf Urine WBC 5 - 10 H (0-6) /hpf Ur Epithelial Cells Many H (0-5) /hpf Urine Bacteria Trace (NONE) /hpf Influenza Typ A,B (EIA) Negative for flu a/b (NEGATIVE) Ur L.pneumophila Ag (NEGATIVE) Laboratory Results - last 24 hr 05/13/18 05/13/18 05/13/18 01:25 01:25 01:25 WBC RBC Hgb Hct MCV MCH MCHC RDW Plt Count MPV Neut % (Auto) Lymph % (Auto) [place] % (Auto) Eos % (Auto) Baso % (Auto) Lymph # (Auto) [place] # (Auto) Eos # (Auto) Baso # (Auto) Absolute Neuts (auto) PT INR APTT D-Dimer, Quantitative pCO2 54 H pO2 100.0 HCO3 34.2 H ABG pH 7.41 ABG Total CO2 35.9 H ABG O2 Saturation 98.5 H ABG O2 Content ABG Base Excess 7.8 H ABG Hemoglobin ABG Carboxyhemoglobin POC ABG HHb (Measured) ABG Methemoglobin ABG O2 Capacity ABG Potassium 2.4 L* VBG pH VBG pCO2 VBG HCO3 VBG Total CO2 VBG O2 Sat (Calc) VBG Base Excess VBG Potassium Hgb O2 Saturation Sodium 144.0 Chloride 104.0 Glucose 193 H Lactate 2.8 H FiO2 21.0 Crit Value Called To Poppy badillo rn geriatric Crit Value Called By Manohar Blood Gas Notified Time 202 Potassium Carbon Dioxide Anion Gap BUN Creatinine Est GFR ( Amer) Est GFR (Non-Af Amer) Random Glucose Calcium Phosphorus Magnesium Total Bilirubin AST ALT Alkaline Phosphatase Total Creatine Kinase Troponin I Total Protein Albumin Globulin Albumin/Globulin Ratio Triglycerides Cholesterol LDL Cholesterol Direct HDL Cholesterol Procalcitonin Arterial Blood Potassium 2.4 L* Venous Blood Potassium Urine Color Yellow Urine Appearance Clear Urine pH 6.0 Ur Specific [place] >= 1.030 Urine Protein 30 H Urine Glucose (UA) Negative Urine Ketones Trace H Urine Blood Negative Urine Nitrate Negative Urine Bilirubin Negative Urine Urobilinogen 0.2 Ur Leukocyte Esterase Small H Urine RBC 0 - 2 Urine WBC 5 - 10 H Ur Epithelial Cells Many H Urine Bacteria Trace Influenza Typ A,B (EIA) Negative for flu a/b Ur L.pneumophila Ag 05/13/18 05/13/18 05/13/18 01:30 01:30 01:30 WBC 12.8 H RBC 4.29 Hgb 12.5 Hct 40.4 MCV 94.2 D MCH 29.1 MCHC 30.9 L RDW 13.9 Plt Count 281 MPV 12.1 H Neut % (Auto) 55.9 Lymph % (Auto) 31.4 [place] % (Auto) 10.2 H Eos % (Auto) 2.3 Baso % (Auto) 0.2 Lymph # (Auto) 4.0 H [place] # (Auto) 1.3 H Eos # (Auto) 0.3 Baso # (Auto) 0.02 Absolute Neuts (auto) 7.17 H PT 11.4 INR 1.03 APTT 28.9 D-Dimer, Quantitative 266 H pCO2 pO2 HCO3 ABG pH ABG Total CO2 ABG O2 Saturation ABG O2 Content ABG Base Excess ABG Hemoglobin ABG Carboxyhemoglobin POC ABG HHb (Measured) ABG Methemoglobin ABG O2 Capacity ABG Potassium VBG pH VBG pCO2 VBG HCO3 VBG Total CO2 VBG O2 Sat (Calc) VBG Base Excess VBG Potassium Hgb O2 Saturation Sodium 138 Chloride 96 L Glucose Lactate FiO2 Crit Value Called To Crit Value Called By Blood Gas Notified Time Potassium 2.8 L* D Carbon Dioxide 36 H Anion Gap 9 L BUN 11 Creatinine 1.7 H Est GFR ( Amer) 38 Est GFR (Non-Af Amer) 31 Random Glucose 208 H Calcium 9.2 Phosphorus Magnesium Total Bilirubin 1.0 AST 25 ALT 44 Alkaline Phosphatase 82 Total Creatine Kinase Troponin I < 0.01 Total Protein 6.1 Albumin 3.3 Globulin 2.7 Albumin/Globulin Ratio 1.2 Triglycerides Cholesterol LDL Cholesterol Direct HDL Cholesterol Procalcitonin Arterial Blood Potassium Venous Blood Potassium Urine Color Urine Appearance Urine pH Ur Specific [place] Urine Protein Urine Glucose (UA) Urine Ketones Urine Blood Urine Nitrate Urine Bilirubin Urine Urobilinogen Ur Leukocyte Esterase Urine RBC Urine WBC Ur Epithelial Cells Urine Bacteria Influenza Typ A,B (EIA) Ur L.pneumophila Ag 05/13/18 05/13/18 05/13/18 01:30 03:40 06:30 WBC RBC Hgb Hct MCV MCH MCHC RDW Plt Count MPV Neut % (Auto) Lymph % (Auto) [place] % (Auto) Eos % (Auto) Baso % (Auto) Lymph # (Auto) [place] # (Auto) Eos # (Auto) Baso # (Auto) Absolute Neuts (auto) PT INR APTT D-Dimer, Quantitative pCO2 pO2 62 H HCO3 ABG pH ABG Total CO2 ABG O2 Saturation ABG O2 Content ABG Base Excess ABG Hemoglobin ABG Carboxyhemoglobin POC ABG HHb (Measured) ABG Methemoglobin ABG O2 Capacity ABG Potassium VBG pH 7.28 L VBG pCO2 77.0 H* VBG HCO3 36.2 H VBG Total CO2 38.6 H VBG O2 Sat (Calc) 93.8 H VBG Base Excess 6.6 H VBG Potassium 3.1 L Hgb O2 Saturation Sodium 141.0 Chloride 103.0 Glucose 143 H Lactate 2.2 H FiO2 21.0 Crit Value Called To Kathryn reilly carnival worker Crit Value Called By [facility] Blood Gas Notified Time 714 Potassium Carbon Dioxide Anion Gap BUN Creatinine Est GFR ( Amer) Est GFR (Non-Af Amer) Random Glucose Calcium Phosphorus Magnesium Total Bilirubin AST ALT Alkaline Phosphatase Total Creatine Kinase Troponin I Total Protein Albumin Globulin Albumin/Globulin Ratio Triglycerides Cholesterol LDL Cholesterol Direct HDL Cholesterol Procalcitonin 0.24 Arterial Blood Potassium Venous Blood Potassium 3.1 L Urine Color Urine Appearance Urine pH Ur Specific [place] Urine Protein Urine Glucose (UA) Urine Ketones Urine Blood Urine Nitrate Urine Bilirubin Urine Urobilinogen Ur Leukocyte Esterase Urine RBC Urine WBC Ur Epithelial Cells Urine Bacteria Influenza Typ A,B (EIA) Ur L.pneumophila Ag Negative 05/13/18 05/13/18 05/13/18 09:00 09:00 09:30 WBC 11.9 H RBC 4.32 Hgb 12.7 Hct 40.5 MCV 93.8 MCH 29.4 MCHC 31.4 RDW 13.9 Plt Count 258 MPV 11.8 H Neut % (Auto) 59.1 Lymph % (Auto) 29.6 [place] % (Auto) 9.0 H Eos % (Auto) 2.1 Baso % (Auto) 0.2 Lymph # (Auto) 3.5 H [place] # (Auto) 1.1 H Eos # (Auto) 0.3 Baso # (Auto) 0.02 Absolute Neuts (auto) 7.05 H PT INR APTT D-Dimer, Quantitative pCO2 59 H pO2 69.0 L HCO3 30.4 H ABG pH 7.32 L ABG Total CO2 32.2 H ABG O2 Saturation 95.8 ABG O2 Content 14.8 L ABG Base Excess 3.1 H ABG Hemoglobin 11.2 L ABG Carboxyhemoglobin 1.6 H POC ABG HHb (Measured) 4.1 ABG Methemoglobin 0.8 ABG O2 Capacity 15.4 L ABG Potassium 2.6 L VBG pH VBG pCO2 VBG HCO3 VBG Total CO2 VBG O2 Sat (Calc) VBG Base Excess VBG Potassium Hgb O2 Saturation 93.6 L Sodium 139 143.0 Chloride 102 107.0 Glucose 166 H Lactate 1.6 FiO2 28.0 Crit Value Called To Crit Value Called By Blood Gas Notified Time Potassium 3.5 L Carbon Dioxide 32 Anion Gap 8 L BUN 11 Creatinine 1.9 H Est GFR ( Amer) 33 Est GFR (Non-Af Amer) 27 Random Glucose 156 H Calcium 8.5 Phosphorus 3.0 Magnesium 1.8 Total Bilirubin 0.7 AST 23 ALT 38 Alkaline Phosphatase 75 Total Creatine Kinase 161 Troponin I Total Protein 5.6 L Albumin 3.1 Globulin 2.5 Albumin/Globulin Ratio 1.3 Triglycerides 313 H Cholesterol 103 L LDL Cholesterol Direct 37 HDL Cholesterol 35 Procalcitonin Arterial Blood Potassium 2.6 L Venous Blood Potassium Urine Color Urine Appearance Urine pH Ur Specific [place] Urine Protein Urine Glucose (UA) Urine Ketones Urine Blood Urine Nitrate Urine Bilirubin Urine Urobilinogen Ur Leukocyte Esterase Urine RBC Urine WBC Ur Epithelial Cells Urine Bacteria Influenza Typ A,B (EIA) Ur L.pneumophila Ag 05/13/18 05/13/18 14:20 17:37 WBC RBC Hgb Hct MCV MCH MCHC RDW Plt Count MPV Neut % (Auto) Lymph % (Auto) [place] % (Auto) Eos % (Auto) Baso % (Auto) Lymph # (Auto) [place] # (Auto) Eos # (Auto) Baso # (Auto) Absolute Neuts (auto) PT INR APTT D-Dimer, Quantitative pCO2 60 H pO2 82.0 HCO3 28.2 H ABG pH 7.28 L ABG Total CO2 30.0 H ABG O2 Saturation 97.5 ABG O2 Content 14.3 L ABG Base Excess 0.6 ABG Hemoglobin 10.6 L ABG Carboxyhemoglobin 1.7 H POC ABG HHb (Measured) 2.4 ABG Methemoglobin 0.6 ABG O2 Capacity 14.7 L ABG Potassium VBG pH VBG pCO2 VBG HCO3 VBG Total CO2 VBG O2 Sat (Calc) VBG Base Excess VBG Potassium Hgb O2 Saturation 95.3 Sodium Chloride Glucose Lactate FiO2 32.0 Crit Value Called To Crit Value Called By Blood Gas Notified Time Potassium Carbon Dioxide Anion Gap BUN Creatinine Est GFR ( Amer) Est GFR (Non-Af Amer) Random Glucose Calcium Phosphorus Magnesium Total Bilirubin AST ALT Alkaline Phosphatase Total Creatine Kinase 178 Troponin I < 0.01 Total Protein Albumin Globulin Albumin/Globulin Ratio Triglycerides Cholesterol LDL Cholesterol Direct HDL Cholesterol Procalcitonin Arterial Blood Potassium Venous Blood Potassium Urine Color Urine Appearance Urine pH Ur Specific [place] Urine Protein Urine Glucose (UA) Urine Ketones Urine Blood Urine Nitrate Urine Bilirubin Urine Urobilinogen Ur Leukocyte Esterase Urine RBC Urine WBC Ur Epithelial Cells Urine Bacteria Influenza Typ A,B (EIA) Ur L.pneumophila Ag Radiology Impressions: Radiology Impressions Head CT 05/13/18 00:39 IMPRESSION: Unremarkable unenhanced head CT. No significant interval change compared to 09/05/[address] Incidental improved chronic fung sinusitis but with significant residual at the bilateral sphenoid, maxillary and ethmoid sinuses as well as left frontal sinus or potential acute or subacute recurrence. Likely status post bilateral nasal antrostomies once again as well. Preliminary report provided by Anne-Marie, 05/13/2018, 1:56 a.m.. Chest X-Ray 05/13/18 00:40 IMPRESSION: No active disease. Chest X-Ray 05/13/18 07:00 IMPRESSION: Diminishing left basilar infiltrate with limited pleural effusion slightly increased. Lung Scan Nuclear Medicine 05/13/18 15:00 IMPRESSION: Low probability ventilation perfusion scan for pulmonary embolism. EKG/Cardiology Studies: Cardiology / EKG Studies 05/13/18 00:40 ELECTROCARDIOGRAM Stat Comment: Reason For Exam: weakness Critical Care Progress Note - Nutrition Nutrition: Nutrition Category Date Time Status Heart Healthy Diet [DIET] Diets 05/13/18 Breakfast Active Attending/Attestation - Attestation I have personally seen and examined this patient.: Yes I have fully participated in the care of the patient.: Yes I have reviewed all pertinent clinical information: Yes Notes (Text): 05/13/18 18:[address] Zavala note
[2018-05-13 09:53] LABS: ARTERIAL BLOOD GAS HCO3 30.4 mmol/L (21-28); ARTERIAL BLOOD GAS HEMOGLOBIN 11.2 g/dL (11.7-17.4); ARTERIAL BLOOD GAS O2 CAPACITY 15.4 mL/dl (16-24); ARTERIAL BLOOD GAS O2 CONTENT 14.8 ML/dl (15-23); ARTERIAL BLOOD GAS O2 SAT 95.8 % (95-98); ARTERIAL BLOOD GAS PCO2 59 mm/Hg (35-45); ARTERIAL BLOOD GAS PH 7.32 (7.35-7.45); ARTERIAL BLOOD GAS TCO2 32.2 mmol.L (22-28)
[2018-05-13] MEDS ORDERED: Enoxaparin 40 mg Syringe SC SCH (10:00)
[2018-05-13] MEDS ORDERED: Cefepime IV 2 gm in NS 2 GM/100 ML BAG IVPB SCH (10:00)
--- NOTE | 2018-05-13 10:03 | RAD ---
Date of service: 05/13/2018 HISTORY: SOB COMPARISON: Frontal chest radiograph 05/13/2018. FINDINGS: LUNGS: Diminishing infiltrate inferior left lung zone with none identified the right once again. PLEURA: Limited left pleural effusion identified with questionable pleural thickening laterally. CARDIOVASCULAR: Calcific atherosclerotic changes are seen related to the thoracic aorta. Stable cardiac silhouette. No pulmonary vascular congestion. OSSEOUS STRUCTURES: No significant abnormalities. VISUALIZED UPPER ABDOMEN: Normal. OTHER FINDINGS: None. IMPRESSION: Diminishing left basilar infiltrate with limited pleural effusion slightly increased.
[2018-05-13] MEDS ORDERED: Potassium Chloride 20 mEq ER Tab PO ONE (10:04)
[2018-05-13] MEDS: Nystatin-Triamcinolone Cream(30 gm) TOP SCH (10:08)
--- NOTE | 2018-05-13 10:09 | CP.PCM.CON ---
<Claude Doty - Last Filed: 05/13/18 13:29> History of Present Illness - History of Present Illness History of Present Illness: Infectious disease consult note: 57-year-old female with past medical history of morbid obesity, COPD on home oxygen, diabetes, hypertension, GERD, anxiety, and depression presents with sudden body weakness and body aches and chills. Patient states that she woke up yesterday and she felt very weak and felt "she was having a stroke". Patient states that she could not get out of bed and had to force herself. She now complains of having weakness with body aches and chills. She denies any fever, cough, or shortness of breath. She also complains of a rash that she has in her groin area. She denies any other complaints. 12 point ROS performed and negative other than stated above PMH: As above PSH: Sinus surgery x4, tubal ligation, left arm surgery or if FH: Father with heart attack and [facility] after 60s Social history: Former smoker of Denies any alcohol or drug use Allergies: Aspirin Medications: Refer to MAR Review of Systems - Review of Systems All systems: reviewed and no additional remarkable complaints except Past Patient History - Infectious Disease Hx of Infectious Diseases: None - Tetanus Immunizations Tetanus Immunization: Unknown - Past Social History Smoking Status: Former Smoker - CARDIAC Hx Hypertension: Yes - PULMONARY Hx Chronic Obstructive Pulmonary Disease (COPD): Yes - NEUROLOGICAL Hx Neurological Disorder: No - HEENT Hx HEENT Problems: Yes Other/Comment: Wears Glasses - RENAL Hx Chronic Kidney Disease: No - ENDOCRINE/METABOLIC Hx Diabetes Mellitus Type 2: Yes - HEMATOLOGICAL/ONCOLOGICAL Hx Blood Disorders: No - INTEGUMENTARY Hx Dermatological Problems: Yes - MUSCULOSKELETAL/RHEUMATOLOGICAL Hx Falls: Yes - GASTROINTESTINAL Hx Gastrointestinal Disorders: Yes Hx Diverticulitis: Yes - GENITOURINARY/GYNECOLOGICAL Hx Genitourinary Disorders: No Hx Urinary Tract Infection: Yes - PSYCHIATRIC Hx Psychophysiologic Disorder: No - SURGICAL HISTORY Hx Musculoskeletal Surgery: Yes (left arm surgeryplate and screws) Other/Comment: sinus sx X 4. tubal ligation' - ANESTHESIA Hx Anesthesia: Yes Hx Anesthesia Reactions: No Hx Malignant Hyperthermia: No Meds Allergies/Adverse Reactions: Allergies Allergy/AdvReac Type Severity Reaction Status Date / Time aspirin Allergy SHORTNESS Verified 05/13/18 00:36 OF BREATH - Medications Medications: Current Medications Acetaminophen (Tylenol 325mg Tab) 650 mg PO Q6H PRN PRN Reason: Fever >100.4 F Acetaminophen (Tylenol 325mg Tab) 650 mg PO Q6 PRN PRN Reason: TEMP>=99.5F Acetaminophen (Tylenol 650 Mg Supp) 650 mg RC Q6H PRN PRN Reason: TEMP>=99.5F Albuterol/Ipratropium (Duoneb 3 Mg/0.5 Mg (3 Ml) Ud) 3 ml IH Q6 PRN PRN Reason: Shortness of Breath Arformoterol Tartrate (Brovana) 15 mcg IH BIDRESP RIGOBERTO Last Admin: 05/13/18 07:33 Dose: 15 mcg Budesonide (Pulmicort Respules) 0.5 mg IH BIDRESP RIGOBERTO Last Admin: 05/13/18 07:33 Dose: 0.5 mg Clonazepam (Klonopin) 2 mg PO QID RIGOBERTO; Protocol Gabapentin (Neurontin) 300 mg PO TID RIGOBERTO; Protocol Heparin Sodium (Porcine) (Heparin) 5,000 units SC Q8 RIGOBERTO; Protocol Doxycycline Hyclate 100 mg/ (Sodium Chloride) 100 mls @ 100 mls/hr IVPB Q12 RIGOBERTO; Protocol Sodium Chloride (Sodium Chloride 0.9%) 1,000 mls @ 100 mls/hr IV .Q10H RIGOBERTO Last Admin: 05/13/18 06:57 Dose: 100 mls/hr Cefepime HCl (Maxipime 2gm) 2 gm in 100 mls @ 100 mls/hr IVPB DAILY RIGOBERTO; Protocol Stop: 05/18/18 10:01 Insulin Human Regular (Humulin R Med) 0 units SC ACHS RIGOBERTO; Protocol Montelukast Sodium (Singulair) 10 mg PO HS RIGOBERTO Temazepam [Restoril] (30 Mg- Home Med) 30 mg PO HS RIGOBERTO Nystatin/Triamcinolone Acetonide (Nystatin/Triamcinolone Cream) 1 ea TOP BID RIGOBERTO Ondansetron HCl (Zofran Inj) 4 mg IVP Q4H PRN PRN Reason: Nausea/Vomiting Pantoprazole Sodium (Protonix Ec Tab) 40 mg PO 0600 RIGOBERTO Last Admin: 05/13/18 06:57 Dose: 40 mg Paroxetine HCl (Paxil) 20 mg PO DAILY [facility] Potassium Chloride (K-Dur 20 Meq Er Tab) 40 meq PO ONCE ONE Stop: 05/13/18 10:05 Physical Exam - Constitutional Appears: No Acute Distress - Head Exam Head Exam: ATRAUMATIC, NORMOCEPHALIC - Eye Exam Eye Exam: EOMI - ENT Exam ENT Exam: Mucous Membranes Moist - Respiratory Exam Respiratory Exam: Clear to Auscultation Bilateral. absent: Rales, Wheezes - Cardiovascular Exam Cardiovascular Exam: REGULAR RHYTHM, +S1, +S2 - GI/Abdominal Exam GI & Abdominal Exam: Soft. absent: Distended, Tenderness - Extremities Exam Extremities exam: Negative for: calf tenderness, pedal edema - Neurological Exam Neurological exam: Alert, Oriented x3 - Psychiatric Exam Psychiatric exam: Normal Mood - Skin Skin Exam: Dry, Warm Results - Vital Signs Recent Vital Signs: Last Vital Signs Temp 98.5 F 05/13/18 06:59 Pulse 95 H 05/13/18 08:10 Resp 20 05/13/18 06:59 BP 82/61 L 05/13/18 04:03 Pulse Ox 93 L 05/13/18 04:03 - Labs Result Diagrams: 05/13/18 09:00 05/13/18 09:00 Labs: Laboratory Results - last 24 hr 05/13/18 05/13/18 05/13/18 01:25 01:25 01:25 WBC RBC Hgb Hct MCV MCH MCHC RDW Plt Count MPV Neut % (Auto) Lymph % (Auto) [place] % (Auto) Eos % (Auto) Baso % (Auto) Lymph # (Auto) [place] # (Auto) Eos # (Auto) Baso # (Auto) Absolute Neuts (auto) PT INR APTT D-Dimer, Quantitative pCO2 54 H pO2 100.0 HCO3 34.2 H ABG pH 7.41 ABG Total CO2 35.9 H ABG O2 Saturation 98.5 H ABG O2 Content ABG Base Excess 7.8 H ABG Hemoglobin ABG Carboxyhemoglobin POC ABG HHb (Measured) ABG Methemoglobin ABG O2 Capacity ABG Potassium 2.4 L* VBG pH VBG pCO2 VBG HCO3 VBG Total CO2 VBG O2 Sat (Calc) VBG Base Excess VBG Potassium Hgb O2 Saturation Sodium 144.0 Chloride 104.0 Glucose 193 H Lactate 2.8 H FiO2 21.0 Crit Value Called To Poppy badillo acoustical tile patternmaker Crit Value Called By [facility] Blood Gas Notified Time 202 Potassium Carbon Dioxide Anion Gap BUN Creatinine Est GFR ( Amer) Est GFR (Non-Af Amer) Random Glucose Calcium Phosphorus Magnesium Total Bilirubin AST ALT Alkaline Phosphatase Total Creatine Kinase Troponin I Total Protein Albumin Globulin Albumin/Globulin Ratio Triglycerides Cholesterol LDL Cholesterol Direct HDL Cholesterol Arterial Blood Potassium 2.4 L* Venous Blood Potassium Urine Color Yellow Urine Appearance Clear Urine pH 6.0 Ur Specific [place] >= 1.030 Urine Protein 30 H Urine Glucose (UA) Negative Urine Ketones Trace H Urine Blood Negative Urine Nitrate Negative Urine Bilirubin Negative Urine Urobilinogen 0.2 Ur Leukocyte Esterase Small H Urine RBC 0 - 2 Urine WBC 5 - 10 H Ur Epithelial Cells Many H Urine Bacteria Trace Influenza Typ A,B (EIA) Negative for flu a/b 05/13/18 05/13/18 05/13/18 01:30 01:30 01:30 WBC 12.8 H RBC 4.29 Hgb 12.5 Hct 40.4 MCV 94.2 D MCH 29.1 MCHC 30.9 L RDW 13.9 Plt Count 281 MPV 12.1 H Neut % (Auto) 55.9 Lymph % (Auto) 31.4 [place] % (Auto) 10.2 H Eos % (Auto) 2.3 Baso % (Auto) 0.2 Lymph # (Auto) 4.0 H [place] # (Auto) 1.3 H Eos # (Auto) 0.3 Baso # (Auto) 0.02 Absolute Neuts (auto) 7.17 H PT 11.4 INR 1.03 APTT 28.9 D-Dimer, Quantitative 266 H pCO2 pO2 HCO3 ABG pH ABG Total CO2 ABG O2 Saturation ABG O2 Content ABG Base Excess ABG Hemoglobin ABG Carboxyhemoglobin POC ABG HHb (Measured) ABG Methemoglobin ABG O2 Capacity ABG Potassium VBG pH VBG pCO2 VBG HCO3 VBG Total CO2 VBG O2 Sat (Calc) VBG Base Excess VBG Potassium Hgb O2 Saturation Sodium 138 Chloride 96 L Glucose Lactate FiO2 Crit Value Called To Crit Value Called By Blood Gas Notified Time Potassium 2.8 L* D Carbon Dioxide 36 H Anion Gap 9 L BUN 11 Creatinine 1.7 H Est GFR ( Amer) 38 Est GFR (Non-Af Amer) 31 Random Glucose 208 H Calcium 9.2 Phosphorus Magnesium Total Bilirubin 1.0 AST 25 ALT 44 Alkaline Phosphatase 82 Total Creatine Kinase Troponin I < 0.01 Total Protein 6.1 Albumin 3.3 Globulin 2.7 Albumin/Globulin Ratio 1.2 Triglycerides Cholesterol LDL Cholesterol Direct HDL Cholesterol Arterial Blood Potassium Venous Blood Potassium Urine Color Urine Appearance Urine pH Ur Specific [place] Urine Protein Urine Glucose (UA) Urine Ketones Urine Blood Urine Nitrate Urine Bilirubin Urine Urobilinogen Ur Leukocyte Esterase Urine RBC Urine WBC Ur Epithelial Cells Urine Bacteria Influenza Typ A,B (EIA) 05/13/18 05/13/18 05/13/18 06:30 09:00 09:00 WBC 11.9 H RBC 4.32 Hgb 12.7 Hct 40.5 MCV 93.8 MCH 29.4 MCHC 31.4 RDW 13.9 Plt Count 258 MPV 11.8 H Neut % (Auto) 59.1 Lymph % (Auto) 29.6 [place] % (Auto) 9.0 H Eos % (Auto) 2.1 Baso % (Auto) 0.2 Lymph # (Auto) 3.5 H [place] # (Auto) 1.1 H Eos # (Auto) 0.3 Baso # (Auto) 0.02 Absolute Neuts (auto) 7.05 H PT INR APTT D-Dimer, Quantitative pCO2 pO2 62 H HCO3 ABG pH ABG Total CO2 ABG O2 Saturation ABG O2 Content ABG Base Excess ABG Hemoglobin ABG Carboxyhemoglobin POC ABG HHb (Measured) ABG Methemoglobin ABG O2 Capacity ABG Potassium VBG pH 7.28 L VBG pCO2 77.0 H* VBG HCO3 36.2 H VBG Total CO2 38.6 H VBG O2 Sat (Calc) 93.8 H VBG Base Excess 6.6 H VBG Potassium 3.1 L Hgb O2 Saturation Sodium 141.0 139 Chloride 103.0 102 Glucose 143 H Lactate 2.2 H FiO2 21.0 Crit Value Called To Kathryn reilly rn ccu Crit Value Called By m Blood Gas Notified Time 714 Potassium 3.5 L Carbon Dioxide 32 Anion Gap 8 L BUN 11 Creatinine 1.9 H Est GFR ( Amer) 33 Est GFR (Non-Af Amer) 27 Random Glucose 156 H Calcium 8.5 Phosphorus 3.0 Magnesium 1.8 Total Bilirubin 0.7 AST 23 ALT 38 Alkaline Phosphatase 75 Total Creatine Kinase 161 Troponin I Total Protein 5.6 L Albumin 3.1 Globulin 2.5 Albumin/Globulin Ratio 1.3 Triglycerides 313 H Cholesterol 103 L LDL Cholesterol Direct 37 HDL Cholesterol 35 Arterial Blood Potassium Venous Blood Potassium 3.1 L Urine Color Urine Appearance Urine pH Ur Specific [place] Urine Protein Urine Glucose (UA) Urine Ketones Urine Blood Urine Nitrate Urine Bilirubin Urine Urobilinogen Ur Leukocyte Esterase Urine RBC Urine WBC Ur Epithelial Cells Urine Bacteria Influenza Typ A,B (EIA) 05/13/18 09:30 WBC RBC Hgb Hct MCV MCH MCHC RDW Plt Count MPV Neut % (Auto) Lymph % (Auto) [place] % (Auto) Eos % (Auto) Baso % (Auto) Lymph # (Auto) [place] # (Auto) Eos # (Auto) Baso # (Auto) Absolute Neuts (auto) PT INR APTT D-Dimer, Quantitative pCO2 59 H pO2 69.0 L HCO3 30.4 H ABG pH 7.32 L ABG Total CO2 32.2 H ABG O2 Saturation 95.8 ABG O2 Content 14.8 L ABG Base Excess 3.1 H ABG Hemoglobin 11.2 L ABG Carboxyhemoglobin 1.6 H POC ABG HHb (Measured) 4.1 ABG Methemoglobin 0.8 ABG O2 Capacity 15.4 L ABG Potassium 2.6 L VBG pH VBG pCO2 VBG HCO3 VBG Total CO2 VBG O2 Sat (Calc) VBG Base Excess VBG Potassium Hgb O2 Saturation 93.6 L Sodium 143.0 Chloride 107.0 Glucose 166 H Lactate 1.6 FiO2 28.0 Crit Value Called To Crit Value Called By Blood Gas Notified Time Potassium Carbon Dioxide Anion Gap BUN Creatinine Est GFR ( Amer) Est GFR (Non-Af Amer) Random Glucose Calcium Phosphorus Magnesium Total Bilirubin AST ALT Alkaline Phosphatase Total Creatine Kinase Troponin I Total Protein Albumin Globulin Albumin/Globulin Ratio Triglycerides Cholesterol LDL Cholesterol Direct HDL Cholesterol Arterial Blood Potassium 2.6 L Venous Blood Potassium Urine Color Urine Appearance Urine pH Ur Specific [place] Urine Protein Urine Glucose (UA) Urine Ketones Urine Blood Urine Nitrate Urine Bilirubin Urine Urobilinogen Ur Leukocyte Esterase Urine RBC Urine WBC Ur Epithelial Cells Urine Bacteria Influenza Typ A,B (EIA) Assessment & Plan - Assessment and Plan (Free Text) Assessment: 57-year-old female with past medical history of morbid obesity, COPD on home oxygen, diabetes, hypertension, GERD, anxiety, and depression presents with sudden body weakness and body aches and chills. Patient is sepstic with hypotensive and tachycardic. Infectious disease was consulted for sepsis. Continue vanc, cefepime, and doxycycline Started on Tamiflu Repeat CXR tomorrow am F/u procal Follow-up septic workup Influenza was negative UA with positive content contamination Continue to monitor for any changes Case and plan was reviewed and discussed with Dr. Onofre <Librado Onofre - Last Filed: 05/13/18 16:34> Meds - Medications Medications: Current Medications Acetaminophen (Tylenol 325mg Tab) 650 mg PO Q6H PRN PRN Reason: Fever >100.4 F Acetaminophen (Tylenol 325mg Tab) 650 mg PO Q6 PRN PRN Reason: TEMP>=99.5F Acetaminophen (Tylenol 650 Mg Supp) 650 mg RC Q6H PRN PRN Reason: TEMP>=99.5F Albuterol/Ipratropium (Duoneb 3 Mg/0.5 Mg (3 Ml) Ud) 3 ml IH Q6 PRN PRN Reason: Shortness of Breath Albuterol/Ipratropium (Duoneb 3 Mg/0.5 Mg (3 Ml) Ud) 3 ml IH [id number] RIGOBERTO Budesonide (Pulmicort Respules) 0.5 mg IH BIDRESP RIGOBERTO Last Admin: 05/13/18 07:33 Dose: 0.5 mg Clonazepam (Klonopin) 2 mg PO QID RIGOBERTO; Protocol Last Admin: 05/13/18 10:28 Dose: 2 mg Diltiazem HCl (Cardizem Cd) 120 mg PO DAILY RIGOBERTO Gabapentin (Neurontin) 300 mg PO TID RIGOBERTO; Protocol Last Admin: 05/13/18 10:38 Dose: 300 mg Heparin Sodium (Porcine) (Heparin) 5,000 units SC Q8 RIGOBERTO; Protocol Doxycycline Hyclate 100 mg/ (Sodium Chloride) 100 mls @ 100 mls/hr IVPB Q12 RIGOBERTO; Protocol Last Admin: 05/13/18 10:10 Dose: 100 mls/hr Sodium Chloride (Sodium Chloride 0.9%) 1,000 mls @ 100 mls/hr IV .Q10H RIGOBERTO Last Admin: 05/13/18 06:57 Dose: 100 mls/hr Cefepime HCl (Maxipime 2gm) 2 gm in 100 mls @ 100 mls/hr IVPB [facility]; Protocol Stop: 05/18/18 10:01 Last Admin: 05/13/18 10:38 Dose: 100 mls/hr Potassium Chloride (Potassium Chloride 10 Meq/100 Ml) 10 meq in 100 mls @ 50 mls/hr IVPB Q2H RIGOBERTO Stop: 05/13/18 18:14 Insulin Human Regular (Humulin R Med) 0 units SC ACHS [facility]; Protocol Last Admin: 05/13/18 12:18 Dose: 1 unit Methylprednisolone (Solu-Medrol) 20 mg IVP Q8H RIGOBERTO Montelukast Sodium (Singulair) 10 mg PO HS RIGOBERTO Temazepam [Restoril] (30 Mg- Home Med) 30 mg PO HS [facility] Nystatin/Triamcinolone Acetonide (Nystatin/Triamcinolone Cream) 1 ea TOP BID [facility] Last Admin: 05/13/18 10:08 Dose: 1 t12 Ondansetron HCl (Zofran Inj) 4 mg IVP Q4H PRN PRN Reason: Nausea/Vomiting Oseltamivir Phosphate (Tamiflu Cap) 30 mg PO BID [facility]; Protocol Stop: 05/18/18 13:28 Pantoprazole Sodium (Protonix Ec Tab) 40 mg PO 0600 [facility] Last Admin: 05/13/18 06:57 Dose: 40 mg Paroxetine HCl (Paxil) 20 mg PO DAILY [facility] Last Admin: 05/13/18 10:38 Dose: 20 mg Results - Vital Signs Recent Vital Signs: Last Vital Signs Temp 98.5 F 05/13/18 06:59 Pulse 93 H 05/13/18 10:25 Resp 20 05/13/18 06:59 BP 82/61 L 05/13/18 04:03 Pulse Ox 93 L 05/13/18 04:03 - Labs Result Diagrams: 05/13/18 09:00 05/13/18 09:00 Labs: Laboratory Results - last 24 hr 05/13/18 05/13/18 05/13/18 01:25 01:25 01:25 WBC RBC Hgb Hct MCV MCH MCHC RDW Plt Count MPV Neut % (Auto) Lymph % (Auto) [place] % (Auto) Eos % (Auto) Baso % (Auto) Lymph # (Auto) [place] # (Auto) Eos # (Auto) Baso # (Auto) Absolute Neuts (auto) PT INR APTT D-Dimer, Quantitative pCO2 54 H pO2 100.0 HCO3 34.2 H ABG pH 7.41 ABG Total CO2 35.9 H ABG O2 Saturation 98.5 H ABG O2 Content ABG Base Excess 7.8 H ABG Hemoglobin ABG Carboxyhemoglobin POC ABG HHb (Measured) ABG Methemoglobin ABG O2 Capacity ABG Potassium 2.4 L* VBG pH VBG pCO2 VBG HCO3 VBG Total CO2 VBG O2 Sat (Calc) VBG Base Excess VBG Potassium Hgb O2 Saturation Sodium 144.0 Chloride 104.0 Glucose 193 H Lactate 2.8 H FiO2 21.0 Crit Value Called To Poppy badillo acoustical tile patternmaker Crit Value Called By Manohar Blood Gas Notified Time 202 Potassium Carbon Dioxide Anion Gap BUN Creatinine Est GFR ( Amer) Est GFR (Non-Af Amer) Random Glucose Calcium Phosphorus Magnesium Total Bilirubin AST ALT Alkaline Phosphatase Total Creatine Kinase Troponin I Total Protein Albumin Globulin Albumin/Globulin Ratio Triglycerides Cholesterol LDL Cholesterol Direct HDL Cholesterol Procalcitonin Arterial Blood Potassium 2.4 L* Venous Blood Potassium Urine Color Yellow Urine Appearance Clear Urine pH 6.0 Ur Specific [place] >= 1.030 Urine Protein 30 H Urine Glucose (UA) Negative Urine Ketones Trace H Urine Blood Negative Urine Nitrate Negative Urine Bilirubin Negative Urine Urobilinogen 0.2 Ur Leukocyte Esterase Small H Urine RBC 0 - 2 Urine WBC 5 - 10 H Ur Epithelial Cells Many H Urine Bacteria Trace Influenza Typ A,B (EIA) Negative for flu a/b Ur L.pneumophila Ag 05/13/18 05/13/18 05/13/18 01:30 01:30 01:30 WBC 12.8 H RBC 4.29 Hgb 12.5 Hct 40.4 MCV 94.2 D MCH 29.1 MCHC 30.9 L RDW 13.9 Plt Count 281 MPV 12.1 H Neut % (Auto) 55.9 Lymph % (Auto) 31.4 [place] % (Auto) 10.2 H Eos % (Auto) 2.3 Baso % (Auto) 0.2 Lymph # (Auto) 4.0 H [place] # (Auto) 1.3 H Eos # (Auto) 0.3 Baso # (Auto) 0.02 Absolute Neuts (auto) 7.17 H PT 11.4 INR 1.03 APTT 28.9 D-Dimer, Quantitative 266 H pCO2 pO2 HCO3 ABG pH ABG Total CO2 ABG O2 Saturation ABG O2 Content ABG Base Excess ABG Hemoglobin ABG Carboxyhemoglobin POC ABG HHb (Measured) ABG Methemoglobin ABG O2 Capacity ABG Potassium VBG pH VBG pCO2 VBG HCO3 VBG Total CO2 VBG O2 Sat (Calc) VBG Base Excess VBG Potassium Hgb O2 Saturation Sodium 138 Chloride 96 L Glucose Lactate FiO2 Crit Value Called To Crit Value Called By Blood Gas Notified Time Potassium 2.8 L* D Carbon Dioxide 36 H Anion Gap 9 L BUN 11 Creatinine 1.7 H Est GFR ( Amer) 38 Est GFR (Non-Af Amer) 31 Random Glucose 208 H Calcium 9.2 Phosphorus Magnesium Total Bilirubin 1.0 AST 25 ALT 44 Alkaline Phosphatase 82 Total Creatine Kinase Troponin I < 0.01 Total Protein 6.1 Albumin 3.3 Globulin 2.7 Albumin/Globulin Ratio 1.2 Triglycerides Cholesterol LDL Cholesterol Direct HDL Cholesterol Procalcitonin Arterial Blood Potassium Venous Blood Potassium Urine Color Urine Appearance Urine pH Ur Specific [place] Urine Protein Urine Glucose (UA) Urine Ketones Urine Blood Urine Nitrate Urine Bilirubin Urine Urobilinogen Ur Leukocyte Esterase Urine RBC Urine WBC Ur Epithelial Cells Urine Bacteria Influenza Typ A,B (EIA) Ur L.pneumophila Ag 05/13/18 05/13/18 05/13/18 01:30 03:40 06:30 WBC RBC Hgb Hct MCV MCH MCHC RDW Plt Count MPV Neut % (Auto) Lymph % (Auto) [place] % (Auto) Eos % (Auto) Baso % (Auto) Lymph # (Auto) [place] # (Auto) Eos # (Auto) Baso # (Auto) Absolute Neuts (auto) PT INR APTT D-Dimer, Quantitative pCO2 pO2 62 H HCO3 ABG pH ABG Total CO2 ABG O2 Saturation ABG O2 Content ABG Base Excess ABG Hemoglobin ABG Carboxyhemoglobin POC ABG HHb (Measured) ABG Methemoglobin ABG O2 Capacity ABG Potassium VBG pH 7.28 L VBG pCO2 77.0 H* VBG HCO3 36.2 H VBG Total CO2 38.6 H VBG O2 Sat (Calc) 93.8 H VBG Base Excess 6.6 H VBG Potassium 3.1 L Hgb O2 Saturation Sodium 141.0 Chloride 103.0 Glucose 143 H Lactate 2.2 H FiO2 21.0 Crit Value Called To Kathryn reilly mergers and acquisitions attorney Crit Value Called By Manohar Blood Gas Notified Time 714 Potassium Carbon Dioxide Anion Gap BUN Creatinine Est GFR ( Amer) Est GFR (Non-Af Amer) Random Glucose Calcium Phosphorus Magnesium Total Bilirubin AST ALT Alkaline Phosphatase Total Creatine Kinase Troponin I Total Protein Albumin Globulin Albumin/Globulin Ratio Triglycerides Cholesterol LDL Cholesterol Direct HDL Cholesterol Procalcitonin 0.24 Arterial Blood Potassium Venous Blood Potassium 3.1 L Urine Color Urine Appearance Urine pH Ur Specific [place] Urine Protein Urine Glucose (UA) Urine Ketones Urine Blood Urine Nitrate Urine Bilirubin Urine Urobilinogen Ur Leukocyte Esterase Urine RBC Urine WBC Ur Epithelial Cells Urine Bacteria Influenza Typ A,B (EIA) Ur L.pneumophila Ag Negative 05/13/18 05/13/18 05/13/18 09:00 09:00 09:30 WBC 11.9 H RBC 4.32 Hgb 12.7 Hct 40.5 MCV 93.8 MCH 29.4 MCHC 31.4 RDW 13.9 Plt Count 258 MPV 11.8 H Neut % (Auto) 59.1 Lymph % (Auto) 29.6 [place] % (Auto) 9.0 H Eos % (Auto) 2.1 Baso % (Auto) 0.2 Lymph # (Auto) 3.5 H [place] # (Auto) 1.1 H Eos # (Auto) 0.3 Baso # (Auto) 0.02 Absolute Neuts (auto) 7.05 H PT INR APTT D-Dimer, Quantitative pCO2 59 H pO2 69.0 L HCO3 30.4 H ABG pH 7.32 L ABG Total CO2 32.2 H ABG O2 Saturation 95.8 ABG O2 Content 14.8 L ABG Base Excess 3.1 H ABG Hemoglobin 11.2 L ABG Carboxyhemoglobin 1.6 H POC ABG HHb (Measured) 4.1 ABG Methemoglobin 0.8 ABG O2 Capacity 15.4 L ABG Potassium 2.6 L VBG pH VBG pCO2 VBG HCO3 VBG Total CO2 VBG O2 Sat (Calc) VBG Base Excess VBG Potassium Hgb O2 Saturation 93.6 L Sodium 139 143.0 Chloride 102 107.0 Glucose 166 H Lactate 1.6 FiO2 28.0 Crit Value Called To Crit Value Called By Blood Gas Notified Time Potassium 3.5 L Carbon Dioxide 32 Anion Gap 8 L BUN 11 Creatinine 1.9 H Est GFR ( Amer) 33 Est GFR (Non-Af Amer) 27 Random Glucose 156 H Calcium 8.5 Phosphorus 3.0 Magnesium 1.8 Total Bilirubin 0.7 AST 23 ALT 38 Alkaline Phosphatase 75 Total Creatine Kinase 161 Troponin I Total Protein 5.6 L Albumin 3.1 Globulin 2.5 Albumin/Globulin Ratio 1.3 Triglycerides 313 H Cholesterol 103 L LDL Cholesterol Direct 37 HDL Cholesterol 35 Procalcitonin Arterial Blood Potassium 2.6 L Venous Blood Potassium Urine Color Urine Appearance Urine pH Ur Specific [place] Urine Protein Urine Glucose (UA) Urine Ketones Urine Blood Urine Nitrate Urine Bilirubin Urine Urobilinogen Ur Leukocyte Esterase Urine RBC Urine WBC Ur Epithelial Cells Urine Bacteria Influenza Typ A,B (EIA) Ur L.pneumophila Ag 05/13/18 14:20 WBC RBC Hgb Hct MCV MCH MCHC RDW Plt Count MPV Neut % (Auto) Lymph % (Auto) [place] % (Auto) Eos % (Auto) Baso % (Auto) Lymph # (Auto) [place] # (Auto) Eos # (Auto) Baso # (Auto) Absolute Neuts (auto) PT INR APTT D-Dimer, Quantitative pCO2 pO2 HCO3 ABG pH ABG Total CO2 ABG O2 Saturation ABG O2 Content ABG Base Excess ABG Hemoglobin ABG Carboxyhemoglobin POC ABG HHb (Measured) ABG Methemoglobin ABG O2 Capacity ABG Potassium VBG pH VBG pCO2 VBG HCO3 VBG Total CO2 VBG O2 Sat (Calc) VBG Base Excess VBG Potassium Hgb O2 Saturation Sodium Chloride Glucose Lactate FiO2 Crit Value Called To Crit Value Called By Blood Gas Notified Time Potassium Carbon Dioxide Anion Gap BUN Creatinine Est GFR ( Amer) Est GFR (Non-Af Amer) Random Glucose Calcium Phosphorus Magnesium Total Bilirubin AST ALT Alkaline Phosphatase Total Creatine Kinase 178 Troponin I < 0.01 Total Protein Albumin Globulin Albumin/Globulin Ratio Triglycerides Cholesterol LDL Cholesterol Direct HDL Cholesterol Procalcitonin Arterial Blood Potassium Venous Blood Potassium Urine Color Urine Appearance Urine pH Ur Specific [place] Urine Protein Urine Glucose (UA) Urine Ketones Urine Blood Urine Nitrate Urine Bilirubin Urine Urobilinogen Ur Leukocyte Esterase Urine RBC Urine WBC Ur Epithelial Cells Urine Bacteria Influenza Typ A,B (EIA) Ur L.pneumophila Ag Assessment & Plan - Assessment and Plan (Free Text) Assessment: Infectious diseases Attending Physician Attestation Patient seen and examined, discussed with manager medical. I have reviewed the patient's history of present illness, past medical, social, personal and family histories, pertinent physical exam findings, course so far in this hospital admission, pertinent laboratory and imaging results. I agree with the above findings, assessment and plan. In addition, started Vancomycin, Cefepime and Doxycycline for patient with probable sepsis from HCAP, R/O Influenza. Will start Tamiflu as well and will follow up cultures and should get repeat CXR tomorrow.
--- NOTE | 2018-05-13 10:13 | CON ---
DATE: 05/13/2018 PULMONARY CONSULTATION REFERRING PHYSICIAN: Dr. Mireles REASON FOR PULMONARY CONSULTATION: Chronic obstructive pulmonary disease. History is obtained via extensive discussion with the medical residents. I have also reviewed the chart at length, and discussed the case with the patient at length. The patient is a chronically ill 57-year-old female, with past medical history significant for advanced chronic obstructive pulmonary disease, on home oxygen, asthma, hypertension, diabetes mellitus, depression, anxiety, who presents to [facility] with main complaints of generalized weakness, dizziness, generalized body aches and chills for the past one day. In the emergency room, the patient was also noted to be hypotensive. She was thus admitted to the medical ICU for additional management and treatment. Again, I did discuss the case with the patient and medical residents at length. There is no history of shortness of breath at rest. The patient does have some mild chronic dyspnea on exertion. There is no history of cough or sputum production. There is no history of chest pain, coughing up of blood, or chest pain - brought on with deep respirations. As above, the patient does state to chills. No history of temperatures or infectious exposure. No history of night sweats, weight loss or appetite change prior to the above events. No history of calf pains. No history of syncope or diaphoresis. No history of recent travel or trauma. REVIEW OF SYSTEMS: No history of nausea, vomiting or diarrhea. No acute urinary symptoms. Rest of the review of systems is negative. ALLERGIES: TO ASPIRIN. SOCIAL HISTORY: Positive for tobacco, negative for alcohol. FAMILY HISTORY: No inheritable diseases. HOME MEDICATIONS: Include Klonopin, Spiriva, Restoril, Crestor, Seroquel, Paxil, Singulair, Cozaar, Amaryl, Neurontin, Dexilant, Pulmicort, Brovana, albuterol. PHYSICAL EXAMINATION: GENERAL: The patient appears comfortable this morning. She is not short of breath at rest. VITALS: Temperature is 98.5, pulse 95, respirations 18/20, last blood pressure recorded is 82/61. Oxygen saturation on nasal cannula is 93-95%. HEENT: Normocephalic, atraumatic. No JVD. CARDIOVASCULAR: Positive S1, S2. No S3 gallop. LUNGS: Decreased breath sounds at the bases. Minimal rhonchi. No wheezing. EXTREMITIES: Mild edema. No cyanosis, no clubbing. Calves are nontender to palpation. GASTROINTESTINAL: Abdomen is soft, nontender, nondistended. Bowel sounds are positive. SKIN: There is a foul-smelling rash in the left groin. NEUROLOGIC: Exam limited at the present time. PERTINENT LABORATORY DATA: Chest x-ray was done this morning and reviewed. It is a poor portable film. There is a possible small left basal/retrocardiac infiltrate noted. CBC: White count 12.8K, hemoglobin 12.5, hematocrit 40.4, platelets of 281,000. Arterial blood gas was done yesterday on nasal cannula. Results are: pH 7.41, pCO2 of 54, pO2 of 100. Complete metabolic profile: Potassium 2.8, chloride 96, carbon dioxide 36, creatinine 1.7, glucose 208. Rest of the metabolic profile is within normal limits. IMPRESSION: 1. Sepsis syndrome. 2. Left groin cellulitis. 3. Rule out left basilar infiltrate/pneumonia. 4. Advanced chronic obstructive pulmonary disease, on home oxygen. 5. Asthma. PLAN: Again, I did discuss the case with the medical residents at length. I have also discussed the case with the patient at length, and reviewed the chart at length. The patient presents to [facility] with a one-day history of increasing dizziness,generalized body weakness, chills as well as body aches. Interesting to note, she offers no new or acute pulmonary symptoms. I did review the chest x-ray as above. The chest x-ray reveals a possible small left basilar infiltrate. As above, there is also a foul-smelling left groin rash noted on physical exam. The patient has been cultured and started on antibiotic therapy - as per Infectious Disease. On physical exam, there is only minimal bronchospasm noted. I will continue the current nebulizer treatments and continue with the inhaled Pulmicort. I will also order an arterial blood gas to be done on nasal cannula this morning. Psychiatric and cardiology evaluations are ordered. Additional a.m. labs are pending. The patient does appear clinically improved - compared to her initial presentation. I will discuss the above with the entire ICU team in the next few moments. I will also discuss the above with Dr. Mireles later this morning. Thank you very much for this pulmonary consultation. Fam Robb MD MTDGinna
[2018-05-13] MEDS: Cefepime IV 2 gm in NS 2 GM/100 ML BAG IVPB SCH (10:38)
[2018-05-13] MEDS ORDERED: Potassium Chloride 20 mEq ER Tab PO STA (11:40)
--- NOTE | 2018-05-13 12:24 | CARD ---
APPROVED REPORT Date of service: 05/13/2018 EKG Measurement Heart [id number] <Conclusion> Sinus tachycardia Left axis deviation Poor R Progression in V Leads. Abnormal ECG
[2018-05-13] MEDS ORDERED: diltiaZEM 120 mg/24 Hours CD Cap PO SCH (12:30)
--- NOTE | 2018-05-13 14:43 | RAD ---
Date of service: 05/13/2018 PROCEDURE: CHEST RADIOGRAPH, 1 VIEW HISTORY: pain COMPARISON: General weakness, unspecified pain. FINDINGS: LUNGS: Clear. PLEURA: No pneumothorax or pleural fluid seen. CARDIOVASCULAR: No aortic atherosclerotic calcification present. Normal. OSSEOUS STRUCTURES: No significant abnormalities. VISUALIZED UPPER ABDOMEN: Normal. OTHER FINDINGS: None. IMPRESSION: No active disease.
[2018-05-13 14:47] LABS: TROPONIN I < 0.01 ng/mL
--- NOTE | 2018-05-13 15:34 | CP.PCM.HP ---
History of Present Illness - History of Present Illness History of Present Illness: H&P for Dr. 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 Patient states later that afternoon around 3:30 she came home and decided to take a nap since her symptoms were not improving. Upon waking up patient states her symptoms worsened so much that each time she would try to get up from the bed she would just fall back down so she then decided to call EMS. She denies recent sickness, sick contact, traveling, recent change of meds, or recent antibiotics. Physical Exam - Constitutional Appears: Non-toxic - Head Exam Head Exam: ATRAUMATIC, NORMAL INSPECTION, NORMOCEPHALIC - Eye Exam Eye Exam: EOMI, Normal appearance, PERRL. absent: Scleral icterus Pupil Exam: NORMAL ACCOMODATION - ENT Exam ENT Exam: Mucous Membranes Dry - Neck Exam Additional comments: supple - Respiratory Exam Respiratory Exam: Decreased Breath Sounds (lower lobes b/l), Rhonchi, NORMAL BREATHING PATTERN. absent: Rales, Wheezes - Cardiovascular Exam Cardiovascular Exam: REGULAR RHYTHM, +S1, +S2. absent: Systolic Murmur - GI/Abdominal Exam GI & Abdominal Exam: Normal Bowel Sounds, Soft. absent: Firm, Rigid, Tenderness - Rectal Exam Rectal Exam: NORMAL INSPECTION - Exam External exam: NORMAL EXTERNAL EXAM - Extremities Exam Extremities exam: Positive for: pedal pulses present. Negative for: calf tenderness, pedal edema - Back Exam Back exam: rash noted. absent: CVA tenderness (L), CVA tenderness (R) - Neurological Exam Neurological exam: Alert, Oriented x3 - Psychiatric Exam Psychiatric exam: Normal Affect, Normal Mood - Skin Skin Exam: Dry, Warm Additional comments: fungal rash under breasts bilaterally ,waist line and abdominal pannus, and Left groin. Left groin with ulceration and foul smell. No purulent discharge present Present on Admission - Present on Admission Any Indicators Present on Admission: No Review of Systems - Review of Systems All systems: reviewed and no additional remarkable complaints except (what is mentioned in HPI) Past Patient History - Infectious Disease Hx of Infectious Diseases: None - Tetanus Immunizations Tetanus Immunization: Unknown - Past Social History Smoking Status: Former Smoker - CARDIAC Hx Hypertension: Yes - PULMONARY Hx Chronic Obstructive Pulmonary Disease (COPD): Yes - NEUROLOGICAL Hx Neurological Disorder: No - HEENT Hx HEENT Problems: Yes Other/Comment: Wears Glasses - RENAL Hx Chronic Kidney Disease: No - ENDOCRINE/METABOLIC Hx Diabetes Mellitus Type 2: Yes - HEMATOLOGICAL/ONCOLOGICAL Hx Blood Disorders: No - INTEGUMENTARY Hx Dermatological Problems: Yes - MUSCULOSKELETAL/RHEUMATOLOGICAL Hx Falls: Yes - GASTROINTESTINAL Hx Gastrointestinal Disorders: Yes Hx Diverticulitis: Yes - GENITOURINARY/GYNECOLOGICAL Hx Genitourinary Disorders: No Hx Urinary Tract Infection: Yes - PSYCHIATRIC Hx Psychophysiologic Disorder: No - SURGICAL HISTORY Hx Musculoskeletal Surgery: Yes (left arm surgeryplate and screws) Other/Comment: sinus sx X 4. tubal ligation' - ANESTHESIA Hx Anesthesia: Yes Hx Anesthesia Reactions: No Hx Malignant Hyperthermia: No Meds Allergies/Adverse Reactions: Allergies Allergy/AdvReac Type Severity Reaction Status Date / Time aspirin Allergy SHORTNESS Verified 05/13/18 00:36 OF BREATH Results - Vital Signs Recent Vital Signs: Last Vital Signs Temp 98.5 F 05/13/18 06:59 Pulse 93 H 05/13/18 10:25 Resp 20 05/13/18 06:59 BP 82/61 L 05/13/18 04:03 Pulse Ox 93 L 05/13/18 04:03 - Labs Result Diagrams: 05/13/18 09:00 05/13/18 09:00 Labs: Laboratory Results - last 24 hr 05/13/18 05/13/18 05/13/18 01:25 01:25 01:25 WBC RBC Hgb Hct MCV MCH MCHC RDW Plt Count MPV Neut % (Auto) Lymph % (Auto) Castro % (Auto) Eos % (Auto) Baso % (Auto) Lymph # (Auto) Castro # (Auto) Eos # (Auto) Baso # (Auto) Absolute Neuts (auto) PT INR APTT D-Dimer, Quantitative pCO2 54 H pO2 100.0 HCO3 34.2 H ABG pH 7.41 ABG Total CO2 35.9 H ABG O2 Saturation 98.5 H ABG O2 Content ABG Base Excess 7.8 H ABG Hemoglobin ABG Carboxyhemoglobin POC ABG HHb (Measured) ABG Methemoglobin ABG O2 Capacity ABG Potassium 2.4 L* VBG pH VBG pCO2 VBG HCO3 VBG Total CO2 VBG O2 Sat (Calc) VBG Base Excess VBG Potassium Hgb O2 Saturation Sodium 144.0 Chloride 104.0 Glucose 193 H Lactate 2.8 H FiO2 21.0 Crit Value Called To Poppy badillo pattern maker programer Crit Value Called By Manohar Blood Gas Notified Time 202 Potassium Carbon Dioxide Anion Gap BUN Creatinine Est GFR ( Amer) Est GFR (Non-Af Amer) Random Glucose Calcium Phosphorus Magnesium Total Bilirubin AST ALT Alkaline Phosphatase Total Creatine Kinase Troponin I Total Protein Albumin Globulin Albumin/Globulin Ratio Triglycerides Cholesterol LDL Cholesterol Direct HDL Cholesterol Procalcitonin Arterial Blood Potassium 2.4 L* Venous Blood Potassium Urine Color Yellow Urine Appearance Clear Urine pH 6.0 Ur Specific [place] >= 1.030 Urine Protein 30 H Urine Glucose (UA) Negative Urine Ketones Trace H Urine Blood Negative Urine Nitrate Negative Urine Bilirubin Negative Urine Urobilinogen 0.2 Ur Leukocyte Esterase Small H Urine RBC 0 - 2 Urine WBC 5 - 10 H Ur Epithelial Cells Many H Urine Bacteria Trace Influenza Typ A,B (EIA) Negative for flu a/b Ur L.pneumophila Ag 05/13/18 05/13/18 05/13/18 01:30 01:30 01:30 WBC 12.8 H RBC 4.29 Hgb 12.5 Hct 40.4 MCV 94.2 D MCH 29.1 MCHC 30.9 L RDW 13.9 Plt Count 281 MPV 12.1 H Neut % (Auto) 55.9 Lymph % (Auto) 31.4 Castro % (Auto) 10.2 H Eos % (Auto) 2.3 Baso % (Auto) 0.2 Lymph # (Auto) 4.0 H Castro # (Auto) 1.3 H Eos # (Auto) 0.3 Baso # (Auto) 0.02 Absolute Neuts (auto) 7.17 H PT 11.4 INR 1.03 APTT 28.9 D-Dimer, Quantitative 266 H pCO2 pO2 HCO3 ABG pH ABG Total CO2 ABG O2 Saturation ABG O2 Content ABG Base Excess ABG Hemoglobin ABG Carboxyhemoglobin POC ABG HHb (Measured) ABG Methemoglobin ABG O2 Capacity ABG Potassium VBG pH VBG pCO2 VBG HCO3 VBG Total CO2 VBG O2 Sat (Calc) VBG Base Excess VBG Potassium Hgb O2 Saturation Sodium 138 Chloride 96 L Glucose Lactate FiO2 Crit Value Called To Crit Value Called By Blood Gas Notified Time Potassium 2.8 L* D Carbon Dioxide 36 H Anion Gap 9 L BUN 11 Creatinine 1.7 H Est GFR ( Amer) 38 Est GFR (Non-Af Amer) 31 Random Glucose 208 H Calcium 9.2 Phosphorus Magnesium Total Bilirubin 1.0 AST 25 ALT 44 Alkaline Phosphatase 82 Total Creatine Kinase Troponin I < 0.01 Total Protein 6.1 Albumin 3.3 Globulin 2.7 Albumin/Globulin Ratio 1.2 Triglycerides Cholesterol LDL Cholesterol Direct HDL Cholesterol Procalcitonin Arterial Blood Potassium Venous Blood Potassium Urine Color Urine Appearance Urine pH Ur Specific [place] Urine Protein Urine Glucose (UA) Urine Ketones Urine Blood Urine Nitrate Urine Bilirubin Urine Urobilinogen Ur Leukocyte Esterase Urine RBC Urine WBC Ur Epithelial Cells Urine Bacteria Influenza Typ A,B (EIA) Ur L.pneumophila Ag 05/13/18 05/13/18 05/13/18 01:30 03:40 06:30 WBC RBC Hgb Hct MCV MCH MCHC RDW Plt Count MPV Neut % (Auto) Lymph % (Auto) Castro % (Auto) Eos % (Auto) Baso % (Auto) Lymph # (Auto) Castro # (Auto) Eos # (Auto) Baso # (Auto) Absolute Neuts (auto) PT INR APTT D-Dimer, Quantitative pCO2 pO2 62 H HCO3 ABG pH ABG Total CO2 ABG O2 Saturation ABG O2 Content ABG Base Excess ABG Hemoglobin ABG Carboxyhemoglobin POC ABG HHb (Measured) ABG Methemoglobin ABG O2 Capacity ABG Potassium VBG pH 7.28 L VBG pCO2 77.0 H* VBG HCO3 36.2 H VBG Total CO2 38.6 H VBG O2 Sat (Calc) 93.8 H VBG Base Excess 6.6 H VBG Potassium 3.1 L Hgb O2 Saturation Sodium 141.0 Chloride 103.0 Glucose 143 H Lactate 2.2 H FiO2 21.0 Crit Value Called To Kathryn reilly rn ccu Crit Value Called By [facility] Blood Gas Notified Time 714 Potassium Carbon Dioxide Anion Gap BUN Creatinine Est GFR ( Amer) Est GFR (Non-Af Amer) Random Glucose Calcium Phosphorus Magnesium Total Bilirubin AST ALT Alkaline Phosphatase Total Creatine Kinase Troponin I Total Protein Albumin Globulin Albumin/Globulin Ratio Triglycerides Cholesterol LDL Cholesterol Direct HDL Cholesterol Procalcitonin 0.24 Arterial Blood Potassium Venous Blood Potassium 3.1 L Urine Color Urine Appearance Urine pH Ur Specific [place] Urine Protein Urine Glucose (UA) Urine Ketones Urine Blood Urine Nitrate Urine Bilirubin Urine Urobilinogen Ur Leukocyte Esterase Urine RBC Urine WBC Ur Epithelial Cells Urine Bacteria Influenza Typ A,B (EIA) Ur L.pneumophila Ag Negative 05/13/18 05/13/18 05/13/18 09:00 09:00 09:30 WBC 11.9 H RBC 4.32 Hgb 12.7 Hct 40.5 MCV 93.8 MCH 29.4 MCHC 31.4 RDW 13.9 Plt Count 258 MPV 11.8 H Neut % (Auto) 59.1 Lymph % (Auto) 29.6 Castro % (Auto) 9.0 H Eos % (Auto) 2.1 Baso % (Auto) 0.2 Lymph # (Auto) 3.5 H Castro # (Auto) 1.1 H Eos # (Auto) 0.3 Baso # (Auto) 0.02 Absolute Neuts (auto) 7.05 H PT INR APTT D-Dimer, Quantitative pCO2 59 H pO2 69.0 L HCO3 30.4 H ABG pH 7.32 L ABG Total CO2 32.2 H ABG O2 Saturation 95.8 ABG O2 Content 14.8 L ABG Base Excess 3.1 H ABG Hemoglobin 11.2 L ABG Carboxyhemoglobin 1.6 H POC ABG HHb (Measured) 4.1 ABG Methemoglobin 0.8 ABG O2 Capacity 15.4 L ABG Potassium 2.6 L VBG pH VBG pCO2 VBG HCO3 VBG Total CO2 VBG O2 Sat (Calc) VBG Base Excess VBG Potassium Hgb O2 Saturation 93.6 L Sodium 139 143.0 Chloride 102 107.0 Glucose 166 H Lactate 1.6 FiO2 28.0 Crit Value Called To Crit Value Called By Blood Gas Notified Time Potassium 3.5 L Carbon Dioxide 32 Anion Gap 8 L BUN 11 Creatinine 1.9 H Est GFR ( Amer) 33 Est GFR (Non-Af Amer) 27 Random Glucose 156 H Calcium 8.5 Phosphorus 3.0 Magnesium 1.8 Total Bilirubin 0.7 AST 23 ALT 38 Alkaline Phosphatase 75 Total Creatine Kinase 161 Troponin I Total Protein 5.6 L Albumin 3.1 Globulin 2.5 Albumin/Globulin Ratio 1.3 Triglycerides 313 H Cholesterol 103 L LDL Cholesterol Direct 37 HDL Cholesterol 35 Procalcitonin Arterial Blood Potassium 2.6 L Venous Blood Potassium Urine Color Urine Appearance Urine pH Ur Specific [place] Urine Protein Urine Glucose (UA) Urine Ketones Urine Blood Urine Nitrate Urine Bilirubin Urine Urobilinogen Ur Leukocyte Esterase Urine RBC Urine WBC Ur Epithelial Cells Urine Bacteria Influenza Typ A,B (EIA) Ur L.pneumophila Ag 05/13/18 14:20 WBC RBC Hgb Hct MCV MCH MCHC RDW Plt Count MPV Neut % (Auto) Lymph % (Auto) Castro % (Auto) Eos % (Auto) Baso % (Auto) Lymph # (Auto) Castro # (Auto) Eos # (Auto) Baso # (Auto) Absolute Neuts (auto) PT INR APTT D-Dimer, Quantitative pCO2 pO2 HCO3 ABG pH ABG Total CO2 ABG O2 Saturation ABG O2 Content ABG Base Excess ABG Hemoglobin ABG Carboxyhemoglobin POC ABG HHb (Measured) ABG Methemoglobin ABG O2 Capacity ABG Potassium VBG pH VBG pCO2 VBG HCO3 VBG Total CO2 VBG O2 Sat (Calc) VBG Base Excess VBG Potassium Hgb O2 Saturation Sodium Chloride Glucose Lactate FiO2 Crit Value Called To Crit Value Called By Blood Gas Notified Time Potassium Carbon Dioxide Anion Gap BUN Creatinine Est GFR ( Amer) Est GFR (Non-Af Amer) Random Glucose Calcium Phosphorus Magnesium Total Bilirubin AST ALT Alkaline Phosphatase Total Creatine Kinase 178 Troponin I < 0.01 Total Protein Albumin Globulin Albumin/Globulin Ratio Triglycerides Cholesterol LDL Cholesterol Direct HDL Cholesterol Procalcitonin Arterial Blood Potassium Venous Blood Potassium Urine Color Urine Appearance Urine pH Ur Specific [place] Urine Protein Urine Glucose (UA) Urine Ketones Urine Blood Urine Nitrate Urine Bilirubin Urine Urobilinogen Ur Leukocyte Esterase Urine RBC Urine WBC Ur Epithelial Cells Urine Bacteria Influenza Typ A,B (EIA) Ur L.pneumophila Ag Assessment & Plan - Assessment and Plan (Free Text) Assessment: Ms. 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 She has worsened cellulitis on L groin with foul smell, decreased breath sound likely CAP. SBP 80-90 currently receiving 4L fluid bolus with lactate 2.8. Plan Neuro - tylenol prn for fever control - aaox3 - hold benzo and anxiety meds due to hypotension Pulm - NC PRN to maintain SaO2 88-92% - duoneb q6 - HOB 35 PRN - Continue singular, budesonide Card - Hold hypertensive medicine - continue fluid bolus. If SBP persist, will consider levophed and stress dose steroid - trend trops. Cardio consult per primary GI - Protonix for prophylaxis - Heart healthy carb controlled diet Renal - CONCEPCION, likely prerenal. fluid challenge for now. strict i.o. trend bmp - hold losartan endo - ISS - fingerstick qACHS ID - ID consult - vancomycin x 1. cepefime renal dose. doxy for both cellulitis and CAP - nystatin/triamcinolon cream for fungal rash - follow up blood/urine cultures, procalc, mrsa screen, pna work up - pending 2nd lactate Heme - pending V/Q. Per ED: The isotope is not delivered to [facility] [place] 6am Dermatologic -xerosis cutis -Podiatry consulted DVT pvx = heparin GI pvx = protonix
--- NOTE | 2018-05-13 15:50 | NM ---
Date of service: 05/13/2018 COMPARISON: 10/11/2013 ventilation-perfusion scan. May 13, 2018 single-view chest TECHNIQUE: 31.0 mCi technetium 99-m DTPA aerosol. 4.8 mCI technetium 99-m MAA administered intravenously. FINDINGS: VENTILATION COMPONENT: Heterogeneous ventilation. Retention of radionuclide in the tracheobronchial tree and ingestion of radionuclide in the stomach, incidental findings PERFUSION COMPONENT: Heterogeneous perfusion, similar to that seen on the prior ventilation perfusion scan. IMPRESSION: Low probability ventilation perfusion scan for pulmonary embolism.
[2018-05-13] MEDS: MethylPREDNISolone 40 mg Vial IVP SCH ×2 (16:36→22:32)
--- NOTE | 2018-05-13 16:45 | CON ---
DATE: 05/13/2018 HISTORY OF PRESENT ILLNESS: The patient is a 57-year-old lady with a history of COPD, obesity, hypoventilation syndrome, who presented to [facility] earlier today complaining of generalized weakness since yesterday. She also reported some dizziness and numbness in the legs, associated with headache. She, however, denied any chest pain, cough, fevers, chills, abdominal pain, nausea, vomiting, diarrhea, back pain, neck pain or any other complaint. PAST MEDICAL HISTORY: COPD on home oxygen, diabetes, morbid obesity, hypertension, GERD, anxiety, depression. PAST SURGICAL HISTORY: Sinus surgery x4, tubal ligation, left arm surgery. FAMILY HISTORY: Noncontributory. SOCIAL HISTORY: The patient is ex-smoker. No alcohol or illicit drug abuse. ALLERGIES: ASPIRIN. MEDICATIONS AT HOME: Klonopin, Spiriva, temazepam, Crestor, Seroquel, Paxil, Singulair, Cozaar, Tresiba, Amaryl, Neurontin, Dexilant, vitamin D, budesonide, Brovana, albuterol. MEDICATIONS IN THE HOSPITAL: Tylenol p.r.n., Pulmicort, cefepime, clonazepam, doxycycline, Neurontin, regular insulin, heparin subcu, Singulair, Zofran, Tamiflu, Protonix, Paxil, potassium supplementation and normal saline 100 mL/hour. REVIEW OF SYSTEMS: Review of 12-organ system other than mentioned in history of present illness is negative. PHYSICAL EXAMINATION: VITAL SIGNS: Heart rate 96, blood pressure 107/55, respiratory rate 25, oxygen saturation 96% on 2 liters nasal cannula. ENT: Head and neck atraumatic. LUNGS: Clear to auscultation bilaterally. HEART: Regular rate and rhythm. S1, S2 normal. ABDOMEN: Soft, nontender, nondistended. MUSCULOSKELETAL: Trace bilateral pedal and ankle edema. NEURO: The patient moves all extremities spontaneously. SKIN: Moist. PSYCH: The patient is alert, awake and oriented x3. LABORATORY DATA: Sodium 139, potassium 3.5 (supplemented), chloride 102, carbon dioxide 32, BUN 11, creatinine 1.9 up from 1.7, glucose 156, phosphorus 3, magnesium 1.8, AST 23, ALT 38, total bilirubin 0.7. Troponin less than 0.1. Triglyceride 313, cholesterol 103. ABG is 7.32/59/69. Lactic acid 1.6 down from 2.8 (the patient continued to be on BiPAP (16/6 with FiO2 35%, backup rate 14)). Chest x-ray showed diminishing left basilar infiltrate with limited pleural effusion slightly increased. Head CT showed, unremarkable unenhanced head CT, incidental improved chronic pansinusitis but with significant residual at the bilateral sphenoid, maxillary and ethmoid sinuses as well as left frontal sinus of potential acute to subacute recurrence likely status post bilateral nasal antrostomies once again as well. ASSESSMENT AND PLAN: This is a 57-year-old lady who presented with severe community-acquired pneumonia (formerly would be HCAP)+chronic obstructive pulmonary disease exacerbation complicated by severe sepsis and acute kidney injury, likely due to ATN. At the present time, we will proceed with broad-spectrum antibiotics including vancomycin, cefepime and doxycycline to cover for typicals, atypicals and MDR. We will proceed with septic workup including a urine and blood culture, sputum culture, urine for Legionella and streptococcal antigen. Procalcitonin. Other potential sources of infection and the severe sepsis may include sinusitis and cellulitis. The patient is on antibiotics and Infectious Disease Service consult is pending. The patient does have some CO2 retention, most likely due to combination of chronic obstructive pulmonary disease with chronic hypercapnic respiratory failure and obesity hypoventilation syndrome. The patient will be on BiPAP at present time. Her lactic acidosis resolved and we will be a little bit more conservative and consider diuresis if needed. We will continue with steroid taper, bronchodilators, DVT and GI prophylaxis. D-dimers were found to be elevated and the patient is going for VQ scan to rule out pulmonary embolism as well. We will continue to maintain euvolemia, euglycemia, normothermia and oxygen saturation more than 90%. We are also going to get echocardiogram. Addendum: V/Q-low prob for PE ccm time 40 min Aleks Zavala MD JOSS
[2018-05-13 17:40] LABS: ARTERIAL BLOOD GAS HCO3 28.2 mmol/L (21-28); ARTERIAL BLOOD GAS HEMOGLOBIN 10.6 g/dL (11.7-17.4); ARTERIAL BLOOD GAS O2 CAPACITY 14.7 mL/dl (16-24); ARTERIAL BLOOD GAS O2 CONTENT 14.3 ML/dl (15-23); ARTERIAL BLOOD GAS O2 SAT 97.5 % (95-98); ARTERIAL BLOOD GAS PCO2 60 mm/Hg (35-45); ARTERIAL BLOOD GAS PH 7.28 (7.35-7.45)
--- NOTE | 2018-05-13 19:36 | CON ---
DATE: 05/13/2018 HISTORY OF PRESENT ILLNESS: The patient is a 57-year-old single female with a history of anxiety and depression. No psychiatric admissions or suicide chance, though with a history of cutting behaviors to reveal her anger (most recently occurred in 2015). Currently in treatment with Dr. Thorne and reportedly compliant with Klonopin, clonazepam, Seroquel and Paxil, who is currently being treated for sepsis with hypertension, tachycardia, in the ICU. she was consulted for psychiatric evaluation, though it is unclear, this was necessary at this time. I met with the patient at bedside this morning and she is oriented to month and year, as well as location. She was not aware that psychiatric evaluation was for her; however, she is superficially cooperative with my questioning on the left. The patient reports that she is feeling "fine" regarding her psychiatric symptoms. She has been following with Dr. Thorne and indicates that she has been taking her medications of Klonopin, clonazepam, Seroquel, and Paxil and feels that this is a beneficial combination. Diet is generally under control; however, it is little bit increased due to current circumstances, which is understandable. The patient denies any hallucinations. Does not appear to be hallucinating. Delusions are not elicited. There appears to be no major behavioral issues noted thus far and she denies any new psychiatric concerns or complains. Her insight and judgment appear to be fair regarding necessity for medications and what they are being prescribed for. PAST PSYCHIATRIC HISTORY: As noted, the patient denies any prior psychiatric admissions. She denies any suicide attempts, but has a history of cutting behaviors; however, she does this out of anger to reveal anger, last cutting behavior occurred in 2014 and 2015. The patient has been in treatment with Dr. Thorne outpatient and was prescribed Klonopin, clonazepam, Seroquel and Paxil. SOCIAL HISTORY: The patient is single. She resides with her 20-year-old daughter. She is unemployed. She is on SSD for COPD. She denies any drug or alcohol issue. RELEVANT PSYCHIATRIC MEDICATIONS: Klonopin 2 mg p.o. q.i.d., Vistaril 30 mg at bedtime, and Paxil 20 mg daily. IMPRESSION: Depression and anxiety by history, adjustment disorder, with depression and anxiety, current hospitalization RECOMMENDATIONS: I recommended she has been changed determine the patient's psychiatric medication doses. This can be done by pharmacy or directly by Dr. Thorne. These medications can be resumed as the patient reports compliance with medication; however, obviously benzo medications such as Seroquel should be held as the patient appears to be sedated or disoriented as she does not appear this morning. Psychiatry will sign off at this time. Reconsult p.r.n. if there any acute psychiatric issues . Geri Talamantes MD
[2018-05-13] MEDS: Levalbuterol 0.63 MG/3 ML Inhal Soln UD IH SCH (21:00)
[2018-05-13] MEDS: Acetylcysteine 20% Inhal Soln (4ml) IH SCH (21:00)
[2018-05-13] MEDS ORDERED: Levalbuterol 1.25 MG/3 ML Inhal Soln UD IH PRN (21:15)
[2018-05-13] MEDS: TEMAZEPAM 30 MG PO SCH (22:30)
[2018-05-13 23:22] LABS: ARTERIAL BLOOD GAS HCO3 18.8 mmol/L (21-28); ARTERIAL BLOOD GAS HEMOGLOBIN 10.6 g/dL (11.7-17.4); ARTERIAL BLOOD GAS O2 CAPACITY 14.7 mL/dl (16-24); ARTERIAL BLOOD GAS O2 SAT 95.5 % (95-98); ARTERIAL BLOOD GAS PCO2 42 mm/Hg (35-45); ARTERIAL BLOOD GAS PH 7.26 (7.35-7.45); ARTERIAL BLOOD GAS TCO2 20.1 mmol.L (22-28)
--- NOTE | 2018-05-13 23:55 | HP ---
DATE OF EXAM: 05/13/2018 HISTORY OF PRESENT ILLNESS: The patient is a 57-year-old morbidly obese female. The patient presented to the emergency room complaining of weakness and dizziness. The patient came to the ER via the EMS ambulance. According to the ER physician evaluation, the patient complained of generalized weakness, dizziness and numbness of the legs, headache. CODE STATUS: Full code. ADVANCE DIRECTIVE: None. ALLERGIES: ASPIRIN. Height is 5 feet. Weight is 285. BMI is 49. HOME MEDICATIONS: The patient's home medications which are listed in the home medication in [employer] does not appear to be 100% accurate. The patient's home medications as per the last office visit of 04/27/2018. The patient is on Amaryl 4 mg twice a day, Aricept 5 mg at bedtime, Brovana 15 mcg nebulizer twice a day, Cardizem CD 120 mg daily, Cozaar 50 mg daily, Crestor 20 mg daily, Dexilant 60 mg as needed, Drisdol 50,000 units weekly, Flonase nasal spray, Klonopin 2 mg four times a day, Lidoderm 5% patch to the affected area, Lovaza 2 capsules twice a day, Neurontin 300 mg three times a day, Paxil 20 mg daily, Pepcid 40 mg daily, Restoril 30 mg at bedtime, Seroquel 200 mg at bedtime, Singulair 10 mg daily, Spiriva Respimat one inhaler daily, Tresiba FlexTouch 30 units once a day, TobraDex ointment, Ultracet 1 tablet b.i.d., Ventolin HFA, Voltaren gel, Xopenex nebulizer 1.25 mg four times a day. The patient's home medications in the [employer] system was reviewed also. PAST MEDICAL AND SURGICAL HISTORY: History of advanced chronic obstructive pulmonary disease and sleep apnea, history of morbid obesity, history of insulin-requiring diabetes mellitus, history of hypertension, history of hyperlipidemia, history of pulmonary hypertension, history of hypertriglyceridemia, history of anxiety disorder, history of diabetic neuropathy, history of depression, history of insomnia, history of gait dysfunction, history of venous stasis of the lower extremity, history of diverticulosis, history of left upper extremity fracture and surgery, history of degenerative joint disease, history of tubal ligation. The patient's past medical history is significant for gastroenteritis, history of diabetic gastroparesis, history of oxygen and steroid dependent chronic obstructive pulmonary disease, history of super morbid obesity, depression, insomnia, history of hypovitaminosis D, history of hepatic steatosis and hepatomegaly, history of hypoxemia, history of deconditioning, history of uncontrolled diabetes mellitus, history of severe hypovitaminosis D, history of hyperuricemia, history of hypothyroidism, history of diverticulitis, history of left upper extremity open reduction and internal fixation, history of panic disorder, history of emphysema, history of fatty liver, history of fatty liver, history of hiatal hernia, history of atrophic pancreas and fatty atrophic pancreas, history of hepatomegaly, history of bilateral renal cyst, history of uncontrolled type 2 diabetes mellitus, history of bipolar disorder, history of bipolar spectrum disorder, history of major depression, history of generalized anxiety disorder, history of obesity, history of gastric ulcer, history of moderately heterogeneous echotexture, history of bilateral thyroid lobe echotexture, history of degenerative joint disease with left knee medial meniscus atrophy, history of hypertensive cardiovascular disease. The patient's menstrual history is postmenopausal. FAMILY HISTORY: Positive for diabetes, hypertension, obesity. SOCIAL HISTORY: Positive for former smoker. Denies alcohol. Denies drug use. Denies communicable transmissible disease. OCCUPATIONAL HISTORY: Disabled female. REVIEW OF SYSTEMS: A 14-system review was done, pertinent positive negative dictated above.. PHYSICAL EXAMINATION GENERAL: The patient was seen and examined. The patient is seen lying in the bed. VITAL SIGNS: T-max 98.7 to 98.9. Telemetry shows heart rate of 114, 109, 100, blood pressure 88/40, 84/42, 103/46, respiration 18, O2 sat 93% to 94%. HEENT: Head is normocephalic, atraumatic. HEENT examination shows pink conjunctivae. Anicteric sclerae. No oropharyngeal lesion. NECK: No neck rigidity. CHEST: Kyphosis. CARDIOPULMONARY: S1, S2, regular rhythm. Questionable soft systolic murmur, tachycardic rhythm. Positive systolic murmur at left sternal border, right second intercostal space, left second intercostal space. LUNGS: Shows decreased air entry. No audible crackle, rales or wheezing. ABDOMEN: Morbidly obese. No hepatosplenomegaly appreciated. GENITALIA: Female. RECTAL: Deferred. EXTREMITIES: Shows positive trace swelling of the lower extremity, poor foot hygiene, and enlarged toenails and extremely dry skin of the lower extremity. DIAGNOSTICS: CBC shows a WBC of 12.8 and 11.9, hemoglobin and hematocrit 12.5, 40.4, 12.7, 40.5, platelet 281 and 258. PT/PTT 14, 11.4, 28.9. D-dimer 226. Initial ABG; pH of 7.41, pCO2 54, pO2 100, bicarb 34. Lactate was 2.8. The patient had two more excessive repeat EKG. Repeat ABG, pH of 7.32, pCO2 59, pO2 69, bicarb 30. Other ABG shows pH of 7.28, pCO2 60, pO2 82, bicarb 28, saturation of 97%. Lactate level was 2.8, 2.2 and 1.6. Chemistry shows sodium 138, potassium 2.8, chloride 96, CO2 36, anion gap 9, BUN 11, creatinine 1.7, GFR 31, glucose 208, calcium 9.2. LFTs are normal. Troponin is negative. Procalcitonin level 0.24. Urinalysis was noted, 30 protein, trace ketones, small leukocyte esterase, trace bacteria. Influenza and Legionella pneumophila was negative. The patient had a CT of the head, chest x-ray, V/Q scan, the results of which were reviewed. EKG shows sinus tachycardia. The patient was seen in the emergency room by . The patient was treated in the emergency room with IV fluid, IV supplementation of electrolytes, IV fluid hydration. ER consulted the intensive care unit and shrimp peeler for hospitalization and admission to ICU. IMPRESSION: 1. Weakness and dizziness. 2. Severe hypotension and hypovolemia. 3. Sinus tachycardia. 4. Hypoxemia. 5. Tachycardia. 6. Refractory hypotension. 7. Leukocytosis. 8. Elevated D-dimer, etiology undetermined. 9. Respiratory acidosis with hypercarbia, CO2 narcosis and hypoxemia. 10. Lactic acidosis. 11. Respiratory acidosis, hypercarbia, and hypoxemia. 12. Severe symptomatic hypokalemia. 13. Metabolic alkalosis. 14. Acute kidney injury. 15. Hyperglycemia with uncontrolled insulin-requiring diabetes mellitus. 16. Refractory hypokalemia. 17. Hypertriglyceridemia. 18. Proteinuria, ketonuria, pyuria, bacteriuria. 19. Improved pansinusitis. 20. Questionable left lower lobe pneumonia versus left pleural effusion. 21. Sinus tachycardia. 22. Left anterior hemiblock. 23. History of insulin-requiring diabetes mellitus. 24. Advanced chronic obstructive pulmonary disease. 25. History of hypertension, hyperlipidemia, hypertriglyceridemia, history of anxiety, depression, bipolar spectrum disorder, history of hypertriglyceridemia, history of diabetic neuropathy, history of insomnia. PLAN: At this time, the patient is to be admitted to intensive care unit. The patient has been ordered repeat serial labs. She has been ordered blood and cultures. CONSULTATIONS: 1. Infectious Disease. 2. Cardiology. 3. Podiatry. 4. Psychiatry and pulmonary. CURRENT MEDICATIONS: Doxycycline 100 mg IV every 12. The patient will be started on bronchodilators. The patient will be started on DVT prophylaxis. The patient will be started on insulin sliding scale coverage, potassium has been supplemented by both IV and p.o. riders. The patient's Klonopin 2 mg q.i.d. has been ordered. The patient received lactate 3 liters in the ER. The patient is started on cefepime 2 g IV daily, Neurontin 300 twice three times a day, Paxil 20 mg daily, Protonix 40 mg daily, Pulmicort nebulizer 0.5 mg twice a day, Singulair 10 mg at bedtime, IV fluid 0.9 normal saline at 100 mL an hour. The patient is started on low-dose Solu-Medrol 20 mg IV every 8, Tamiflu 30 mg twice a day,Restoril 30 mg at bedtime, Tylenol p.r.n., vancomycin one dose 1 g and was given in the ER, Zofran 4 mg IV every 4 hours p.r.n. Chest portable has been ordered. The patient has been ordered BiPAP 16/6, 35% FIO2, rate of 14. Heart-healthy diet, WING, SCDs has been ordered. At present, the patient has been ordered repeat labs. The patient will be continued on broad-spectrum IV antibiotics, bronchodilators therapy. The patient will be continued to be monitored in ICU till the patient is stabilized. The patient's overall prognosis is guarded to poor. Condition is critical. Prognosis guarded. At present, the patient is admitted to Intensive Care Unit. The patient's further management will be dependent upon the patient's clinical condition, hemodynamic status and as per the patient response to therapeutic intervention, as per the patient's diagnostic test results, and as per recommendation by all the physician involved in the care of the patient. Time spent in the entire admission and management more than 1 hour 55 minutes. Dictated and electronically signed, not read. Christian Mireles MD
[2018-05-14] MEDS: Acetylcysteine 20% Inhal Soln (4ml) IH SCH ×4 (02:58→20:13)
[2018-05-14] MEDS: Levalbuterol 0.63 MG/3 ML Inhal Soln UD IH SCH ×4 (03:00→20:14)
[2018-05-14] MEDS: Pantoprazole 40 mg EC Tab PO SCH (06:09)
[2018-05-14] MEDS: Sodium Chloride 0.9% 1,000 ML IV SCH ×3 (06:13→21:41)
[2018-05-14 07:27] LABS: BASO # 0.01 K/mm3 (0.0-2.0); BASO % 0.1 % (0.0-3.0); EOS % 0.1 % (1.5-5.0); HEMOGLOBIN 12.5 g/dL (12.0-16.0); LYMPH # 0.7 (1.2-3.4); LYMPH % 8.3 % (22.0-35.0); MEAN CELL VOLUME 92.8 fl (80.0-105.0); MEAN CORPUSCULAR HGB CONC 31.3 g/dl (31.0-37.0); MONO # 0.2 (0.1-0.6); MONO % 2.4 % (1.0-6.0); RBC 4.31 10^6/uL (3.5-6.1); RED CELL DISTRIBUTION WIDTH 13.7 % (11.5-14.5); WHITE BLOOD COUNT 8.7 10^3/uL (4.5-11.0)
--- NOTE | 2018-05-14 07:27 | CP.PCM.PN ---
Subjective - Date & Time of Evaluation Date of Evaluation: 05/14/18 Time of Evaluation: 06:35 - Subjective Subjective: Patient seen and examined at bedside with BiPAP on. Patient states she slept with BiPAP on all night. She says she is no longer feeling dizzy or weak and would like to get out of bed as per Dr. Robb's orders. Physical Exam - Constitutional Appears: Non-toxic - Head Exam Head Exam: ATRAUMATIC, NORMAL INSPECTION, NORMOCEPHALIC - Eye Exam Eye Exam: EOMI, Normal appearance, PERRL. absent: Scleral icterus Pupil Exam: NORMAL ACCOMODATION - ENT Exam ENT Exam: Mucous Membranes Dry - Neck Exam Additional comments: supple - Respiratory Exam Respiratory Exam: Decreased Breath Sounds (lower lobes b/l), NORMAL BREATHING PATTERN. absent: Rales, Wheezes, rhonchi - Cardiovascular Exam Cardiovascular Exam: REGULAR RHYTHM, +S1, +S2. absent: Systolic Murmur - GI/Abdominal Exam GI & Abdominal Exam: Normal Bowel Sounds, Soft. absent: Firm, Rigid, Tenderness - Rectal Exam Rectal Exam: NORMAL INSPECTION - Exam External exam: NORMAL EXTERNAL EXAM - Extremities Exam Extremities exam: Positive for: pedal pulses present. Negative for: calf tenderness, pedal edema. Xerosis cutis of feet bilaterally - Back Exam Back exam: rash noted. absent: CVA tenderness (L), CVA tenderness (R) - Neurological Exam Neurological exam: Alert, Oriented x3 - Psychiatric Exam Psychiatric exam: Normal Affect, Normal Mood - Skin Skin Exam: Dry, Warm Additional comments: fungal rash under breasts bilaterally ,waist line and abdominal pannus, and Left groin. Left groin with ulceration and foul smell. No purulent discharge present Objective - Vital Signs/Intake and Output Vital Signs (last 24 hours): Temp Pulse Resp BP Pulse Ox 98.5 F 85 17 138/71 96 05/13/18 06:59 05/14/18 07:00 05/14/18 07:00 05/14/18 06:00 05/14/18 07:00 - Medications Medications: Current Medications Acetaminophen (Tylenol 325mg Tab) 650 mg PO Q6H PRN PRN Reason: Fever >100.4 F Last Admin: 05/14/18 06:11 Dose: 650 mg Acetaminophen (Tylenol 325mg Tab) 650 mg PO Q6 PRN PRN Reason: TEMP>=99.5F Acetaminophen (Tylenol 650 Mg Supp) 650 mg RC Q6H PRN PRN Reason: TEMP>=99.5F Acetylcysteine (Acetylcysteine 20%) 4 ml IH [id number] RIGOBERTO Last Admin: 05/14/18 02:58 Dose: 4 ml Budesonide (Pulmicort Respules) 0.5 mg IH BIDRESP RIGOBERTO Last Admin: 05/13/18 21:00 Dose: 0.5 mg Clonazepam (Klonopin) 2 mg PO QID RIGOBERTO; Protocol Last Admin: 05/13/18 23:06 Dose: 2 mg Gabapentin (Neurontin) 300 mg PO TID RIGOBERTO; Protocol Last Admin: 05/13/18 19:29 Dose: 300 mg Heparin Sodium (Porcine) (Heparin) 5,000 units SC Q8 RIGOBERTO; Protocol Last Admin: 05/14/18 06:13 Dose: 5,000 units Doxycycline Hyclate 100 mg/ (Sodium Chloride) 100 mls @ 100 mls/hr IVPB Q12 RIGOBERTO; Protocol Last Admin: 05/13/18 22:31 Dose: 100 mls/hr Sodium Chloride (Sodium Chloride 0.9%) 1,000 mls @ 100 mls/hr IV .Q10H RIGOBERTO Last Admin: 05/14/18 06:13 Dose: 100 mls/hr Cefepime HCl (Maxipime 2gm) 2 gm in 100 mls @ 100 mls/hr IVPB DAILY [facility]; Protocol Stop: 05/18/18 10:01 Last Admin: 05/13/18 10:38 Dose: 100 mls/hr Insulin Human Regular (Humulin R Med) 0 units SC ACHS [facility]; Protocol Last Admin: 05/13/18 22:51 Dose: Not Given Levalbuterol HCl (Xopenex) 0.63 mg IH [id number] RIGOBERTO Last Admin: 05/14/18 03:00 Dose: 0.63 mg Levalbuterol HCl (Xopenex) 1.25 mg IH Q2H PRN PRN Reason: Shortness of Breath Methylprednisolone (Solu-Medrol) 20 mg IVP Q8H RIGOBERTO Last Admin: 05/13/18 22:32 Dose: 20 mg Montelukast Sodium (Singulair) 10 mg PO HS RIGOBERTO Last Admin: 05/13/18 22:37 Dose: 10 mg Temazepam [Restoril] (30 Mg- Home Med) 30 mg PO HS [facility] Last Admin: 05/13/18 22:30 Dose: 30 mg Nystatin/Triamcinolone Acetonide (Nystatin/Triamcinolone Cream) 1 ea TOP BID [facility] Last Admin: 05/13/18 10:08 Dose: 1 t12 Ondansetron HCl (Zofran Inj) 4 mg IVP Q4H PRN PRN Reason: Nausea/Vomiting Oseltamivir Phosphate (Tamiflu Cap) 30 mg PO BID [facility]; Protocol Stop: 05/18/18 13:28 Last Admin: 05/13/18 19:31 Dose: 30 mg Pantoprazole Sodium (Protonix Ec Tab) 40 mg PO 0600 [facility] Last Admin: 05/14/18 06:09 Dose: 40 mg Paroxetine HCl (Paxil) 20 mg PO DAILY [facility] Last Admin: 05/13/18 10:38 Dose: 20 mg - Labs Labs: 05/13/18 09:00 05/13/18 09:00 PT 11.4 SECONDS (9.4-12.5) 05/13/18 01:30 INR 1.03 05/13/18 01:30 APTT 28.9 Seconds (26.9-38.3) 05/13/18 01:30 - Head Exam Head Exam: ATRAUMATIC - Eye Exam Eye Exam: Normal appearance - ENT Exam ENT Exam: Mucous Membranes Dry - Respiratory Exam Respiratory Exam: Decreased Breath Sounds. absent: Rhonchi, Wheezes - Cardiovascular Exam Cardiovascular Exam: REGULAR RHYTHM, +S1, +S2 - GI/Abdominal Exam GI & Abdominal Exam: Soft - Neurological Exam Neurological Exam: Alert, Awake, Oriented x3 - Skin Skin Exam: Dry, Warm Assessment and Plan - Assessment and Plan (Free Text) Assessment: Ms. 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 She has worsened cellulitis on L groin with foul smell, decreased breath sound likely CAP. SBP 80-90 currently receiving 4L fluid bolus with lactate 2.8. Plan Neuro - tylenol prn for fever control - aaox3 - hold benzo and anxiety meds due to hypotension Pulm - NC PRN to maintain SaO2 88-92% - duoneb q6 - HOB 35 PRN - Continue singular, budesonide Card - Hold hypertensive medicine - continue fluid bolus. If SBP persist, will consider levophed and stress dose steroid - trend trops. Cardio consult per primary GI - Protonix for prophylaxis - Heart healthy carb controlled diet Renal - CONCEPCION, likely prerenal. fluid challenge for now. strict i.o. trend bmp - hold losartan endo - ISS - fingerstick qACHS ID - ID consult - Continue with vancomycin cefepime and doxycycline for both cellulitis and CAP - nystatin/triamcinolon cream for fungal rash - follow up blood/urine cultures, procalc, mrsa screen, pna work up - pending 2nd lactate Heme - pending V/Q. Per ED: The isotope is not delivered to [facility] till 6am Dermatologic -xerosis cutis -Podiatry consulted DVT pvx = heparin GI pvx = protonix Plan: Ms. 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 She has worsened cellulitis on L groin with foul smell, decreased breath sound likely CAP. SBP 80-90 currently receiving 4L fluid bolus with lactate 2.8. Plan Neuro/Psych - tylenol prn for fever control - aaox3 - Psychiatry consulted for history of Bipolar disorder and depression Pulm - NC PRN to maintain SaO2 88-92% - duoneb q6 - HOB 35 PRN - Continue singular, budesonide, solumderol Cardiac - Clonidine resumed - Maintain MAP >65 GI - Protonix for prophylaxis - Heart healthy carb controlled diet Renal - CONCEPCION, likely prerenal. fluid challenge for now. strict i.o. trend bmp - hold losartan endo - ISS-High - fingerstick qACHS - Levemir 15 qHS ID - ID consult - Continue tamiflu, doxycycline, and cefepime for a total of 5 days Heme - V/Q negative for PE Dermatologic -xerosis cutis -Podiatry consulted; foot care as per podiatry -Lotrimine to be applied to face and arms DVT pvx = heparin GI pvx = protonix
[2018-05-14] MEDS: Budesonide 0.5 mg/2 ml Inhal Susp UD IH SCH ×2 (07:32→20:14)
--- NOTE | 2018-05-14 07:40 | CON ---
DATE: 05/13/2018 HISTORY: The patient is a 57-year-old woman who presented with dizziness. She was found to have infection of the right groin. The patient's past medical history includes hypercholesterolemia, hypertension and diabetes mellitus and is morbidly obese. She complains of intermittent chest pain but no shortness of breath. SOCIAL HISTORY: Denies smoking. REVIEW OF SYSTEMS: Currently the patient is comfortable and denies any cardiac symptomatology. PHYSICAL EXAM: VITAL SIGNS: Blood pressure is 94/50, heart rate is in the 90s. NECK: Negative JVD. LUNGS: Without rales. Decreased breath sounds. HEART: S1, S2. EXTREMITIES: Trace edema. LABORATORY: BUN and creatinine 11 and 1.9. Troponins are negative x2. The hemoglobin is 12.7. IMPRESSION 1. Transient hypotension. 2. Skin infection. 3. Diabetes mellitus. 4. Hypertension. 5. Hypercholesterolemia. 6. Morbid obesity. The patient's echo showed normal LV function. Given these findings, we will continue IV fluids and antibiotics. Helder Greenfield MD
--- NOTE | 2018-05-14 07:47 | RAD ---
Date of service: 05/14/2018 HISTORY: follow up COMPARISON: Portable chest 05/13/2018. FINDINGS: LUNGS: Linear atelectasis left base. No infiltrates bilaterally. PLEURA: No significant pleural effusion identified, no pneumothorax apparent. CARDIOVASCULAR: No aortic atherosclerotic calcification present. Normal cardiac size. No pulmonary vascular congestion. OSSEOUS STRUCTURES: No significant abnormalities. VISUALIZED UPPER ABDOMEN: Normal. OTHER FINDINGS: None. IMPRESSION: Linear atelectasis left base. No definite acute infiltrate pleural effusion or pneumothorax appreciated bilaterally.
[2018-05-14 08:00] LABS: ALB/GLOB RATIO 1.1 (1.1-1.8); ALBUMIN 3.2 g/dL (3.0-4.8); BILIRUBIN,DIRECT 0.3 mg/dL (0.0-0.4); CALCIUM 8.8 mg/dL (8.4-10.5)
[2018-05-14] MEDS: Insulin Reg-MEDIUM-Coverage SC SCH (08:46)
[2018-05-14] MEDS ORDERED: Dextrose 50% SYRINGE Inj (50 ml) IV PRN (09:56)
[2018-05-14] MEDS ORDERED: Clotrimazole/Betamethasone Lotion(30 ml) TOP SCH (10:00)
[2018-05-14] MEDS ORDERED: Ammonium Lactate 12% Cream (140 g) TOP SCH (10:00)
[2018-05-14] MEDS ORDERED: Potassium Phosphate 15 MMOLE in Sodium Chloride 0.9% 250 ML IVPB ONE (10:00)
--- NOTE | 2018-05-14 10:03 | CP.CCUPN ---
<Yadira Raza - Last Filed: 05/14/18 16:27> CCU Subjective - Physician Review Subjective (Free Text): Yadira Raza, PGY-1, CCU Progress Note for Dr. Zavala Patient seen and examined at bedside. Patient reports erythematous rash under left breast on in left inguinal fold. Patient reports headache this morning. Patient denies present fever, coughing, dizziness, chest pain, shortness of breath, nausea, vomiting, constipation, diarrhea. 12-point ROS was unremarkable except for what was mentioned above. CCU Objective - Vital Signs / Intake & Output Vital Signs (Last 4 hours): Vital Signs Pulse Resp Pulse Ox 05/14/18 07:00 85 17 96 05/14/18 06:50 88 23 95 05/14/18 06:40 93 H 24 94 L 05/14/18 06:30 91 H 19 97 05/14/18 06:20 95 H 28 H 96 05/14/18 06:10 91 H 26 H 94 L Intake and Output (Last 8hrs): Intake & Output 05/13/18 05/14/18 05/14/18 22:59 06:59 14:59 Intake Total 670 Output Total 100 Balance 570 Intake: Oral 420 Other 250 Output: Urine 100 Urine, Voided 100 Other: # Voids Urine, Voided 1 - Physical Exam Head: Positive for: Atraumatic, Normocephalic Pupils: Positive for: PERRL Extroacular Muscles: Positive for: EOMI Conjunctiva: Positive for: Normal Mouth: Positive for: Moist Mucous Membranes Neck: Positive for: Normal Range of Motion Respiratory/Chest: Positive for: Clear to Auscultation. Negative for: Good Air Exchange (Poor air entry bilaterally), Respiratory Distress, Accessory Muscle Use Cardiovascular: Positive for: Regular Rate and Rhythm, Normal S1, S2. Negative for: Murmurs Abdomen: Negative for: Tenderness, Distention, Peritoneal Signs Breast/Axillary: Positive for: Erythema (under left breast) Back: Positive for: Normal Inspection Upper Extremity: Positive for: Normal Inspection. Negative for: Cyanosis, Edema Lower Extremity: Positive for: Normal Inspection. Negative for: Edema Neurological: Positive for: GCS=15, CN II-XII Intact, Speech Normal Skin: Positive for: Warm, Dry, Rashes (noted to groin), Normal Color Psychiatric: Positive for: Alert, Oriented x 3, Normal Insight, Normal Concentration - Medications Active Medications: Active Medications Generic Name Dose Route Start Last Admin Trade Name Freq PRN Reason Stop Dose Admin Acetaminophen 650 mg 05/13/18 05:09 05/14/18 06:11 Tylenol 325mg Tab PO 650 mg Q6H PRN Administration Fever >100.4 F Acetaminophen 650 mg 05/13/18 06:49 Tylenol 325mg Tab PO Q6 PRN TEMP>=99.5F Acetaminophen 650 mg 05/13/18 06:49 Tylenol 650 Mg Supp RC Q6H PRN TEMP>=99.5F Acetylcysteine 4 ml 05/13/18 21:30 05/14/18 07:32 Acetylcysteine 20% IH 4 ml [id number] RIGOBERTO Administration Betamethasone/Clotrimazole 0 ml 05/14/18 10:00 Lotrisone TOP BID RIGOBERTO Budesonide 0.5 mg 05/13/18 08:00 05/14/18 07:32 Pulmicort Respules IH 0.5 mg BIDRESP RIGOBERTO Administration Clonazepam 2 mg 05/13/18 10:00 05/13/18 23:06 Klonopin PO 2 mg QID RIGOBERTO Administration Protocol Clotrimazole 10 gm 05/14/18 10:00 Lotrimin 1% TOP BID RIGOBERTO Dextrose 0 ml 05/14/18 09:56 Dextrose 50% Inj IV STAT PRN Hypoglycemia Protocol Protocol Gabapentin 300 mg 05/13/18 10:00 05/13/18 19:29 Neurontin PO 300 mg TID RIGOBERTO Administration Protocol Heparin Sodium (Porcine) 5,000 units 05/13/18 14:00 05/14/18 06:13 Heparin SC 5,000 units Q8 RIGOBERTO Administration Protocol Doxycycline Hyclate 100 mg/ 100 mls @ 100 mls/hr 05/13/18 10:00 05/13/18 22:31 Sodium Chloride IVPB 100 mls/hr Q12 RIGOBERTO Administration Protocol Sodium Chloride 1,000 mls @ 100 mls/hr 05/13/18 05:30 05/14/18 06:13 Sodium Chloride 0.9% IV 100 mls/hr .Q10H RIGOBERTO Administration Cefepime HCl 2 gm in 100 mls @ 100 mls/hr 05/13/18 10:00 05/13/18 10:38 Maxipime 2gm IVPB 05/18/18 10:01 100 mls/hr DAILY RIGOBERTO Administration Protocol Dextrose 1,000 mls @ 0 mls/hr 05/14/18 09:56 Dextrose 5% In Water 1000 Ml IV .Q0M PRN Hypoglycemia Protocol Protocol Per Protocol Potassium Phosphate 15 mmole/ 255 mls @ 42.5 mls/hr 05/14/18 10:00 Sodium Chloride IVPB 05/14/18 15:59 ONCE ONE Insulin Human Regular 0 units 05/14/18 11:30 Humulin R High SC ACHS RIGOBERTO Protocol Lactic Acid 10 ea 05/14/18 10:00 Lac-Hydrin 12% Cream (140 G) TOP DAILY RIGOBERTO Levalbuterol HCl 0.63 mg 05/13/18 21:30 05/14/18 07:32 Xopenex IH 0.63 mg [id number] RIGOBERTO Administration Levalbuterol HCl 1.25 mg 05/13/18 21:15 Xopenex IH Q2H PRN Shortness of Breath Methylprednisolone 20 mg 05/13/18 14:15 05/13/18 22:32 Solu-Medrol IVP 20 mg Q8H RIGOBERTO Administration Montelukast Sodium 10 mg 05/13/18 22:00 05/13/18 22:37 Singulair PO 10 mg HS RIGOBERTO Administration Multi-Ingredient Ointment 10 gm 05/14/18 10:00 Hydrophor Oint TOP DAILY RIGOBERTO Temazepam [Restoril] 30 mg 05/13/18 22:00 05/13/18 22:30 30 Mg- Home Med PO 30 mg HS RIGOBERTO Administration Nystatin/Triamcinolone Acetonide 1 ea 05/13/18 03:30 05/13/18 10:08 Nystatin/Triamcinolone Cream TOP 1 t12 BID RIGOBERTO Administration Ondansetron HCl 4 mg 05/13/18 06:49 Zofran Inj IVP Q4H PRN Nausea/Vomiting Oseltamivir Phosphate 30 mg 05/13/18 18:00 05/13/18 19:31 Tamiflu Cap PO 05/18/18 13:28 30 mg BID RIGOBERTO Administration Protocol Pantoprazole Sodium 40 mg 05/13/18 06:00 05/14/18 06:09 Protonix Ec Tab PO 40 mg 0600 RIGOBERTO Administration Paroxetine HCl 20 mg 05/13/18 10:00 05/13/18 10:38 Paxil PO 20 mg DAILY RIGOBERTO Administration - Patient Studies Lab Studies: Microbiology Studies 05/13/18 01:25 Urine Culture - Final Urine,Clean Catch No Growth (<1,000 CFU/ML) 05/13/18 03:10 Blood Culture - Preliminary Blood-Venous NO GROWTH AFTER 24 HOURS 05/13/18 02:40 Blood Culture - Preliminary Blood-Venous NO GROWTH AFTER 24 HOURS Lab Studies 05/14/18 05/14/18 05/14/18 Range/Units 06:50 06:50 06:50 WBC 8.7 D (4.5-11.0) 10^3/uL RBC 4.31 (3.5-6.1) 10^6/uL Hgb 12.5 (12.0-16.0) g/dL Hct 40.0 (36.0-48.0) % MCV 92.8 (80.0-105.0) fl MCH 29.0 (25.0-35.0) pg MCHC 31.3 (31.0-37.0) g/dl RDW 13.7 (11.5-14.5) % Plt Count 230 (120.0-450.0) 10^3/uL MPV 12.0 H (7.0-11.0) fl Neut % (Auto) 89.1 H (50.0-68.0) % Lymph % (Auto) 8.3 L (22.0-35.0) % [place] % (Auto) 2.4 (1.0-6.0) % Eos % (Auto) 0.1 L (1.5-5.0) % Baso % (Auto) 0.1 (0.0-3.0) % Lymph # (Auto) 0.7 L (1.2-3.4) [place] # (Auto) 0.2 (0.1-0.6) Eos # (Auto) 0.0 (0.0-0.7) Baso # (Auto) 0.01 (0.0-2.0) K/mm3 Absolute Neuts (auto) 7.70 H (1.4-6.5) pCO2 (35-45) mm/Hg pO2 (80-100) mm/Hg HCO3 (21-28) mmol/L ABG pH (7.35-7.45) ABG Total CO2 (22-28) mmol.L ABG O2 Saturation (95-98) % ABG O2 Content (15-23) ML/dl ABG Base Excess (-2.0-3.0) mmol/L ABG Hemoglobin (11.7-17.4) g/dL ABG Carboxyhemoglobin (0.5-1.5) % POC ABG HHb (Measured) (0-5) % ABG Methemoglobin (0.0-3.0) % ABG O2 Capacity (16-24) mL/dl Hgb O2 Saturation (95.0-98.0) % FiO2 % Sodium 141 (132-148) mmol/L Potassium 5.0 (3.6-5.0) mmol/L Chloride 107 (98-107) mmol/L Carbon Dioxide 30 (21-33) mmol/L Anion Gap 9 L (10-20) BUN 13 (7-21) mg/dL Creatinine 1.5 H (0.7-1.2) mg/dl Est GFR ( Amer) 43 Est GFR (Non-Af Amer) 36 POC Glucose (mg/dL) (65-110) mg/dL Random Glucose 302 H* D (70-110) mg/dL Lactic Acid 1.3 (0.7-2.1) mmol/L Calcium 8.8 (8.4-10.5) mg/dL Phosphorus 1.7 L (2.5-4.5) mg/dL Magnesium 1.8 (1.7-2.2) mg/dL Total Bilirubin 0.6 (0.2-1.3) mg/dL Direct Bilirubin 0.3 (0.0-0.4) mg/dL AST 21 (14-36) U/L ALT 43 (7-56) U/L Alkaline Phosphatase 81 (38-126) U/L Total Creatine Kinase (35-230) U/L Troponin I ng/mL Total Protein 6.0 (5.8-8.3) g/dL Albumin 3.2 (3.0-4.8) g/dL Globulin 2.8 gm/dL Albumin/Globulin Ratio 1.1 (1.1-1.8) Procalcitonin (0.19-0.49) NG/ML Ur L.pneumophila Ag (NEGATIVE) 05/13/18 05/13/18 05/13/18 Range/Units 23:00 21:08 19:00 WBC (4.5-11.0) 10^3/uL RBC (3.5-6.1) 10^6/uL Hgb (12.0-16.0) g/dL Hct (36.0-48.0) % MCV (80.0-105.0) fl MCH (25.0-35.0) pg MCHC (31.0-37.0) g/dl RDW (11.5-14.5) % Plt Count (120.0-450.0) 10^3/uL MPV (7.0-11.0) fl Neut % (Auto) (50.0-68.0) % Lymph % (Auto) (22.0-35.0) % [place] % (Auto) (1.0-6.0) % Eos % (Auto) (1.5-5.0) % Baso % (Auto) (0.0-3.0) % Lymph # (Auto) (1.2-3.4) [place] # (Auto) (0.1-0.6) Eos # (Auto) (0.0-0.7) Baso # (Auto) (0.0-2.0) K/mm3 Absolute Neuts (auto) (1.4-6.5) pCO2 42 (35-45) mm/Hg pO2 68.0 L (80-100) mm/Hg HCO3 18.8 L (21-28) mmol/L ABG pH 7.26 L (7.35-7.45) ABG Total CO2 20.1 L (22-28) mmol.L ABG O2 Saturation 95.5 (95-98) % ABG O2 Content 14.0 L (15-23) ML/dl ABG Base Excess -7.8 L (-2.0-3.0) mmol/L ABG Hemoglobin 10.6 L (11.7-17.4) g/dL ABG Carboxyhemoglobin 1.7 H (0.5-1.5) % POC ABG HHb (Measured) 4.4 (0-5) % ABG Methemoglobin 0.5 (0.0-3.0) % ABG O2 Capacity 14.7 L (16-24) mL/dl Hgb O2 Saturation 93.4 L (95.0-98.0) % FiO2 28.0 % Sodium (132-148) mmol/L Potassium (3.6-5.0) mmol/L Chloride (98-107) mmol/L Carbon Dioxide (21-33) mmol/L Anion Gap (10-20) BUN (7-21) mg/dL Creatinine (0.7-1.2) mg/dl Est GFR ( Amer) Est GFR (Non-Af Amer) POC Glucose (mg/dL) 293 H (65-110) mg/dL Random Glucose (70-110) mg/dL Lactic Acid (0.7-2.1) mmol/L Calcium (8.4-10.5) mg/dL Phosphorus (2.5-4.5) mg/dL Magnesium (1.7-2.2) mg/dL Total Bilirubin (0.2-1.3) mg/dL Direct Bilirubin (0.0-0.4) mg/dL AST (14-36) U/L ALT (7-56) U/L Alkaline Phosphatase (38-126) U/L Total Creatine Kinase (35-230) U/L Troponin I < 0.01 ng/mL Total Protein (5.8-8.3) g/dL Albumin (3.0-4.8) g/dL Globulin gm/dL Albumin/Globulin Ratio (1.1-1.8) Procalcitonin (0.19-0.49) NG/ML Ur L.pneumophila Ag (NEGATIVE) 05/13/18 05/13/18 05/13/18 Range/Units 17:37 16:20 14:20 WBC (4.5-11.0) 10^3/uL RBC (3.5-6.1) 10^6/uL Hgb (12.0-16.0) g/dL Hct (36.0-48.0) % MCV (80.0-105.0) fl MCH (25.0-35.0) pg MCHC (31.0-37.0) g/dl RDW (11.5-14.5) % Plt Count (120.0-450.0) 10^3/uL MPV (7.0-11.0) fl Neut % (Auto) (50.0-68.0) % Lymph % (Auto) (22.0-35.0) % [place] % (Auto) (1.0-6.0) % Eos % (Auto) (1.5-5.0) % Baso % (Auto) (0.0-3.0) % Lymph # (Auto) (1.2-3.4) [place] # (Auto) (0.1-0.6) Eos # (Auto) (0.0-0.7) Baso # (Auto) (0.0-2.0) K/mm3 Absolute Neuts (auto) (1.4-6.5) pCO2 60 H (35-45) mm/Hg pO2 82.0 (80-100) mm/Hg HCO3 28.2 H (21-28) mmol/L ABG pH 7.28 L (7.35-7.45) ABG Total CO2 30.0 H (22-28) mmol.L ABG O2 Saturation 97.5 (95-98) % ABG O2 Content 14.3 L (15-23) ML/dl ABG Base Excess 0.6 (-2.0-3.0) mmol/L ABG Hemoglobin 10.6 L (11.7-17.4) g/dL ABG Carboxyhemoglobin 1.7 H (0.5-1.5) % POC ABG HHb (Measured) 2.4 (0-5) % ABG Methemoglobin 0.6 (0.0-3.0) % ABG O2 Capacity 14.7 L (16-24) mL/dl Hgb O2 Saturation 95.3 (95.0-98.0) % FiO2 32.0 % Sodium (132-148) mmol/L Potassium (3.6-5.0) mmol/L Chloride (98-107) mmol/L Carbon Dioxide (21-33) mmol/L Anion Gap (10-20) BUN (7-21) mg/dL Creatinine (0.7-1.2) mg/dl Est GFR ( Amer) Est GFR (Non-Af Amer) POC Glucose (mg/dL) 168 H (65-110) mg/dL Random Glucose (70-110) mg/dL Lactic Acid (0.7-2.1) mmol/L Calcium (8.4-10.5) mg/dL Phosphorus (2.5-4.5) mg/dL Magnesium (1.7-2.2) mg/dL Total Bilirubin (0.2-1.3) mg/dL Direct Bilirubin (0.0-0.4) mg/dL AST (14-36) U/L ALT (7-56) U/L Alkaline Phosphatase (38-126) U/L Total Creatine Kinase 178 (35-230) U/L Troponin I < 0.01 ng/mL Total Protein (5.8-8.3) g/dL Albumin (3.0-4.8) g/dL Globulin gm/dL Albumin/Globulin Ratio (1.1-1.8) Procalcitonin (0.19-0.49) NG/ML Ur L.pneumophila Ag (NEGATIVE) 05/13/18 05/13/18 05/13/18 Range/Units 11:31 03:40 01:30 WBC (4.5-11.0) 10^3/uL RBC (3.5-6.1) 10^6/uL Hgb (12.0-16.0) g/dL Hct (36.0-48.0) % MCV (80.0-105.0) fl MCH (25.0-35.0) pg MCHC (31.0-37.0) g/dl RDW (11.5-14.5) % Plt Count (120.0-450.0) 10^3/uL MPV (7.0-11.0) fl Neut % (Auto) (50.0-68.0) % Lymph % (Auto) (22.0-35.0) % [place] % (Auto) (1.0-6.0) % Eos % (Auto) (1.5-5.0) % Baso % (Auto) (0.0-3.0) % Lymph # (Auto) (1.2-3.4) [place] # (Auto) (0.1-0.6) Eos # (Auto) (0.0-0.7) Baso # (Auto) (0.0-2.0) K/mm3 Absolute Neuts (auto) (1.4-6.5) pCO2 (35-45) mm/Hg pO2 (80-100) mm/Hg HCO3 (21-28) mmol/L ABG pH (7.35-7.45) ABG Total CO2 (22-28) mmol.L ABG O2 Saturation (95-98) % ABG O2 Content (15-23) ML/dl ABG Base Excess (-2.0-3.0) mmol/L ABG Hemoglobin (11.7-17.4) g/dL ABG Carboxyhemoglobin (0.5-1.5) % POC ABG HHb (Measured) (0-5) % ABG Methemoglobin (0.0-3.0) % ABG O2 Capacity (16-24) mL/dl Hgb O2 Saturation (95.0-98.0) % FiO2 % Sodium (132-148) mmol/L Potassium (3.6-5.0) mmol/L Chloride (98-107) mmol/L Carbon Dioxide (21-33) mmol/L Anion Gap (10-20) BUN (7-21) mg/dL Creatinine (0.7-1.2) mg/dl Est GFR ( Amer) Est GFR (Non-Af Amer) POC Glucose (mg/dL) 176 H (65-110) mg/dL Random Glucose (70-110) mg/dL Lactic Acid (0.7-2.1) mmol/L Calcium (8.4-10.5) mg/dL Phosphorus (2.5-4.5) mg/dL Magnesium (1.7-2.2) mg/dL Total Bilirubin (0.2-1.3) mg/dL Direct Bilirubin (0.0-0.4) mg/dL AST (14-36) U/L ALT (7-56) U/L Alkaline Phosphatase (38-126) U/L Total Creatine Kinase (35-230) U/L Troponin I ng/mL Total Protein (5.8-8.3) g/dL Albumin (3.0-4.8) g/dL Globulin gm/dL Albumin/Globulin Ratio (1.1-1.8) Procalcitonin 0.24 (0.19-0.49) NG/ML Ur L.pneumophila Ag Negative (NEGATIVE) 05/13/18 Range/Units 00:37 WBC (4.5-11.0) 10^3/uL RBC (3.5-6.1) 10^6/uL Hgb (12.0-16.0) g/dL Hct (36.0-48.0) % MCV (80.0-105.0) fl MCH (25.0-35.0) pg MCHC (31.0-37.0) g/dl RDW (11.5-14.5) % Plt Count (120.0-450.0) 10^3/uL MPV (7.0-11.0) fl Neut % (Auto) (50.0-68.0) % Lymph % (Auto) (22.0-35.0) % [place] % (Auto) (1.0-6.0) % Eos % (Auto) (1.5-5.0) % Baso % (Auto) (0.0-3.0) % Lymph # (Auto) (1.2-3.4) [place] # (Auto) (0.1-0.6) Eos # (Auto) (0.0-0.7) Baso # (Auto) (0.0-2.0) K/mm3 Absolute Neuts (auto) (1.4-6.5) pCO2 (35-45) mm/Hg pO2 (80-100) mm/Hg HCO3 (21-28) mmol/L ABG pH (7.35-7.45) ABG Total CO2 (22-28) mmol.L ABG O2 Saturation (95-98) % ABG O2 Content (15-23) ML/dl ABG Base Excess (-2.0-3.0) mmol/L ABG Hemoglobin (11.7-17.4) g/dL ABG Carboxyhemoglobin (0.5-1.5) % POC ABG HHb (Measured) (0-5) % ABG Methemoglobin (0.0-3.0) % ABG O2 Capacity (16-24) mL/dl Hgb O2 Saturation (95.0-98.0) % FiO2 % Sodium (132-148) mmol/L Potassium (3.6-5.0) mmol/L Chloride (98-107) mmol/L Carbon Dioxide (21-33) mmol/L Anion Gap (10-20) BUN (7-21) mg/dL Creatinine (0.7-1.2) mg/dl Est GFR ( Amer) Est GFR (Non-Af Amer) POC Glucose (mg/dL) 220 H (65-110) mg/dL Random Glucose (70-110) mg/dL Lactic Acid (0.7-2.1) mmol/L Calcium (8.4-10.5) mg/dL Phosphorus (2.5-4.5) mg/dL Magnesium (1.7-2.2) mg/dL Total Bilirubin (0.2-1.3) mg/dL Direct Bilirubin (0.0-0.4) mg/dL AST (14-36) U/L ALT (7-56) U/L Alkaline Phosphatase (38-126) U/L Total Creatine Kinase (35-230) U/L Troponin I ng/mL Total Protein (5.8-8.3) g/dL Albumin (3.0-4.8) g/dL Globulin gm/dL Albumin/Globulin Ratio (1.1-1.8) Procalcitonin (0.19-0.49) NG/ML Ur L.pneumophila Ag (NEGATIVE) Laboratory Results - last 24 hr 05/13/18 05/13/18 05/13/18 00:37 01:30 03:40 WBC RBC Hgb Hct MCV MCH MCHC RDW Plt Count MPV Neut % (Auto) Lymph % (Auto) [place] % (Auto) Eos % (Auto) Baso % (Auto) Lymph # (Auto) [place] # (Auto) Eos # (Auto) Baso # (Auto) Absolute Neuts (auto) pCO2 pO2 HCO3 ABG pH ABG Total CO2 ABG O2 Saturation ABG O2 Content ABG Base Excess ABG Hemoglobin ABG Carboxyhemoglobin POC ABG HHb (Measured) ABG Methemoglobin ABG O2 Capacity Hgb O2 Saturation FiO2 Sodium Potassium Chloride Carbon Dioxide Anion Gap BUN Creatinine Est GFR ( Amer) Est GFR (Non-Af Amer) POC Glucose (mg/dL) 220 H Random Glucose Lactic Acid Calcium Phosphorus Magnesium Total Bilirubin Direct Bilirubin AST ALT Alkaline Phosphatase Total Creatine Kinase Troponin I Total Protein Albumin Globulin Albumin/Globulin Ratio Procalcitonin 0.24 Ur L.pneumophila Ag Negative 05/13/18 05/13/1819 11:31 14:20 16:20 WBC RBC Hgb Hct MCV MCH MCHC RDW Plt Count MPV Neut % (Auto) Lymph % (Auto) [place] % (Auto) Eos % (Auto) Baso % (Auto) Lymph # (Auto) [place] # (Auto) Eos # (Auto) Baso # (Auto) Absolute Neuts (auto) pCO2 pO2 HCO3 ABG pH ABG Total CO2 ABG O2 Saturation ABG O2 Content ABG Base Excess ABG Hemoglobin ABG Carboxyhemoglobin POC ABG HHb (Measured) ABG Methemoglobin ABG O2 Capacity Hgb O2 Saturation FiO2 Sodium Potassium Chloride Carbon Dioxide Anion Gap BUN Creatinine Est GFR ( Amer) Est GFR (Non-Af Amer) POC Glucose (mg/dL) 176 H 168 H Random Glucose Lactic Acid Calcium Phosphorus Magnesium Total Bilirubin Direct Bilirubin AST ALT Alkaline Phosphatase Total Creatine Kinase 178 Troponin I < 0.01 Total Protein Albumin Globulin Albumin/Globulin Ratio Procalcitonin Ur L.pneumophila Ag 05/13/18 05/13/18 05/13/18 17:37 19:00 21:08 WBC RBC Hgb Hct MCV MCH MCHC RDW Plt Count MPV Neut % (Auto) Lymph % (Auto) [place] % (Auto) Eos % (Auto) Baso % (Auto) Lymph # (Auto) [place] # (Auto) Eos # (Auto) Baso # (Auto) Absolute Neuts (auto) pCO2 60 H pO2 82.0 HCO3 28.2 H ABG pH 7.28 L ABG Total CO2 30.0 H ABG O2 Saturation 97.5 ABG O2 Content 14.3 L ABG Base Excess 0.6 ABG Hemoglobin 10.6 L ABG Carboxyhemoglobin 1.7 H POC ABG HHb (Measured) 2.4 ABG Methemoglobin 0.6 ABG O2 Capacity 14.7 L Hgb O2 Saturation 95.3 FiO2 32.0 Sodium Potassium Chloride Carbon Dioxide Anion Gap BUN Creatinine Est GFR ( Amer) Est GFR (Non-Af Amer) POC Glucose (mg/dL) 293 H Random Glucose Lactic Acid Calcium Phosphorus Magnesium Total Bilirubin Direct Bilirubin AST ALT Alkaline Phosphatase Total Creatine Kinase Troponin I < 0.01 Total Protein Albumin Globulin Albumin/Globulin Ratio Procalcitonin Ur L.pneumophila Ag 05/13/18 05/14/18 05/14/18 23:00 06:50 06:50 WBC 8.7 D RBC 4.31 Hgb 12.5 Hct 40.0 MCV 92.8 MCH 29.0 MCHC 31.3 RDW 13.7 Plt Count 230 MPV 12.0 H Neut % (Auto) 89.1 H Lymph % (Auto) 8.3 L [place] % (Auto) 2.4 Eos % (Auto) 0.1 L Baso % (Auto) 0.1 Lymph # (Auto) 0.7 L [place] # (Auto) 0.2 Eos # (Auto) 0.0 Baso # (Auto) 0.01 Absolute Neuts (auto) 7.70 H pCO2 42 pO2 68.0 L HCO3 18.8 L ABG pH 7.26 L ABG Total CO2 20.1 L ABG O2 Saturation 95.5 ABG O2 Content 14.0 L ABG Base Excess -7.8 L ABG Hemoglobin 10.6 L ABG Carboxyhemoglobin 1.7 H POC ABG HHb (Measured) 4.4 ABG Methemoglobin 0.5 ABG O2 Capacity 14.7 L Hgb O2 Saturation 93.4 L FiO2 28.0 Sodium 141 Potassium 5.0 Chloride 107 Carbon Dioxide 30 Anion Gap 9 L BUN 13 Creatinine 1.5 H Est GFR ( Amer) 43 Est GFR (Non-Af Amer) 36 POC Glucose (mg/dL) Random Glucose 302 H* D Lactic Acid Calcium 8.8 Phosphorus 1.7 L Magnesium 1.8 Total Bilirubin 0.6 Direct Bilirubin 0.3 AST 21 ALT 43 Alkaline Phosphatase 81 Total Creatine Kinase Troponin I Total Protein 6.0 Albumin 3.2 Globulin 2.8 Albumin/Globulin Ratio 1.1 Procalcitonin Ur L.pneumophila Ag 05/14/18 06:50 WBC RBC Hgb Hct MCV MCH MCHC RDW Plt Count MPV Neut % (Auto) Lymph % (Auto) [place] % (Auto) Eos % (Auto) Baso % (Auto) Lymph # (Auto) [place] # (Auto) Eos # (Auto) Baso # (Auto) Absolute Neuts (auto) pCO2 pO2 HCO3 ABG pH ABG Total CO2 ABG O2 Saturation ABG O2 Content ABG Base Excess ABG Hemoglobin ABG Carboxyhemoglobin POC ABG HHb (Measured) ABG Methemoglobin ABG O2 Capacity Hgb O2 Saturation FiO2 Sodium Potassium Chloride Carbon Dioxide Anion Gap BUN Creatinine Est GFR ( Amer) Est GFR (Non-Af Amer) POC Glucose (mg/dL) Random Glucose Lactic Acid 1.3 Calcium Phosphorus Magnesium Total Bilirubin Direct Bilirubin AST ALT Alkaline Phosphatase Total Creatine Kinase Troponin I Total Protein Albumin Globulin Albumin/Globulin Ratio Procalcitonin Ur L.pneumophila Ag Radiology Impressions: Radiology Impressions Chest X-Ray 05/13/18 00:40 IMPRESSION: No active disease. Chest X-Ray 05/13/18 07:00 IMPRESSION: Diminishing left basilar infiltrate with limited pleural effusion slightly increased. Lung Scan Nuclear Medicine 05/13/18 15:00 IMPRESSION: Low probability ventilation perfusion scan for pulmonary embolism. Chest X-Ray 05/14/18 06:00 IMPRESSION: Linear atelectasis left base. No definite acute infiltrate pleural effusion or pneumothorax appreciated bilaterally. Fingerstick Blood Sugar Results: 305 Review of Systems - Review of Systems Review of Systems: except as stated in HPI Critical Care Progress Note - Ventilator Checklist Head of Bed 30 Degrees: Yes PUD Prophalyxis: Yes DVT Prophylaxis: Yes - Nutrition Nutrition: Nutrition Category Date Time Status Heart Healthy Diet [DIET] Diets 05/13/18 Breakfast Active Assessment/Plan - Assessment and Plan (Free Text) Assessment: 57 year old female with past medical history of morbid obesity, COPD on 2L of oxygen, diabetes mellitus type II, hypertension, GERD, anxiety, depression presented with the diagnosis of distributive shock likely from sepsis from pneumonia vs. cellulitis initially treated with multiple fluid boluses and currently being treated with vancomycin, doxycycline, and cefepime day 2. Plan: Neuro: -AAOx3, no FND, moving extremities past midline. -Restarted home paxil, restoril, clonipin as blood pressure has been stable. -Monitor neuro status. -Reorient patient as necessary. Cardio: Hypotension possibly 2/2 to sepsis from CAP -RRR, normotensive, no signs of current HD compromise -EKG 05/13: sinus tachycardia with left axis deviation with HR: 109 -Troponin: <0.01 -Echocardiogram from 11/2017 showed LVEF of 62% -Status post 1 L of NS and 3 L of lactated ringer yesterday -Continue NS at 100 cc/hr -Maintain MAP>65. -Monitor for S/S, HD compromise. Pulm: COPD -ABG 05/13: pH: 7.26 rom 7.28, pO2: 68 from 82, pCO2: 42 from 60, lactate: 1.6 -CXR 05/14: linear atelectasis left base, no definite acute infiltrate pleural effusion or pneumothorax -Patient is stating well on room air. -Maintain O2 saturation>90%. -O2 NC, BiPap PRN -Continue with duonebs Q6PRN, pulmicort 0.5 BID, solumedrol 20 mg Q8 Pneumonia -CXR 05/14: linear atelectasis left base, no definite acute infiltrate pleural effusion or pneumothorax -Continue with vancomycin, doxycycline, and cefepime day 2. GI: Diet -HHD with CCD GI prophylaxis -Protonix 40 mg daily /Nephro: CONCEPCION -BUN/Cr stable at 13/1.5 from 11/1.9 yesterday. Baseline creatinine is 1.0 -UA: 30 protein, trace ketones, small LE, 0-2 RBC, 5-10 WBC, many epithelial cell, trace bacteria. This is likely a contaminated sample -Good urine output -Continue monitoring. -Replete electrolytes as needed. -Maintain euvolemia. Endocrinology: Diabetes mellitus type II -Random glucose: 302 -Started high sliding scale insulin -Maintain euglycemia. Heme/Onc: -H/H stable at 12.5/40 -No signs of HD compromise. -Continue monitoring H/H Elevated D-dimer -D-dimer: 266 -V/Q scan: low probability for PE DVT prophylaxis -Heparin 5000 U Q8. avoid lovenox ID: Pneumonia -Afebrile, leukocytosis resolved -BCx negative for 24 hours -Negative urine culture -Awaiting sputum culture results -Procal: 0.24 -Lactate: 1.6 -Negative urine legionella antigen and awaiting urine strep antigen -CXR 05/14: linear atelectasis left base, no definite acute infiltrate pleural effusion or pneumothorax -Continue with vancomycin, doxycycline, and cefepime day 2. Check vancomycin level on day 3. -Once cultures are obtained, deescalate to appropriate antibiotic. -Monitor for signs and symptoms of infection. -Dr. Price, ID, consulted for recommendations. Follow recommendations. Cellulitis -Likely due to Kiana infection -Continue with nystatin cream. Disposition: Patient is hemodynamically stable and ready for transfer to the telemetry floor. Patient seen and examined with Dr. Zavala. - Date & Time Date: 05/14/18 Time: 10:03 <Aleks Zavala - Last Filed: 05/14/18 17:26> CCU Objective - Medications Active Medications: Active Medications Generic Name Dose Route Start Last Admin Trade Name Freq PRN Reason Stop Dose Admin Acetaminophen 650 mg 05/13/18 05:09 05/14/18 06:11 Tylenol 325mg Tab PO 650 mg Q6H PRN Administration Fever >100.4 F Acetaminophen 650 mg 05/13/18 06:49 Tylenol 325mg Tab PO Q6 PRN TEMP>=99.5F Acetaminophen 650 mg 05/13/18 06:49 Tylenol 650 Mg Supp RC Q6H PRN TEMP>=99.5F Acetylcysteine 4 ml 05/13/18 21:30 05/14/18 13:22 Acetylcysteine 20% IH 4 ml [id number] RIGOBERTO Administration Betamethasone/Clotrimazole 0 ml 05/14/18 15:33 Lotrisone TOP BID RIGOBERTO Budesonide 0.5 mg 05/13/18 08:00 05/14/18 07:32 Pulmicort Respules IH 0.5 mg BIDRESP RIGOBERTO Administration Clonazepam 2 mg 05/13/18 10:00 05/14/18 14:37 Klonopin PO 2 mg QID RIGOBERTO Administration Protocol Clotrimazole 0 gm 05/14/18 10:00 05/14/18 11:51 Lotrimin 1% TOP 1 applic BID RIGOBERTO Administration Dextrose 0 ml 05/14/18 09:56 Dextrose 50% Inj IV STAT PRN Hypoglycemia Protocol Protocol Gabapentin 300 mg 05/13/18 10:00 05/14/18 14:37 Neurontin PO 300 mg TID RIGOBERTO Administration Protocol Heparin Sodium (Porcine) 5,000 units 05/13/18 14:00 05/14/18 14:36 Heparin SC 5,000 units Q8 RIGOBERTO Administration Protocol Doxycycline Hyclate 100 mg/ 100 mls @ 100 mls/hr 05/13/18 10:00 05/14/18 10:17 Sodium Chloride IVPB 100 mls/hr Q12 RIGOBERTO Administration Protocol Sodium Chloride 1,000 mls @ 100 mls/hr 05/13/18 05:30 05/14/18 06:13 Sodium Chloride 0.9% IV 100 mls/hr .Q10H RIGOBERTO Administration Cefepime HCl 2 gm in 100 mls @ 100 mls/hr 05/13/18 10:00 05/14/18 11:51 Maxipime 2gm IVPB 05/18/18 10:01 100 mls/hr DAILY RIGOBERTO Administration Protocol Dextrose 1,000 mls @ 0 mls/hr 05/14/18 09:56 Dextrose 5% In Water 1000 Ml IV .Q0M PRN Hypoglycemia Protocol Protocol Per Protocol Insulin Detemir 15 unit 05/14/18 22:00 Levemir SC HS RIGOBERTO Insulin Human Regular 0 units 05/14/18 11:30 05/14/18 16:44 Humulin R High SC 15 units ACHS RIGOBERTO Administration Protocol Lactic Acid 0 gm 05/14/18 14:09 Lac-Hydrin 12% Lotion (225 G) TOP DAILY RIGOBERTO Levalbuterol HCl 0.63 mg 05/13/18 21:30 05/14/18 13:22 Xopenex IH 0.63 mg [id number] RIGOBERTO Administration Levalbuterol HCl 1.25 mg 05/13/18 21:15 Xopenex IH Q2H PRN Shortness of Breath Methylprednisolone 20 mg 05/13/18 14:15 05/14/18 16:03 Solu-Medrol IVP 20 mg Q8H RIGOBERTO Administration Montelukast Sodium 10 mg 05/13/18 22:00 05/13/18 22:37 Singulair PO 10 mg HS RIGOBERTO Administration Multi-Ingredient Ointment 0 gm 05/14/18 10:00 05/14/18 11:51 Hydrophor Oint TOP 1 applic DAILY RIGOBETRO Administration Temazepam [Restoril] 30 mg 05/13/18 22:00 05/13/18 22:30 30 Mg- Home Med PO 30 mg HS RIGOBERTO Administration Nystatin/Triamcinolone Acetonide 1 ea 05/13/18 03:30 05/14/18 10:21 Nystatin/Triamcinolone Cream TOP 1 oin BID RIGOBERTO Administration Ondansetron HCl 4 mg 05/13/18 06:49 Zofran Inj IVP Q4H PRN Nausea/Vomiting Oseltamivir Phosphate 30 mg 05/13/18 18:00 05/14/18 10:19 Tamiflu Cap PO 05/18/18 13:28 30 mg BID RIGOBERTO Administration Protocol Pantoprazole Sodium 40 mg 05/13/18 06:00 05/14/18 06:09 Protonix Ec Tab PO 40 mg 0600 RIGOBERTO Administration Paroxetine HCl 20 mg 05/13/18 10:00 05/14/18 10:19 Paxil PO 20 mg DAILY RIGOBERTO Administration - Patient Studies Lab Studies: Microbiology Studies 05/13/18 03:10 MRSA Culture (Admit) - Final Nose MRSA NOT DETECTED 05/13/18 01:25 Urine Culture - Final Urine,Clean Catch No Growth (<1,000 CFU/ML) 05/13/18 03:10 Blood Culture - Preliminary Blood-Venous NO GROWTH AFTER 24 HOURS 05/13/18 02:40 Blood Culture - Preliminary Blood-Venous NO GROWTH AFTER 24 HOURS Lab Studies 05/14/18 05/14/18 05/14/18 Range/Units 11:35 11:15 07:30 WBC (4.5-11.0) 10^3/uL RBC (3.5-6.1) 10^6/uL Hgb (12.0-16.0) g/dL Hct (36.0-48.0) % MCV (80.0-105.0) fl MCH (25.0-35.0) pg MCHC (31.0-37.0) g/dl RDW (11.5-14.5) % Plt Count (120.0-450.0) 10^3/uL MPV (7.0-11.0) fl Neut % (Auto) (50.0-68.0) % Lymph % (Auto) (22.0-35.0) % [place] % (Auto) (1.0-6.0) % Eos % (Auto) (1.5-5.0) % Baso % (Auto) (0.0-3.0) % Lymph # (Auto) (1.2-3.4) [place] # (Auto) (0.1-0.6) Eos # (Auto) (0.0-0.7) Baso # (Auto) (0.0-2.0) K/mm3 Absolute Neuts (auto) (1.4-6.5) pCO2 45 (35-45) mm/Hg pO2 61.0 L (80-100) mm/Hg HCO3 26.6 (21-28) mmol/L ABG pH 7.38 (7.35-7.45) ABG Total CO2 28.0 (22-28) mmol.L ABG O2 Saturation 94.8 L (95-98) % ABG O2 Content 15.5 (15-23) ML/dl ABG Base Excess 1.1 (-2.0-3.0) mmol/L ABG Hemoglobin 11.9 (11.7-17.4) g/dL ABG Carboxyhemoglobin 1.4 (0.5-1.5) % POC ABG HHb (Measured) 5.1 H (0-5) % ABG Methemoglobin 1.2 (0.0-3.0) % ABG O2 Capacity 16.4 (16-24) mL/dl Hgb O2 Saturation 92.3 L (95.0-98.0) % FiO2 28.0 % Sodium (132-148) mmol/L Potassium (3.6-5.0) mmol/L Chloride (98-107) mmol/L Carbon Dioxide (21-33) mmol/L Anion Gap (10-20) BUN (7-21) mg/dL Creatinine (0.7-1.2) mg/dl Est GFR ( Amer) Est GFR (Non-Af Amer) POC Glucose (mg/dL) 327 H 315 H (65-110) mg/dL Random Glucose (70-110) mg/dL Lactic Acid (0.7-2.1) mmol/L Calcium (8.4-10.5) mg/dL Phosphorus (2.5-4.5) mg/dL Magnesium (1.7-2.2) mg/dL Total Bilirubin (0.2-1.3) mg/dL Direct Bilirubin (0.0-0.4) mg/dL AST (14-36) U/L ALT (7-56) U/L Alkaline Phosphatase (38-126) U/L Troponin I ng/mL Total Protein (5.8-8.3) g/dL Albumin (3.0-4.8) g/dL Globulin gm/dL Albumin/Globulin Ratio (1.1-1.8) 05/14/18 05/14/18 05/14/18 Range/Units 06:50 06:50 06:50 WBC 8.7 D (4.5-11.0) 10^3/uL RBC 4.31 (3.5-6.1) 10^6/uL Hgb 12.5 (12.0-16.0) g/dL Hct 40.0 (36.0-48.0) % MCV 92.8 (80.0-105.0) fl MCH 29.0 (25.0-35.0) pg MCHC 31.3 (31.0-37.0) g/dl RDW 13.7 (11.5-14.5) % Plt Count 230 (120.0-450.0) 10^3/uL MPV 12.0 H (7.0-11.0) fl Neut % (Auto) 89.1 H (50.0-68.0) % Lymph % (Auto) 8.3 L (22.0-35.0) % [place] % (Auto) 2.4 (1.0-6.0) % Eos % (Auto) 0.1 L (1.5-5.0) % Baso % (Auto) 0.1 (0.0-3.0) % Lymph # (Auto) 0.7 L (1.2-3.4) [place] # (Auto) 0.2 (0.1-0.6) Eos # (Auto) 0.0 (0.0-0.7) Baso # (Auto) 0.01 (0.0-2.0) K/mm3 Absolute Neuts (auto) 7.70 H (1.4-6.5) pCO2 (35-45) mm/Hg pO2 (80-100) mm/Hg HCO3 (21-28) mmol/L ABG pH (7.35-7.45) ABG Total CO2 (22-28) mmol.L ABG O2 Saturation (95-98) % ABG O2 Content (15-23) ML/dl ABG Base Excess (-2.0-3.0) mmol/L ABG Hemoglobin (11.7-17.4) g/dL ABG Carboxyhemoglobin (0.5-1.5) % POC ABG HHb (Measured) (0-5) % ABG Methemoglobin (0.0-3.0) % ABG O2 Capacity (16-24) mL/dl Hgb O2 Saturation (95.0-98.0) % FiO2 % Sodium 141 (132-148) mmol/L Potassium 5.0 (3.6-5.0) mmol/L Chloride 107 (98-107) mmol/L Carbon Dioxide 30 (21-33) mmol/L Anion Gap 9 L (10-20) BUN 13 (7-21) mg/dL Creatinine 1.5 H (0.7-1.2) mg/dl Est GFR ( Amer) 43 Est GFR (Non-Af Amer) 36 POC Glucose (mg/dL) (65-110) mg/dL Random Glucose 302 H* D (70-110) mg/dL Lactic Acid 1.3 (0.7-2.1) mmol/L Calcium 8.8 (8.4-10.5) mg/dL Phosphorus 1.7 L (2.5-4.5) mg/dL Magnesium 1.8 (1.7-2.2) mg/dL Total Bilirubin 0.6 (0.2-1.3) mg/dL Direct Bilirubin 0.3 (0.0-0.4) mg/dL AST 21 (14-36) U/L ALT 43 (7-56) U/L Alkaline Phosphatase 81 (38-126) U/L Troponin I ng/mL Total Protein 6.0 (5.8-8.3) g/dL Albumin 3.2 (3.0-4.8) g/dL Globulin 2.8 gm/dL Albumin/Globulin Ratio 1.1 (1.1-1.8) 05/13/18 05/13/18 05/13/18 Range/Units 23:00 21:08 19:00 WBC (4.5-11.0) 10^3/uL RBC (3.5-6.1) 10^6/uL Hgb (12.0-16.0) g/dL Hct (36.0-48.0) % MCV (80.0-105.0) fl MCH (25.0-35.0) pg MCHC (31.0-37.0) g/dl RDW (11.5-14.5) % Plt Count (120.0-450.0) 10^3/uL MPV (7.0-11.0) fl Neut % (Auto) (50.0-68.0) % Lymph % (Auto) (22.0-35.0) % [place] % (Auto) (1.0-6.0) % Eos % (Auto) (1.5-5.0) % Baso % (Auto) (0.0-3.0) % Lymph # (Auto) (1.2-3.4) [place] # (Auto) (0.1-0.6) Eos # (Auto) (0.0-0.7) Baso # (Auto) (0.0-2.0) K/mm3 Absolute Neuts (auto) (1.4-6.5) pCO2 42 (35-45) mm/Hg pO2 68.0 L (80-100) mm/Hg HCO3 18.8 L (21-28) mmol/L ABG pH 7.26 L (7.35-7.45) ABG Total CO2 20.1 L (22-28) mmol.L ABG O2 Saturation 95.5 (95-98) % ABG O2 Content 14.0 L (15-23) ML/dl ABG Base Excess -7.8 L (-2.0-3.0) mmol/L ABG Hemoglobin 10.6 L (11.7-17.4) g/dL ABG Carboxyhemoglobin 1.7 H (0.5-1.5) % POC ABG HHb (Measured) 4.4 (0-5) % ABG Methemoglobin 0.5 (0.0-3.0) % ABG O2 Capacity 14.7 L (16-24) mL/dl Hgb O2 Saturation 93.4 L (95.0-98.0) % FiO2 28.0 % Sodium (132-148) mmol/L Potassium (3.6-5.0) mmol/L Chloride (98-107) mmol/L Carbon Dioxide (21-33) mmol/L Anion Gap (10-20) BUN (7-21) mg/dL Creatinine (0.7-1.2) mg/dl Est GFR ( Amer) Est GFR (Non-Af Amer) POC Glucose (mg/dL) 293 H (65-110) mg/dL Random Glucose (70-110) mg/dL Lactic Acid (0.7-2.1) mmol/L Calcium (8.4-10.5) mg/dL Phosphorus (2.5-4.5) mg/dL Magnesium (1.7-2.2) mg/dL Total Bilirubin (0.2-1.3) mg/dL Direct Bilirubin (0.0-0.4) mg/dL AST (14-36) U/L ALT (7-56) U/L Alkaline Phosphatase (38-126) U/L Troponin I < 0.01 ng/mL Total Protein (5.8-8.3) g/dL Albumin (3.0-4.8) g/dL Globulin gm/dL Albumin/Globulin Ratio (1.1-1.8) 05/13/18 05/13/18 05/13/18 Range/Units 17:37 16:20 11:31 WBC (4.5-11.0) 10^3/uL RBC (3.5-6.1) 10^6/uL Hgb (12.0-16.0) g/dL Hct (36.0-48.0) % MCV (80.0-105.0) fl MCH (25.0-35.0) pg MCHC (31.0-37.0) g/dl RDW (11.5-14.5) % Plt Count (120.0-450.0) 10^3/uL MPV (7.0-11.0) fl Neut % (Auto) (50.0-68.0) % Lymph % (Auto) (22.0-35.0) % [place] % (Auto) (1.0-6.0) % Eos % (Auto) (1.5-5.0) % Baso % (Auto) (0.0-3.0) % Lymph # (Auto) (1.2-3.4) [place] # (Auto) (0.1-0.6) Eos # (Auto) (0.0-0.7) Baso # (Auto) (0.0-2.0) K/mm3 Absolute Neuts (auto) (1.4-6.5) pCO2 60 H (35-45) mm/Hg pO2 82.0 (80-100) mm/Hg HCO3 28.2 H (21-28) mmol/L ABG pH 7.28 L (7.35-7.45) ABG Total CO2 30.0 H (22-28) mmol.L ABG O2 Saturation 97.5 (95-98) % ABG O2 Content 14.3 L (15-23) ML/dl ABG Base Excess 0.6 (-2.0-3.0) mmol/L ABG Hemoglobin 10.6 L (11.7-17.4) g/dL ABG Carboxyhemoglobin 1.7 H (0.5-1.5) % POC ABG HHb (Measured) 2.4 (0-5) % ABG Methemoglobin 0.6 (0.0-3.0) % ABG O2 Capacity 14.7 L (16-24) mL/dl Hgb O2 Saturation 95.3 (95.0-98.0) % FiO2 32.0 % Sodium (132-148) mmol/L Potassium (3.6-5.0) mmol/L Chloride (98-107) mmol/L Carbon Dioxide (21-33) mmol/L Anion Gap (10-20) BUN (7-21) mg/dL Creatinine (0.7-1.2) mg/dl Est GFR ( Amer) Est GFR (Non-Af Amer) POC Glucose (mg/dL) 168 H 176 H (65-110) mg/dL Random Glucose (70-110) mg/dL Lactic Acid (0.7-2.1) mmol/L Calcium (8.4-10.5) mg/dL Phosphorus (2.5-4.5) mg/dL Magnesium (1.7-2.2) mg/dL Total Bilirubin (0.2-1.3) mg/dL Direct Bilirubin (0.0-0.4) mg/dL AST (14-36) U/L ALT (7-56) U/L Alkaline Phosphatase (38-126) U/L Troponin I ng/mL Total Protein (5.8-8.3) g/dL Albumin (3.0-4.8) g/dL Globulin gm/dL Albumin/Globulin Ratio (1.1-1.8) 05/13/18 Range/Units 00:37 WBC (4.5-11.0) 10^3/uL RBC (3.5-6.1) 10^6/uL Hgb (12.0-16.0) g/dL Hct (36.0-48.0) % MCV (80.0-105.0) fl MCH (25.0-35.0) pg MCHC (31.0-37.0) g/dl RDW (11.5-14.5) % Plt Count (120.0-450.0) 10^3/uL MPV (7.0-11.0) fl Neut % (Auto) (50.0-68.0) % Lymph % (Auto) (22.0-35.0) % [place] % (Auto) (1.0-6.0) % Eos % (Auto) (1.5-5.0) % Baso % (Auto) (0.0-3.0) % Lymph # (Auto) (1.2-3.4) [place] # (Auto) (0.1-0.6) Eos # (Auto) (0.0-0.7) Baso # (Auto) (0.0-2.0) K/mm3 Absolute Neuts (auto) (1.4-6.5) pCO2 (35-45) mm/Hg pO2 (80-100) mm/Hg HCO3 (21-28) mmol/L ABG pH (7.35-7.45) ABG Total CO2 (22-28) mmol.L ABG O2 Saturation (95-98) % ABG O2 Content (15-23) ML/dl ABG Base Excess (-2.0-3.0) mmol/L ABG Hemoglobin (11.7-17.4) g/dL ABG Carboxyhemoglobin (0.5-1.5) % POC ABG HHb (Measured) (0-5) % ABG Methemoglobin (0.0-3.0) % ABG O2 Capacity (16-24) mL/dl Hgb O2 Saturation (95.0-98.0) % FiO2 % Sodium (132-148) mmol/L Potassium (3.6-5.0) mmol/L Chloride (98-107) mmol/L Carbon Dioxide (21-33) mmol/L Anion Gap (10-20) BUN (7-21) mg/dL Creatinine (0.7-1.2) mg/dl Est GFR ( Amer) Est GFR (Non-Af Amer) POC Glucose (mg/dL) 220 H (65-110) mg/dL Random Glucose (70-110) mg/dL Lactic Acid (0.7-2.1) mmol/L Calcium (8.4-10.5) mg/dL Phosphorus (2.5-4.5) mg/dL Magnesium (1.7-2.2) mg/dL Total Bilirubin (0.2-1.3) mg/dL Direct Bilirubin (0.0-0.4) mg/dL AST (14-36) U/L ALT (7-56) U/L Alkaline Phosphatase (38-126) U/L Troponin I ng/mL Total Protein (5.8-8.3) g/dL Albumin (3.0-4.8) g/dL Globulin gm/dL Albumin/Globulin Ratio (1.1-1.8) Laboratory Results - last 24 hr 05/13/18 05/13/18 05/13/18 00:37 11:31 16:20 WBC RBC Hgb Hct MCV MCH MCHC RDW Plt Count MPV Neut % (Auto) Lymph % (Auto) [place] % (Auto) Eos % (Auto) Baso % (Auto) Lymph # (Auto) [place] # (Auto) Eos # (Auto) Baso # (Auto) Absolute Neuts (auto) pCO2 pO2 HCO3 ABG pH ABG Total CO2 ABG O2 Saturation ABG O2 Content ABG Base Excess ABG Hemoglobin ABG Carboxyhemoglobin POC ABG HHb (Measured) ABG Methemoglobin ABG O2 Capacity Hgb O2 Saturation FiO2 Sodium Potassium Chloride Carbon Dioxide Anion Gap BUN Creatinine Est GFR ( Amer) Est GFR (Non-Af Amer) POC Glucose (mg/dL) 220 H 176 H 168 H Random Glucose Lactic Acid Calcium Phosphorus Magnesium Total Bilirubin Direct Bilirubin AST ALT Alkaline Phosphatase Troponin I Total Protein Albumin Globulin Albumin/Globulin Ratio 05/13/18 05/13/18 05/13/18 17:37 19:00 21:08 WBC RBC Hgb Hct MCV MCH MCHC RDW Plt Count MPV Neut % (Auto) Lymph % (Auto) [place] % (Auto) Eos % (Auto) Baso % (Auto) Lymph # (Auto) [place] # (Auto) Eos # (Auto) Baso # (Auto) Absolute Neuts (auto) pCO2 60 H pO2 82.0 HCO3 28.2 H ABG pH 7.28 L ABG Total CO2 30.0 H ABG O2 Saturation 97.5 ABG O2 Content 14.3 L ABG Base Excess 0.6 ABG Hemoglobin 10.6 L ABG Carboxyhemoglobin 1.7 H POC ABG HHb (Measured) 2.4 ABG Methemoglobin 0.6 ABG O2 Capacity 14.7 L Hgb O2 Saturation 95.3 FiO2 32.0 Sodium Potassium Chloride Carbon Dioxide Anion Gap BUN Creatinine Est GFR ( Amer) Est GFR (Non-Af Amer) POC Glucose (mg/dL) 293 H Random Glucose Lactic Acid Calcium Phosphorus Magnesium Total Bilirubin Direct Bilirubin AST ALT Alkaline Phosphatase Troponin I < 0.01 Total Protein Albumin Globulin Albumin/Globulin Ratio 05/13/18 05/14/18 05/14/18 23:00 06:50 06:50 WBC 8.7 D RBC 4.31 Hgb 12.5 Hct 40.0 MCV 92.8 MCH 29.0 MCHC 31.3 RDW 13.7 Plt Count 230 MPV 12.0 H Neut % (Auto) 89.1 H Lymph % (Auto) 8.3 L [place] % (Auto) 2.4 Eos % (Auto) 0.1 L Baso % (Auto) 0.1 Lymph # (Auto) 0.7 L [place] # (Auto) 0.2 Eos # (Auto) 0.0 Baso # (Auto) 0.01 Absolute Neuts (auto) 7.70 H pCO2 42 pO2 68.0 L HCO3 18.8 L ABG pH 7.26 L ABG Total CO2 20.1 L ABG O2 Saturation 95.5 ABG O2 Content 14.0 L ABG Base Excess -7.8 L ABG Hemoglobin 10.6 L ABG Carboxyhemoglobin 1.7 H POC ABG HHb (Measured) 4.4 ABG Methemoglobin 0.5 ABG O2 Capacity 14.7 L Hgb O2 Saturation 93.4 L FiO2 28.0 Sodium 141 Potassium 5.0 Chloride 107 Carbon Dioxide 30 Anion Gap 9 L BUN 13 Creatinine 1.5 H Est GFR ( Amer) 43 Est GFR (Non-Af Amer) 36 POC Glucose (mg/dL) Random Glucose 302 H* D Lactic Acid Calcium 8.8 Phosphorus 1.7 L Magnesium 1.8 Total Bilirubin 0.6 Direct Bilirubin 0.3 AST 21 ALT 43 Alkaline Phosphatase 81 Troponin I Total Protein 6.0 Albumin 3.2 Globulin 2.8 Albumin/Globulin Ratio 1.1 05/14/18 05/14/18 05/14/18 06:50 07:30 11:15 WBC RBC Hgb Hct MCV MCH MCHC RDW Plt Count MPV Neut % (Auto) Lymph % (Auto) [place] % (Auto) Eos % (Auto) Baso % (Auto) Lymph # (Auto) [place] # (Auto) Eos # (Auto) Baso # (Auto) Absolute Neuts (auto) pCO2 pO2 HCO3 ABG pH ABG Total CO2 ABG O2 Saturation ABG O2 Content ABG Base Excess ABG Hemoglobin ABG Carboxyhemoglobin POC ABG HHb (Measured) ABG Methemoglobin ABG O2 Capacity Hgb O2 Saturation FiO2 Sodium Potassium Chloride Carbon Dioxide Anion Gap BUN Creatinine Est GFR ( Amer) Est GFR (Non-Af Amer) POC Glucose (mg/dL) 315 H 327 H Random Glucose Lactic Acid 1.3 Calcium Phosphorus Magnesium Total Bilirubin Direct Bilirubin AST ALT Alkaline Phosphatase Troponin I Total Protein Albumin Globulin Albumin/Globulin Ratio 05/14/18 11:35 WBC RBC Hgb Hct MCV MCH MCHC RDW Plt Count MPV Neut % (Auto) Lymph % (Auto) [place] % (Auto) Eos % (Auto) Baso % (Auto) Lymph # (Auto) [place] # (Auto) Eos # (Auto) Baso # (Auto) Absolute Neuts (auto) pCO2 45 pO2 61.0 L HCO3 26.6 ABG pH 7.38 ABG Total CO2 28.0 ABG O2 Saturation 94.8 L ABG O2 Content 15.5 ABG Base Excess 1.1 ABG Hemoglobin 11.9 ABG Carboxyhemoglobin 1.4 POC ABG HHb (Measured) 5.1 H ABG Methemoglobin 1.2 ABG O2 Capacity 16.4 Hgb O2 Saturation 92.3 L FiO2 28.0 Sodium Potassium Chloride Carbon Dioxide Anion Gap BUN Creatinine Est GFR ( Amer) Est GFR (Non-Af Amer) POC Glucose (mg/dL) Random Glucose Lactic Acid Calcium Phosphorus Magnesium Total Bilirubin Direct Bilirubin AST ALT Alkaline Phosphatase Troponin I Total Protein Albumin Globulin Albumin/Globulin Ratio Radiology Impressions: Radiology Impressions Chest X-Ray 05/14/18 06:00 IMPRESSION: Linear atelectasis left base. No definite acute infiltrate pleural effusion or pneumothorax appreciated bilaterally. EKG/Cardiology Studies: Cardiology / EKG Studies 05/14/18 16:00 EKG [ELECTROCARDIOGRAM] Urgent Comment: Reason For Exam: HYPOTENSION/TACHYCARDIA 05/15/18 06:00 EKG [ELECTROCARDIOGRAM] DAILY Comment: Reason For Exam: HYPOTENSION/TACHYCARDIA 05/16/18 06:00 EKG [ELECTROCARDIOGRAM] DAILY Comment: Reason For Exam: HYPOTENSION/TACHYCARDIA Critical Care Progress Note - Nutrition Nutrition: Nutrition Category Date Time Status Heart Healthy Diet [DIET] Diets 05/13/18 Breakfast Active Attending/Attestation - Attestation I have personally seen and examined this patient.: Yes I have fully participated in the care of the patient.: Yes I have reviewed all pertinent clinical information: Yes Notes (Text): 05/14/18 17:[address] Zavala note
[2018-05-14] MEDS ORDERED: Potassium & Sodium Phosphate PO ONE (10:04)
[2018-05-14] MEDS: Nystatin-Triamcinolone Cream(30 gm) TOP SCH ×2 (10:21→17:33)
--- NOTE | 2018-05-14 10:37 | CP.PCM.CON ---
History of Present Illness - History of Present Illness History of Present Illness: Podiatry consult note - Drs. De La Rosa/Elizabeth 57F with pmhx of morbid obesity, COPD on home oxygen, diabetes, hypertension, GERD, anxiety, and depression seen and evaluated in the ICU for xerosis on b/l feet and elongated dystrophic nails. States that her feet have looked like this for a long time and she does not treat them at home. States that she does not see a services coordinator for diabetic footcare. Denies pain to the feet today. Denies N/V/F/C/SOB/CP and has no other acute complaints. PMHx: above PSHx: Sinus surgery x4, tubal ligation, left arm surgery orif All: aspirin Past Patient History - Infectious Disease Hx of Infectious Diseases: None - Tetanus Immunizations Tetanus Immunization: Unknown - Past Social History Smoking Status: Former Smoker - CARDIAC Hx Hypertension: Yes - PULMONARY Hx Chronic Obstructive Pulmonary Disease (COPD): Yes - NEUROLOGICAL Hx Neurological Disorder: No - HEENT Hx HEENT Problems: Yes Other/Comment: Wears Glasses - RENAL Hx Chronic Kidney Disease: No - ENDOCRINE/METABOLIC Hx Diabetes Mellitus Type 2: Yes - HEMATOLOGICAL/ONCOLOGICAL Hx Blood Disorders: No - INTEGUMENTARY Hx Dermatological Problems: Yes - MUSCULOSKELETAL/RHEUMATOLOGICAL Hx Falls: Yes - GASTROINTESTINAL Hx Gastrointestinal Disorders: Yes Hx Diverticulitis: Yes - GENITOURINARY/GYNECOLOGICAL Hx Genitourinary Disorders: No Hx Urinary Tract Infection: Yes - PSYCHIATRIC Hx Psychophysiologic Disorder: No Hx Substance Use: No - SURGICAL HISTORY Hx Musculoskeletal Surgery: Yes (left arm surgeryplate and screws) Other/Comment: sinus sx X 4. tubal ligation' - ANESTHESIA Hx Anesthesia: Yes Hx Anesthesia Reactions: No Hx Malignant Hyperthermia: No Meds Allergies/Adverse Reactions: Allergies Allergy/AdvReac Type Severity Reaction Status Date / Time aspirin Allergy SHORTNESS Verified 05/13/18 00:36 OF BREATH - Medications Medications: Current Medications Acetaminophen (Tylenol 325mg Tab) 650 mg PO Q6H PRN PRN Reason: Fever >100.4 F Last Admin: 05/14/18 06:11 Dose: 650 mg Acetaminophen (Tylenol 325mg Tab) 650 mg PO Q6 PRN PRN Reason: TEMP>=99.5F Acetaminophen (Tylenol 650 Mg Supp) 650 mg RC Q6H PRN PRN Reason: TEMP>=99.5F Acetylcysteine (Acetylcysteine 20%) 4 ml IH [id number] RIGOBERTO Last Admin: 05/14/18 07:32 Dose: 4 ml Betamethasone/Clotrimazole (Lotrisone) 0 ml TOP BID [facility]IG[facility]O Budesonide (Pulmicort Respules) 0.5 mg IH BIDRESP RIGOBERTO Last Admin: 05/14/18 07:32 Dose: 0.5 mg Clonazepam (Klonopin) 2 mg PO QID [facility]; Protocol Last Admin: 05/14/18 10:18 Dose: 2 mg Clotrimazole (Lotrimin 1%) 0 gm TOP BID [facility]ERT[facility] Dextrose (Dextrose 50% Inj) 0 ml IV STAT PRN; Protocol PRN Reason: Hypoglycemia Protocol Gabapentin (Neurontin) 300 mg PO TID [facility]O; Protocol Last Admin: 05/14/18 10:18 Dose: 300 mg Heparin Sodium (Porcine) (Heparin) 5,000 units SC Q8 [facility]; Protocol Last Admin: 05/14/18 06:13 Dose: 5,000 units Doxycycline Hyclate 100 mg/ (Sodium Chloride) 100 mls @ 100 mls/hr IVPB Q12 [facility]; Protocol Last Admin: 05/14/18 10:17 Dose: 100 mls/hr Sodium Chloride (Sodium Chloride 0.9%) 1,000 mls @ 100 mls/hr IV .Q10H RIGOBERTO Last Admin: 05/14/18 06:13 Dose: 100 mls/hr Cefepime HCl (Maxipime 2gm) 2 gm in 100 mls @ 100 mls/hr IVPB DAILY RGIOBERTO; Protocol Stop: 05/18/18 10:01 Last Admin: 05/13/18 10:38 Dose: 100 mls/hr Dextrose (Dextrose 5% In Water 1000 Ml) 1,000 mls @ 0 mls/hr IV .Q0M PRN; Protocol PRN Reason: Hypoglycemia Protocol Insulin Human Regular (Humulin R High) 0 units SC ACHS RIGOBERTO; Protocol Lactic Acid (Lac-Hydrin 12% Cream (140 G)) 0 ea TOP DAILY RIGOBERTO Levalbuterol HCl (Xopenex) 0.63 mg IH [id number] RIGOBERTO Last Admin: 05/14/18 07:32 Dose: 0.63 mg Levalbuterol HCl (Xopenex) 1.25 mg IH Q2H PRN PRN Reason: Shortness of Breath Methylprednisolone (Solu-Medrol) 20 mg IVP Q8H [facility] Last Admin: 05/13/18 22:32 Dose: 20 mg Montelukast Sodium (Singulair) 10 mg PO HS [facility] Last Admin: 05/13/18 22:37 Dose: 10 mg Multi-Ingredient Ointment (Hydrophor Oint) 0 gm TOP DAILY [facility] Temazepam [Restoril] (30 Mg- Home Med) 30 mg PO HS [facility] Last Admin: 05/13/18 22:30 Dose: 30 mg Nystatin/Triamcinolone Acetonide (Nystatin/Triamcinolone Cream) 1 ea TOP BID [facility] Last Admin: 05/14/18 10:21 Dose: 1 oin Ondansetron HCl (Zofran Inj) 4 mg IVP Q4H PRN PRN Reason: Nausea/Vomiting Oseltamivir Phosphate (Tamiflu Cap) 30 mg PO BID [facility]; Protocol Stop: 05/18/18 13:28 Last Admin: 05/14/18 10:19 Dose: 30 mg Pantoprazole Sodium (Protonix Ec Tab) 40 mg PO 0600 [facility] Last Admin: 05/14/18 06:09 Dose: 40 mg Paroxetine HCl (Paxil) 20 mg PO DAILY [facility] Last Admin: 05/14/18 10:19 Dose: 20 mg Physical Exam - Constitutional Appears: Non-toxic, No Acute Distress - Head Exam Head Exam: NORMOCEPHALIC - Extremities Exam Additional comments: VASC: DP and PT pulses palpable; cap refill <3 seconds to all digits; temp gradient normal; mild edema b/l DERM: xerosis present on the plantar aspects of feet, callus formation, no fissures present; no open wounds or lesions; nails are dystrophic and elongated ORTHO: no pain on palpation of b/l feet NEURO: gross and protective sensation mildly diminished - Neurological Exam Neurological exam: Alert, Oriented x3 - Psychiatric Exam Psychiatric exam: Normal Affect, Normal Mood Results - Vital Signs Recent Vital Signs: Last Vital Signs Temp 98.5 F 05/13/18 06:59 Pulse 85 05/14/18 07:00 Resp 17 05/14/18 07:00 BP 138/71 05/14/18 06:00 Pulse Ox 96 05/14/18 07:00 - Labs Result Diagrams: 05/14/18 06:50 05/14/18 06:50 Labs: Laboratory Results - last 24 hr 05/13/18 05/13/18 05/13/18 00:37 01:30 03:40 WBC RBC Hgb Hct MCV MCH MCHC RDW Plt Count MPV Neut % (Auto) Lymph % (Auto) [place] % (Auto) Eos % (Auto) Baso % (Auto) Lymph # (Auto) [place] # (Auto) Eos # (Auto) Baso # (Auto) Absolute Neuts (auto) pCO2 pO2 HCO3 ABG pH ABG Total CO2 ABG O2 Saturation ABG O2 Content ABG Base Excess ABG Hemoglobin ABG Carboxyhemoglobin POC ABG HHb (Measured) ABG Methemoglobin ABG O2 Capacity Hgb O2 Saturation FiO2 Sodium Potassium Chloride Carbon Dioxide Anion Gap BUN Creatinine Est GFR ( Amer) Est GFR (Non-Af Amer) POC Glucose (mg/dL) 220 H Random Glucose Lactic Acid Calcium Phosphorus Magnesium Total Bilirubin Direct Bilirubin AST ALT Alkaline Phosphatase Total Creatine Kinase Troponin I Total Protein Albumin Globulin Albumin/Globulin Ratio Procalcitonin 0.24 Ur L.pneumophila Ag Negative 05/13/18 05/13/18 05/13/18 11:31 14:20 16:20 WBC RBC Hgb Hct MCV MCH MCHC RDW Plt Count MPV Neut % (Auto) Lymph % (Auto) [place] % (Auto) Eos % (Auto) Baso % (Auto) Lymph # (Auto) [place] # (Auto) Eos # (Auto) Baso # (Auto) Absolute Neuts (auto) pCO2 pO2 HCO3 ABG pH ABG Total CO2 ABG O2 Saturation ABG O2 Content ABG Base Excess ABG Hemoglobin ABG Carboxyhemoglobin POC ABG HHb (Measured) ABG Methemoglobin ABG O2 Capacity Hgb O2 Saturation FiO2 Sodium Potassium Chloride Carbon Dioxide Anion Gap BUN Creatinine Est GFR ( Amer) Est GFR (Non-Af Amer) POC Glucose (mg/dL) 176 H 168 H Random Glucose Lactic Acid Calcium Phosphorus Magnesium Total Bilirubin Direct Bilirubin AST ALT Alkaline Phosphatase Total Creatine Kinase 178 Troponin I < 0.01 Total Protein Albumin Globulin Albumin/Globulin Ratio Procalcitonin Ur L.pneumophila Ag 05/13/18 05/13/18 05/13/18 17:37 19:00 21:08 WBC RBC Hgb Hct MCV MCH MCHC RDW Plt Count MPV Neut % (Auto) Lymph % (Auto) [place] % (Auto) Eos % (Auto) Baso % (Auto) Lymph # (Auto) [place] # (Auto) Eos # (Auto) Baso # (Auto) Absolute Neuts (auto) pCO2 60 H pO2 82.0 HCO3 28.2 H ABG pH 7.28 L ABG Total CO2 30.0 H ABG O2 Saturation 97.5 ABG O2 Content 14.3 L ABG Base Excess 0.6 ABG Hemoglobin 10.6 L ABG Carboxyhemoglobin 1.7 H POC ABG HHb (Measured) 2.4 ABG Methemoglobin 0.6 ABG O2 Capacity 14.7 L Hgb O2 Saturation 95.3 FiO2 32.0 Sodium Potassium Chloride Carbon Dioxide Anion Gap BUN Creatinine Est GFR ( Amer) Est GFR (Non-Af Amer) POC Glucose (mg/dL) 293 H Random Glucose Lactic Acid Calcium Phosphorus Magnesium Total Bilirubin Direct Bilirubin AST ALT Alkaline Phosphatase Total Creatine Kinase Troponin I < 0.01 Total Protein Albumin Globulin Albumin/Globulin Ratio Procalcitonin Ur L.pneumophila Ag 05/13/18 05/14/18 05/14/18 23:00 06:50 06:50 WBC 8.7 D RBC 4.31 Hgb 12.5 Hct 40.0 MCV 92.8 MCH 29.0 MCHC 31.3 RDW 13.7 Plt Count 230 MPV 12.0 H Neut % (Auto) 89.1 H Lymph % (Auto) 8.3 L Pacific % (Auto) 2.4 Eos % (Auto) 0.1 L Baso % (Auto) 0.1 Lymph # (Auto) 0.7 L [place] # (Auto) 0.2 Eos # (Auto) 0.0 Baso # (Auto) 0.01 Absolute Neuts (auto) 7.70 H pCO2 42 pO2 68.0 L HCO3 18.8 L ABG pH 7.26 L ABG Total CO2 20.1 L ABG O2 Saturation 95.5 ABG O2 Content 14.0 L ABG Base Excess -7.8 L ABG Hemoglobin 10.6 L ABG Carboxyhemoglobin 1.7 H POC ABG HHb (Measured) 4.4 ABG Methemoglobin 0.5 ABG O2 Capacity 14.7 L Hgb O2 Saturation 93.4 L FiO2 28.0 Sodium 141 Potassium 5.0 Chloride 107 Carbon Dioxide 30 Anion Gap 9 L BUN 13 Creatinine 1.5 H Est GFR ( Amer) 43 Est GFR (Non-Af Amer) 36 POC Glucose (mg/dL) Random Glucose 302 H* D Lactic Acid Calcium 8.8 Phosphorus 1.7 L Magnesium 1.8 Total Bilirubin 0.6 Direct Bilirubin 0.3 AST 21 ALT 43 Alkaline Phosphatase 81 Total Creatine Kinase Troponin I Total Protein 6.0 Albumin 3.2 Globulin 2.8 Albumin/Globulin Ratio 1.1 Procalcitonin Ur L.pneumophila Ag 05/14/18 06:50 WBC RBC Hgb Hct MCV MCH MCHC RDW Plt Count MPV Neut % (Auto) Lymph % (Auto) [place] % (Auto) Eos % (Auto) Baso % (Auto) Lymph # (Auto) [place] # (Auto) Eos # (Auto) Baso # (Auto) Absolute Neuts (auto) pCO2 pO2 HCO3 ABG pH ABG Total CO2 ABG O2 Saturation ABG O2 Content ABG Base Excess ABG Hemoglobin ABG Carboxyhemoglobin POC ABG HHb (Measured) ABG Methemoglobin ABG O2 Capacity Hgb O2 Saturation FiO2 Sodium Potassium Chloride Carbon Dioxide Anion Gap BUN Creatinine Est GFR ( Amer) Est GFR (Non-Af Amer) POC Glucose (mg/dL) Random Glucose Lactic Acid 1.3 Calcium Phosphorus Magnesium Total Bilirubin Direct Bilirubin AST ALT Alkaline Phosphatase Total Creatine Kinase Troponin I Total Protein Albumin Globulin Albumin/Globulin Ratio Procalcitonin Ur L.pneumophila Ag Assessment & Plan - Assessment and Plan (Free Text) Assessment: 57F with pmhx of morbid obesity, COPD on home oxygen, diabetes, hypertension, GERD, anxiety, and depression seen and evaluated for xerosis of b/l feet and elongated dystrophic nails Plan: Patient seen and evaluated with Dr. De La Rosa VSS Multipodus boots ordered - to be worn in bed to prevent heel sores Lotrimin, ammonium lactate, and aquaphor ordered - to be applied daily to b/l feet to help with scaling and xerosis Arterial duplex study ordered Nails to be cut tomorrow Podiatry to follow while in house, to follow as outpatient upon discharge Thank you for the consult - Date & Time Date: 05/14/18 Time: 10:39
--- NOTE | 2018-05-14 11:21 | PN ---
DATE: 05/14/2018 PULMONARY NOTE SUBJECTIVE: The patient appears comfortable this morning. She is not short of breath at rest. She is currently on BiPAP. OBJECTIVE: VITAL SIGNS: Temperature is 98.5, pulse on the monitor is 91, respiratory rate 18/20, blood pressure 138/71. Oxygen saturation on BiPAP - 96%. HEENT: Normocephalic, atraumatic. NECK: No JVD. CARDIOVASCULAR: Positive S1, S2. No S3, gallop. LUNGS: Decreased breath sounds at the bases. Minimal/less rhonchi. No wheezing. EXTREMITIES: Mild edema. No cyanosis, no clubbing. Calves are nontender to palpation. GASTROINTESTINAL: Abdomen is soft, nontender and nondistended. Bowel sounds are positive. SKIN: Foul-smelling rash in the left groin. NEUROLOGIC: Limited at the present time. PERTINENT LABORATORY DATA: Chest x-ray was done this morning and reviewed. The chest x-ray is a better ,less rotated film. There are no significant infiltrates noted. Official results are pending. Procalcitonin done yesterday - negative (0.24). Last arterial blood gas was done on 2 liters nasal cannula. Results are; PH 7.26, pCO2 of 42, pO2 of 68. IMPRESSION: 1. Sepsis syndrome. 2. Left groin cellulitis. 3. Advanced chronic obstructive pulmonary disease. 4. Asthma. PLAN: The patient appears quite comfortable this morning. She is not short of breath at rest. She is awake and alert. She is currently on BiPAP. I did discussed the case with night nurse at length. The night nurse stated the patient had a much better night. I did review the chest x-ray as above. I do not appreciate any new or significant infiltrates noted. Official results are pending. I have also reviewed the arterial blood gas. There is an uncompensated metabolic acidosis noted, with a mild increase in the alveolar-arterial gradient. In addition, as above, the procalcitonin is negative. This makes acute pneumonia less likely. I would continue with the antibiotic coverage as per Infectious Disease. Input by Dr. Onofre is noted. The patient is now normotensive. Clinical status of the patient is certainly improved - compared to the initial presentation. However, given the above, the future status/prognosis of this patient does remain guarded. Again, I did discuss the case with the night nurses at length. I would like to see the patient out of bed more often. I will discuss the above with the entire ICU team in the next few moments. I will discuss the above with the attending physician later this morning. Fam Robb MD MTDD
[2018-05-14] MEDS ORDERED: Insulin Regular 1 UNITS/0.01 ML ML IVP STA (11:34)
[2018-05-14] MEDS: Insulin Reg-HIGH-Coverage SC SCH ×3 (11:39→22:37)
[2018-05-14 11:43] LABS: ARTERIAL BLOOD GAS HCO3 26.6 mmol/L (21-28); ARTERIAL BLOOD GAS HEMOGLOBIN 11.9 g/dL (11.7-17.4); ARTERIAL BLOOD GAS O2 CAPACITY 16.4 mL/dl (16-24); ARTERIAL BLOOD GAS O2 CONTENT 15.5 ML/dl (15-23); ARTERIAL BLOOD GAS O2 SAT 94.8 % (95-98); ARTERIAL BLOOD GAS PCO2 45 mm/Hg (35-45); ARTERIAL BLOOD GAS PH 7.38 (7.35-7.45)
[2018-05-14] MEDS: Petrolatum-Mineral Oil Oint (100gm) TOP SCH (11:51)
[2018-05-14] MEDS: Cefepime IV 2 gm in NS 2 GM/100 ML BAG IVPB SCH (11:51)
[2018-05-14] MEDS: Clotrimazole 1% Cream(30 gm) TOP SCH ×2 (11:51→17:31)
--- NOTE | 2018-05-14 13:07 | CP.PCM.PN ---
Subjective - Date & Time of Evaluation Date of Evaluation: 05/14/18 Time of Evaluation: 10:10 - Subjective Subjective: Patient is feeling a little better, no fevers, not short of breath at rest but gets winded when moving, no nausea, no diarrhea, cough is dry. Objective - Vital Signs/Intake and Output Vital Signs (last 24 hours): Temp Pulse Resp BP Pulse Ox 98.5 F 100 H 20 95/60 L 93 L 05/13/18 06:59 05/13/18 22:00 05/13/18 06:59 05/13/18 16:33 05/13/18 04:03 Intake and Output: 05/13/18 05/14/18 18:59 06:59 Intake Total 670 Output Total 100 Balance 570 - Medications Medications: Current Medications Acetaminophen (Tylenol 325mg Tab) 650 mg PO Q6H PRN PRN Reason: Fever >100.4 F Last Admin: 05/14/18 06:11 Dose: 650 mg Acetaminophen (Tylenol 325mg Tab) 650 mg PO Q6 PRN PRN Reason: TEMP>=99.5F Acetaminophen (Tylenol 650 Mg Supp) 650 mg RC Q6H PRN PRN Reason: TEMP>=99.5F Acetylcysteine (Acetylcysteine 20%) 4 ml IH [id number] RIGOBERTO Last Admin: 05/14/18 02:58 Dose: 4 ml Budesonide (Pulmicort Respules) 0.5 mg IH BIDRESP RIGOBERTO Last Admin: 05/13/18 21:00 Dose: 0.5 mg Clonazepam (Klonopin) 2 mg PO QID [facility]IG[facility]ERTO; Protocol Last Admin: 05/13/18 23:06 Dose: 2 mg Gabapentin (Neurontin) 300 mg PO TID [facility]IGOBERTO; Protocol Last Admin: 05/13/18 19:29 Dose: 300 mg Heparin Sodium (Porcine) (Heparin) 5,000 units SC Q8 [facility]IGOBERTO; Protocol Last Admin: 05/14/18 06:13 Dose: 5,000 units Doxycycline Hyclate 100 mg/ (Sodium Chloride) 100 mls @ 100 mls/hr IVPB Q12 [facility]; Protocol Last Admin: 05/13/18 22:31 Dose: 100 mls/hr Sodium Chloride (Sodium Chloride 0.9%) 1,000 mls @ 100 mls/hr IV .Q10H [facility] Last Admin: 05/14/18 06:13 Dose: 100 mls/hr Cefepime HCl (Maxipime 2gm) 2 gm in 100 mls @ 100 mls/hr IVPB DAILY [facility]; Protocol Stop: 05/18/18 10:01 Last Admin: 05/13/18 10:38 Dose: 100 mls/hr Insulin Human Regular (Humulin R Med) 0 units SC ACHS [facility]; Protocol Last Admin: 05/13/18 22:51 Dose: Not Given Levalbuterol HCl (Xopenex) 0.63 mg IH [id number] [facility] Last Admin: 05/14/18 03:00 Dose: 0.63 mg Levalbuterol HCl (Xopenex) 1.25 mg IH Q2H PRN PRN Reason: Shortness of Breath Methylprednisolone (Solu-Medrol) 20 mg IVP Q8H [facility] Last Admin: 05/13/18 22:32 Dose: 20 mg Montelukast Sodium (Singulair) 10 mg PO HS [facility] Last Admin: 05/13/18 22:37 Dose: 10 mg Temazepam [Restoril] (30 Mg- Home Med) 30 mg PO HS [facility] Last Admin: 05/13/18 22:30 Dose: 30 mg Nystatin/Triamcinolone Acetonide (Nystatin/Triamcinolone Cream) 1 ea TOP BID [facility] Last Admin: 05/13/18 10:08 Dose: 1 t12 Ondansetron HCl (Zofran Inj) 4 mg IVP Q4H PRN PRN Reason: Nausea/Vomiting Oseltamivir Phosphate (Tamiflu Cap) 30 mg PO BID [facility]; Protocol Stop: 05/18/18 13:28 Last Admin: 05/13/18 19:31 Dose: 30 mg Pantoprazole Sodium (Protonix Ec Tab) 40 mg PO 0600 [facility] Last Admin: 05/14/18 06:09 Dose: 40 mg Paroxetine HCl (Paxil) 20 mg PO DAILY [facility] Last Admin: 05/13/18 10:38 Dose: 20 mg - Labs Labs: 05/13/18 09:00 05/13/18 09:00 PT 11.4 SECONDS (9.4-12.5) 05/13/18 01:30 INR 1.03 05/13/18 01:30 APTT 28.9 Seconds (26.9-38.3) 05/13/18 01:30 - Constitutional Appears: Chronically Ill - Head Exam Head Exam: NORMAL INSPECTION - ENT Exam ENT Exam: Mucous Membranes Moist - Neck Exam Neck Exam: absent: Lymphadenopathy, Meningismus - Respiratory Exam Respiratory Exam: Decreased Breath Sounds - Cardiovascular Exam Cardiovascular Exam: +S1, +S2 - GI/Abdominal Exam GI & Abdominal Exam: Soft. absent: Tenderness Assessment and Plan - Assessment and Plan (Free Text) Plan: Assessment probable sepsis fromacute bronchitis on top of COPD, R/O Influenza history of right lower lobe HCAP on top of systemic viral illness with Influenza COPD DM anxiety disorder morbid obesity with BMI 49 HTN with hypertensive heart disease Plan on Cefepime and Doxycycline and Tamiflu day 2 - reviewed CT chest and repeat CXR which does not show pneumonia, PCT is only 0.24, cultures are negative so far complete 5 days of therapy will monitor clinically
[2018-05-14] MEDS: MethylPREDNISolone 40 mg Vial IVP SCH ×2 (16:03→21:41)
[2018-05-14] MEDS ORDERED: Insulin Regular 1 UNITS/0.01 ML ML SC ONE (16:34)
[2018-05-14] MEDS ORDERED: Insulin Regular 1 UNITS/0.01 ML ML IV ONE ×2 (16:45→17:45)
--- NOTE | 2018-05-14 17:01 | CARD ---
APPROVED REPORT Date of service: 05/14/2018 EKG Measurement Heart [id number] <Conclusion> Normal sinus rhythm Inferior infarct, age undetermined Abnormal ECG
[2018-05-14] MEDS: Clotrimazole/Betamethasone Lotion(30 ml) TOP SCH (17:32)
--- NOTE | 2018-05-14 17:32 | PN ---
DATE: 05/14/2018 SUBJECTIVE: The patient is seen and examined at bedside. She is sitting in the chair. She is alert, awake and oriented. She is comfortable. She is breathing okay. She is following commands. PHYSICAL EXAMINATION: VITAL SIGNS: Blood pressure 144/62, respiratory rate 17, oxygen saturation 93% 2 liters nasal cannula, heart rate 96. ENT: Head and neck atraumatic. HEART: Regular rate and rhythm. S1, S2 distant. NECK: Obese neck. LUNGS: Clear to auscultation bilaterally. ABDOMEN: Soft, obese, nontender, nondistended. MUSCULOSKELETAL: Trace bilateral pedal and ankle edema. NEURO: The patient moves all extremities spontaneously. SKIN: Moist. PSYCH: The patient is alert, awake and oriented x3. LABORATORY DATA: Sodium 141, potassium 5, chloride 107, carbon dioxide 30, BUN 13, creatinine 1.5 down from 1.9, glucose 327 (the patient is on sliding scale high protocol) and 10 units of insulin IV was given. Lactic acid 1.3. Troponin less than 0.01. WBC 8.7, hemoglobin 12.5, platelet count 230. ABG is pending. MEDICATIONS: Tylenol p.r.n., Mucomyst every 6 hours, Pulmicort, Klonopin, Neurontin 300 mg p.o. t.i.d., heparin 5000 subcu every 8 hours, regular insulin sliding scale high protocol, Xopenex p.r.n. every 6 hours, cefepime, Solu-Medrol 20 mg IV every 8 hours, Singulair 10 mg p.o. h.s., Protonix, Tamiflu, Paxil, and normal saline at 100 mL per hour, Restoril. ASSESSMENT AND PLAN: This is a 57 old lady who initially presented with community-acquired pneumonia with chronic obstructive pulmonary disease exacerbation. The patient was treated with broad-spectrum antibiotics. Bilevel positive airway pressure at night, steroid taper, bronchodilators, and was fluid resuscitated. At present time, she has substantially improved. Her blood pressure is stable. She is alert, awake and oriented. She is comfortable. She is sitting in the chair. Her renal function improved. Her lactic acidosis resolved. She does have problem with poorly-controlled diabetes but she is not in diabetic ketoacidosis now. She is tolerating p.o. food. She is on regular insulin sliding scale coverage at high protocol. We will continue to target euvolemia, glycemia, normothermia and oxygen saturation more than 90%. We will continue with deep vein thrombosis, gastrointestinal prophylaxis. Okay to downgrade to telemetry. ccm time 40 min Aleks Zavala MD MTDD
[2018-05-14] MEDS ORDERED: Insulin Regular 1 UNITS/0.01 ML ML IV STA (21:24)
[2018-05-14] MEDS: TEMAZEPAM 30 MG PO SCH (21:25)
--- NOTE | 2018-05-14 21:54 | PN ---
DATE: 05/14/2018 LOCATION: The patient is seen in ICU, bed 1. SUBJECTIVE: The patient is lying in the bed today. The patient is not on CPAP. The patient is alert, awake, responsive. The patient states that she is feeling better. Overnight nurse's notes were reviewed. PHYSICAL EXAMINATION: VITAL SIGNS: T-max 98.5, which was documented on 05/13/2018 at 06:59, no further temperature is documented in the [facility]. Telemetry shows sinus tachycardia, heart rate high 90s to low 100. Blood pressure 142/62, 141/93, 136/88, 138/71, 116/55. Respiration is 20, 25, 27. O2 sat is 93-95% on nasal cannula and BiPAP. HEENT: Head examination, normocephalic, atraumatic. HEENT examination shows pink conjunctivae. Anicteric sclerae. No oropharyngeal lesion. NECK: No neck rigidity. CHEST: Kyphosis. LUNGS: Decreased air entry with occasional rhonchi. CARDIOVASCULAR: S1, S2, tachycardic rhythm. ABDOMEN: Morbidly obese. GENITALIA: Female. RECTAL: Deferred. LABORATORY DATA: The patient's diagnostic data from 05/14/2018 was reviewed. WBC 8.7, hemoglobin/hematocrit 12.5 and 40, platelet 230, granulocytes 89% segs. The patient's ABG on 05/14/2018 on 28% FiO2, pH of 7.38, pCO2 45, pO2 61, bicarb 26, saturation of 95%. Sodium 141, potassium 5, chloride 107, CO2 of 30, anion gap 9, BUN 13, creatinine is down to 1.5 from 1.9. GFR is 36. Random glucose 302, lactic acid is 1.3, calcium is 8.8, phosphorus 1.7. LFTs are normal. Troponin is negative. Triglyceride 313. Urinalysis noted. Influenza serology negative, Legionella negative, MRSA nares negative. Blood cultures, urine cultures negative. EKG was not done today despite my orders. EKG is reordered again. IMPRESSION: 1. Episodes of weakness and dizziness with slow resolving hypotension. 2. Tachycardia. 3. Tachypnea. 4. Hypoxemia. 5. Questionable and possible systemic inflammatory response syndrome. 6. Leukocytosis with granulocytosis. 7. Elevated D-dimer. 8. Respiratory acidosis with hypercarbia and hypercapnia. 9. CPAP requiring hypoxic hypercarbic respiratory failure with lactic acidosis. 10. Increased anion gap, metabolic acidosis and lactic acidosis. 11. Severe symptomatic hypokalemia. 12. Hyperglycemia. 13. Hypokalemia. 14. Hypertriglyceridemia. 15. Morbid obesity. 16. Severe onychomycosis of the both feet, toes and poor foot hygiene. 17. Hyperglycemia. 18. Acute kidney injury (resolving). 19. Hypophosphatemia. 20. Hyperglycemia. 21. Proteinuria, ketonuria, pyuria, bacteriuria. 22. Morbid obesity with gait dysfunction. 23. Absent bilateral popliteal dorsalis pedis and posterior tibial pulses on the arterial Doppler of the lower extremity. 24. Sinus tachycardia. 25. Left axis deviation. 26. Super morbid obesity with elevated body mass index of 49. 27. Possible sepsis. 28. Acute exacerbation of chronic obstructive pulmonary disease. 29. History of advanced oxygen and steroid dependent chronic obstructive pulmonary disease. 30. Diabetic foot disease. 31. Bilateral plantar cirrhosis with callus formation. 32. Elongated dystrophic foot nails. 33. Status post hypotension. 34. Elevated D-dimer, etiology undetermined. 35. History of anxiety and depression. 36. Adjustment disorder. 37. Insulin-requiring diabetes mellitus. 38. Questionable contact dermatitis of the face. 40. Diabetic neuropathy. 41. Depression. 42. Insomnia. PLAN: At this time, the patient has been ordered repeat labs for the morning. Current consultation, Infectious Disease, Cardiology, Podiatry, Pulmonary and Psychiatry. TCU evaluation ordered. CURRENT MEDICATIONS: Xopenex nebulizer and Mucomyst nebulizer every 6 hours, doxycycline 100 mg IV every 12 hours, heparin 5000 subcu every 8 hours, regular insulin sliding scale coverage high dose before meal and at bedtime, Hydrophor ointment daily. The patient is started on Lac-Hydrin lotion to both feet and legs, Levemir 15 units at bedtime, Lotrimin cream to both feet and legs. The patient is started on Lotrisone cream to the affected area of the face twice a day, cefepime 2 g IV daily, Neurontin 300 mg three times a day, Paxil 20 mg daily, Protonix 40 mg daily, Pulmicort nebulizer 0.5 mg twice a day, Singulair 10 mg at bedtime, IV fluid 0.9 normal saline at 100 mL/hour, Solu-Medrol 20 mg IV every 8 hours, Tamiflu 30 mg twice a day, Restoril 30 mg at bedtime, Tylenol 650 mg p.o. every 6 hours p.r.n., Xopenex ordered, Zofran 4 mg IV every 4 hours p.r.n. Arterial Doppler of the lower extremity ordered by Podiatry. The patient is on BiPAP. The patient has been ordered repeat EKG. WING stockings ordered. Out of bed to chair ordered. SCDs ordered. The patient will be considered for transfer out of the ICU to telemetry. The patient will be considered to be transferred to telemetry in front of the nursing station after cardiology and pulmonary clearance. At present, the patient's overall prognosis is guarded. The patient will be continued on the therapeutic intervention as per the MAR of today which was reviewed. Dictated and electronically signed, not read. Christian Mireles MD
[2018-05-14] MEDS ORDERED: Insulin Detemir 100 units/ml Vial (Levemir) SC SCH (22:00)
[2018-05-14 22:21] LABS: ALB/GLOB RATIO 1.2 (1.1-1.8); ALBUMIN 3.4 g/dL (3.0-4.8); CALCIUM 8.9 mg/dL (8.4-10.5)
[2018-05-15] MEDS: Acetylcysteine 20% Inhal Soln (4ml) IH SCH ×4 (02:30→19:42)
[2018-05-15] MEDS: Levalbuterol 0.63 MG/3 ML Inhal Soln UD IH SCH ×4 (02:30→19:42)
[2018-05-15 05:09] LABS: BASO # 0.02 K/mm3 (0.0-2.0); BASO % 0.2 % (0.0-3.0); HEMOGLOBIN 12.4 g/dL (12.0-16.0); LYMPH # 0.8 (1.2-3.4); LYMPH % 7.4 % (22.0-35.0); MEAN CELL VOLUME 92.2 fl (80.0-105.0); MEAN CORPUSCULAR HEMOGLOBIN 29.5 pg (25.0-35.0); MEAN PLATELET VOLUME 12.3 fl (7.0-11.0); MONO # 0.4 (0.1-0.6); MONO % 3.5 % (1.0-6.0); RBC 4.21 10^6/uL (3.5-6.1); WHITE BLOOD COUNT 11.2 10^3/uL (4.5-11.0)
[2018-05-15] MEDS: MethylPREDNISolone 40 mg Vial IVP SCH ×3 (06:15→21:52)
[2018-05-15] MEDS: Pantoprazole 40 mg EC Tab PO SCH (06:15)
[2018-05-15 07:06] LABS: ALB/GLOB RATIO 1.2 (1.1-1.8); ALBUMIN 3.2 g/dL (3.0-4.8); BILIRUBIN,DIRECT 0.3 mg/dL (0.0-0.4); CALCIUM 8.7 mg/dL (8.4-10.5)
[2018-05-15] MEDS ORDERED: Potassium & Sodium Phosphate PO ONE (07:15)
[2018-05-15] MEDS: Insulin Reg-HIGH-Coverage SC SCH ×4 (08:19→22:00)
[2018-05-15] MEDS: Insulin Regular 1 UNITS/0.01 ML ML SC SCH ×3 (08:20→17:04)
[2018-05-15] MEDS: Insulin Detemir 100 units/ml Vial (Levemir) SC SCH ×2 (08:20→17:05)
[2018-05-15] MEDS: Budesonide 0.5 mg/2 ml Inhal Susp UD IH SCH ×2 (08:21→19:42)
--- NOTE | 2018-05-15 08:51 | PN ---
DATE: 05/15/2018 SUBJECTIVE: The patient appears comfortable this morning. She is not short of breath at rest. She is awake and alert. PHYSICAL EXAMINATION: VITAL SIGNS: Temperature is 98.2, pulse is 88, respiratory rate 20, last blood pressure recorded is 135/70. Oxygen saturation on nasal cannula is 94%. HEENT: Normocephalic, atraumatic. NECK: No JVD. CARDIOVASCULAR: Positive S1, S2. No S3 gallop. LUNGS: Improved breath sounds at the bases. Very minimal/less rhonchi. No wheezing. EXTREMITIES: Mild edema. No cyanosis, no clubbing. Calves are nontender to palpation. GASTROINTESTINAL: Abdomen is soft, nontender and nondistended. Bowel sounds are positive. SKIN: Foul-smelling rash - left groin. NEUROLOGIC: Exam limited at the present time. IMPRESSION: 1. Sepsis syndrome. 2. Left groin cellulitis. 3. Advanced chronic obstructive pulmonary disease. 4. Asthma. PLAN: The patient appears very comfortable this morning. She is not short of breath at rest. She does state to feeling much better overall. I did discuss the case with the night nurse at length. The night nurse stated the patient had a very good night. On physical exam, there is certainly less bronchospasm noted. In addition, the alveolar-arterial gradient is also less. I will continue the current nebulizer treatments and decrease the intravenous steroids this morning.. I would continue with the antibiotic coverage as per Infectious Disease. Input by Dr. Onofre is noted. There are no temperatures noted. The leukocytosis has primarily resolved. Input by Cardiology is also noted. Clinical status of the patient appears significantly improved - compared to the initial presentation. Again, I would like to see the patient out of bed as much as possible. I will discuss the above with the attending physician. Fam Robb MD MTDD
--- NOTE | 2018-05-15 09:00 | CP.PCM.PCO ---
Addendum Addendum: 05/15/18 08:59 this journalists and other writers was off 05/13-05/14/18, Medical team didn't call for psychiatrist covering. pt will be seen today
[2018-05-15] MEDS: Cefepime IV 2 gm in NS 2 GM/100 ML BAG IVPB SCH (09:51)
[2018-05-15] MEDS: Ammonium Lactate 12% Lotion (225 g) TOP SCH (10:05)
[2018-05-15] MEDS: Clotrimazole/Betamethasone Lotion(30 ml) TOP SCH ×2 (10:05→17:08)
[2018-05-15] MEDS: Clotrimazole 1% Cream(30 gm) TOP SCH ×2 (10:05→17:18)
[2018-05-15] MEDS: Nystatin-Triamcinolone Cream(30 gm) TOP SCH ×2 (10:06→17:16)
[2018-05-15] MEDS: Petrolatum-Mineral Oil Oint (100gm) TOP SCH (10:23)
--- NOTE | 2018-05-15 11:21 | CARD ---
APPROVED REPORT Date of service: 05/15/2018 EKG Measurement Heart [id number] <Conclusion> Normal sinus rhythm Nonspecific T wave abnormality
--- NOTE | 2018-05-15 12:00 | CP.PCM.PN ---
<Raza Awan - Last Filed: 05/15/18 11:42> Subjective - Date & Time of Evaluation Date of Evaluation: 05/15/18 Time of Evaluation: 11:42 - Subjective Subjective: Podiatry progress note - Drs. De La Rosa/Elizabeth 57F seen and evaluated at bedside this AM in the CCU. Denies pain to feet and reports lotions applied overnight. Denies N/V/F/C/SOB/CP today and states she still has some discomfort associated with nails. Objective - Vital Signs/Intake and Output Vital Signs (last 24 hours): Temp Pulse Resp BP Pulse Ox 98.9 F 82 24 141/62 82 L 05/15/18 06:00 05/15/18 07:45 05/15/18 07:45 05/15/18 06:20 05/15/18 07:20 Intake and Output: 05/15/18 05/15/18 06:59 18:59 Intake Total 1920 Output Total 700 Balance 1220 - Medications Medications: Current Medications Acetaminophen (Tylenol 325mg Tab) 650 mg PO Q6H PRN PRN Reason: Fever >100.4 F Last Admin: 05/15/18 06:15 Dose: 650 mg Acetaminophen (Tylenol 325mg Tab) 650 mg PO Q6 PRN PRN Reason: TEMP>=99.5F Acetaminophen (Tylenol 650 Mg Supp) 650 mg RC Q6H PRN PRN Reason: TEMP>=99.5F Acetylcysteine (Acetylcysteine 20%) 4 ml IH [id number] RIGOBERTO Last Admin: 05/15/18 08:21 Dose: 4 ml Betamethasone/Clotrimazole (Lotrisone) 0 ml TOP BID [facility]O Last Admin: 05/15/18 10:05 Dose: 1 applic Budesonide (Pulmicort Respules) 0.5 mg IH BIDRESP RIGOBERTO Last Admin: 05/15/18 08:21 Dose: 0.5 mg Clonazepam (Klonopin) 2 mg PO QID [facility]; Protocol Last Admin: 05/15/18 10:03 Dose: 2 mg Clotrimazole (Lotrimin 1%) 0 gm TOP BID [facility] Last Admin: 05/15/18 10:05 Dose: 1 applic Dextrose (Dextrose 50% Inj) 0 ml IV STAT PRN; Protocol PRN Reason: Hypoglycemia Protocol Gabapentin (Neurontin) 300 mg PO TID [facility]; Protocol Last Admin: 05/15/18 09:49 Dose: 300 mg Heparin Sodium (Porcine) (Heparin) 5,000 units SC Q8 [facility]; Protocol Last Admin: 05/15/18 06:16 Dose: 5,000 units Doxycycline Hyclate 100 mg/ (Sodium Chloride) 100 mls @ 100 mls/hr IVPB Q12 [facility]; Protocol Last Admin: 05/15/18 09:50 Dose: 100 mls/hr Cefepime HCl (Maxipime 2gm) 2 gm in 100 mls @ 100 mls/hr IVPB DAILY [facility]; Protocol Stop: 05/18/18 10:01 Last Admin: 05/15/18 09:51 Dose: 100 mls/hr Dextrose (Dextrose 5% In Water 1000 Ml) 1,000 mls @ 0 mls/hr IV .Q0M PRN; Protocol PRN Reason: Hypoglycemia Protocol Insulin Detemir (Levemir) 25 unit SC ACBD [facility] Last Admin: 05/15/18 08:20 Dose: 25 units Insulin Human Regular (Humulin R High) 0 units SC ACHS [facility]; Protocol Last Admin: 05/15/18 08:19 Dose: 10 units Insulin Human Regular (Humulin R) 10 units SC AC [facility] Last Admin: 05/15/18 08:20 Dose: 10 units Lactic Acid (Lac-Hydrin 12% Lotion (225 G)) 0 gm TOP DAILY [facility] Last Admin: 05/15/18 10:05 Dose: 1 applic Levalbuterol HCl (Xopenex) 0.63 mg IH [id number] [facility] Last Admin: 05/15/18 08:21 Dose: 0.63 mg Levalbuterol HCl (Xopenex) 1.25 mg IH Q2H PRN PRN Reason: Shortness of Breath Methylprednisolone (Solu-Medrol) 20 mg IVP Q12 [facility] Last Admin: 05/15/18 09:49 Dose: 20 mg Montelukast Sodium (Singulair) 10 mg PO HS [facility] Last Admin: 05/14/18 21:38 Dose: 10 mg Multi-Ingredient Ointment (Hydrophor Oint) 0 gm TOP DAILY [facility] Last Admin: 05/15/18 10:23 Dose: 1 applic Temazepam [Restoril] (30 Mg- Home Med) 30 mg PO HS [facility] Last Admin: 05/14/18 21:25 Dose: 30 mg Nystatin/Triamcinolone Acetonide (Nystatin/Triamcinolone Cream) 1 ea TOP BID [facility] Last Admin: 05/15/18 10:06 Dose: 1 oin Ondansetron HCl (Zofran Inj) 4 mg IVP Q4H PRN PRN Reason: Nausea/Vomiting Oseltamivir Phosphate (Tamiflu Cap) 30 mg PO BID [facility]; Protocol Stop: 05/18/18 13:28 Last Admin: 05/15/18 09:50 Dose: 30 mg Pantoprazole Sodium (Protonix Ec Tab) 40 mg PO 0600 [facility] Last Admin: 05/15/18 06:15 Dose: 40 mg Paroxetine HCl (Paxil) 20 mg PO DAILY [facility] Last Admin: 05/15/18 09:49 Dose: 20 mg - Labs Labs: 05/15/18 04:30 05/15/18 04:30 PT 11.4 SECONDS (9.4-12.5) 05/13/18 01:30 INR 1.03 05/13/18 01:30 APTT 28.9 Seconds (26.9-38.3) 05/13/18 01:30 - Constitutional Appears: Non-toxic - Head Exam Head Exam: NORMOCEPHALIC - Extremities Exam Additional comments: VASC: DP and PT pulses palpable; cap refill <3 seconds to all digits; temp gradient normal; mild edema b/l DERM: xerosis present on the plantar aspects of feet, callus formation, no fissures present; no open wounds or lesions; nails are dystrophic and elongated ORTHO: no pain on palpation of b/l feet NEURO: gross and protective sensation mildly diminished - Neurological Exam Neurological Exam: Alert, Awake, Oriented x3 - Psychiatric Exam Psychiatric exam: Normal Affect, Normal Mood Assessment and Plan - Assessment and Plan (Free Text) Assessment: 57F with xerosis of b/l feet and elongated dystrophic nails Plan: Patient seen and evaluated with Dr. Elizabeth SALGADO Multipodus boots to be worn while in bed to prevent bed sores Lotrimin, ammonium lactate, and aquaphor - to be applied daily to b/l feet to help with scaling and xerosis Elongated dystrophic nails cut without incident - patient tolerated well Normal ABIs and PVRs Diabetic education provided, instructed to follow scrap sorter upon discharge as outpatient Podiatry to follow while in house <TjKerrie haynesdeepak - Last Filed: 05/15/18 19:11> Objective - Vital Signs/Intake and Output Vital Signs (last 24 hours): Temp Pulse Resp BP Pulse Ox 98.9 F 88 22 146/75 82 L 05/15/18 06:00 05/15/18 17:27 05/15/18 17:27 05/15/18 15:19 05/15/18 07:20 Intake and Output: 05/15/18 05/16/18 18:59 06:59 Intake Total 1420 Output Total 750 Balance 670 - Medications Medications: Current Medications Acetaminophen (Tylenol 325mg Tab) 650 mg PO Q6H PRN PRN Reason: Fever >100.4 F Last Admin: 05/15/18 06:15 Dose: 650 mg Acetaminophen (Tylenol 325mg Tab) 650 mg PO Q6 PRN PRN Reason: TEMP>=99.5F Acetaminophen (Tylenol 650 Mg Supp) 650 mg RC Q6H PRN PRN Reason: TEMP>=99.5F Acetylcysteine (Acetylcysteine 20%) 4 ml IH [id number] RIGOBERTO Last Admin: 05/15/18 14:26 Dose: 4 ml Betamethasone/Clotrimazole (Lotrisone) 0 ml TOP BID [facility] Last Admin: 05/15/18 17:08 Dose: 1 applic Budesonide (Pulmicort Respules) 0.5 mg IH BIDRESP [facility] Last Admin: 05/15/18 08:21 Dose: 0.5 mg Clonazepam (Klonopin) 2 mg PO QID [facility]; Protocol Last Admin: 05/15/18 17:35 Dose: 2 mg Clotrimazole (Lotrimin 1%) 0 gm TOP BID [facility] Last Admin: 05/15/18 17:18 Dose: 1 applic Dextrose (Dextrose 50% Inj) 0 ml IV STAT PRN; Protocol PRN Reason: Hypoglycemia Protocol Gabapentin (Neurontin) 300 mg PO TID [facility]; Protocol Last Admin: 05/15/18 17:36 Dose: 300 mg Heparin Sodium (Porcine) (Heparin) 5,000 units SC Q8 [facility]; Protocol Last Admin: 05/15/18 14:52 Dose: 5,000 units Doxycycline Hyclate 100 mg/ (Sodium Chloride) 100 mls @ 100 mls/hr IVPB Q12 [facility]; Protocol Last Admin: 05/15/18 09:50 Dose: 100 mls/hr Cefepime HCl (Maxipime 2gm) 2 gm in 100 mls @ 100 mls/hr IVPB DAILY [facility]; Protocol Stop: 05/18/18 10:01 Last Admin: 05/15/18 09:51 Dose: 100 mls/hr Dextrose (Dextrose 5% In Water 1000 Ml) 1,000 mls @ 0 mls/hr IV .Q0M PRN; Protocol PRN Reason: Hypoglycemia Protocol Insulin Detemir (Levemir) 25 unit SC ACBD [facility] Last Admin: 05/15/18 17:05 Dose: 25 units Insulin Human Regular (Humulin R High) 0 units SC ACHS [facility]; Protocol Last Admin: 05/15/18 17:04 Dose: 15 units Insulin Human Regular (Humulin R) 10 units SC AC [facility] Last Admin: 05/15/18 17:04 Dose: 10 units Lactic Acid (Lac-Hydrin 12% Lotion (225 G)) 0 gm TOP DAILY [facility] Last Admin: 05/15/18 10:05 Dose: 1 applic Levalbuterol HCl (Xopenex) 0.63 mg IH [id number] [facility] Last Admin: 05/15/18 14:26 Dose: 0.63 mg Levalbuterol HCl (Xopenex) 1.25 mg IH Q2H PRN PRN Reason: Shortness of Breath Methylprednisolone (Solu-Medrol) 20 mg IVP Q12 [facility] Last Admin: 05/15/18 09:49 Dose: 20 mg Montelukast Sodium (Singulair) 10 mg PO HS [facility] Last Admin: 05/14/18 21:38 Dose: 10 mg Multi-Ingredient Ointment (Hydrophor Oint) 0 gm TOP DAILY [facility] Last Admin: 05/15/18 10:23 Dose: 1 applic Temazepam [Restoril] (30 Mg- Home Med) 30 mg PO HS [facility] Last Admin: 05/14/18 21:25 Dose: 30 mg Nystatin/Triamcinolone Acetonide (Nystatin/Triamcinolone Cream) 1 ea TOP BID [facility] Last Admin: 05/15/18 17:16 Dose: 1 oin Ondansetron HCl (Zofran Inj) 4 mg IVP Q4H PRN PRN Reason: Nausea/Vomiting Oseltamivir Phosphate (Tamiflu Cap) 30 mg PO BID [facility]; Protocol Stop: 05/18/18 13:28 Last Admin: 05/15/18 18:19 Dose: 30 mg Pantoprazole Sodium (Protonix Ec Tab) 40 mg PO 0600 [facility] Last Admin: 05/15/18 06:15 Dose: 40 mg Paroxetine HCl (Paxil) 20 mg PO DAILY [facility] Last Admin: 05/15/18 09:49 Dose: 20 mg - Labs Labs: 05/15/18 04:30 05/15/18 04:30 PT 11.4 SECONDS (9.4-12.5) 05/13/18 01:30 INR 1.03 05/13/18 01:30 APTT 28.9 Seconds (26.9-38.3) 05/13/18 01:30 Attending/Attestation - Attestation I have personally seen and examined this patient.: Yes I have fully participated in the care of the patient.: Yes I have reviewed all pertinent clinical information, including history, physical exam and plan: Yes
--- NOTE | 2018-05-15 13:48 | CP.PCM.PN ---
<Claude Doty - Last Filed: 05/15/18 13:46> Subjective - Date & Time of Evaluation Date of Evaluation: 05/15/18 Time of Evaluation: 07:10 - Subjective Subjective: Infectious disease progress note: Patient was seen and examined at bedside. No acute events overnight. Patient still complains of some chills however denies any fevers, or cough. No other symptoms. Point ROS performed and negative other than stated above. Objective - Vital Signs/Intake and Output Vital Signs (last 24 hours): Temp Pulse Resp BP Pulse Ox 98.9 F 82 24 141/62 82 L 05/15/18 06:00 05/15/18 07:45 05/15/18 07:45 05/15/18 06:20 05/15/18 07:20 Intake and Output: 05/15/18 05/15/18 06:59 18:59 Intake Total 1920 Output Total 700 Balance 1220 - Medications Medications: Current Medications Acetaminophen (Tylenol 325mg Tab) 650 mg PO Q6H PRN PRN Reason: Fever >100.4 F Last Admin: 05/15/18 06:15 Dose: 650 mg Acetaminophen (Tylenol 325mg Tab) 650 mg PO Q6 PRN PRN Reason: TEMP>=99.5F Acetaminophen (Tylenol 650 Mg Supp) 650 mg RC Q6H PRN PRN Reason: TEMP>=99.5F Acetylcysteine (Acetylcysteine 20%) 4 ml IH [id number] [facility] Last Admin: 05/15/18 08:21 Dose: 4 ml Betamethasone/Clotrimazole (Lotrisone) 0 ml TOP BID [facility] Last Admin: 05/15/18 10:05 Dose: 1 applic Budesonide (Pulmicort Respules) 0.5 mg IH BIDRESP [facility] Last Admin: 05/15/18 08:21 Dose: 0.5 mg Clonazepam (Klonopin) 2 mg PO QID [facility]O; Protocol Last Admin: 05/15/18 10:03 Dose: 2 mg Clotrimazole (Lotrimin 1%) 0 gm TOP BID [facility] Last Admin: 05/15/18 10:05 Dose: 1 applic Dextrose (Dextrose 50% Inj) 0 ml IV STAT PRN; Protocol PRN Reason: Hypoglycemia Protocol Gabapentin (Neurontin) 300 mg PO TID [facility]OBERTO; Protocol Last Admin: 05/15/18 09:49 Dose: 300 mg Heparin Sodium (Porcine) (Heparin) 5,000 units SC Q8 [facility]; Protocol Last Admin: 05/15/18 06:16 Dose: 5,000 units Doxycycline Hyclate 100 mg/ (Sodium Chloride) 100 mls @ 100 mls/hr IVPB Q12 [facility]; Protocol Last Admin: 05/15/18 09:50 Dose: 100 mls/hr Cefepime HCl (Maxipime 2gm) 2 gm in 100 mls @ 100 mls/hr IVPB DAILY [facility]; Protocol Stop: 05/18/18 10:01 Last Admin: 05/15/18 09:51 Dose: 100 mls/hr Dextrose (Dextrose 5% In Water 1000 Ml) 1,000 mls @ 0 mls/hr IV .Q0M PRN; Protocol PRN Reason: Hypoglycemia Protocol Insulin Detemir (Levemir) 25 unit SC ACBD [facility] Last Admin: 05/15/18 08:20 Dose: 25 units Insulin Human Regular (Humulin R High) 0 units SC ACHS [facility]; Protocol Last Admin: 05/15/18 12:08 Dose: 15 units Insulin Human Regular (Humulin R) 10 units SC AC [facility] Last Admin: 05/15/18 12:09 Dose: 10 units Lactic Acid (Lac-Hydrin 12% Lotion (225 G)) 0 gm TOP DAILY [facility] Last Admin: 05/15/18 10:05 Dose: 1 applic Levalbuterol HCl (Xopenex) 0.63 mg IH [id number] [facility] Last Admin: 05/15/18 08:21 Dose: 0.63 mg Levalbuterol HCl (Xopenex) 1.25 mg IH Q2H PRN PRN Reason: Shortness of Breath Methylprednisolone (Solu-Medrol) 20 mg IVP Q12 [facility] Last Admin: 05/15/18 09:49 Dose: 20 mg Montelukast Sodium (Singulair) 10 mg PO HS [facility] Last Admin: 05/14/18 21:38 Dose: 10 mg Multi-Ingredient Ointment (Hydrophor Oint) 0 gm TOP DAILY [facility] Last Admin: 05/15/18 10:23 Dose: 1 applic Temazepam [Restoril] (30 Mg- Home Med) 30 mg PO HS [facility] Last Admin: 05/14/18 21:25 Dose: 30 mg Nystatin/Triamcinolone Acetonide (Nystatin/Triamcinolone Cream) 1 ea TOP BID [facility] Last Admin: 05/15/18 10:06 Dose: 1 oin Ondansetron HCl (Zofran Inj) 4 mg IVP Q4H PRN PRN Reason: Nausea/Vomiting Oseltamivir Phosphate (Tamiflu Cap) 30 mg PO BID [facility]; Protocol Stop: 05/18/18 13:28 Last Admin: 05/15/18 09:50 Dose: 30 mg Pantoprazole Sodium (Protonix Ec Tab) 40 mg PO 0600 [facility] Last Admin: 05/15/18 06:15 Dose: 40 mg Paroxetine HCl (Paxil) 20 mg PO DAILY [facility] Last Admin: 05/15/18 09:49 Dose: 20 mg - Labs Labs: 05/15/18 04:30 05/15/18 04:30 PT 11.4 SECONDS (9.4-12.5) 05/13/18 01:30 INR 1.03 05/13/18 01:30 APTT 28.9 Seconds (26.9-38.3) 05/13/18 01:30 - Constitutional Appears: No Acute Distress - Head Exam Head Exam: ATRAUMATIC, NORMOCEPHALIC - Eye Exam Eye Exam: EOMI - ENT Exam ENT Exam: Mucous Membranes Moist - Respiratory Exam Respiratory Exam: Clear to Ausculation Bilateral. absent: Rales, Wheezes - Cardiovascular Exam Cardiovascular Exam: REGULAR RHYTHM, +S1, +S2 - GI/Abdominal Exam GI & Abdominal Exam: Soft. absent: Tenderness - Extremities Exam Extremities Exam: absent: Calf Tenderness, Pedal Edema - Neurological Exam Neurological Exam: Alert, Awake - Psychiatric Exam Psychiatric exam: Normal Mood - Skin Skin Exam: Dry, Warm Assessment and Plan - Assessment and Plan (Free Text) Assessment: 57-year-old female with past medical history of morbid obesity, COPD on home oxygen, diabetes, hypertension, GERD, anxiety, and depression presents with sudden body weakness and body aches and chills. Patient is sepstic with hypotensive and tachycardic. Infectious disease was consulted for sepsis 2/2 Hcap r/o influenza Continue vanc, cefepime, and doxycycline Cont Tamiflu Pro-calcitonin was negative Follow-up septic workup Continue to monitor for any changes Case and plan was reviewed and discussed with Librado Jansen S - Last Filed: 05/15/18 16:44> Objective - Vital Signs/Intake and Output Vital Signs (last 24 hours): Temp Pulse Resp BP Pulse Ox 98.9 F 106 H 78 H 146/75 82 L 05/15/18 06:00 05/15/18 15:25 05/15/18 15:25 05/15/18 15:19 05/15/18 07:20 Intake and Output: 05/15/18 05/15/18 06:59 18:59 Intake Total 1920 Output Total 700 Balance 1220 - Medications Medications: Current Medications Acetaminophen (Tylenol 325mg Tab) 650 mg PO Q6H PRN PRN Reason: Fever >100.4 F Last Admin: 05/15/18 06:15 Dose: 650 mg Acetaminophen (Tylenol 325mg Tab) 650 mg PO Q6 PRN PRN Reason: TEMP>=99.5F Acetaminophen (Tylenol 650 Mg Supp) 650 mg RC Q6H PRN PRN Reason: TEMP>=99.5F Acetylcysteine (Acetylcysteine 20%) 4 ml IH [id number] [facility] Last Admin: 05/15/18 14:26 Dose: 4 ml Betamethasone/Clotrimazole (Lotrisone) 0 ml TOP BID [facility] Last Admin: 05/15/18 10:05 Dose: 1 applic Budesonide (Pulmicort Respules) 0.5 mg IH BIDRESP [facility] Last Admin: 05/15/18 08:21 Dose: 0.5 mg Clonazepam (Klonopin) 2 mg PO QID [facility]IGOBERT[facility]; Protocol Last Admin: 05/15/18 14:52 Dose: 2 mg Clotrimazole (Lotrimin 1%) 0 gm TOP BID [facility]IGOBERTO Last Admin: 05/15/18 10:05 Dose: 1 applic Dextrose (Dextrose 50% Inj) 0 ml IV STAT PRN; Protocol PRN Reason: Hypoglycemia Protocol Gabapentin (Neurontin) 300 mg PO TID RIGOBERTO; Protocol Last Admin: 05/15/18 14:53 Dose: 300 mg Heparin Sodium (Porcine) (Heparin) 5,000 units SC Q8 [facility]IG[facility]ERTO; Protocol Last Admin: 05/15/18 14:52 Dose: 5,000 units Doxycycline Hyclate 100 mg/ (Sodium Chloride) 100 mls @ 100 mls/hr IVPB Q12 [facility]; Protocol Last Admin: 05/15/18 09:50 Dose: 100 mls/hr Cefepime HCl (Maxipime 2gm) 2 gm in 100 mls @ 100 mls/hr IVPB DAILY [facility]; Protocol Stop: 05/18/18 10:01 Last Admin: 05/15/18 09:51 Dose: 100 mls/hr Dextrose (Dextrose 5% In Water 1000 Ml) 1,000 mls @ 0 mls/hr IV .Q0M PRN; Protocol PRN Reason: Hypoglycemia Protocol Insulin Detemir (Levemir) 25 unit SC ACBD [facility] Last Admin: 05/15/18 08:20 Dose: 25 units Insulin Human Regular (Humulin R High) 0 units SC ACHS [facility]; Protocol Last Admin: 05/15/18 12:08 Dose: 15 units Insulin Human Regular (Humulin R) 10 units SC AC [facility] Last Admin: 05/15/18 12:09 Dose: 10 units Lactic Acid (Lac-Hydrin 12% Lotion (225 G)) 0 gm TOP DAILY [facility] Last Admin: 05/15/18 10:05 Dose: 1 applic Levalbuterol HCl (Xopenex) 0.63 mg IH [id number] [facility] Last Admin: 05/15/18 14:26 Dose: 0.63 mg Levalbuterol HCl (Xopenex) 1.25 mg IH Q2H PRN PRN Reason: Shortness of Breath Methylprednisolone (Solu-Medrol) 20 mg IVP Q12 [facility] Last Admin: 05/15/18 09:49 Dose: 20 mg Montelukast Sodium (Singulair) 10 mg PO HS [facility] Last Admin: 05/14/18 21:38 Dose: 10 mg Multi-Ingredient Ointment (Hydrophor Oint) 0 gm TOP DAILY [facility] Last Admin: 05/15/18 10:23 Dose: 1 applic Temazepam [Restoril] (30 Mg- Home Med) 30 mg PO HS [facility] Last Admin: 05/14/18 21:25 Dose: 30 mg Nystatin/Triamcinolone Acetonide (Nystatin/Triamcinolone Cream) 1 ea TOP BID [facility] Last Admin: 05/15/18 10:06 Dose: 1 oin Ondansetron HCl (Zofran Inj) 4 mg IVP Q4H PRN PRN Reason: Nausea/Vomiting Oseltamivir Phosphate (Tamiflu Cap) 30 mg PO BID [facility]; Protocol Stop: 05/18/18 13:28 Last Admin: 05/15/18 09:50 Dose: 30 mg Pantoprazole Sodium (Protonix Ec Tab) 40 mg PO 0600 [facility] Last Admin: 05/15/18 06:15 Dose: 40 mg Paroxetine HCl (Paxil) 20 mg PO DAILY [facility] Last Admin: 05/15/18 09:49 Dose: 20 mg - Labs Labs: 05/15/18 04:30 05/15/18 04:30 PT 11.4 SECONDS (9.4-12.5) 05/13/18 01:30 INR 1.03 05/13/18 01:30 APTT 28.9 Seconds (26.9-38.3) 05/13/18 01:30 Assessment and Plan - Assessment and Plan (Free Text) Assessment: Infectious diseases Attending Physician Attestation Patient seen and examined, discussed with medical educator. I have reviewed the patient's history of present illness, past medical, social, personal and family histories, pertinent physical exam findings, course so far in this hospital admission, pertinent laboratory and imaging results. I agree with the above findings, assessment and plan. In addition, continue Cefepime, Doxycyclien for probable acute bronchitis, R/O influenza - continue Tamiflu as well. Will continue to monitor clinically.
--- NOTE | 2018-05-15 14:11 | PN ---
DATE: 05/15/2018 SUBJECTIVE: The patient is seen in CCU, bed 7. [facility] The patient is alert, awake, responsive. The patient is off the CPAP mask. Denies any dizziness. Denies nausea, denies vomiting, denies chest pain and denies shortness of breath. PHYSICAL EXAMINATION VITAL SIGNS: T-max is 98.9. Telemetry shows sinus rhythm, heart rate 80s, 94 and 92, blood pressure is 141/62, 135/70, 122/72, respiration 22-24 and O2 sat is dropping down low to mid 90s. HEENT: Head examination normocephalic and atraumatic. HEENT examination shows pink conjunctivae. Anicteric sclerae. No oropharyngeal lesion. No neck rigidity. CHEST: Kyphosis. LUNGS: Shows decreased breath sounds. Occasional wheezing. No crackles or rales. CARDIOVASCULAR: S1 and S2, regular rhythm. Positive systolic murmur left sternal border, right second intercostal space, left second intercostal space. ABDOMEN: Morbidly obese and protuberant. GENITALIA: Female. RECTAL: Examination is deferred. EXTREMITIES: Shows positive SCDs. MUSCULOSKELETAL: Examination shows a body mass index of 49. NEUROLOGIC: The patient is alert, awake and oriented x3. Cranial nerves II-XII intact. Gait examination is not tested. LABORATORY DATA: Diagnostics from 05/15/2018, WBC 11.2, hemoglobin/hematocrit 12.4 and 38.8 and platelet 228. Granulocytes 89% segs. Sodium 140, potassium 5.5, chloride 105, CO2 of 30, anion gap 9, BUN 24, creatinine 1.4 and GFR 39. Fingerstick blood sugar 420, 412, 423, 369 and 340. Lactic acid 1.3, calcium 8.7, phosphorus 2.2 and magnesium 1.8. LFTs are normal. Influenza, Legionella strep pneumoniae titers are negative. Blood urine cultures are negative. MRSA non-detected. IMPRESSION: 1. History of anxiety and depression with adjustment disorder. 2. Acute exacerbation of chronic obstructive pulmonary disease. 3. Advanced steroid and nebulizer dependent chronic obstructive pulmonary disease. 4. Questionable sepsis versus systemic inflammatory response syndrome. 5. Left lower lobe pneumonia and effusion. 6. Resolving pansinusitis. 7. Sinus tachycardia. 8. Left axis deviation. 9. 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 10. Super morbid obesity with elevated body mass index of 49. 11. Insulin-requiring diabetes mellitus uncontrolled with hyperglycemia. 12. Diabetic neuropathy. 13. Status post hypokalemia presently hyperkalemia. 14. Insomnia. 15. Bilateral lower extremity venous stasis (resolving). PLAN: At this time, the patient will be considered for transfer out of the ICU after cleared by Cardiology and Pulmonary. Current repeat labs ordered. Consultation; Infectious Disease, Cardiology, Podiatry, Psychiatry and Pulmonary. Current medications, Mucomyst and Xopenex nebulizer, doxycycline 100 mg IV every 12 hours, heparin 5000 subcutaneously every 8 hours and regular insulin sliding scale coverage. The patient has been given Kayexalate and insulin IV for hyperkalemia, Klonopin 2 mg q.i.d., ammonium lactate, Lac-Hydrin lotion, Levemir increased to 25 units with breakfast and dinner for hyperglycemia. Lotrisone and Lotrimin cream, cefepime 2 g IV daily and Neurontin 300 mg three times a day. Paxil 20 mg daily, Protonix 40 mg daily, Pulmicort nebulizer 0.5 mg twice a day, Singulair 10 mg daily, Solu-Medrol decreased to 20 mg IV every 12 hours by Pulmonary, Tamiflu 30 mg twice a day, Restoril 30 mg at bedtime, Tylenol p.r.n. and Zofran 4 mg IV every 4 hours p.r.n. The patient's official arterial Doppler results are pending. The patient has been ordered oxygen nasal cannula during the day and CPAP at night at 16/6 with 35% FIO2, rate of 14 at bedtime and p.r.n. The patient has been ordered WING stockings, SCDs, head of the bed at 30 degrees. The patient will be considered for physical therapy, occupational therapy, ambulation therapy, gait training and TCU evaluation once the patient is out of the ICU. Dictated and electronically signed, not read. Signing off Christian Mireles MD. Christian Mireles MD
--- NOTE | 2018-05-15 19:26 | CP.PCM.PN ---
Objective - Vital Signs/Intake and Output Vital Signs (last 24 hours): Temp Pulse Resp BP Pulse Ox 98.9 F 88 22 146/75 82 L 05/15/18 06:00 05/15/18 17:27 05/15/18 17:27 05/15/18 15:19 05/15/18 07:20 Intake and Output: 05/15/18 05/16/18 18:59 06:59 Intake Total 1420 Output Total 750 Balance 670 - Medications Medications: Current Medications Acetaminophen (Tylenol 325mg Tab) 650 mg PO Q6H PRN PRN Reason: Fever >100.4 F Last Admin: 05/15/18 06:15 Dose: 650 mg Acetaminophen (Tylenol 325mg Tab) 650 mg PO Q6 PRN PRN Reason: TEMP>=99.5F Acetaminophen (Tylenol 650 Mg Supp) 650 mg RC Q6H PRN PRN Reason: TEMP>=99.5F Acetylcysteine (Acetylcysteine 20%) 4 ml IH [id number] [facility] Last Admin: 05/15/18 14:26 Dose: 4 ml Betamethasone/Clotrimazole (Lotrisone) 0 ml TOP BID [facility] Last Admin: 05/15/18 17:08 Dose: 1 applic Budesonide (Pulmicort Respules) 0.5 mg IH BIDRESP [facility] Last Admin: 05/15/18 08:21 Dose: 0.5 mg Clonazepam (Klonopin) 2 mg PO QID [facility]; Protocol Last Admin: 05/15/18 17:35 Dose: 2 mg Clotrimazole (Lotrimin 1%) 0 gm TOP BID [facility]O Last Admin: 05/15/18 17:18 Dose: 1 applic Dextrose (Dextrose 50% Inj) 0 ml IV STAT PRN; Protocol PRN Reason: Hypoglycemia Protocol Gabapentin (Neurontin) 300 mg PO TID [facility]IGOBERTO; Protocol Last Admin: 05/15/18 17:36 Dose: 300 mg Heparin Sodium (Porcine) (Heparin) 5,000 units SC Q8 [facility]; Protocol Last Admin: 05/15/18 14:52 Dose: 5,000 units Doxycycline Hyclate 100 mg/ (Sodium Chloride) 100 mls @ 100 mls/hr IVPB Q12 [facility]; Protocol Last Admin: 05/15/18 09:50 Dose: 100 mls/hr Cefepime HCl (Maxipime 2gm) 2 gm in 100 mls @ 100 mls/hr IVPB DAILY [facility]; P rotocol Stop: 05/18/18 10:01 Last Admin: 05/15/18 09:51 Dose: 100 mls/hr Dextrose (Dextrose 5% In Water 1000 Ml) 1,000 mls @ 0 mls/hr IV .Q0M PRN; Protocol PRN Reason: Hypoglycemia Protocol Insulin Detemir (Levemir) 25 unit SC ACBD [facility] Last Admin: 05/15/18 17:05 Dose: 25 units Insulin Human Regular (Humulin R High) 0 units SC ACHS [facility]; Protocol Last Admin: 05/15/18 17:04 Dose: 15 units Insulin Human Regular (Humulin R) 10 units SC AC [facility] Last Admin: 05/15/18 17:04 Dose: 10 units Lactic Acid (Lac-Hydrin 12% Lotion (225 G)) 0 gm TOP DAILY [facility] Last Admin: 05/15/18 10:05 Dose: 1 applic Levalbuterol HCl (Xopenex) 0.63 mg IH [id number] [facility] Last Admin: 05/15/18 14:26 Dose: 0.63 mg Levalbuterol HCl (Xopenex) 1.25 mg IH Q2H PRN PRN Reason: Shortness of Breath Methylprednisolone (Solu-Medrol) 20 mg IVP Q12 [facility] Last Admin: 05/15/18 09:49 Dose: 20 mg Montelukast Sodium (Singulair) 10 mg PO HS [facility] Last Admin: 05/14/18 21:38 Dose: 10 mg Multi-Ingredient Ointment (Hydrophor Oint) 0 gm TOP DAILY [facility] Last Admin: 05/15/18 10:23 Dose: 1 applic Temazepam [Restoril] (30 Mg- Home Med) 30 mg PO HS [facility] Last Admin: 05/14/18 21:25 Dose: 30 mg Nystatin/Triamcinolone Acetonide (Nystatin/Triamcinolone Cream) 1 ea TOP BID [facility] Last Admin: 05/15/18 17:16 Dose: 1 oin Ondansetron HCl (Zofran Inj) 4 mg IVP Q4H PRN PRN Reason: Nausea/Vomiting Oseltamivir Phosphate (Tamiflu Cap) 30 mg PO BID [facility]; Protocol Stop: 05/18/18 13:28 Last Admin: 05/15/18 18:19 Dose: 30 mg Pantoprazole Sodium (Protonix Ec Tab) 40 mg PO 0600 [facility] Last Admin: 05/15/18 06:15 Dose: 40 mg Paroxetine HCl (Paxil) 20 mg PO DAILY [facility] Last Admin: 05/15/18 09:49 Dose: 20 mg - Labs Labs: 05/15/18 04:30 05/15/18 04:30 PT 11.4 SECONDS (9.4-12.5) 05/13/18 01:30 INR 1.03 05/13/18 01:30 APTT 28.9 Seconds (26.9-38.3) 05/13/18 01:30
--- NOTE | 2018-05-15 21:07 | US ---
PROCEDURE: Lower extremity QIANA exam HISTORY: Peripheral vascular disease with pain and claudication. Previous smoking. Diabetes. PHYSICIAN(S): Helder Washington MD. FINDINGS: The resting QIANA's are normal: right, 1.01and left, 1.11 The brachial systolic pressures are symmetric. The low thigh pressures and waveforms are relatively normal. The calf PVR waveforms augment normally. No significant gradients are noted across the thighs. The ankle and metatarsal waveforms are relatively normal and symmetric. No significant pressure gradients are noted across the lower legs. IMPRESSION: 1. Relatively normal QIANA and PVR examination at rest.
[2018-05-15] MEDS: TEMAZEPAM 30 MG PO SCH (22:30)
--- NOTE | 2018-05-15 23:33 | CP.PCM.PN ---
Subjective - Date & Time of Evaluation Date of Evaluation: 05/15/18 Time of Evaluation: 06:35 - Subjective Subjective: Patient seen and examined at bedside in no acute distress. States she got out of bed several times yesterday and is no longer feeling dizzy and weak. Denies shortness of breath, chest pain, dizziness. Physical Exam - Constitutional Appears: Non-toxic - Head Exam Head Exam: ATRAUMATIC, NORMAL INSPECTION, NORMOCEPHALIC - Eye Exam Eye Exam: EOMI, Normal appearance, PERRL. absent: Scleral icterus Pupil Exam: NORMAL ACCOMODATION - ENT Exam ENT Exam: Mucous Membranes Dry - Neck Exam Additional comments: supple - Respiratory Exam Respiratory Exam: Decreased Breath Sounds (lower lobes b/l), NORMAL BREATHING PATTERN. absent: Rales, Wheezes, rhonchi - Cardiovascular Exam Cardiovascular Exam: REGULAR RHYTHM, +S1, +S2. absent: Systolic Murmur - GI/Abdominal Exam GI & Abdominal Exam: Normal Bowel Sounds, Soft. absent: Firm, Rigid, Tenderness - Rectal Exam Rectal Exam: NORMAL INSPECTION - Exam External exam: NORMAL EXTERNAL EXAM - Extremities Exam Extremities exam: Positive for: pedal pulses present. Negative for: calf tenderness, pedal edema. Xerosis cutis of feet bilaterally - Back Exam Back exam: rash noted. absent: CVA tenderness (L), CVA tenderness (R) - Neurological Exam Neurological exam: Alert, Oriented x3 - Psychiatric Exam Psychiatric exam: Normal Affect, Normal Mood - Skin Skin Exam: Dry, Warm Additional comments: fungal rash under breasts bilaterally ,waist line and abdominal pannus, and Left groin. Objective - Vital Signs/Intake and Output Vital Signs (last 24 hours): Temp Pulse Resp BP Pulse Ox 98.9 F 88 22 146/75 82 L 05/15/18 06:00 05/15/18 17:27 05/15/18 17:27 05/15/18 15:19 05/15/18 07:20 Intake and Output: 05/15/18 05/16/18 18:59 06:59 Intake Total 1420 Output Total 750 Balance 670 - Medications Medications: Current Medications Acetaminophen (Tylenol 325mg Tab) 650 mg PO Q6H PRN PRN Reason: Fever >100.4 F Last Admin: 05/15/18 06:15 Dose: 650 mg Acetaminophen (Tylenol 325mg Tab) 650 mg PO Q6 PRN PRN Reason: TEMP>=99.5F Acetaminophen (Tylenol 650 Mg Supp) 650 mg RC Q6H PRN PRN Reason: TEMP>=99.5F Acetylcysteine (Acetylcysteine 20%) 4 ml IH [id number] [facility] Last Admin: 05/15/18 19:42 Dose: 4 ml Betamethasone/Clotrimazole (Lotrisone) 0 ml TOP BID [facility] Last Admin: 05/15/18 17:08 Dose: 1 applic Budesonide (Pulmicort Respules) 0.5 mg IH BIDRESP [facility] Last Admin: 05/15/18 19:42 Dose: 0.5 mg Clonazepam (Klonopin) 2 mg PO QID [facility]; Protocol Last Admin: 05/15/18 21:49 Dose: 2 mg Clotrimazole (Lotrimin 1%) 0 gm TOP BID [facility] Last Admin: 05/15/18 17:18 Dose: 1 applic Dextrose (Dextrose 50% Inj) 0 ml IV STAT PRN; Protocol PRN Reason: Hypoglycemia Protocol Gabapentin (Neurontin) 300 mg PO TID [facility]; Protocol Last Admin: 05/15/18 17:36 Dose: 300 mg Heparin Sodium (Porcine) (Heparin) 5,000 units SC Q8 [facility]; Protocol Last Admin: 05/15/18 21:49 Dose: 5,000 units Doxycycline Hyclate 100 mg/ (Sodium Chloride) 100 mls @ 100 mls/hr IVPB Q12 [facility]; Protocol Last Admin: 05/15/18 22:00 Dose: 100 mls/hr Cefepime HCl (Maxipime 2gm) 2 gm in 100 mls @ 100 mls/hr IVPB DAILY [facility]; Protocol Stop: 05/18/18 10:01 Last Admin: 05/15/18 09:51 Dose: 100 mls/hr Dextrose (Dextrose 5% In Water 1000 Ml) 1,000 mls @ 0 mls/hr IV .Q0M PRN; Protocol PRN Reason: Hypoglycemia Protocol Insulin Detemir (Levemir) 25 unit SC ACBD [facility] Last Admin: 05/15/18 17:05 Dose: 25 units Insulin Human Regular (Humulin R High) 0 units SC ACHS [facility]; Protocol Last Admin: 05/15/18 17:04 Dose: 15 units Insulin Human Regular (Humulin R) 10 units SC AC [facility] Last Admin: 05/15/18 17:04 Dose: 10 units Lactic Acid (Lac-Hydrin 12% Lotion (225 G)) 0 gm TOP DAILY [facility] Last Admin: 05/15/18 10:05 Dose: 1 applic Levalbuterol HCl (Xopenex) 0.63 mg IH [id number] [facility] Last Admin: 05/15/18 19:42 Dose: 0.63 mg Levalbuterol HCl (Xopenex) 1.25 mg IH Q2H PRN PRN Reason: Shortness of Breath Methylprednisolone (Solu-Medrol) 20 mg IVP Q12 [facility] Last Admin: 05/15/18 21:52 Dose: 20 mg Montelukast Sodium (Singulair) 10 mg PO HS [facility] Last Admin: 05/15/18 21:49 Dose: 10 mg Multi-Ingredient Ointment (Hydrophor Oint) 0 gm TOP DAILY [facility] Last Admin: 05/15/18 10:23 Dose: 1 applic Temazepam [Restoril] (30 Mg- Home Med) 30 mg PO HS [facility] Last Admin: 05/14/18 21:25 Dose: 30 mg Nystatin/Triamcinolone Acetonide (Nystatin/Triamcinolone Cream) 1 ea TOP BID [facility] Last Admin: 05/15/18 17:16 Dose: 1 oin Ondansetron HCl (Zofran Inj) 4 mg IVP Q4H PRN PRN Reason: Nausea/Vomiting Oseltamivir Phosphate (Tamiflu Cap) 30 mg PO BID [facility]; Protocol Stop: 05/18/18 13:28 Last Admin: 05/15/18 18:19 Dose: 30 mg Pantoprazole Sodium (Protonix Ec Tab) 40 mg PO 0600 [facility] Last Admin: 05/15/18 06:15 Dose: 40 mg Paroxetine HCl (Paxil) 20 mg PO DAILY [facility] Last Admin: 05/15/18 09:49 Dose: 20 mg - Labs Labs: 05/15/18 04:30 05/15/18 04:30 PT 11.4 SECONDS (9.4-12.5) 05/13/18 01:30 INR 1.03 05/13/18 01:30 APTT 28.9 Seconds (26.9-38.3) 05/13/18 01:30 Assessment and Plan - Assessment and Plan (Free Text) Assessment: Ms. 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 She has worsened cellulitis on L groin with foul smell, decreased breath sound likely CAP. SBP 80-90 currently receiving 4L fluid bolus with lactate 2.8. Plan Neuro/Psych - tylenol prn for fever control - aaox3 - Psychiatry consulted for history of Bipolar disorder and depression Pulm - NC PRN to maintain SaO2 88-92% - duoneb q6 - HOB 35 PRN - Continue singular, budesonide, solumderol Cardiac - Clonidine resumed - Maintain MAP >65 GI - Protonix for prophylaxis - Heart healthy carb controlled diet Renal - CONCEPCION, likely prerenal. fluid challenge for now. strict i.o. trend bmp - continue hold losartan endo - ISS-med - fingerstick qACHS - Levemir 15 qHS - Regular insulin 10 Units AC ID - ID consult - Continue tamiflu, doxycycline, and cefepime for a total of 5 days Heme - V/Q negative for PE Dermatologic -xerosis cutis -Podiatry consulted; foot care as per podiatry -Lotrimine to be applied to face and arms DVT pvx = heparin GI pvx = protonix
[2018-05-16] MEDS: Acetylcysteine 20% Inhal Soln (4ml) IH SCH ×3 (01:15→14:00)
[2018-05-16] MEDS: Levalbuterol 0.63 MG/3 ML Inhal Soln UD IH SCH ×3 (01:15→14:00)
[2018-05-16 03:58] VITALS: O2SAT 94
[2018-05-16] MEDS: Pantoprazole 40 mg EC Tab PO SCH (06:05)
[2018-05-16 07:30] LABS: BASO # 0.01 K/mm3 (0.0-2.0); BASO % 0.1 % (0.0-3.0); HEMOGLOBIN 11.5 g/dL (12.0-16.0); LYMPH # 0.9 (1.2-3.4); LYMPH % 8.8 % (22.0-35.0); MEAN CELL VOLUME 91.5 fl (80.0-105.0); MEAN CORPUSCULAR HEMOGLOBIN 28.7 pg (25.0-35.0); MEAN CORPUSCULAR HGB CONC 31.3 g/dl (31.0-37.0); MEAN PLATELET VOLUME 11.5 fl (7.0-11.0); MONO # 0.8 (0.1-0.6); MONO % 7.8 % (1.0-6.0); RBC 4.01 10^6/uL (3.5-6.1); RED CELL DISTRIBUTION WIDTH 14.2 % (11.5-14.5); WHITE BLOOD COUNT 10.3 10^3/uL (4.5-11.0)
[2018-05-16 07:44] LABS: ALB/GLOB RATIO 1.1 (1.1-1.8); ALBUMIN 3.2 g/dL (3.0-4.8); BILIRUBIN,DIRECT 0.2 mg/dL (0.0-0.4)
[2018-05-16] MEDS: Insulin Regular 1 UNITS/0.01 ML ML SC SCH ×3 (08:15→17:06)
[2018-05-16] MEDS: Insulin Detemir 100 units/ml Vial (Levemir) SC SCH ×2 (08:16→17:05)
[2018-05-16] MEDS: Insulin Reg-HIGH-Coverage SC SCH ×3 (08:16→17:06)
--- NOTE | 2018-05-16 08:24 | CP.PCM.PN ---
<Jazz Cooper - Last Filed: 05/16/18 08:21> Subjective - Date & Time of Evaluation Date of Evaluation: 05/16/18 Time of Evaluation: 08:21 - Subjective Subjective: Podiatry progress note: Dr. De La Rosa/Elizabeth 57 year old female patient seen and evaluated at bedside this AM. Patient resting comfortably and in NAD. She denies pain to b/l feet today. Patient denies any acute events overnight. Denies N/V/F/C/SOB/CP. Objective - Vital Signs/Intake and Output Vital Signs (last 24 hours): Temp Pulse Resp BP Pulse Ox 98.0 F 74 21 143/78 94 L 05/16/18 06:00 05/16/18 06:00 05/16/18 06:00 05/16/18 06:00 05/16/18 06:00 Intake and Output: 05/16/18 05/16/18 06:59 18:59 Intake Total 360 Balance 360 - Medications Medications: Current Medications Acetaminophen (Tylenol 325mg Tab) 650 mg PO Q6H PRN PRN Reason: Fever >100.4 F Last Admin: 05/15/18 06:15 Dose: 650 mg Acetaminophen (Tylenol 325mg Tab) 650 mg PO Q6 PRN PRN Reason: TEMP>=99.5F Acetaminophen (Tylenol 650 Mg Supp) 650 mg RC Q6H PRN PRN Reason: TEMP>=99.5F Acetylcysteine (Acetylcysteine 20%) 4 ml IH [id number] [facility] Last Admin: 05/16/18 01:15 Dose: 4 ml Betamethasone/Clotrimazole (Lotrisone) 0 ml TOP BID [facility] Last Admin: 05/15/18 17:08 Dose: 1 applic Budesonide (Pulmicort Respules) 0.5 mg IH BIDRESP [facility] Last Admin: 05/15/18 19:42 Dose: 0.5 mg Clonazepam (Klonopin) 2 mg PO QID [facility]; Protocol Last Admin: 05/15/18 21:49 Dose: 2 mg Clotrimazole (Lotrimin 1%) 0 gm TOP BID [facility] Last Admin: 05/15/18 17:18 Dose: 1 applic Dextrose (Dextrose 50% Inj) 0 ml IV STAT PRN; Protocol PRN Reason: Hypoglycemia Protocol Gabapentin (Neurontin) 300 mg PO TID [facility]; Protocol Last Admin: 05/15/18 17:36 Dose: 300 mg Heparin Sodium (Porcine) (Heparin) 5,000 units SC Q8 [facility]; Protocol Last Admin: 05/16/18 06:05 Dose: 5,000 units Doxycycline Hyclate 100 mg/ (Sodium Chloride) 100 mls @ 100 mls/hr IVPB Q12 [facility]; Protocol Last Admin: 05/15/18 22:00 Dose: 100 mls/hr Cefepime HCl (Maxipime 2gm) 2 gm in 100 mls @ 100 mls/hr IVPB DAILY [facility]; Protocol Stop: 05/18/18 10:01 Last Admin: 05/15/18 09:51 Dose: 100 mls/hr Dextrose (Dextrose 5% In Water 1000 Ml) 1,000 mls @ 0 mls/hr IV .Q0M PRN; Protocol PRN Reason: Hypoglycemia Protocol Insulin Detemir (Levemir) 25 unit SC ACBD [facility] Last Admin: 05/16/18 08:16 Dose: 25 units Insulin Human Regular (Humulin R High) 0 units SC ACHS [facility]; Protocol Last Admin: 05/16/18 08:16 Dose: 10 units Insulin Human Regular (Humulin R) 10 units SC AC [facility] Last Admin: 05/16/18 08:15 Dose: 10 units Lactic Acid (Lac-Hydrin 12% Lotion (225 G)) 0 gm TOP DAILY [facility] Last Admin: 05/15/18 10:05 Dose: 1 applic Levalbuterol HCl (Xopenex) 0.63 mg IH [id number] [facility] Last Admin: 05/16/18 01:15 Dose: 0.63 mg Levalbuterol HCl (Xopenex) 1.25 mg IH Q2H PRN PRN Reason: Shortness of Breath Methylprednisolone (Solu-Medrol) 20 mg IVP Q12 [facility] Last Admin: 05/15/18 21:52 Dose: 20 mg Montelukast Sodium (Singulair) 10 mg PO [facility] Last Admin: 05/15/18 21:49 Dose: 10 mg Multi-Ingredient Ointment (Hydrophor Oint) 0 gm TOP DAILY [facility] Last Admin: 05/15/18 10:23 Dose: 1 applic Temazepam [Restoril] (30 Mg- Home Med) 30 mg PO [facility] Last Admin: 05/15/18 22:30 Dose: Not Given Nystatin/Triamcinolone Acetonide (Nystatin/Triamcinolone Cream) 1 ea TOP BID [facility] Last Admin: 05/15/18 17:16 Dose: 1 oin Ondansetron HCl (Zofran Inj) 4 mg IVP Q4H PRN PRN Reason: Nausea/Vomiting Oseltamivir Phosphate (Tamiflu Cap) 30 mg PO BID [facility]; Protocol Stop: 05/18/18 13:28 Last Admin: 05/15/18 18:19 Dose: 30 mg Pantoprazole Sodium (Protonix Ec Tab) 40 mg PO 0600 [facility] Last Admin: 05/16/18 06:05 Dose: 40 mg Paroxetine HCl (Paxil) 20 mg PO DAILY [facility] Last Admin: 05/15/18 09:49 Dose: 20 mg - Labs Labs: 05/16/18 06:00 05/16/18 06:00 PT 11.4 SECONDS (9.4-12.5) 05/13/18 01:30 INR 1.03 05/13/18 01:30 APTT 28.9 Seconds (26.9-38.3) 05/13/18 01:30 - Constitutional Appears: Non-toxic, No Acute Distress - Head Exam Head Exam: ATRAUMATIC, NORMOCEPHALIC - Extremities Exam Additional comments: Vasc: DP and PT pulses palpable; cap refill <3 seconds to all digits; temp gradient normal; mild edema b/l Ortho: no pain on palpation of b/l feet, no gross deformities noted Derm: xerosis present on the plantar aspects of feet, callus formation, no fissures present; no open wounds or lesions, mild skin color changes with hemosiderin discoloration appreciated to the anterior aspect of legs bilaterally Neuro: gross and protective sensation mildly diminished - Neurological Exam Neurological Exam: Alert, Awake, Oriented x3 - Psychiatric Exam Psychiatric exam: Normal Affect, Normal Mood Assessment and Plan - Assessment and Plan (Free Text) Assessment: 57 year old female with significant xerosis of bilateral feet Plan: Patient seen and evaluated with Dr. Elizabeth SALGADO Multipodus boots to be worn while in bed to prevent deep tissue injury Lotrimin, ammonium lactate, and aquaphor - to be applied daily to b/l feet to help with scaling and xerosis Normal ABIs and PVRs Diabetic education provided, instructed to follow [facility] upon discharge as outpatient Podiatry to follow while in house <Warren Johnson - Last Filed: 05/17/18 12:16> Objective - Vital Signs/Intake and Output Vital Signs (last 24 hours): Temp Pulse Resp BP Pulse Ox 98.9 F 87 20 160/94 H 94 L 05/16/18 12:00 05/16/18 17:52 05/16/18 12:00 05/16/18 12:00 05/16/18 06:00 - Labs Labs: 05/16/18 06:00 05/16/18 06:00 PT 11.4 SECONDS (9.4-12.5) 05/13/18 01:30 INR 1.03 05/13/18 01:30 APTT 28.9 Seconds (26.9-38.3) 05/13/18 01:30 Attending/Attestation - Attestation I have personally seen and examined this patient.: Yes I have fully participated in the care of the patient.: Yes I have reviewed all pertinent clinical information, including history, physical exam and plan: Yes
--- NOTE | 2018-05-16 09:21 | CP.PCM.PN ---
Subjective - Date & Time of Evaluation Date of Evaluation: 05/16/18 Time of Evaluation: 08:30 - Subjective Subjective: (covering for Dr. Mireles) Patient is seen this morning. She is on isolation for suspected influenza. Objective - Vital Signs/Intake and Output Vital Signs (last 24 hours): Temp Pulse Resp BP Pulse Ox 98.0 F 74 21 143/78 94 L 05/16/18 06:00 05/16/18 06:00 05/16/18 06:00 05/16/18 06:00 05/16/18 06:00 Intake and Output: 05/16/18 05/16/18 06:59 18:59 Intake Total 360 Balance 360 - Medications Medications: Current Medications Acetaminophen (Tylenol 325mg Tab) 650 mg PO Q6H PRN PRN Reason: Fever >100.4 F Last Admin: 05/15/18 06:15 Dose: 650 mg Acetaminophen (Tylenol 325mg Tab) 650 mg PO Q6 PRN PRN Reason: TEMP>=99.5F Acetaminophen (Tylenol 650 Mg Supp) 650 mg RC Q6H PRN PRN Reason: TEMP>=99.5F Acetylcysteine (Acetylcysteine 20%) 4 ml IH [id number] [facility] Last Admin: 05/16/18 01:15 Dose: 4 ml Betamethasone/Clotrimazole (Lotrisone) 0 ml TOP BID [facility] Last Admin: 05/15/18 17:08 Dose: 1 applic Budesonide (Pulmicort Respules) 0.5 mg IH BIDRESP [facility] Last Admin: 05/15/18 19:42 Dose: 0.5 mg Clonazepam (Klonopin) 2 mg PO QID [facility]; Protocol Last Admin: 05/15/18 21:49 Dose: 2 mg Clotrimazole (Lotrimin 1%) 0 gm TOP BID [facility] Last Admin: 05/15/18 17:18 Dose: 1 applic Dextrose (Dextrose 50% Inj) 0 ml IV STAT PRN; Protocol PRN Reason: Hypoglycemia Protocol Gabapentin (Neurontin) 300 mg PO TID [facility]; Protocol Last Admin: 05/15/18 17:36 Dose: 300 mg Heparin Sodium (Porcine) (Heparin) 5,000 units SC Q8 [facility]; Protocol Last Admin: 05/16/18 06:05 Dose: 5,000 units Doxycycline Hyclate 100 mg/ (Sodium Chloride) 100 mls @ 100 mls/hr IVPB Q12 [facility]; Protocol Last Admin: 05/15/18 22:00 Dose: 100 mls/hr Cefepime HCl (Maxipime 2gm) 2 gm in 100 mls @ 100 mls/hr IVPB DAILY [facility]; Protocol Stop: 05/18/18 10:01 Last Admin: 05/15/18 09:51 Dose: 100 mls/hr Dextrose (Dextrose 5% In Water 1000 Ml) 1,000 mls @ 0 mls/hr IV .Q0M PRN; Protocol PRN Reason: Hypoglycemia Protocol Insulin Detemir (Levemir) 25 unit SC ACBD [facility] Last Admin: 05/16/18 08:16 Dose: 25 units Insulin Human Regular (Humulin R High) 0 units SC ACHS [facility]; Protocol Last Admin: 05/16/18 08:16 Dose: 10 units Insulin Human Regular (Humulin R) 10 units SC AC [facility] Last Admin: 05/16/18 08:15 Dose: 10 units Lactic Acid (Lac-Hydrin 12% Lotion (225 G)) 0 gm TOP DAILY [facility] Last Admin: 05/15/18 10:05 Dose: 1 applic Levalbuterol HCl (Xopenex) 0.63 mg IH [id number] [facility] Last Admin: 05/16/18 01:15 Dose: 0.63 mg Levalbuterol HCl (Xopenex) 1.25 mg IH Q2H PRN PRN Reason: Shortness of Breath Methylprednisolone (Solu-Medrol) 20 mg IVP Q12 [facility] Last Admin: 05/15/18 21:52 Dose: 20 mg Montelukast Sodium (Singulair) 10 mg PO HS [facility] Last Admin: 05/15/18 21:49 Dose: 10 mg Multi-Ingredient Ointment (Hydrophor Oint) 0 gm TOP DAILY [facility] Last Admin: 05/15/18 10:23 Dose: 1 applic Temazepam [Restoril] (30 Mg- Home Med) 30 mg PO [facility] Last Admin: 05/15/18 22:30 Dose: Not Given Nystatin/Triamcinolone Acetonide (Nystatin/Triamcinolone Cream) 1 ea TOP BID [facility] Last Admin: 05/15/18 17:16 Dose: 1 oin Ondansetron HCl (Zofran Inj) 4 mg IVP Q4H PRN PRN Reason: Nausea/Vomiting Oseltamivir Phosphate (Tamiflu Cap) 30 mg PO BID [facility]; Protocol Stop: 05/18/18 13:28 Last Admin: 05/15/18 18:19 Dose: 30 mg Pantoprazole Sodium (Protonix Ec Tab) 40 mg PO 0600 [facility] Last Admin: 05/16/18 06:05 Dose: 40 mg Paroxetine HCl (Paxil) 20 mg PO DAILY [facility] Last Admin: 05/15/18 09:49 Dose: 20 mg - Labs Labs: 05/16/18 06:00 05/16/18 06:00 PT 11.4 SECONDS (9.4-12.5) 05/13/18 01:30 INR 1.03 05/13/18 01:30 APTT 28.9 Seconds (26.9-38.3) 05/13/18 01:30 - Constitutional Appears: No Acute Distress - Head Exam Head Exam: ATRAUMATIC, NORMOCEPHALIC - Respiratory Exam Respiratory Exam: Decreased Breath Sounds, NORMAL BREATHING PATTERN - Cardiovascular Exam Cardiovascular Exam: REGULAR RHYTHM, +S1, +S2 - GI/Abdominal Exam GI & Abdominal Exam: Soft, Normal Bowel Sounds. absent: Tenderness - Neurological Exam Neurological Exam: Alert, Awake, Oriented x3 Assessment and Plan - Assessment and Plan (Free Text) Assessment: Left groin cellulitis COPD exacerbation Morbid Obesity COPD DMII HTN GERD Plan: Patient is on isolation and Tamiflu for suspected influenza. continue Cefepime and Doxycycline for cellulitis of the groin and pneumonia as per infectious disease continue insulin for diabetes continue Solumedrol, Xopenex and Pulmicort respiratory treatments for COPD exacerbation
[2018-05-16] MEDS: Budesonide 0.5 mg/2 ml Inhal Susp UD IH SCH (09:56)
[2018-05-16] MEDS: MethylPREDNISolone 40 mg Vial IVP SCH (10:02)
[2018-05-16] MEDS: Clotrimazole/Betamethasone Lotion(30 ml) TOP SCH ×2 (10:05→17:09)
[2018-05-16] MEDS: Ammonium Lactate 12% Lotion (225 g) TOP SCH (10:06)
[2018-05-16] MEDS: Petrolatum-Mineral Oil Oint (100gm) TOP SCH (10:07)
[2018-05-16] MEDS: Nystatin-Triamcinolone Cream(30 gm) TOP SCH ×2 (10:07→17:08)
[2018-05-16] MEDS: Clotrimazole 1% Cream(30 gm) TOP SCH ×2 (10:08→17:07)
[2018-05-16] MEDS: Cefepime IV 2 gm in NS 2 GM/100 ML BAG IVPB SCH (12:56)
[2018-05-16 14:27] VITALS: BP 160/94; RESP 20; TEMP 98.9
--- NOTE | 2018-05-16 16:04 | CP.PCM.PN ---
Subjective - Date & Time of Evaluation Date of Evaluation: 05/16/18 Time of Evaluation: 11:50 - Subjective Subjective: No fevers, not in distress on a chair, breathing better. Objective - Vital Signs/Intake and Output Vital Signs (last 24 hours): Temp Pulse Resp BP Pulse Ox 98.0 F 74 21 143/78 94 L 05/16/18 06:00 05/16/18 06:00 05/16/18 06:00 05/16/18 06:00 05/16/18 06:00 Intake and Output: 05/16/18 05/16/18 06:59 18:59 Intake Total 360 Balance 360 - Medications Medications: Current Medications Acetaminophen (Tylenol 325mg Tab) 650 mg PO Q6H PRN PRN Reason: Fever >100.4 F Last Admin: 05/15/18 06:15 Dose: 650 mg Acetaminophen (Tylenol 325mg Tab) 650 mg PO Q6 PRN PRN Reason: TEMP>=99.5F Acetaminophen (Tylenol 650 Mg Supp) 650 mg RC Q6H PRN PRN Reason: TEMP>=99.5F Acetylcysteine (Acetylcysteine 20%) 4 ml IH [id number] [facility] Last Admin: 05/16/18 09:54 Dose: Not Given Betamethasone/Clotrimazole (Lotrisone) 0 ml TOP BID [facility] Last Admin: 05/16/18 10:05 Dose: 1 applic Budesonide (Pulmicort Respules) 0.5 mg IH BIDRESP [facility] Last Admin: 05/16/18 09:56 Dose: 0.5 mg Clonazepam (Klonopin) 2 mg PO QID [facility]; Protocol Last Admin: 05/16/18 10:01 Dose: 2 mg Clotrimazole (Lotrimin 1%) 0 gm TOP BID [facility] Last Admin: 05/16/18 10:08 Dose: 1 applic Dextrose (Dextrose 50% Inj) 0 ml IV STAT PRN; Protocol PRN Reason: Hypoglycemia Protocol Gabapentin (Neurontin) 300 mg PO TID [facility]; Protocol Last Admin: 05/16/18 10:02 Dose: 300 mg Heparin Sodium (Porcine) (Heparin) 5,000 units SC Q8 [facility]; Protocol Last Admin: 05/16/18 06:05 Dose: 5,000 units Dextrose (Dextrose 5% In Water 1000 Ml) 1,000 mls @ 0 mls/hr IV .Q0M PRN; Protocol PRN Reason: Hypoglycemia Protocol Insulin Detemir (Levemir) 25 unit SC ACBD [facility] Last Admin: 05/16/18 08:16 Dose: 25 units Insulin Human Regular (Humulin R High) 0 units SC ACHS [facility]; Protocol Last Admin: 05/16/18 08:16 Dose: 10 units Insulin Human Regular (Humulin R) 10 units SC AC [facility] Last Admin: 05/16/18 08:15 Dose: 10 units Lactic Acid (Lac-Hydrin 12% Lotion (225 G)) 0 gm TOP DAILY [facility] Last Admin: 05/16/18 10:06 Dose: 1 applic Levalbuterol HCl (Xopenex) 0.63 mg IH [id number] [facility] Last Admin: 05/16/18 09:55 Dose: 0.63 mg Levalbuterol HCl (Xopenex) 1.25 mg IH Q2H PRN PRN Reason: Shortness of Breath Methylprednisolone (Solu-Medrol) 20 mg IVP Q12 [facility] Last Admin: 05/16/18 10:02 Dose: 20 mg Montelukast Sodium (Singulair) 10 mg PO HS [facility] Last Admin: 05/15/18 21:49 Dose: 10 mg Multi-Ingredient Ointment (Hydrophor Oint) 0 gm TOP DAILY [facility] Last Admin: 05/16/18 10:07 Dose: 1 applic Temazepam [Restoril] (30 Mg- Home Med) 30 mg PO HS [facility] Last Admin: 05/15/18 22:30 Dose: Not Given Nystatin/Triamcinolone Acetonide (Nystatin/Triamcinolone Cream) 1 ea TOP BID [facility] Last Admin: 05/16/18 10:07 Dose: Not Given Ondansetron HCl (Zofran Inj) 4 mg IVP Q4H PRN PRN Reason: Nausea/Vomiting Oseltamivir Phosphate (Tamiflu Cap) 30 mg PO BID [facility]; Protocol Stop: 05/18/18 13:28 Last Admin: 05/16/18 10:01 Dose: 30 mg Pantoprazole Sodium (Protonix Ec Tab) 40 mg PO 0600 [facility] Last Admin: 05/16/18 06:05 Dose: 40 mg Paroxetine HCl (Paxil) 20 mg PO DAILY [facility] Last Admin: 05/16/18 10:02 Dose: 20 mg - Labs Labs: 05/16/18 06:00 05/16/18 06:00 PT 11.4 SECONDS (9.4-12.5) 05/13/18 01:30 INR 1.03 05/13/18 01:30 APTT 28.9 Seconds (26.9-38.3) 05/13/18 01:30 - Constitutional Appears: Non-toxic, Chronically Ill - Head Exam Head Exam: NORMAL INSPECTION - Neck Exam Neck Exam: absent: Meningismus - Respiratory Exam Respiratory Exam: Decreased Breath Sounds - Cardiovascular Exam Cardiovascular Exam: +S1, +S2 - GI/Abdominal Exam GI & Abdominal Exam: Soft. absent: Tenderness Assessment and Plan - Assessment and Plan (Free Text) Plan: Assessment probable sepsis from acute bronchitis on top of COPD, R/O Influenza history of right lower lobe HCAP on top of systemic viral illness with Influenza COPD DM anxiety disorder morbid obesity with BMI 49 HTN with hypertensive heart disease Plan on Doxycycline and Tamiflu day 4 - reviewed CT chest and repeat CXR which does not show pneumonia, PCT is only 0.24, cultures are negative so far complete 5 days of therapy will continue to monitor clinically
[2018-05-16 17:52] VITALS: PULSE 87
--- NOTE | 2018-05-16 21:25 | CARD ---
APPROVED REPORT Date of service: 05/16/2018 EKG Measurement Heart [id number] <Conclusion> Normal sinus rhythm T wave abnormality, consider anterior ischemia Abnormal ECG
== END 2018-05-16 18:19 | DRG 871 ==
LOC: ED 00:33 → ERH 02:31 → CCU 04:49 → 2RSO 05-15 17:45
PROVIDERS: ADMIT Internal Medicine; ATTEND Internal Medicine
PROC: 5A09357 Assistance with Respiratory Ventilation, Less than 24 Consecutive Hours, Continuous Positive Airway Pressure (ICD-10-PCS; principal; 2018-05-13)
PROC: 3E0F7GC Introduction of Other Therapeutic Substance into Respiratory Tract, Via Natural or Artificial Opening (ICD-10-PCS; 2018-05-13)
DX: A41.9 Sepsis, unspecified organism (principal); J18.9 Pneumonia, unspecified organism; N17.0 Acute kidney failure with tubular necrosis; L03.314 Cellulitis of groin; E66.2 Morbid (severe) obesity with alveolar hypoventilation; Z68.42 Body mass index [BMI] 45.0-49.9, adult; J96.12 Chronic respiratory failure with hypercapnia; E87.4 Mixed disorder of acid-base balance; J96.11 Chronic respiratory failure with hypoxia; J43.9 Emphysema, unspecified; R65.20 Severe sepsis without septic shock; E11.43 Type 2 diabetes mellitus with diabetic autonomic (poly)neuropathy; E11.65 Type 2 diabetes mellitus with hyperglycemia; E87.6 Hypokalemia; I11.9 Hypertensive heart disease without heart failure; E11.40 Type 2 diabetes mellitus with diabetic neuropathy, unspecified; F31.9 Bipolar disorder, unspecified; E86.1 Hypovolemia; K31.84 Gastroparesis; E78.00 Pure hypercholesterolemia, unspecified; I87.2 Venous insufficiency (chronic) (peripheral); J32.4 Chronic pansinusitis; F41.1 Generalized anxiety disorder; F41.0 Panic disorder [episodic paroxysmal anxiety]; Z99.81 Dependence on supplemental oxygen; K21.9 Gastro-esophageal reflux disease without esophagitis; F43.20 Adjustment disorder, unspecified; L85.3 Xerosis cutis; B35.1 Tinea unguium; R79.1 Abnormal coagulation profile; G47.00 Insomnia, unspecified; Z87.891 Personal history of nicotine dependence; Z79.4 Long term (current) use of insulin; Z79.52 Long term (current) use of systemic steroids

== ENCOUNTER 2018-05-16 18:19 | Inpatient (IN) | payer OTHER ==
[2018-05-16] MEDS ORDERED: Dextrose 50% SYRINGE Inj (50 ml) IV PRN (19:50)
[2018-05-16] MEDS ORDERED: Acetylcysteine 20% Inhal Soln (4ml) IH SCH (20:00)
[2018-05-16 20:10] VITALS: BMI 50.5
[2018-05-16] MEDS ORDERED: Pneumococcal 23-Valent Vaccine IM ONE (20:10)
[2018-05-16] MEDS ORDERED: Influenza Vaccine 60 mcg/0.5 mL SYR (4YR UP) IM ONE (20:10)
[2018-05-16] MEDS ORDERED: Home Med 1 UNIT PO SCH (22:00)
[2018-05-16] MEDS: MethylPREDNISolone 40 mg Vial IVP SCH (22:26)
[2018-05-16] MEDS: Insulin Reg-HIGH-Coverage SC SCH (22:36)
[2018-05-16] MEDS: TEMAZEPAM 30 MG PO SCH (22:49)
[2018-05-16] MEDS: Acetylcysteine 20% Inhal Soln (4ml) IH SCH (23:41)
[2018-05-16] MEDS: Levalbuterol 1.25 MG/3 ML Inhal Soln UD IH PRN (23:41)
[2018-05-16] MEDS: Budesonide 0.5 mg/2 ml Inhal Susp UD IH SCH (23:41)
[2018-05-17] MEDS: Acetylcysteine 20% Inhal Soln (4ml) IH SCH ×4 (02:30→20:59)
[2018-05-17] MEDS: Levalbuterol 0.63 MG/3 ML Inhal Soln UD IH SCH ×4 (02:30→21:00)
[2018-05-17] MEDS: Pantoprazole 40 mg EC Tab PO SCH (05:27)
[2018-05-17] MEDS: Budesonide 0.5 mg/2 ml Inhal Susp UD IH SCH ×2 (07:18→20:59)
[2018-05-17] MEDS: Insulin Reg-HIGH-Coverage SC SCH ×4 (07:23→21:47)
[2018-05-17] MEDS: Insulin Regular 1 UNITS/0.01 ML ML SC SCH ×2 (07:23→12:15)
[2018-05-17] MEDS: Insulin Detemir 100 units/ml Vial (Levemir) SC SCH ×2 (07:41→18:34)
[2018-05-17 08:09] LABS: BASO # 0.01 K/mm3 (0.0-2.0); BASO % 0.1 % (0.0-3.0); EOS % 0.1 % (1.5-5.0); HEMOGLOBIN 11.9 g/dL (12.0-16.0); LYMPH # 1.8 (1.2-3.4); LYMPH % 18.3 % (22.0-35.0); MEAN CELL VOLUME 90.8 fl (80.0-105.0); MEAN CORPUSCULAR HEMOGLOBIN 28.8 pg (25.0-35.0); MEAN CORPUSCULAR HGB CONC 31.7 g/dl (31.0-37.0); MEAN PLATELET VOLUME 11.4 fl (7.0-11.0); MONO # 0.7 (0.1-0.6); MONO % 6.9 % (1.0-6.0); RBC 4.13 10^6/uL (3.5-6.1); RED CELL DISTRIBUTION WIDTH 14.3 % (11.5-14.5); WHITE BLOOD COUNT 9.8 10^3/uL (4.5-11.0)
[2018-05-17 09:09] LABS: ALB/GLOB RATIO 1.2 (1.1-1.8); ALBUMIN 3.5 g/dL (3.0-4.8); BILIRUBIN,DIRECT 0.3 mg/dL (0.0-0.4)
[2018-05-17] MEDS: Petrolatum-Mineral Oil Oint (100gm) TOP SCH ×3 (10:02→21:18)
[2018-05-17] MEDS: Clotrimazole 1% Cream(30 gm) TOP SCH ×2 (10:04→17:36)
[2018-05-17] MEDS: Ammonium Lactate 12% Lotion (225 g) TOP SCH (10:04)
[2018-05-17] MEDS: Clotrimazole/Betamethasone Cream(15 gm) TOP SCH ×2 (10:05→17:36)
[2018-05-17] MEDS: Nystatin-Triamcinolone Cream(30 gm) TOP SCH ×2 (10:06→17:37)
[2018-05-17] MEDS: MethylPREDNISolone 40 mg Vial IVP SCH ×2 (10:06→21:18)
--- NOTE | 2018-05-17 18:12 | US ---
HISTORY: Leg pain and swelling. Evaluate for DVT PHYSICIAN(S): Helder Washington MD. TECHNIQUE: Duplex sonography and color-flow Doppler with graded compression were used to evaluate the deep venous systems of both lower extremities. The exam is limited by body habitus and edema. The tibial veins are not well seen FINDINGS: The visualized deep venous systems of both lower extremities are sonographically normal and compressible. Normal wave forms and augmentation are seen. There is no sonographic evidence for deep venous thrombosis in the visualized segments of both lower extremities. IMPRESSION: No sonographic evidence for deep venous thrombosis in the visualized segments of both lower extremities. Limited study.
[2018-05-17] MEDS: Levalbuterol 1.25 MG/3 ML Inhal Soln UD IH PRN (18:22)
[2018-05-17] MEDS: TEMAZEPAM 30 MG PO SCH (21:17)
--- NOTE | 2018-05-18 00:10 | HP ---
DATE OF EXAM: 05/17/2018 HISTORY OF PRESENT ILLNESS: The patient was discharged from telemetry on 05/16/2018 after the patient was accepted to TCU, so the patient was transferred from acute care floor from telemetry to TCU. The patient is accepted to TCU. The patient is seen and examined in room #314. The patient is presently sitting up in the chair. The patient overnight nurse's notes were reviewed. The patient is sitting up in the recliner, sleeping. PHYSICAL EXAMINATION: GENERAL: Please refer to the detailed history, physical examination and discharge summary from the hospitalization of 05/13/2018 in the discharge summary of 05/16/2018 for further details. As mentioned, the patient was seen in room 314. The patient is out of bed to recliner. VITAL SIGNS: T-max 98.8, heart rate 84, 87, blood pressure 153/83, respiration 20, O2 sat was not documented. The patient is on 40% FIO2. HEENT: Head is normocephalic, atraumatic. HEENT examination shows pink conjunctivae. Anicteric sclerae. No oropharyngeal lesion. NECK: No neck rigidity. CHEST: Kyphosis. LUNGS: Shows no audible crackle, rales or wheezing. Decreased air entry noted. ABDOMEN: Protuberant, obese. No palpable hepatosplenomegaly noted. GENITALIA: Female. RECTAL: Deferred. EXTREMITIES: Shows positive swelling and pitting edema of the lower extremity noted. MUSCULOSKELETAL: Shows a body mass index of 51. The patient has a swelling and pitting edema of the bilateral lower extremity. DIAGNOSTICS : On 05/17/2018, WBC 9.8, hemoglobin and hematocrit 12 and 37.5, platelet 243. Granulocytes 75% segs. Sodium 142, potassium 4.2, chloride 106, CO2 31, anion gap 10, BUN 29, creatinine 1.2, GFR 46, glucose 267, calcium 9.0, phosphorus 3.8, magnesium 1.8. LFTs shows AST of 42. Rest of the LFTs are normal. IMPRESSION: 1. Acute exacerbation of chronic obstructive pulmonary disease with the advanced steroid and nebulizer and continuous positive airway pressure dependent, chronic obstructive pulmonary disease. 2. Questionable sepsis versus systemic inflammatory small syndrome. 3. Left lower lobe pneumonia and effusion. 4. Resolving pansinusitis. 5. Sinus tachycardia. 6. Left axis deviation. 7. Bilateral xerosis of the feet and elongated dystrophic bilateral toenails. 8. Super morbid obesity with elevated body mass index of 50. 9. Insulin-requiring diabetes mellitus uncontrolled with hyperglycemia. 10. Diabetic neuropathy. 11. Severe symptomatic hypokalemia. 12. Dizziness and vertigo. 13. Insomnia. 14. Bilateral lower extremity venous stasis, recurrent, with pitting edema. 15. Possible sepsis from acute exacerbation of chronic obstructive pulmonary disease. 16. Significant xerosis of both feet. 17. Gait dysfunction. 18. Deconditioning. 19. Left lower lobe atelectasis versus questionable infiltrate. 20. Resolving pansinusitis and mild left mastoiditis. 21. Questionable anterior ischemic changes on the EKG. 22. History of anxiety, depression. 23. Adjustment disorder. 24. Bilateral lower extremity venous stasis. 25. Venous stasis of the lower extremity. 26. Diabetic neuropathy. 27. Depression. 28. Morbid obesity. PLAN: At this time, the patient had been ordered a stat venous Doppler of the lower extremity. CURRENT CONSULTATION: Podiatry, Psychiatry and pulmonary. CURRENT MEDICATIONS: Mucomyst 20% 4 mL nebulizer to be mixed with Xopenex nebulizer 0.63 mg every 6 hours [id number]. The patient is on hypoglycemia protocol, heparin 5000 subcutaneously every 8, regular insulin high-dose sliding scale coverage. The patient is on hydro for appointment every 6 hours, Klonopin 2 mg q.i.d., Lac-Hydrin lotion to the both feet and legs, Levemir 25 units at breakfast and dinner, Lotrimin cream, Lotrisone cream, Neurontin 300 three times a day, nystatin and triamcinolone cream for fungal rash, Paxil 20 mg daily, Protonix 40 mg daily, Pulmicort nebulizer 0.5 mg every 12, Singulair 10 mg at bedtime, Solu-Medrol 20 mg IV every 12, Tamiflu 30 mg twice a day, Restoril 30 mg daily, Tylenol p.o. suppository every 6 p.r.n., Xopenex nebulizer every 2 hours . p.r.n. 1.25 mg, Zofran 4 mg IV every 4 p.r.n. for nausea, vomiting. Venous Doppler of the lower extremity ordered. The patient has been ordered BiPAP at night. The patient has been ordered oxygen 2 liters continuous. The patient has been ordered BiPAP at night. The patient is on heart-healthy diet, WING stockings, SCDs, physical therapy, occupational therapy elevation of the feet and legs while lying and sitting.. The patient has been ordered diabetic education evaluation. Dictated and electronically signed, not read. Christian Mireles MD
[2018-05-18] MEDS: Petrolatum-Mineral Oil Oint (100gm) TOP SCH ×4 (03:11→21:15)
[2018-05-18] MEDS: Acetylcysteine 20% Inhal Soln (4ml) IH SCH ×4 (04:52→21:16)
[2018-05-18] MEDS: Levalbuterol 0.63 MG/3 ML Inhal Soln UD IH SCH ×4 (04:52→21:16)
[2018-05-18] MEDS: Pantoprazole 40 mg EC Tab PO SCH (05:16)
[2018-05-18] MEDS: Insulin Detemir 100 units/ml Vial (Levemir) SC SCH ×2 (06:41→17:31)
[2018-05-18] MEDS: Insulin Reg-HIGH-Coverage SC SCH ×4 (06:42→21:18)
[2018-05-18] MEDS: Budesonide 0.5 mg/2 ml Inhal Susp UD IH SCH ×2 (07:34→21:16)
--- NOTE | 2018-05-18 08:30 | CP.PCM.PCO ---
Physician Communication Note - Physician Communication Note Physician Communication Note: psych signed off, please call if new symptoms/concerns
--- NOTE | 2018-05-18 09:41 | PN ---
DATE: 05/18/2018 PULMONARY NOTE SUBJECTIVE: The patient appears comfortable this morning. She is not short of breath at rest. OBJECTIVE: VITAL SIGNS (Last noted in the computer): Temperature is 98.8, pulse 74, respiratory rate 18, blood pressure 153/83. Oxygen saturation on nasal cannula is 95%. HEENT: Normocephalic, atraumatic. NECK: No JVD. CARDIOVASCULAR: Positive S1, S2. No S3 gallop. LUNGS: Clear bilaterally. EXTREMITIES: Mild edema. No cyanosis, no clubbing. Calves are nontender to palpation. GASTROINTESTINAL: Abdomen is soft, nontender, and nondistended. Bowel sounds are positive. SKIN: Improving left groin rash. NEUROLOGIC: Limited at the present time. IMPRESSION: 1. Sepsis syndrome. 2. Left groin cellulitis. 3. Advanced chronic obstructive pulmonary disease. 4. Asthma. PLAN: The patient appears very comfortable this morning. She is not short of breath at rest. She does state to feeling much better overall. On physical exam, her lungs are now clear. In addition, the alveolar-arterial gradient is also significantly less. I will continue the current nebulizer treatments and change to oral steroids this morning. The patient is now off antibiotic therapy - as per Infectious Disease. Input by Dr. Onofre is noted. Temperatures have fully resolved. Clinical status of the patient is significantly improved - compared to the initial presentation. However, given the above, the future status/prognosis for this patient does remain guarded. The patient is now on the Transitional Unit - where she will participate with physical therapy. I will discuss the above with the attending physician. Fam Robb MD MTDD
[2018-05-18] MEDS: Ammonium Lactate 12% Lotion (225 g) TOP SCH (10:08)
[2018-05-18] MEDS: Clotrimazole/Betamethasone Cream(15 gm) TOP SCH ×2 (10:09→17:31)
[2018-05-18] MEDS: Clotrimazole 1% Cream(30 gm) TOP SCH ×2 (10:09→17:31)
[2018-05-18] MEDS: Nystatin-Triamcinolone Cream(30 gm) TOP SCH ×2 (10:09→17:32)
--- NOTE | 2018-05-18 14:52 | CP.PCM.PN ---
<Laura Ruggiero - Last Filed: 05/18/18 14:51> Subjective - Date & Time of Evaluation Date of Evaluation: 05/18/18 Time of Evaluation: 14:51 - Subjective Subjective: Podiatry progress note: Dr. De La Rosa/Elizabeth 57 year old female patient seen and evaluated at bedside with Dr. Johnson. Patient resting comfortably and in NAD. She denies pain to b/l feet today. Patient denies any acute events overnight. Denies N/V/F/C/SOB/CP. Objective - Vital Signs/Intake and Output Vital Signs (last 24 hours): Temp Pulse Resp BP Pulse Ox 98.8 F 74 20 153/83 H 05/16/18 19:52 05/18/18 00:15 05/16/18 19:52 05/16/18 19:52 - Medications Medications: Current Medications Acetaminophen (Tylenol 325mg Tab) 650 mg PO Q6 PRN PRN Reason: TEMP>=99.5F Last Admin: 05/17/18 20:41 Dose: 650 mg Acetaminophen (Tylenol 650 Mg Supp) 650 mg RC Q6H PRN PRN Reason: TEMP>=99.5F Acetylcysteine (Acetylcysteine 20%) 4 ml IH [id number] RIGOBERTO Last Admin: 05/18/18 13:23 Dose: 4 ml Betamethasone/Clotrimazole (Lotrisone) 0 gm TOP BID RIGOBERTO; Protocol Last Admin: 05/18/18 10:09 Dose: 1 applic Budesonide (Pulmicort Respules) 0.5 mg IH [id number] RIGOBERTO; Protocol Last Admin: 05/18/18 07:34 Dose: 0.5 mg Clonazepam (Klonopin) 2 mg PO QID RIGOBERTO; Protocol Last Admin: 05/18/18 10:08 Dose: 2 mg Clotrimazole (Lotrimin 1%) 0 gm TOP BID RIGOBERTO; Protocol Last Admin: 05/18/18 10:09 Dose: 1 applic Dextrose (Dextrose 50% Inj) 0 ml IV STAT PRN; Protocol PRN Reason: Hypoglycemia Protocol Furosemide (Lasix) 40 mg IVP DAILY RIGOBERTO Gabapentin (Neurontin) 300 mg PO TID RIGOBERTO; Protocol Last Admin: 05/18/18 10:09 Dose: 300 mg Heparin Sodium (Porcine) (Heparin) 5,000 units SC Q8 RIGOBERTO; Protocol Last Admin: 05/18/18 05:17 Dose: 5,000 units Dextrose (Dextrose 5% In Water 1000 Ml) 1,000 mls @ 0 mls/hr IV .Q0M PRN; Protocol PRN Reason: Hypoglycemia Protocol Insulin Detemir (Levemir) 30 unit SC ACBD RIGOBERTO; Protocol Insulin Human Regular (Humulin R High) 0 units SC ACHS RIGOBERTO; Protocol Last Admin: 05/18/18 12:11 Dose: 4 u Lactic Acid (Lac-Hydrin 12% Lotion (225 G)) 0 gm TOP DAILY RIGOBERTO; Protocol Last Admin: 05/18/18 10:08 Dose: 1 applic Levalbuterol HCl (Xopenex) 1.25 mg IH Q2H PRN; Protocol PRN Reason: Shortness of Breath Last Admin: 05/17/18 18:22 Dose: 1.25 mg Levalbuterol HCl (Xopenex) 0.63 mg IH [id number] RIGOBERTO; Protocol Last Admin: 05/18/18 13:23 Dose: 0.63 mg Montelukast Sodium (Singulair) 10 mg PO HS RIGOBERTO; Protocol Last Admin: 05/17/18 21:17 Dose: 10 mg Multi-Ingredient Ointment (Hydrophor Oint) 0 gm TOP Q6H RIGOBERTO; Protocol Last Admin: 05/18/18 10:07 Dose: 1 applic Temazepam [Restoril] (30 Mg- Home Med) 30 mg PO HS RIGOBERTO Last Admin: 05/17/18 21:17 Dose: 30 mg Nystatin/Triamcinolone Acetonide (Nystatin/Triamcinolone Cream) 0 ea TOP BID RIGOBERTO; Protocol Last Admin: 05/18/18 10:09 Dose: 1 applic Ondansetron HCl (Zofran Inj) 4 mg IVP Q4H PRN PRN Reason: Nausea/Vomiting Pantoprazole Sodium (Protonix Ec Tab) 40 mg PO 0600 RIGOBERTO; Protocol Last Admin: 05/18/18 05:16 Dose: 40 mg Paroxetine HCl (Paxil) 20 mg PO DAILY RIGOBERTO; Protocol Last Admin: 05/18/18 10:09 Dose: 20 mg Prednisone (Prednisone Tab) 30 mg PO DAILY RIGOBERTO Last Admin: 05/18/18 10:13 Dose: 30 mg - Labs Labs: 05/17/18 07:00 05/17/18 07:00 - Constitutional Appears: Well, Non-toxic, No Acute Distress - Head Exam Head Exam: ATRAUMATIC, NORMOCEPHALIC - Eye Exam Eye Exam: Normal appearance - Extremities Exam Additional comments: Vasc: DP and PT pulses palpable; cap refill <3 seconds to all digits; temp gradient normal; mild edema b/l Ortho: no pain on palpation of b/l feet, no gross deformities noted Derm: xerosis present on the plantar aspects of feet, callus formation, no fissures present; no open wounds or lesions, mild skin color changes with hemosiderin discoloration appreciated to the anterior aspect of legs bilaterally Neuro: gross and protective sensation mildly diminished - Neurological Exam Neurological Exam: Alert, Awake, Oriented x3 - Psychiatric Exam Psychiatric exam: Normal Affect, Normal Mood Assessment and Plan - Assessment and Plan (Free Text) Assessment: 57 year old female with significant xerosis of bilateral feet Plan: Patient seen and evaluated with Dr. 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 as outpatient Podiatry to follow while in house <Warren Johnson - Last Filed: 05/19/18 09:59> Objective - Vital Signs/Intake and Output Vital Signs (last 24 hours): Temp Pulse Resp BP Pulse Ox 98.3 F 83 18 154/86 H 95 05/18/18 16:00 05/18/18 16:55 05/18/18 10:00 05/18/18 16:00 05/18/18 16:55 - Medications Medications: Current Medications Acetaminophen (Tylenol 325mg Tab) 650 mg PO Q6 PRN PRN Reason: TEMP>=99.5F Last Admin: 05/19/18 02:42 Dose: 650 mg Acetaminophen (Tylenol 650 Mg Supp) 650 mg RC Q6H PRN PRN Reason: TEMP>=99.5F Acetylcysteine (Acetylcysteine 20%) 4 ml IH [id number] RIGOBERTO Last Admin: 05/19/18 07:24 Dose: 4 ml Betamethasone/Clotrimazole (Lotrisone) 0 gm TOP BID RIGOBERTO; Protocol Last Admin: 05/18/18 17:31 Dose: 1 applic Budesonide (Pulmicort Respules) 0.5 mg IH [id number] RIGOBERTO; Protocol Last Admin: 05/19/18 07:24 Dose: 0.5 mg Clonazepam (Klonopin) 2 mg PO QID RIGOBERTO; Protocol Last Admin: 05/18/18 21:16 Dose: 2 mg Clotrimazole (Lotrimin 1%) 0 gm TOP BID RIGOBERTO; Protocol Last Admin: 05/18/18 17:31 Dose: 1 applic Dextrose (Dextrose 50% Inj) 0 ml IV STAT PRN; Protocol PRN Reason: Hypoglycemia Protocol Furosemide (Lasix) 40 mg IVP BID RIGOBERTO Stop: 05/20/18 10:01 Gabapentin (Neurontin) 300 mg PO TID RIGOBERTO; Protocol Last Admin: 05/18/18 17:32 Dose: 300 mg Heparin Sodium (Porcine) (Heparin) 5,000 units SC Q8 RIGOBERTO; Protocol Last Admin: 05/19/18 05:29 Dose: 5,000 units Dextrose (Dextrose 5% In Water 1000 Ml) 1,000 mls @ 0 mls/hr IV .Q0M PRN; Protocol PRN Reason: Hypoglycemia Protocol Insulin Detemir (Levemir) 30 unit SC ACBD RIGOBERTO; Protocol Last Admin: 05/19/18 06:42 Dose: Not Given Insulin Human Regular (Humulin R High) 0 units SC ACHS RIGOBERTO; Protocol Last Admin: 05/19/18 06:41 Dose: 2 u Lactic Acid (Lac-Hydrin 12% Lotion (225 G)) 0 gm TOP DAILY RIGOBERTO; Protocol Last Admin: 05/18/18 10:08 Dose: 1 applic Levalbuterol HCl (Xopenex) 1.25 mg IH Q2H PRN; Protocol PRN Reason: Shortness of Breath Last Admin: 05/17/18 18:22 Dose: 1.25 mg Levalbuterol HCl (Xopenex) 0.63 mg IH [id number] RIGOBERTO; Protocol Last Admin: 05/19/18 07:25 Dose: 0.63 mg Montelukast Sodium (Singulair) 10 mg PO HS RIGOBERTO; Protocol Last Admin: 05/18/18 21:19 Dose: 10 mg Multi-Ingredient Ointment (Hydrophor Oint) 0 gm TOP Q6H [facility]; Protocol Last Admin: 05/19/18 04:00 Dose: Not Given Temazepam [Restoril] (30 Mg- Home Med) 30 mg PO HS [facility] Last Admin: 05/18/18 21:16 Dose: 30 mg Nystatin/Triamcinolone Acetonide (Nystatin/Triamcinolone Cream) 0 ea TOP BID [facility]; Protocol Last Admin: 05/18/18 17:32 Dose: 1 applic Ondansetron HCl (Zofran Inj) 4 mg IVP Q4H PRN PRN Reason: Nausea/Vomiting Pantoprazole Sodium (Protonix Ec Tab) 40 mg PO 0600 [facility]; Protocol Last Admin: 05/19/18 05:29 Dose: 40 mg Paroxetine HCl (Paxil) 20 mg PO DAILY [facility]; Protocol Last Admin: 05/18/18 10:09 Dose: 20 mg Potassium Chloride (K-Dur 20 Meq Er Tab) 20 meq PO BID RIGOBERTO Prednisone (Prednisone Tab) 20 mg PO DAILY [facility] - Labs Labs: 05/17/18 07:00 05/19/18 06:15 Attending/Attestation - Attestation I have personally seen and examined this patient.: Yes I have fully participated in the care of the patient.: Yes I have reviewed all pertinent clinical information, including history, physical exam and plan: Yes
[2018-05-18] MEDS: TEMAZEPAM 30 MG PO SCH (21:16)
[2018-05-19] MEDS: Acetylcysteine 20% Inhal Soln (4ml) IH SCH ×4 (03:15→19:32)
[2018-05-19] MEDS: Levalbuterol 0.63 MG/3 ML Inhal Soln UD IH SCH ×4 (03:15→19:32)
[2018-05-19] MEDS: Petrolatum-Mineral Oil Oint (100gm) TOP SCH ×4 (04:00→21:14)
[2018-05-19] MEDS: Pantoprazole 40 mg EC Tab PO SCH (05:29)
[2018-05-19] MEDS: Insulin Reg-HIGH-Coverage SC SCH ×6 (06:41→23:59)
[2018-05-19] MEDS: Insulin Detemir 100 units/ml Vial (Levemir) SC SCH ×2 (06:42→17:01)
[2018-05-19] MEDS: Budesonide 0.5 mg/2 ml Inhal Susp UD IH SCH ×2 (07:24→19:31)
[2018-05-19 07:25] LABS: BLOOD UREA NITROGEN 25 mg/dL (7-21); CALCIUM 8.8 mg/dL (8.4-10.5); GFR NON-AFRICAN AMERICAN 51
--- NOTE | 2018-05-19 08:16 | PN ---
DATE: 05/18/2018 SUBJECTIVE: The patient is in room 314, bed 1. Overnight nurse's notes were reviewed. No adverse events were documented, reported or notified. Patient's vital signs from the [facility] were reviewed. The patient has been comfortable. The patient is requiring supplemental nasal cannula oxygen. PHYSICAL EXAMINATION: HEENT: Head examination normocephalic, atraumatic. [place] conjunctivae. Anicteric sclerae. No oropharyngeal lesion. NECK: No neck rigidity. Neck is short and supple. CHEST: Kyphosis. LUNGS: Shows decreased air entry. No audible wheezing, crackles or rales. CARDIOVASCULAR: S1, S2, regular rhythm. Questionable soft systolic murmur left sternal border, right second intercostal space, left second intercostal space. ABDOMEN: Morbidly obese, protuberant. No palpable hepatosplenomegaly. GENITALIA: Female. RECTAL: Deferred. EXTREMITIES: Show positive swelling of the lower extremities. No calf tenderness. Poor foot hygiene noted. MUSCULOSKELETAL: Shows a body mass index of greater than 50. DIAGNOSTICS: None from today. Diagnostics from 05/17/2018 was reviewed. Next, venous Doppler of the lower extremities which was done yesterday was negative for DVT of both lower extremities. IMPRESSION: 1. Deconditioning. 2. Gait dysfunction. 3. Morbid obesity. 4. Status post hypotension and hypovolemia. 5. Severe symptomatic hypokalemia. 6. Acute kidney injury. 7. Uncontrolled insulin-requiring diabetes mellitus with hyperglycemia. 8. Super morbid obesity. 9. Advanced oxygen and steroid dependent and nebulizer dependent chronic obstructive pulmonary disease. 10. Questionable history of sleep apnea. 11. Hypertension. 12. History of anxiety, depression and possible at this point disorder. 13. Bilateral lower extremity venous stasis. 14. Bilateral psoriasis of the feet and bilateral dystrophic toenails of both feet. 15. Poor personal hygiene. 16. Hepatic steatosis and fatty infiltration of the liver. 17. Severe dietary noncompliance. 18. Tachycardia. PLAN: At this time, the patient's fingerstick blood sugar has been elevated in above 200. The patient's basal insulin Levemir will be increased to 30 units twice a day. In addition, the patient will be continued on high-dose sliding scale coverage. The patient has been ordered WING stockings, SCDs, elevation of both legs and feet on lying and sitting. The patient has been advised strict diet compliance. The patient will continue on TCU with daily physical therapy, occupational therapy, ambulation therapy, gait training. The patient will be continued on all the medications as per the MAR of today which was reviewed and updated. The patient will be continued on out of bed to chair. The patient's case is referred to diabetic education and evaluation. The patient will also be asked to be seen by dietitian. The patient will continue her to complete the approved TCU days. Next, the patient will continue on daily physical therapy, occupational therapy, ambulation therapy, gait training while on TCU. Dictated and electronically signed, not read. Christian Mireles MD
[2018-05-19] MEDS ORDERED: Potassium Chloride 20 mEq ER Tab PO ONE (09:15)
[2018-05-19] MEDS: Ammonium Lactate 12% Lotion (225 g) TOP SCH (10:20)
[2018-05-19] MEDS: Clotrimazole 1% Cream(30 gm) TOP SCH ×2 (10:20→17:37)
[2018-05-19] MEDS: Clotrimazole/Betamethasone Cream(15 gm) TOP SCH ×2 (10:21→17:37)
[2018-05-19] MEDS: Nystatin-Triamcinolone Cream(30 gm) TOP SCH ×2 (10:21→17:37)
--- NOTE | 2018-05-19 11:01 | CP.PCM.PN ---
<MonikLaura navarro - Last Filed: 05/19/18 10:56> Subjective - Date & Time of Evaluation Date of Evaluation: 05/19/18 Time of Evaluation: 10:58 - Subjective Subjective: Podiatry progress note: Dr. De La Rosa/Elizabeth 57 year old female patient seen and evaluated at bedside. Patient resting comfortably in chair at bedside and in NAD. She denies pain to b/l feet today. Patient denies any acute events overnight. Denies N/V/F/C/SOB/CP. Objective - Vital Signs/Intake and Output Vital Signs (last 24 hours): Temp Pulse Resp BP Pulse Ox 98.3 F 83 18 140/78 95 05/18/18 16:00 05/18/18 16:55 05/18/18 10:00 05/19/18 10:20 05/18/18 16:55 - Medications Medications: Current Medications Acetaminophen (Tylenol 325mg Tab) 650 mg PO Q6 PRN PRN Reason: TEMP>=99.5F Last Admin: 05/19/18 02:42 Dose: 650 mg Acetaminophen (Tylenol 650 Mg Supp) 650 mg RC Q6H PRN PRN Reason: TEMP>=99.5F Acetylcysteine (Acetylcysteine 20%) 4 ml IH [id number] RIGOBERTO Last Admin: 05/19/18 07:24 Dose: 4 ml Betamethasone/Clotrimazole (Lotrisone) 0 gm TOP BID RIGOBERTO; Protocol Last Admin: 05/19/18 10:21 Dose: 1 applic Budesonide (Pulmicort Respules) 0.5 mg IH [id number] RIGOBERTO; Protocol Last Admin: 05/19/18 07:24 Dose: 0.5 mg Clonazepam (Klonopin) 2 mg PO QID RIGOBERTO; Protocol Last Admin: 05/19/18 10:19 Dose: 2 mg Clotrimazole (Lotrimin 1%) 0 gm TOP BID RIGOBERTO; Protocol Last Admin: 05/19/18 10:20 Dose: 1 applic Dextrose (Dextrose 50% Inj) 0 ml IV STAT PRN; Protocol PRN Reason: Hypoglycemia Protocol Furosemide (Lasix) 40 mg IVP BID RIGOBERTO Stop: 05/20/18 10:01 Last Admin: 05/19/18 10:20 Dose: 40 mg Gabapentin (Neurontin) 300 mg PO TID RIGOBERTO; Protocol Last Admin: 05/19/18 10:21 Dose: 300 mg Heparin Sodium (Porcine) (Heparin) 5,000 units SC Q8 RIGOBERTO; Protocol Last Admin: 05/19/18 05:29 Dose: 5,000 units Dextrose (Dextrose 5% In Water 1000 Ml) 1,000 mls @ 0 mls/hr IV .Q0M PRN; Protocol PRN Reason: Hypoglycemia Protocol Insulin Detemir (Levemir) 30 unit SC ACBD RIGOBERTO; Protocol Last Admin: 05/19/18 06:42 Dose: Not Given Insulin Human Regular (Humulin R High) 0 units SC ACHS RIGOBERTO; Protocol Last Admin: 05/19/18 06:41 Dose: 2 u Lactic Acid (Lac-Hydrin 12% Lotion (225 G)) 0 gm TOP DAILY RIGOBERTO; Protocol Last Admin: 05/19/18 10:20 Dose: 1 applic Levalbuterol HCl (Xopenex) 1.25 mg IH Q2H PRN; Protocol PRN Reason: Shortness of Breath Last Admin: 05/17/18 18:22 Dose: 1.25 mg Levalbuterol HCl (Xopenex) 0.63 mg IH [id number] RIGOBERTO; Protocol Last Admin: 05/19/18 07:25 Dose: 0.63 mg Montelukast Sodium (Singulair) 10 mg PO HS RIGOBERTO; Protocol Last Admin: 05/18/18 21:19 Dose: 10 mg Multi-Ingredient Ointment (Hydrophor Oint) 0 gm TOP Q6H RIGOBERTO; Protocol Last Admin: 05/19/18 10:19 Dose: 1 applic Temazepam [Restoril] (30 Mg- Home Med) 30 mg PO HS RIGOBERTO Last Admin: 05/18/18 21:16 Dose: 30 mg Nystatin/Triamcinolone Acetonide (Nystatin/Triamcinolone Cream) 0 ea TOP BID RIGOBERTO; Protocol Last Admin: 05/19/18 10:21 Dose: 1 applic Ondansetron HCl (Zofran Inj) 4 mg IVP Q4H PRN PRN Reason: Nausea/Vomiting Last Admin: 05/19/18 10:28 Dose: 4 mg Pantoprazole Sodium (Protonix Ec Tab) 40 mg PO 0600 RIGOBERTO; Protocol Last Admin: 05/19/18 05:29 Dose: 40 mg Paroxetine HCl (Paxil) 20 mg PO DAILY [facility]; Protocol Last Admin: 05/19/18 10:21 Dose: 20 mg Potassium Chloride (K-Dur 20 Meq Er Tab) 20 meq PO BID [facility] Prednisone (Prednisone Tab) 20 mg PO DAILY [facility] Last Admin: 05/19/18 10:23 Dose: 20 mg - Labs Labs: 05/17/18 07:00 05/19/18 06:15 - Constitutional Appears: Well, Non-toxic, No Acute Distress - Head Exam Head Exam: ATRAUMATIC, NORMOCEPHALIC - Extremities Exam Additional comments: Vasc: DP and PT pulses palpable; cap refill <3 seconds to all digits; temp gradient normal; mild edema b/l Ortho: no pain on palpation of b/l feet, no gross deformities noted Derm: xerosis present on the plantar aspects of feet, callus formation, no fissures present; no open wounds or lesions, mild skin color changes with hemosiderin discoloration appreciated to the anterior aspect of legs bilaterally Neuro: gross and protective sensation mildly diminished - Neurological Exam Neurological Exam: Alert, Awake, Oriented x3 - Psychiatric Exam Psychiatric exam: Normal Affect, Normal Mood Assessment and Plan - Assessment and Plan (Free Text) Assessment: 57 year old female with significant xerosis of bilateral feet Plan: Patient seen and evaluated Chart, labs and vitals reviewed- afebrile, absent leukocytosis Multipodus boots to be worn while in bed to prevent deep tissue injury Lotrimin, ammonium lactate, and aquaphor - to be applied daily to b/l feet to help with scaling and xerosis Normal ABIs and PVRs Diabetic education provided, instructed to follow desk attendant upon discharge as outpatient Podiatry to follow while in house <Warren Johnson - Last Filed: 05/19/18 16:21> Objective - Vital Signs/Intake and Output Vital Signs (last 24 hours): Temp Pulse Resp BP Pulse Ox 98.3 F 83 18 140/78 95 05/18/18 16:00 05/18/18 16:55 05/18/18 10:00 05/19/18 10:20 05/18/18 16:55 - Medications Medications: Current Medications Acetaminophen (Tylenol 325mg Tab) 650 mg PO Q6 PRN PRN Reason: TEMP>=99.5F Last Admin: 05/19/18 02:42 Dose: 650 mg Acetaminophen (Tylenol 650 Mg Supp) 650 mg RC Q6H PRN PRN Reason: TEMP>=99.5F Acetylcysteine (Acetylcysteine 20%) 4 ml IH [id number] RIGOBERTO Last Admin: 05/19/18 13:00 Dose: 4 ml Betamethasone/Clotrimazole (Lotrisone) 0 gm TOP BID [facility]; Protocol Last Admin: 05/19/18 10:21 Dose: 1 applic Budesonide (Pulmicort Respules) 0.5 mg IH [id number] RIGOBERTO; Protocol Last Admin: 05/19/18 07:24 Dose: 0.5 mg Clonazepam (Klonopin) 2 mg PO QID [facility]; Protocol Last Admin: 05/19/18 14:19 Dose: 2 mg Clotrimazole (Lotrimin 1%) 0 gm TOP BID [facility]; Protocol Last Admin: 05/19/18 10:20 Dose: 1 applic Dextrose (Dextrose 50% Inj) 0 ml IV STAT PRN; Protocol PRN Reason: Hypoglycemia Protocol Furosemide (Lasix) 40 mg IVP BID [facility] Stop: 05/20/18 10:01 Last Admin: 05/19/18 10:20 Dose: 40 mg Gabapentin (Neurontin) 300 mg PO TID [facility]; Protocol Last Admin: 05/19/18 14:19 Dose: 300 mg Heparin Sodium (Porcine) (Heparin) 5,000 units SC Q8 RIGOBERTO; Protocol Last Admin: 05/19/18 14:18 Dose: 5,000 units Dextrose (Dextrose 5% In Water 1000 Ml) 1,000 mls @ 0 mls/hr IV .Q0M PRN; Protocol PRN Reason: Hypoglycemia Protocol Insulin Detemir (Levemir) 30 unit SC ACBD [facility]; Protocol Last Admin: 05/19/18 06:42 Dose: Not Given Insulin Human Regular (Humulin R High) 0 units SC ACHS [facility]; Protocol Last Admin: 05/19/18 11:58 Dose: 4 u Lactic Acid (Lac-Hydrin 12% Lotion (225 G)) 0 gm TOP DAILY [facility]; Protocol Last Admin: 05/19/18 10:20 Dose: 1 applic Levalbuterol HCl (Xopenex) 1.25 mg IH Q2H PRN; Protocol PRN Reason: Shortness of Breath Last Admin: 02/03/19 18:22 Dose: 1.25 mg Levalbuterol HCl (Xopenex) 0.63 mg IH [id number] RIGOBERTO; Protocol Last Admin: 05/19/18 13:00 Dose: 0.63 mg Montelukast Sodium (Singulair) 10 mg PO HS [facility]; Protocol Last Admin: 05/18/18 21:19 Dose: 10 mg Multi-Ingredient Ointment (Hydrophor Oint) 0 gm TOP Q6H [facility]; Protocol Last Admin: 05/19/18 14:18 Dose: 1 applic Temazepam [Restoril] (30 Mg- Home Med) 30 mg PO HS [facility]IGOBERTO Last Admin: 05/18/18 21:16 Dose: 30 mg Nystatin/Triamcinolone Acetonide (Nystatin/Triamcinolone Cream) 0 ea TOP BID [facility]; Protocol Last Admin: 05/19/18 10:21 Dose: 1 applic Ondansetron HCl (Zofran Inj) 4 mg IVP Q4H PRN PRN Reason: Nausea/Vomiting Last Admin: 05/19/18 10:28 Dose: 4 mg Pantoprazole Sodium (Protonix Ec Tab) 40 mg PO 0600 [facility]; Protocol Last Admin: 05/19/18 05:29 Dose: 40 mg Paroxetine HCl (Paxil) 20 mg PO DAILY [facility]; Protocol Last Admin: 05/19/18 10:21 Dose: 20 mg Potassium Chloride (K-Dur 20 Meq Er Tab) 20 meq PO BID [facility] Prednisone (Prednisone Tab) 20 mg PO DAILY [facility] Last Admin: 05/19/18 10:23 Dose: 20 mg - Labs Labs: 05/17/18 07:00 05/19/18 06:15 Attending/Attestation - Attestation I have personally seen and examined this patient.: Yes I have fully participated in the care of the patient.: Yes I have reviewed all pertinent clinical information, including history, physical exam and plan: Yes
--- NOTE | 2018-05-19 12:36 | PN ---
DATE: 05/19/2018 SUBJECTIVE: The patient appears comfortable this morning. She is not short of breath at rest. PHYSICAL EXAMINATION: VITAL SIGNS: (Last noted in the computer): Temperature is 98.3, pulse 83, respirations 18, blood pressure 154/86. Oxygen saturation on room air is 95%. HEENT: Normocephalic, atraumatic. No JVD. CARDIOVASCULAR: Positive S1, S2. No S3 gallop. LUNGS: Clear bilaterally. EXTREMITIES: Mild edema. No cyanosis, no clubbing. Calves are nontender to palpation. GASTROINTESTINAL: Abdomen is soft, nontender and nondistended. Bowel sounds are positive. SKIN: Improving left groin rash. NEUROLOGIC: Exam limited at the present time. IMPRESSION: 1. Sepsis syndrome. 2. Left groin cellulitis. 3. Advanced chronic obstructive pulmonary disease. 4. Asthma. PLAN: The patient appears quite comfortable this morning. She is not short of breath at rest. She does state to feeling much better overall. On physical exam, her lungs remain clear. In addition, there is no significant alveolar-arterial gradient. I will continue with the current nebulizer treatments and oral steroids (changed yesterday) for now. Inputs by Infectious Disease and Podiatry are also noted. Clinical status of the patient is significantly improved - compared to the initial presentation. However, given the above, the future status/prognosis for this patient does remain somewhat guarded. I will discuss the above with the attending physician. Fam Robb MD MTDD
--- NOTE | 2018-05-19 19:18 | PN ---
DATE: 05/19/2018 SUBJECTIVE: The patient is seen in room 314. The patient is out of bed to chair. The patient was observed from . The patient is alert, awake, responsive. The patient is complaining of increased leg swelling. The patient is not wearing WING stockings or SCDs. A 14-system review was done, pertinent positives dictated above. The patient has chronic breathing issues. The patient denies any dizziness. Denies nausea, vomiting, or diarrhea. Denies constipation. PHYSICAL EXAMINATION: VITAL SIGNS: T-max, the patient is afebrile. Heart rate is 78, 84, 86, 92. Blood pressure 138/84. Respirations 18-19. O2 sat in low to mid 90%. HEENT: Normocephalic and atraumatic. Pinkish pale conjunctivae. Anicteric sclerae. No oropharyngeal lesion. NECK: No neck rigidity. CHEST: Kyphosis. LUNGS: Decreased breath sounds. No audible crackle, rales, or wheezing. CARDIOVASCULAR: S1 and S2, regular rhythm. ABDOMEN: Morbidly obese. No palpable hepatosplenomegaly. GENITALIA: Female. RECTAL: Deferred. EXTREMITIES: 2+ dense pitting edema of the lower extremities. No calf tenderness. MUSCULOSKELETAL: Elevated body mass index of greater than 50. NEUROLOGIC: The patient is alert, awake, responsive, is able to move upper and lower extremities without assistance. Gait examination is independent. VASCULAR: Unable to palpate any lower extremity pulses. DIAGNOSTICS: The patient's CMP was reviewed. Potassium is 3.3. Fingerstick blood sugar is averaging around mid to high 200s. IMPRESSION AND PLAN: 1. Deconditioning. 2. Gait dysfunction. 3. Super morbid obesity. 4. Acute exacerbation of chronic obstructive pulmonary disease with bronchospasm. 5. Severe symptomatic hypokalemia. 6. Status post hypotension. 7. Bilateral lower extremity venous stasis. 8. Severe dietary noncompliance. 9. Hypoxemia. 10. Tachycardia. 11. Insulin-requiring diabetes mellitus with hyperglycemia. 12. Hepatic steatosis. 13. Hypokalemia. 14. Status post acute kidney injury. 15. Status post hypotension and hypovolemia. 16. History of anxiety and depression. 17. Questionable adjustment disorder and mood disorder. 18. Insomnia. 19. Tachycardia. 20. Morbid obesity. PLAN: At this time, the patient has been ordered potassium supplementation for hypokalemia. The patient will be started on potassium standing orders twice a day, K-Dur 20 mEq twice a day from tomorrow. The patient has been ordered K-Dur 40 mEq today. The patient's Lasix is increased to 40 mg IV every 12 hours for 3 days with daily basic metabolic panel. The patient has been reordered SCDs and WING stockings, elevation of both legs, lying and sitting on two pillows. The patient will be continued on TCU, physical therapy, occupational therapy, ambulation therapy, gait training. The patient's prednisone will be tapered down. The patient has no audible wheezing and rhonchi and improved air entry. The patient was again re-advised about strict compliance with diet and activity. The patient will be continued on all the medications as per the MAR of today with monitoring of the daily lab. Dictated and electronically signed, not read. Christian Mireles MD
[2018-05-19] MEDS: TEMAZEPAM 30 MG PO SCH (21:30)
[2018-05-20] MEDS: Levalbuterol 0.63 MG/3 ML Inhal Soln UD IH SCH ×4 (01:35→20:41)
[2018-05-20] MEDS: Acetylcysteine 20% Inhal Soln (4ml) IH SCH ×4 (01:35→20:41)
[2018-05-20] MEDS: Petrolatum-Mineral Oil Oint (100gm) TOP SCH ×5 (01:47→20:36)
[2018-05-20] MEDS: Pantoprazole 40 mg EC Tab PO SCH (05:23)
[2018-05-20] MEDS: Insulin Detemir 100 units/ml Vial (Levemir) SC SCH ×2 (06:38→17:54)
[2018-05-20] MEDS: Insulin Reg-HIGH-Coverage SC SCH ×4 (06:46→22:33)
[2018-05-20 07:34] LABS: BLOOD UREA NITROGEN 20 mg/dL (7-21); CALCIUM 8.3 mg/dL (8.4-10.5); GFR NON-AFRICAN AMERICAN 57
[2018-05-20] MEDS: Budesonide 0.5 mg/2 ml Inhal Susp UD IH SCH ×2 (07:34→20:41)
[2018-05-20] MEDS: Potassium Chloride 20 mEq ER Tab PO SCH ×3 (08:40→17:23)
--- NOTE | 2018-05-20 09:35 | PN ---
DATE: 05/20/2018 PULMONARY NOTE SUBJECTIVE: The patient appears quite comfortable this morning. She is not short of breath at rest. PHYSICAL EXAMINATION: VITAL SIGNS: (Last noted in the computer): Temperature is 98.7, pulse 86, respirations 18/20, blood pressure 133/76. Oxygen saturation on nasal cannula is 95%. HEENT: Normocephalic, atraumatic. No JVD. CARDIOVASCULAR: Positive S1, S2. No S3 gallop. LUNGS: Clear bilaterally. GI: Abdomen is soft, nontender and nondistended. Bowel sounds are positive. EXTREMITIES: Mild edema. No cyanosis, no clubbing. Calves are nontender to palpation. SKIN: Improving left groin rash. NEUROLOGIC: Exam limited at the present time. IMPRESSION: 1. Sepsis syndrome. 2. Left groin cellulitis. 3. Advanced chronic obstructive pulmonary disease. 4. Asthma. PLAN: The patient appears quite comfortable this morning. She is not short of breath at rest. She does state to feeling much better overall. On physical exam, her lungs remain clear. In addition, there is no significant alveolar-arterial gradient. I will continue with the current nebulizer treatments and low-dose oral steroids (decreased by medical team yesterday) for now. Inputs by Infectious Disease and Podiatry are also noted. Clinical status of the patient has significantly improved - compared to the initial presentation. However, given the above, the future status/prognosis of the patient does remain somewhat guarded. I will discuss the above with the attending physician. Fam Robb MD MTDD
[2018-05-20] MEDS: Ammonium Lactate 12% Lotion (225 g) TOP SCH (10:06)
[2018-05-20] MEDS: Clotrimazole 1% Cream(30 gm) TOP SCH ×2 (10:07→17:23)
[2018-05-20] MEDS: Clotrimazole/Betamethasone Cream(15 gm) TOP SCH ×2 (10:08→17:23)
[2018-05-20] MEDS: Nystatin-Triamcinolone Cream(30 gm) TOP SCH ×2 (10:08→17:24)
--- NOTE | 2018-05-20 16:34 | PN ---
DATE: 05/20/2018 SUBJECTIVE: The patient is seen in the rehab. The patient is doing stationary bike. The patient is alert, awake, responsive. Overnight nurse's notes were reviewed. No adverse events were documented, reported or notified. OBJECTIVE: VITAL SIGNS: T-max 98.7, heart rate 86-96, blood pressure 115/59, 123/79, O2 sat is 95, respiration is 18-20. HEENT: Head is normocephalic, atraumatic. Eyes; pinkish conjunctivae. Anicteric sclerae. No oropharyngeal lesion. NECK: No neck rigidity. CHEST: Kyphosis. LUNGS: Shows no audible crackle, rales or wheezing, improved air entry. No wheezing noted. CARDIOVASCULAR: Chest and S2. Regular rhythm. Positive systolic murmur left sternal border, right second intercostal space, left second intercostal space. ABDOMEN: Super morbidly obese. Unable to palpate any hepatosplenomegaly. GENITALIA: Female. RECTAL: Deferred. EXTREMITIES: Shows positive pitting edema of the lower extremity. MUSCULOSKELETAL: Shows a body mass index of 50. NEUROLOGIC: The patient is alert, awake, oriented x3. Cranial nerves II-XII intact. Gait examination is not tested. The patient is doing stationary bike. DIAGNOSTIC DATA: Fingerstick blood sugar 296, 156, 189, 422, 202. Sodium 141, potassium 3.4, chloride 96, CO2 is up to 41, anion gap 7, BUN 20, creatinine 1.0, GFR greater than 60, glucose 139, calcium 8.3. IMPRESSION AND PLAN: 1. Acute exacerbation of chronic obstructive pulmonary disease with bronchospasm. 2. Status post hypotension. 3. Metabolic alkalosis. 4. History of hypertension. 5. Bilateral lower extremity venous stasis. 6. Normocytic anemia. 7. Granulocytosis. 8. Steroid-induced hyperglycemia. 9. Hypokalemia. 10. Elevated AST. 11. Insulin-requiring diabetes mellitus. 12. Depression. 13. Insomnia. 14. Anxiety, depression with adjustment disorder. 15. Advised steroid and nebulizer dependent chronic obstructive pulmonary disease. 16. Questionable sepsis with systemic inflammatory response syndrome. 17. Left lower lobe pneumonia and effusion. 18. Sinus tachycardia. 19. 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 20. Gait dysfunction. 21. Deconditioning. 22. Morbid obesity. 23. Severe dietary and dietary noncompliance. 24. Hyperlipidemia. 25. Hypovitaminosis D. 26. Hypertriglyceridemia. 27. Diabetic neuropathy. PLAN: At this time, the patient is to be continued on medication. The patient has been ordered serial basic metabolic panel. The patient is on Mucomyst and Xopenex nebulizer treatment every 6 hours. The patient is started on low-dose Diamox 250 mg daily, heparin 5000 subcu every 8 hours, high dose regular insulin sliding scale coverage a.c. and at bedtime, potassium 20 mEq twice a day has been ordered, Klonopin 2 mg four times a day, Lac-Hydrin lotion, Levemir 30 units twice a day, Lotrimin cream, Lotrisone cream, Neurontin 300 three times a day, Paxil 20 mg daily, prednisone 20 mg daily, Protonix 40 mg daily, Pulmicort 5.5 mg nebulizer every 12 hours, Singulair 10 mg at bedtime, Restoril 30 mg at bedtime, Tylenol 650 mg p.o. suppository every 6 hours p.r.n., Zofran 4 mg IV every 4 hours p.r.n., Xopenex nebulizer [id number] and p.r.n. every 2 hours has been ordered. At present, the patient will continue to be on Transitional Care Unit. The patient will be continued to be on Transitional Care Unit with daily physical therapy, occupational therapy, ambulation therapy, gait training. Dictated and electronically signed, not read. Christian Mireles MD
[2018-05-20] MEDS: TEMAZEPAM 30 MG PO SCH (21:37)
[2018-05-21] MEDS: Levalbuterol 0.63 MG/3 ML Inhal Soln UD IH SCH ×4 (02:06→19:15)
[2018-05-21] MEDS: Petrolatum-Mineral Oil Oint (100gm) TOP SCH ×4 (02:26→20:56)
[2018-05-21] MEDS: Pantoprazole 40 mg EC Tab PO SCH (05:49)
[2018-05-21] MEDS: Acetylcysteine 20% Inhal Soln (4ml) IH SCH ×3 (07:15→19:14)
[2018-05-21] MEDS: Budesonide 0.5 mg/2 ml Inhal Susp UD IH SCH ×2 (07:15→19:15)
[2018-05-21 07:24] LABS: BLOOD UREA NITROGEN 19 mg/dL (7-21); CALCIUM 8.4 mg/dL (8.4-10.5); GFR NON-AFRICAN AMERICAN 57
[2018-05-21] MEDS: Insulin Reg-HIGH-Coverage SC SCH ×4 (07:26→21:56)
[2018-05-21] MEDS: Insulin Detemir 100 units/ml Vial (Levemir) SC SCH ×2 (07:27→17:30)
--- NOTE | 2018-05-21 08:22 | PN ---
DATE: 05/21/2018 PULMONARY NOTE SUBJECTIVE: The patient appears very comfortable this morning. She is not short of breath at rest. PHYSICAL EXAMINATION: Vitals: (Last noted in the computer): Temperature is 98.7, pulse 80, respirations 18-20, blood pressure 115/59. Oxygen saturation on nasal cannula is 95%. HEENT: Normocephalic, atraumatic. No JVD. CARDIOVASCULAR: Positive S1, S2. No S3 gallop. LUNGS: Clear bilaterally. EXTREMITIES: Mild edema. No cyanosis. No clubbing. Calves are nontender to palpation. GASTROINTESTINAL: Abdomen is soft, nontender, and nondistended. Bowel sounds are positive. SKIN: Improving left groin rash. NEUROLOGIC: Exam limited at the present time. IMPRESSION: 1. Sepsis syndrome. 2. Left groin cellulitis. 3. Advanced chronic obstructive pulmonary disease. 4. Asthma. PLAN: The patient appears very comfortable this morning. She is not short of breath at rest. She does state to feeling much better overall. On physical exam, her lungs remain clear. In addition, there is no significant alveolar-arterial gradient. I will continue the current nebulizer treatments and decrease the oral steroids this morning. Inputs by Internal Medicine and Podiatry are also noted. Clinical status of the patient is significantly improved - compared to the initial presentation. However, given the above, the future status/prognosis for this patient does remain somewhat guarded. I will discuss the above with the attending physician. Fam Robb MD MTDD
--- NOTE | 2018-05-21 08:40 | CP.PCM.PN ---
<MonikLaura - Last Filed: 05/21/18 08:39> Subjective - Date & Time of Evaluation Date of Evaluation: 05/21/18 Time of Evaluation: 08:39 - Subjective Subjective: Podiatry progress note: Dr. De La Rosa/Elizabeth 57 year old female patient seen and evaluated at bedside. Patient resting comfortably in chair at bedside and in NAD. She denies pain to b/l feet today. Patient denies any acute events overnight. Denies N/V/F/C/SOB/CP. Objective - Vital Signs/Intake and Output Vital Signs (last 24 hours): Temp Pulse Resp BP Pulse Ox 98.7 F 80 20 115/59 L 95 05/20/18 10:00 05/20/18 23:44 05/20/18 10:00 05/20/18 10:03 05/20/18 11:53 - Medications Medications: Current Medications Acetaminophen (Tylenol 325mg Tab) 650 mg PO Q6 PRN PRN Reason: TEMP>=99.5F Last Admin: 05/21/18 07:43 Dose: 650 mg Acetaminophen (Tylenol 650 Mg Supp) 650 mg RC Q6H PRN PRN Reason: TEMP>=99.5F Acetazolamide (Diamox 250 Mg Tab) 250 mg PO DAILY [facility] Last Admin: 05/20/18 09:58 Dose: 250 mg Acetylcysteine (Acetylcysteine 20%) 4 ml IH [id number] [facility] Last Admin: 05/21/18 07:15 Dose: 4 ml Betamethasone/Clotrimazole (Lotrisone) 0 gm TOP BID [facility]; Protocol Last Admin: 05/20/18 17:23 Dose: 1 applic Budesonide (Pulmicort Respules) 0.5 mg IH [id number] [facility]; Protocol Last Admin: 05/21/18 07:15 Dose: 0.5 mg Clonazepam (Klonopin) 2 mg PO QID [facility]; Protocol Last Admin: 05/20/18 21:36 Dose: 2 mg Clotrimazole (Lotrimin 1%) 0 gm TOP BID [facility]; Protocol Last Admin: 05/20/18 17:23 Dose: 1 applic Dextrose (Dextrose 50% Inj) 0 ml IV STAT PRN; Protocol PRN Reason: Hypoglycemia Protocol Gabapentin (Neurontin) 300 mg PO TID [facility]; Protocol Last Admin: 05/20/18 17:23 Dose: 300 mg Heparin Sodium (Porcine) (Heparin) 5,000 units SC Q8 [facility]; Protocol Last Admin: 05/21/18 05:48 Dose: 5,000 units Dextrose (Dextrose 5% In Water 1000 Ml) 1,000 mls @ 0 mls/hr IV .Q0M PRN; Protocol PRN Reason: Hypoglycemia Protocol Insulin Detemir (Levemir) 30 unit SC ACBD [facility]; Protocol Last Admin: 05/21/18 07:27 Dose: 30 u Insulin Human Regular (Humulin R High) 0 units SC ACHS [facility]; Protocol Last Admin: 05/21/18 07:26 Dose: 2 units Lactic Acid (Lac-Hydrin 12% Lotion (225 G)) 0 gm TOP DAILY [facility]; Protocol Last Admin: 05/20/18 10:06 Dose: 1 applic Levalbuterol HCl (Xopenex) 1.25 mg IH Q2H PRN; Protocol PRN Reason: Shortness of Breath Last Admin: 05/17/18 18:22 Dose: 1.25 mg Levalbuterol HCl (Xopenex) 0.63 mg IH [id number] [facility]; Protocol Last Admin: 05/21/18 07:15 Dose: 0.63 mg Montelukast Sodium (Singulair) 10 mg PO HS [facility]; Protocol Last Admin: 05/20/18 21:41 Dose: 10 mg Multi-Ingredient Ointment (Hydrophor Oint) 0 gm TOP Q6H [facility]; Protocol Last Admin: 05/21/18 08:33 Dose: 1 applic Temazepam [Restoril] (30 Mg- Home Med) 30 mg PO HS [facility] Last Admin: 05/20/18 21:37 Dose: 30 mg Nystatin/Triamcinolone Acetonide (Nystatin/Triamcinolone Cream) 0 ea TOP BID [facility]; Protocol Last Admin: 05/20/18 17:24 Dose: 1 applic Ondansetron HCl (Zofran Inj) 4 mg IVP Q4H PRN PRN Reason: Nausea/Vomiting Last Admin: 05/19/18 10:28 Dose: 4 mg Pantoprazole Sodium (Protonix Ec Tab) 40 mg PO 0600 [facility]; Protocol Last Admin: 05/21/18 05:49 Dose: 40 mg Paroxetine HCl (Paxil) 20 mg PO DAILY [facility]; Protocol Last Admin: 05/20/18 09:59 Dose: 20 mg Potassium Chloride (K-Dur 20 Meq Er Tab) 20 meq PO BID [facility] Last Admin: 05/20/18 17:23 Dose: 20 meq Prednisone (Prednisone Tab) 10 mg PO DAILY [facility] - Labs Labs: 05/17/18 07:00 05/21/18 06:45 - Constitutional Appears: Well, Non-toxic, No Acute Distress - Head Exam Head Exam: ATRAUMATIC, NORMOCEPHALIC - Extremities Exam Additional comments: Vasc: DP and PT pulses palpable; cap refill <3 seconds to all digits; temp gradient normal; mild edema b/l Ortho: no pain on palpation of b/l feet, no gross deformities noted Derm: xerosis present on the plantar aspects of feet, callus formation, no fissures present; no open wounds or lesions, mild skin color changes with hemosiderin discoloration appreciated to the anterior aspect of legs bilaterally Neuro: gross and protective sensation mildly diminished - Neurological Exam Neurological Exam: Alert, Awake, Oriented x3 - Psychiatric Exam Psychiatric exam: Normal Affect, Normal Mood Assessment and Plan - Assessment and Plan (Free Text) Assessment: 57 year old female with significant xerosis of bilateral feet Plan: Patient seen and evaluated Chart, labs and vitals reviewed- afebrile, absent leukocytosis Multipodus boots to be worn while in bed to prevent deep tissue injury Lotrimin, ammonium lactate, and aquaphor - to be applied daily to b/l feet to help with scaling and xerosis Normal ABIs and PVRs Diabetic education provided, instructed to follow supervisor sandblaster upon discharge as outpatient Podiatry to follow while in house <Warren Johnson - Last Filed: 05/22/18 14:39> Objective - Vital Signs/Intake and Output Vital Signs (last 24 hours): Temp Pulse Resp BP Pulse Ox 98.2 F 78 18 157/92 H 96 05/22/18 10:00 05/22/18 10:00 05/22/18 10:00 05/22/18 10:00 05/22/18 10:00 - Medications Medications: Current Medications Acetaminophen (Tylenol 325mg Tab) 650 mg PO Q6 PRN PRN Reason: TEMP>=99.5F Last Admin: 05/22/18 06:53 Dose: 650 mg Acetaminophen (Tylenol 650 Mg Supp) 650 mg RC Q6H PRN PRN Reason: TEMP>=99.5F Acetazolamide (Diamox 250 Mg Tab) 250 mg PO DAILY [facility] Last Admin: 05/22/18 11:45 Dose: Not Given Acetylcysteine (Acetylcysteine 20%) 4 ml IH [id number] [facility] Last Admin: 05/22/18 13:18 Dose: 4 ml Betamethasone/Clotrimazole (Lotrisone) 0 gm TOP BID [facility]; Protocol Last Admin: 05/22/18 09:59 Dose: 1 applic Budesonide (Pulmicort Respules) 0.5 mg IH [id number] [facility]; Protocol Last Admin: 05/22/18 07:12 Dose: 0.5 mg Clonazepam (Klonopin) 2 mg PO QID [facility]; Protocol Last Admin: 05/22/18 13:26 Dose: 2 mg Clotrimazole (Lotrimin 1%) 0 gm TOP BID [facility]; Protocol Last Admin: 05/22/18 09:59 Dose: 1 applic Dextrose (Dextrose 50% Inj) 0 ml IV STAT PRN; Protocol PRN Reason: Hypoglycemia Protocol Gabapentin (Neurontin) 300 mg PO TID [facility]; Protocol Last Admin: 05/22/18 13:21 Dose: 300 mg Heparin Sodium (Porcine) (Heparin) 5,000 units SC Q8 [facility]; Protocol Last Admin: 05/22/18 05:21 Dose: 5,000 units Dextrose (Dextrose 5% In Water 1000 Ml) 1,000 mls @ 0 mls/hr IV .Q0M PRN; Protocol PRN Reason: Hypoglycemia Protocol Insulin Detemir (Levemir) 30 unit SC ACBD [facility]; Protocol Last Admin: 05/22/18 06:50 Dose: 30 u Insulin Human Regular (Humulin R High) 0 units SC ACHS [facility]; Protocol Last Admin: 05/22/18 12:07 Dose: 7 units Lactic Acid (Lac-Hydrin 12% Lotion (225 G)) 0 gm TOP DAILY [facility]; Protocol Last Admin: 05/22/18 09:59 Dose: 1 applic Levalbuterol HCl (Xopenex) 1.25 mg IH Q2H PRN; Protocol PRN Reason: Shortness of Breath Last Admin: 05/17/18 18:22 Dose: 1.25 mg Levalbuterol HCl (Xopenex) 0.63 mg IH [id number] [facility]; Protocol Last Admin: 05/22/18 13:18 Dose: 0.63 mg Montelukast Sodium (Singulair) 10 mg PO HS [facility]; Protocol Last Admin: 05/21/18 21:58 Dose: 10 mg Multi-Ingredient Ointment (Hydrophor Oint) 0 gm TOP Q6H [facility]; Protocol Last Admin: 05/22/18 13:21 Dose: 1 applic Temazepam [Restoril] (30 Mg- Home Med) 30 mg PO HS [facility] Last Admin: 05/21/18 22:08 Dose: 30 mg Nystatin/Triamcinolone Acetonide (Nystatin/Triamcinolone Cream) 0 ea TOP BID [facility]; Protocol Last Admin: 05/22/18 10:00 Dose: 1 applic Ondansetron HCl (Zofran Inj) 4 mg IVP Q4H PRN PRN Reason: Nausea/Vomiting Last Admin: 05/19/18 10:28 Dose: 4 mg Pantoprazole Sodium (Protonix Ec Tab) 40 mg PO 0600 [facility]; Protocol Last Admin: 05/22/18 05:23 Dose: 40 mg Paroxetine HCl (Paxil) 20 mg PO DAILY [facility]; Protocol Last Admin: 05/22/18 10:00 Dose: 20 mg Potassium Chloride (K-Dur 20 Meq Er Tab) 20 meq PO 0800,1800 [facility] Prednisone (Prednisone Tab) 10 mg PO 0800 [facility] - Labs Labs: 05/17/18 07:00 05/22/18 06:30 Attending/Attestation - Attestation I have personally seen and examined this patient.: Yes I have fully participated in the care of the patient.: Yes I have reviewed all pertinent clinical information, including history, physical exam and plan: Yes
[2018-05-21] MEDS: Potassium Chloride 20 mEq ER Tab PO SCH ×2 (09:07→17:47)
[2018-05-21] MEDS: Clotrimazole/Betamethasone Cream(15 gm) TOP SCH ×2 (09:08→17:48)
[2018-05-21] MEDS: Clotrimazole 1% Cream(30 gm) TOP SCH ×2 (09:08→17:48)
[2018-05-21] MEDS: Ammonium Lactate 12% Lotion (225 g) TOP SCH (09:08)
[2018-05-21] MEDS: Nystatin-Triamcinolone Cream(30 gm) TOP SCH ×2 (09:09→17:48)
[2018-05-21] MEDS ORDERED: Potassium Chloride 20 mEq ER Tab PO ONE (09:11)
--- NOTE | 2018-05-21 14:28 | PN ---
DATE: 05/21/2018 SUBJECTIVE: The patient is seen sitting up in the bed in room 314. The patient is sitting up in the bed with legs hanging down despite our multiple recommendations to the patient to keep feet and leg elevated while sitting and lying but the patient does not appear to be complying with that. Overnight nurse's notes were reviewed. No adverse events were documented, reported or notified. The patient denies any chest pain. Denies shortness of breath. Denies nausea, vomiting, diarrhea or constipation. The patient required Monster wrap to both lower extremity because the patient is refusing WING stockings. PHYSICAL EXAMINATION: VITAL SIGNS: T-max 98.7, heart rate 80, blood pressure 123/79, respiration 20, O2 sat 95% on 2 liters nasal cannula. HEENT: Head examination normocephalic, atraumatic. HEENT examination shows pink conjunctivae. Anicteric sclerae. NECK: Short and supple. CHEST: Kyphosis. LUNGS: No audible crackle, rales or wheezing, improved air entry. ABDOMEN: Super morbidly obese with unable to palpate any hepatosplenomegaly. GENITALIA: Female. RECTAL: Deferred. EXTREMITIES: Positive SCDs and pitting edema of the lower extremity. MUSCULOSKELETAL: Examination shows a body weight of 282 pounds and BMI 48.5. NEUROLOGIC: The patient is alert, awake, oriented x3, is able to move upper lower extremity without assistance. GAIT: Independent. DIAGNOSTICS: 05/21/2018: Potassium 3.4, carbon dioxide 40, BUN 19, creatinine 1, GFR greater than 60, glucose 192. IMPRESSION AND PLAN: 1. Deconditioning. 2. Gait dysfunction. 3. Super morbid obesity. 4. Advanced oxygen and steroid-dependent chronic obstructive pulmonary disease. 5. Possible obstructive steep apnea. 6. Super morbid obesity. 7. Hypokalemia. 8. Metabolic alkalosis. 9. Diuretic-induced metabolic alkalosis. 10. Bilateral lower extremity venous stasis. 11. Xerosis of both feet and elongated dystrophic toenails. 12. Poor personal hygiene. 13. Hypokalemia. 14. Insulin-requiring diabetes mellitus with hyperglycemia. 15. History of depression. 16. History of insomnia. 17. History of anxiety. The patient will be continued on the TCU for daily physical therapy, occupational therapy, ambulation therapy, gait training. CONSULTATION: Pulmonary, Psychiatry and Podiatry. CURRENT MEDICATIONS: Xopenex 0.63 mg, Mucomyst nebulizer every 6 hours [id number], Diamox 250 mg daily, heparin 5000 subcu every 8 hours, regular insulin sliding scale coverage, Hydrophor ointment, K-Dur 20 twice a day. The patient is also given extra dose of K-Dur 40 mEq , Klonopin 2 mg four times a day, Lac-Hydrin lotion to the affected area daily, Levemir 30 units breakfast and dinner, Lotrimin cream, Lotrisone cream, Neurontin 300 three times a day, Paxil 20 mg daily, prednisone decreased to 10 mg daily, Protonix 40 mg daily, Pulmicort nebulizer 0.5 mg twice a day, Singulair 10 mg daily, Restoril 30 mg h.s., Tylenol 650 mg p.r.n., Zofran 4 mg IV every 4 hours p.r.n. BiPap has been ordered at bedtime if needed. The patient has been ordered out of bed, WING stockings, SCDs, occupational therapy, physical therapy. The patient will continue on TCU until approved number of days. Dictated and electronically signed, not read. Christian Mireles MD
[2018-05-21] MEDS: TEMAZEPAM 30 MG PO SCH (22:08)
[2018-05-22] MEDS: Petrolatum-Mineral Oil Oint (100gm) TOP SCH ×4 (02:19→13:21)
[2018-05-22] MEDS: Pantoprazole 40 mg EC Tab PO SCH (05:23)
[2018-05-22] MEDS: Insulin Reg-HIGH-Coverage SC SCH ×4 (06:48→17:30)
[2018-05-22] MEDS: Insulin Detemir 100 units/ml Vial (Levemir) SC SCH ×2 (06:50→17:39)
[2018-05-22] MEDS: Levalbuterol 0.63 MG/3 ML Inhal Soln UD IH SCH ×3 (07:12→19:45)
[2018-05-22] MEDS: Acetylcysteine 20% Inhal Soln (4ml) IH SCH ×3 (07:12→19:45)
[2018-05-22] MEDS: Budesonide 0.5 mg/2 ml Inhal Susp UD IH SCH ×2 (07:12→19:45)
[2018-05-22 07:27] LABS: BLOOD UREA NITROGEN 15 mg/dL (7-21); GFR NON-AFRICAN AMERICAN 57
[2018-05-22] MEDS: Potassium Chloride 20 mEq ER Tab PO SCH ×3 (07:58→17:31)
--- NOTE | 2018-05-22 08:27 | PN ---
DATE: 05/22/2018 SUBJECTIVE: The patient appears comfortable this morning. She is not short of breath at rest. PHYSICAL EXAMINATION: VITAL SIGNS: Temperature 98.4, pulse is 90, respiratory rate 18/20, blood pressure 132/77. Oxygen saturation on nasal cannula is 95%. HEENT: Normocephalic, atraumatic. NECK: No JVD. CARDIOVASCULAR: Positive S1, S2. No S3 gallop. LUNGS: Clear bilaterally. EXTREMITIES: Mild edema. No cyanosis. No clubbing. Calves are nontender to palpation. GI: Abdomen is soft, nontender and nondistended. Bowel sounds are positive. SKIN: Improving left groin rash. NEUROLOGIC: Exam limited at the present time. IMPRESSION: 1. Sepsis syndrome. 2. Left groin cellulitis. 3. Advanced chronic obstructive pulmonary disease. 4. Asthma. PLAN: The patient appears very comfortable this morning. She is not short of breath at rest. She does state to feeling much better overall. On physical exam, her lungs remain clear. In addition, there is no significant alveolar-arterial gradient. I will continue with the current nebulizer treatments and low-dose oral steroids (decreased yesterday) for now. Inputs by Internal Medicine and Podiatry are also noted. Clinical status of the patient is significantly improved overall. However, given the above, the future status/prognosis for this patient does remain somewhat guarded. I will discuss the above with the attending physician. Fam Robb MD MTDD
--- NOTE | 2018-05-22 08:34 | CP.PCM.PN ---
Subjective - Date & Time of Evaluation Date of Evaluation: 05/22/18 Time of Evaluation: 07:30 - Subjective Subjective: (covering for Dr. Mireles) Patient is seen this morning. She complains that her feet are swollen. Objective - Vital Signs/Intake and Output Vital Signs (last 24 hours): Temp Pulse Resp BP Pulse Ox 98.4 F 90 20 132/77 95 05/22/18 06:00 05/22/18 06:00 05/22/18 06:00 05/22/18 06:00 05/22/18 06:00 - Medications Medications: Current Medications Acetaminophen (Tylenol 325mg Tab) 650 mg PO Q6 PRN PRN Reason: TEMP>=99.5F Last Admin: 05/22/18 06:53 Dose: 650 mg Acetaminophen (Tylenol 650 Mg Supp) 650 mg RC Q6H PRN PRN Reason: TEMP>=99.5F Acetazolamide (Diamox 250 Mg Tab) 250 mg PO DAILY [facility] Last Admin: 05/22/18 07:57 Dose: 250 mg Acetylcysteine (Acetylcysteine 20%) 4 ml IH [id number] [facility] Last Admin: 05/22/18 07:12 Dose: 4 ml Betamethasone/Clotrimazole (Lotrisone) 0 gm TOP BID [facility]; Protocol Last Admin: 05/21/18 17:48 Dose: 1 applic Budesonide (Pulmicort Respules) 0.5 mg IH [id number] [facility]; Protocol Last Admin: 05/22/18 07:12 Dose: 0.5 mg Clonazepam (Klonopin) 2 mg PO QID [facility]; Protocol Last Admin: 05/21/18 21:57 Dose: 2 mg Clotrimazole (Lotrimin 1%) 0 gm TOP BID [facility]; Protocol Last Admin: 05/21/18 17:48 Dose: 1 applic Dextrose (Dextrose 50% Inj) 0 ml IV STAT PRN; Protocol PRN Reason: Hypoglycemia Protocol Gabapentin (Neurontin) 300 mg PO TID [facility]; Protocol Last Admin: 05/21/18 17:48 Dose: 300 mg Heparin Sodium (Porcine) (Heparin) 5,000 units SC Q8 [facility]; Protocol Last Admin: 05/22/18 05:21 Dose: 5,000 units Dextrose (Dextrose 5% In Water 1000 Ml) 1,000 mls @ 0 mls/hr IV .Q0M PRN; Protocol PRN Reason: Hypoglycemia Protocol Insulin Detemir (Levemir) 30 unit SC ACBD [facility]; Protocol Last Admin: 05/22/18 06:50 Dose: 30 u Insulin Human Regular (Humulin R High) 0 units SC ACHS [facility]; Protocol Last Admin: 05/22/18 06:48 Dose: 2 units Lactic Acid (Lac-Hydrin 12% Lotion (225 G)) 0 gm TOP DAILY [facility]; Protocol Last Admin: 05/21/18 09:08 Dose: 1 applic Levalbuterol HCl (Xopenex) 1.25 mg IH Q2H PRN; Protocol PRN Reason: Shortness of Breath Last Admin: 05/17/18 18:22 Dose: 1.25 mg Levalbuterol HCl (Xopenex) 0.63 mg IH [id number] [facility]; Protocol Last Admin: 05/22/18 07:12 Dose: 0.63 mg Montelukast Sodium (Singulair) 10 mg PO HS [facility]; Protocol Last Admin: 05/21/18 21:58 Dose: 10 mg Multi-Ingredient Ointment (Hydrophor Oint) 0 gm TOP Q6H [facility]; Protocol Last Admin: 05/22/18 02:19 Dose: Not Given Temazepam [Restoril] (30 Mg- Home Med) 30 mg PO HS [facility] Last Admin: 05/21/18 22:08 Dose: 30 mg Nystatin/Triamcinolone Acetonide (Nystatin/Triamcinolone Cream) 0 ea TOP BID [facility]; Protocol Last Admin: 05/21/18 17:48 Dose: 1 applic Ondansetron HCl (Zofran Inj) 4 mg IVP Q4H PRN PRN Reason: Nausea/Vomiting Last Admin: 05/19/18 10:28 Dose: 4 mg Pantoprazole Sodium (Protonix Ec Tab) 40 mg PO 0600 [facility]; Protocol Last Admin: 05/22/18 05:23 Dose: 40 mg Paroxetine HCl (Paxil) 20 mg PO DAILY [facility]; Protocol Last Admin: 05/21/18 09:09 Dose: 20 mg Potassium Chloride (K-Dur 20 Meq Er Tab) 20 meq PO BID [facility] Last Admin: 05/22/18 07:58 Dose: 20 meq Prednisone (Prednisone Tab) 10 mg PO DAILY [facility] Last Admin: 05/22/18 07:59 Dose: 10 mg - Labs Labs: 05/17/18 07:00 05/22/18 06:30 - Constitutional Appears: No Acute Distress - Head Exam Head Exam: ATRAUMATIC, NORMOCEPHALIC - Respiratory Exam Respiratory Exam: Clear to Ausculation Bilateral, NORMAL BREATHING PATTERN - Cardiovascular Exam Cardiovascular Exam: REGULAR RHYTHM, +S1, +S2 - GI/Abdominal Exam GI & Abdominal Exam: Soft, Normal Bowel Sounds. absent: Tenderness - Extremities Exam Extremities Exam: Pedal Edema - Neurological Exam Neurological Exam: Alert, Awake, Oriented x3 Assessment and Plan - Assessment and Plan (Free Text) Assessment: Deconditioning COPD Diabetes mellitus Plan: continue physical therapy continue Levemir and insulin coverage for diabetes continue Xopenex respiratory treatments and Pulmicort as well as oral prednisone for COPD
[2018-05-22] MEDS: Clotrimazole/Betamethasone Cream(15 gm) TOP SCH ×2 (09:59→17:33)
[2018-05-22] MEDS: Clotrimazole 1% Cream(30 gm) TOP SCH ×2 (09:59→17:32)
[2018-05-22] MEDS: Ammonium Lactate 12% Lotion (225 g) TOP SCH (09:59)
[2018-05-22] MEDS: Nystatin-Triamcinolone Cream(30 gm) TOP SCH ×2 (10:00→17:33)
[2018-05-22] MEDS: TEMAZEPAM 30 MG PO SCH (23:04)
[2018-05-23] MEDS: Acetylcysteine 20% Inhal Soln (4ml) IH SCH ×4 (01:27→19:53)
[2018-05-23] MEDS: Levalbuterol 0.63 MG/3 ML Inhal Soln UD IH SCH ×4 (01:27→19:53)
[2018-05-23] MEDS: Petrolatum-Mineral Oil Oint (100gm) TOP SCH ×4 (02:41→20:17)
[2018-05-23] MEDS: Pantoprazole 40 mg EC Tab PO SCH (05:43)
[2018-05-23] MEDS: Insulin Detemir 100 units/ml Vial (Levemir) SC SCH ×2 (06:59→17:52)
[2018-05-23] MEDS: Insulin Reg-HIGH-Coverage SC SCH ×4 (06:59→22:18)
[2018-05-23] MEDS: Budesonide 0.5 mg/2 ml Inhal Susp UD IH SCH ×2 (07:31→19:53)
[2018-05-23 07:48] LABS: BLOOD UREA NITROGEN 11 mg/dL (7-21); GFR NON-AFRICAN AMERICAN > 60
[2018-05-23] MEDS: Potassium Chloride 20 mEq ER Tab PO SCH ×2 (08:16→17:54)
--- NOTE | 2018-05-23 08:51 | PN ---
DATE: 05/23/2018 PULMONARY NOTE SUBJECTIVE: The patient appears very comfortable this morning. She is not short of breath at rest. OBJECTIVE: VITAL SIGNS: (Last noted in the computer): Temperature is 98.2, pulse 88, respirations 18, blood pressure 133/86. Oxygen saturation on nasal cannula 93%-96%. HEENT: Normocephalic, atraumatic. NECK: No JVD. CARDIOVASCULAR: Positive S1 and S2. No S3 gallop. LUNGS: Clear bilaterally. EXTREMITIES: Mild edema. No cyanosis, no clubbing. Calves are nontender to palpation. GI: Abdomen is soft, nontender and nondistended. Bowel sounds are positive. SKIN: Improving left groin rash. NEUROLOGIC: Exam limited at the present time. IMPRESSION: 1. Sepsis syndrome. 2. Left groin cellulitis. 3. Advanced chronic obstructive pulmonary disease. 4. Asthma. Plan: The patient appears very comfortable this morning. She is not short of breath at rest. She does state to feeling much better overall. On physical exam, her lungs remain clear. In addition, there is no significant alveolar-arterial gradient. I will continue the current nebulizer treatments and low-dose oral steroids. Inputs by Internal Medicine and Podiatry are noted. Clinical status of the patient is significantly improved - compared to the initial presentation. However, given the above, the future status/prognosis for this patient does remain somewhat guarded. I will discuss the above with the attending physician. Fam Robb MD MTDGinna
[2018-05-23] MEDS: Ammonium Lactate 12% Lotion (225 g) TOP SCH (09:52)
[2018-05-23] MEDS: Clotrimazole/Betamethasone Cream(15 gm) TOP SCH ×2 (11:00→17:54)
[2018-05-23] MEDS: Clotrimazole 1% Cream(30 gm) TOP SCH ×2 (11:00→17:54)
[2018-05-23] MEDS: Nystatin-Triamcinolone Cream(30 gm) TOP SCH ×2 (11:00→17:55)
[2018-05-23] MEDS ORDERED: Potassium Chloride 20 mEq ER Tab PO ONE (14:36)
[2018-05-23 16:14] VITALS: PULSE 86; RESP 16; TEMP 97.1; O2SAT 100
[2018-05-23 16:42] VITALS: BP 121/75
[2018-05-23] MEDS: TEMAZEPAM 30 MG PO SCH (22:56)
[2018-05-24] MEDS: Acetylcysteine 20% Inhal Soln (4ml) IH SCH ×2 (02:03→07:05)
[2018-05-24] MEDS: Levalbuterol 0.63 MG/3 ML Inhal Soln UD IH SCH ×2 (02:03→07:05)
[2018-05-24] MEDS: Petrolatum-Mineral Oil Oint (100gm) TOP SCH (02:42)
--- NOTE | 2018-05-24 03:19 | PN ---
DATE: 05/23/2018 SUBJECTIVE: The patient is seen in room 314, bed 1. The patient is seen lying in the bed. The patient is awake and responsive. The patient does not appear to be in any distress. Overnight nurses notes were reviewed. The patient was found to be in no distress with continuous use of oxygen and likely use of BiPAP. PHYSICAL EXAMINATION: VITAL SIGNS: T-max 97.6, heart rate 84 to 86, blood pressure 139/85, respirations 16, O2 sat 94% to 100% on 2 liters nasal cannula. HEENT: Head examination normocephalic and atraumatic. HEENT examination shows pinkish conjunctivae. Anicteric sclerae. No oropharyngeal lesion. NECK: No neck rigidity. CHEST: Kyphosis. LUNGS: Shows improved air entry. No audible crackle, rales, or wheezing. CARDIOVASCULAR: S1, S2, regular rhythm. Questionable soft systolic murmur left sternal border, right second intercostal space, left second intercostal space. ABDOMEN: Morbidly obese, protuberant. No palpable hepatosplenomegaly. GENITALIA: Female. RECTAL: Deferred. EXTREMITIES: Shows decreasing pitting edema of the lower extremity. MUSCULOSKELETAL: Shows a body mass index of 48.4, weight of 282 pounds. GAIT: Not tested. DIAGNOSTICS: On 05/23/2018, potassium 3.3, CO2 is down to 39 from 41, BUN 11, creatinine 0.9, GFR greater than 60, and glucose 135. Fingerstick blood sugar 129, 283, 257. IMPRESSION AND PLAN: 1. Deconditioning. 2. Gait dysfunction. 3. Acute exacerbation of chronic obstructive pulmonary disease and emphysema. 4. Obstructive sleep apnea. 5. Super morbid obesity with elevated body mass index of 48.4. 6. Bilateral xerosis of the feet and elongated dystrophic toe nails. 7. Poor personal hygiene. 8. Xerosis of both feet. 9. Metabolic alkalosis. 10. Hypokalemia. 11. Anxiety disorder. 12. Insulin-requiring diabetes mellitus. 13. Diabetic neuropathy. 14. Depression. 15. Insomnia. 16. Bilateral lower extremity venous stasis (resolving). At present, the patient is to be continued on the Transitional Care Unit until approved number of days. The patient will undergo daily physical therapy, occupation therapy, ambulation therapy, get training. Sequential compression device and WING stockings ordered. CURRENT MEDICATIONS: Mucomyst nebulizer 20% 4 mL every 6 hours, Diamox 250 mg daily, heparin 5000 subcu every 8 hours, Humulin R high dose sliding scale coverage, Hydrophor ointment every 6 hours, potassium extra dose 20 mEq given. The patient was on K-Dur 20 mEq twice a day, Klonopin 2 mg 4 times a day, Lac-Hydrin lotion, Lasix 20 mg IV push daily, Levemir 30 units breakfast and dinner, Lotrimin to the affected area twice a day, Lotrisone cream to the affected area twice a day, Neurontin 300 mg three times a day, Mycolog cream to the affected area, Paxil 20 mg daily, prednisone 10 mg daily, Protonix 40 mg daily, Pulmicort nebulizer 0.5 mg every 12, Singulair 10 mg at bedtime, Restoril 30 mg at bedtime, Tylenol 650 mg p.o. suppository every 6 hours p.r.n., Xopenex nebulizer 0.63 mg round the clock every 6 hours and 1.25 mg every 2 hours p.r.n., Zofran 4 mg IV every 4 hours p.r.n. BiPAP at night. Incentive spirometry, WING eugeneings, SCDs, head of the bed at 30 degrees, physical therapy, occupational therapy, ambulation therapy. At present, the patient is for possible discharge in a.m. after completion of the TCU state. The patient will be discharged tomorrow morning. The patient will continue on albuterol. Her next discharge medications will be Ventolin HFA 2 puffs q.i.d., Brovana 15 mcg nebulizer twice a day, Klonopin 2 mg 4 times daily, Dexilant 60 mg daily, Voltaren gel to the affected area of the joint in knees, Cardizem CD 120 mg daily, Aricept 5 mg daily, Drisdol 50,000 units weekly, Pepcid 40 mg daily, Flonase nasal spray, Neurontin 300 three times a day, Amaryl 4 mg twice a day, Tresiba 30 units at bedtime, Lovenox nebulizer 1.25 mg 3 to 4 times a day, Lidoderm 5% patch to the affected area, Cozaar 50 mg daily, Singulair 10 mg daily, Lovaza 2 g twice a day, Paxil 20 mg daily, Seroquel 100 mg twice a day, Crestor 20 mg daily, Restoril 30 mg at bedtime, Spiriva 2.5 mcg inhalation daily, Ultracet 1 tab b.i.d. The patient will be discharged tomorrow. The patient's case will be therefore discussed with services for home services in [facility]. Discharge medications as dictated above. Dictated and electronically signed, not read. Christian Mireles MD
[2018-05-24] MEDS: Pantoprazole 40 mg EC Tab PO SCH (06:02)
[2018-05-24] MEDS: Insulin Reg-HIGH-Coverage SC SCH (07:01)
[2018-05-24] MEDS: Insulin Detemir 100 units/ml Vial (Levemir) SC SCH (07:02)
[2018-05-24] MEDS: Budesonide 0.5 mg/2 ml Inhal Susp UD IH SCH (07:05)
[2018-05-24] MEDS: Clotrimazole 1% Cream(30 gm) TOP SCH (09:04)
[2018-05-24] MEDS: Clotrimazole/Betamethasone Cream(15 gm) TOP SCH (09:05)
[2018-05-24] MEDS: Nystatin-Triamcinolone Cream(30 gm) TOP SCH (09:06)
[2018-05-24] MEDS: Ammonium Lactate 12% Lotion (225 g) TOP SCH (09:11)
[2018-05-24] MEDS: Potassium Chloride 20 mEq ER Tab PO SCH (09:12)
== END 2018-05-24 09:39 | disposition home or self-care (01) | DRG 91 ==
LOC: TRCU 18:19
PROVIDERS: ADMIT Internal Medicine; ATTEND Internal Medicine
PROC: 3E0F7GC Introduction of Other Therapeutic Substance into Respiratory Tract, Via Natural or Artificial Opening (ICD-10-PCS; 2018-05-16)
PROC: F07Z9FZ Gait Training/Functional Ambulation Treatment using Assistive, Adaptive, Supportive or Protective Equipment (ICD-10-PCS; principal; 2018-05-17)
PROC: F08Z4FZ Home Management Treatment using Assistive, Adaptive, Supportive or Protective Equipment (ICD-10-PCS; 2018-05-17)
PROC: 5A09457 Assistance with Respiratory Ventilation, 24-96 Consecutive Hours, Continuous Positive Airway Pressure (ICD-10-PCS; 2018-05-17)
DX: R26.89 Other abnormalities of gait and mobility (principal); J18.1 Lobar pneumonia, unspecified organism; L03.314 Cellulitis of groin; Z68.43 Body mass index [BMI] 50.0-59.9, adult; E87.3 Alkalosis; J43.9 Emphysema, unspecified; E11.65 Type 2 diabetes mellitus with hyperglycemia; E11.40 Type 2 diabetes mellitus with diabetic neuropathy, unspecified; E66.01 Morbid (severe) obesity due to excess calories; I87.2 Venous insufficiency (chronic) (peripheral); L40.9 Psoriasis, unspecified; T38.0X5A Adverse effect of glucocorticoids and synthetic analogues, initial encounter; E87.6 Hypokalemia; E55.9 Vitamin D deficiency, unspecified; G47.33 Obstructive sleep apnea (adult) (pediatric); F32.9 Major depressive disorder, single episode, unspecified; F43.22 Adjustment disorder with anxiety; I10 Essential (primary) hypertension; J32.4 Chronic pansinusitis; D64.9 Anemia, unspecified; E78.1 Pure hyperglyceridemia; G47.00 Insomnia, unspecified; L85.3 Xerosis cutis; H70.92 Unspecified mastoiditis, left ear; K76.0 Fatty (change of) liver, not elsewhere classified; T50.2X5A Adverse effect of carbonic-anhydrase inhibitors, benzothiadiazides and other diuretics, initial encounter; Z79.4 Long term (current) use of insulin; Z79.52 Long term (current) use of systemic steroids; Z91.11 Patient's noncompliance with dietary regimen

== ENCOUNTER 2018-07-03 11:51 | Outpatient (CLI) | payer MEDICARE, OTHER | END 2018-07-03 11:52 | disposition home or self-care (01) | LOC: LAB 11:51 ==